=== PATIENT | female | born 1945 | race Caucasian/White ===

== ENCOUNTER → 2016-07-18 | Outpatient (CLI) | payer MEDICARE, OTHER ==
[~2016-07-18] MED LIST: DOXYCYCLINE HYCLATE 100 MG/10 ML VIAL As Ordered ONE; HYDR-3713 PO; ISOVUE-300 61% 50ML VIAL (Q9967) As Ordered ONE; LIDOCAINE 2% MDV 20 ML VIAL As Ordered ONE; LIDOCAINE W/EPINEPHRINE 1% 20ML VIAL As Ordered ONE; SODIUM BICARBONATE 8.4% INJ 50MEQ 50 ML VIAL As Ordered ONE
--- NOTE | 2016-07-18 18:10 | REPKIM ---
CLINICAL HISTORY: Patient with a history of polycystic changes to the liver presents with symptomatic painful right hepatic cyst(s). Patient presents for the hepatic cyst(s) diagnostic aspiration possible intervention. PROCEDURE PERFORMED: 1. Ultrasound of the liver 2. Large complex right hepatic cyst drainage catheter placement, sinogram and sclerotherapy INTERVENTIONALIST: Home Bond MD CONSENT: The risks, benefits and alternatives to the procedure were explained to the patient and informed written consent was obtained. MEDICATIONS: Local Lidocaine 2%, Doxycycline for sclerotherapy CONTRAST: 30 mL Isovue 300 EBL: 1 mL FLUORO TIME: 2.2 minutes DEVICE USED: 8.5F Resolve Catheter PROCEDURE: The patient was brought to the interventional radiology suite where a timeout procedure was performed. The patient was placed in the supine position. The abdomen was prepped and draped in a usual sterile fashion. Ultrasound showed multiple hepatic cysts. There is a large complex right hepatic cyst measuring approximately 11-12 cm corresponding to the patients abdominal pain/ discomfort. Using ultrasound guidance, an 18-gauge gauge singlewall needle was introduced into the targeted complex right hepatic cyst, after infiltration of the skin and deep tissues with local anesthetic. Initial aspirate revealed chocolate color fluid. A sample of the fluid was sent for laboratory analysis. Contrast was injected and DSA images were obtained. This showed the cyst cavity is loculated with no evidence of leak or communication with the adjacent structure. Using this access, an 8.5 Maori Resolve catheter was introduced. Its distal loop was formed in the cystic cavity. The catheter was secured using the Revolution device. A total of approximately 630 mL of fluid was removed. The drainage catheter was then irrigated with saline/local lidocaine and aspirated out. Doxycycline 200 mg mixed in 30 mL saline concentration was then instilled into the cavity for 15-20 minutes. It was then aspirated out. The drainage catheter was flushed and connected to a gravity drainage bag. The patient tolerated the procedure well with no immediate complications. This procedure was performed using ultrasound and fluoroscopy. Dr. Bond was present. IMPRESSION: Symptomatic large right hepatic complex cyst. Initial aspirate revealed chocolate color fluid suggestive of hemorrhagic cyst. Successful hepatic cyst drainage catheter placement, aspiration and sclerotherapy as discussed above. A sample of the fluid sent for c/s and cytology. PLAN: The plan is for the patient to return to IR in next week for a follow up sinogram, possible catheter removal or intervention. Patient was instructed to record daily drainage output. cc: MD PEE GardinerD
== END | disposition home or self-care (01) ==
LOC: M IRPRO 12:56
PROVIDERS: ATTEND Internal Medicine Nephrology
DX: K76.89 Other specified diseases of liver (principal)
CPT/HCPCS: 49405; 87070; 87075; 87205; 88108; 88313; C1729; C1769; Q9967

== ENCOUNTER → 2016-07-25 | Outpatient (CLI) | payer MEDICARE, OTHER ==
[~2016-07-25] MED LIST changes: -DOXYCYCLINE HYCLATE 100 MG/10 ML VIAL As Ordered ONE; +ETHANOL ALCOHOL 98% INJ 5ML (DEHYDRATED) As Ordered ONE; -LIDOCAINE W/EPINEPHRINE 1% 20ML VIAL As Ordered ONE
--- NOTE | 2016-07-25 17:34 | REPKIM ---
HISTORY: Large symptomatic hepatic cyst on the right. On last encounter an 8.5F drainage catheter placed into the right hepatic cyst and sclerotherapy using Doxycycline performed on 07/18/16. The fluid sample cytology and culture were negative. The patient presents for a follow up hepatic drainage catheter check possible 2nd session sclerotherapy/catheter removal. Patient reports decreased daily drainage outputs, approximately 10-30 mL/day. PROCEDURE: Hepatic Cyst Drainage Catheter Check and Catheter Removal INTERVENTIONALIST: Dr. Home Bond MEDICATIONS: Local lidocaine, Fentanyl 50 mcg IV CONTRAST: 22 mL Isovue 300 EBL: 1mL FLUORO TIME: 7.5 minutes PROCEDURE DETAILS: After appropriate consent was obtained and time out performed , the patient was placed in supine position on the angiographic table. The existing right hepatic cyst drainage catheter was prepped and draped in the usual sterile manner. Contrast was administered through the existing 8.3-Upper Sorbian drainage catheter and images were obtained. This showed the catheter is patent. This also showed a residual cavity of approximately 40 mL volume. The cavity was then irrigated with lidocainhe/saline and aspirated out. A small amount of Absolute alcohol 8 mL was then instilled for additional sclerotherapy, however patient did not tolerate due to pain and discomfort. Therefore the cavity content was aspirated out. After the cavity was irrigated with saline and aspirated out, the existing drainage catheter was then unlocked and removed in its entirety. A sterile dressing was applied. This procedure was performed using fluoroscopy. IMPRESSION: S/P large symptomatic right hepatic cyst drainage catheter check and catheter removal as discussed above. Dr. Bond was present for the entire procedure as documented in the progress notes. cc: MD DILCIA Gardiner
== END | disposition home or self-care (01) ==
LOC: M IRPRO 10:44
DX: K76.89 Other specified diseases of liver (principal)
CPT/HCPCS: 49185; C1769; C1887; Q9967

== ENCOUNTER → 2016-08-05 | Outpatient (CLI) | payer MEDICARE, OTHER ==
[~2016-08-05] MED LIST changes: -ETHANOL ALCOHOL 98% INJ 5ML (DEHYDRATED) As Ordered ONE; -ISOVUE-300 61% 50ML VIAL (Q9967) As Ordered ONE; -LIDOCAINE 2% MDV 20 ML VIAL As Ordered ONE; -SODIUM BICARBONATE 8.4% INJ 50MEQ 50 ML VIAL As Ordered ONE
--- NOTE | 2016-08-05 10:29 | REP ---
Linear densities are present in the left lower lobe consistent with scar. The right lung is clear. The heart is normal in size. The pulmonary vasculature is normal in appearance. The bony structure is intact. Impression left lower lobe scar. Signed by Song Iglesias MD 08/05/2016 10:21 A
== END ==
LOC: M ADAMS 09:05
PROVIDERS: ATTEND Family Medicine
DX: R05 Cough (principal); J98.4 Other disorders of lung; R60.9 Edema, unspecified; Z72.0 Tobacco use; Z23 Encounter for immunization; Z79.82 Long term (current) use of aspirin; Z79.899 Other long term (current) drug therapy

== ENCOUNTER → 2016-08-05 | Outpatient (REF) | payer MEDICARE, OTHER ==
[2016-08-05 12:40] LABS: ALBUMIN 3.3 GM/DL (3.2-5.2); ALBUMIN/GLOBULIN RATIO 1.1 (1.00-1.93); BILIRUBIN,TOTAL 0.5 MG/DL (0.2-1.0); CALCIUM LEVEL 9.3 MG/DL (8.8-10.2); CREATININE FOR GFR 1.59 MG/DL (0.55-1.02); TOTAL PROTEIN 6.3 GM/DL (6.4-8.2)
== END ==
LOC: M SFHCADAM 08:59
PROVIDERS: ATTEND Family Medicine
DX: R60.9 Edema, unspecified (principal)

== ENCOUNTER 2016-12-09 14:45 | Emergency (ER) | payer MEDICARE, OTHER ==
[~2016-12-09] VITALS: Ht 160 cm; Wt 72.6 kg
[2016-12-09] MEDS ORDERED: POTA10CA (15:17)
[2016-12-09] MEDS ORDERED: IRBE150T12 (15:17)
[2016-12-09] MEDS ORDERED: FURO40TA2 (15:17)
[2016-12-09] MEDS ORDERED: ASPI81CH32 PO (15:17)
[2016-12-09] MEDS ORDERED: CALC1CAP31 (15:17)
[2016-12-09] MEDS ORDERED: ATOR1TAB21 (15:17)
--- NOTE | 2016-12-09 19:30 | REPUSA ---
HISTORY: HEADACHE. TECHNIQUE: Axial CT of head without contrast. DLP= 835.1 mGy-cm. FINDINGS: Ventricles and sulci are of normal size for this age group. Tapia-white matter differentiati on is intact. There is no evidence of intracranial mass, mass effect, hemorrhage, or cystic lesion id entified. There is no detectable evidence of infarct. No bony lesions are seen in the calvarium or sk ull base. Paranasal sinuses and mastoid sinuses are clear. IMPRESSION: Negative noncontrast head CT examination.
[2016-12-09 19:43] VITALS: BP 138/77
== END 2016-12-09 19:46 | disposition home or self-care (01) ==
LOC: M ED 14:45
DX: R51 Headache (principal); Z72.0 Tobacco use

== ENCOUNTER → 2016-12-19 | Outpatient (CLI) | payer MEDICARE, OTHER ==
[~2016-12-19] MED LIST changes: +ASPI81CH32 PO; +ATOR1TAB21; +CALC1CAP31; +FURO40TA2; +IRBE150T12; +POTA10CA
--- NOTE | 2016-12-19 17:11 | REP ---
CT abdomen pelvis without IV or bowel contrast: Comparison is 09/01/2014. The visualized lung aggarwal are unremarkable. There are numerous hepatic cysts involving both right and left lobes similar to the prior study. The largest cyst is inferiorly in the right lobe today measuring 9.3 cm (previously 12.1 cm. Some of the cysts contain rim calcifications. This is unchanged. Because of the cysts in the liver appears enlarged. The gallbladder cannot be identified as a distinct structure. The left lobe of the liver is significantly enlarged. This is unchanged. The pancreas and spleen are normal size and unremarkable. The adrenals are unremarkable. There is bilateral renal cortical atrophy, worse on the left. The abdominal aorta is unremarkable. There is no retroperitoneal adenopathy. There is no ascites. There is no bowel distension. Pelvis: There is no ascites or adenopathy. There is sigmoid diverticulosis without diverticulitis. This is unchanged. Impression: Numerous hepatic cysts as described. There is hepatomegaly , particularly the hepatic left lobe. Renal cortical atrophy, worse on the left. No ascites or adenopathy. Diverticulosis without diverticulitis. Signed by Lorenzo Cox MD 12/19/2016 05:03 P
== END ==
LOC: M RAD 15:07
PROVIDERS: ATTEND Internal Medicine Nephrology
DX: Q44.6 Cystic disease of liver (principal); R16.0 Hepatomegaly, not elsewhere classified; K57.30 Diverticulosis of large intestine without perforation or abscess without bleeding

== ENCOUNTER → 2017-02-23 | Outpatient (REF) | payer MEDICARE, OTHER ==
[2017-02-23 12:13] LABS: CREATININE FOR GFR 1.97 MG/DL (0.55-1.02); GLOMERULAR FILTRATION RATE 26.5 (>39)
== END ==
LOC: M LABDRAW1 11:13
PROVIDERS: ATTEND Physical Medicine & Rehabilitation
DX: Z01.812 Encounter for preprocedural laboratory examination (principal); M48.062 Spinal stenosis, lumbar region with neurogenic claudication

== ENCOUNTER 2017-04-14 08:38 | Day surgery (SDC) | payer MEDICARE, OTHER ==
[~2017-04-14] VITALS: Ht 157.5 cm; Wt 72.0 kg
[~2017-04-14 08:38] MED LIST changes: -ATOR1TAB21; +ATOR1TAB21 PO; -CALC1CAP31; +CALC1CAP31 PO; -FURO40TA2; +FURO40TA2 PO; -IRBE150T12; +IRBE150T12 PO; -POTA10CA; +POTA10CA PO
[2017-04-14] MEDS ORDERED: LR 1,000 ML IV ONE (09:00)
[2017-04-14] MEDS ORDERED: LIDOCAINE 2% INJ 100 MG/5 ML SDV (FOR ANES.) As Ordered ONE (10:07)
[2017-04-14] MEDS ORDERED: ROCURONIUM BROMIDE 50 MG/5 ML VIAL As Ordered ONE (10:07)
[2017-04-14] MEDS ORDERED: fentaNYL 100 MCG/2 ML INJECTION (J3010) As Ordered ONE ×2 (10:07→11:23)
[2017-04-14] MEDS ORDERED: PROPOFOL 200 MG/20 ML VIAL As Ordered ONE (10:07)
[2017-04-14] MEDS ORDERED: MIDAZOLAM INJ 2 MG/2 ML VIAL (J2250) As Ordered ONE (10:08)
[2017-04-14] MEDS ORDERED: BUPIVACAINE/EPIN 0.5% 30 ML VIAL As Ordered ONE (10:19)
[2017-04-14] MEDS ORDERED: PHENYLephrine HCL 500 MCG/5 ML (100MCG/ML) SYRINGE (J2370) As Ordered ONE (11:15)
[2017-04-14] MEDS ORDERED: ePHEDrine SULFATE 25 MG/5 ML(5MG/ML) SYRINGE As Ordered ONE (11:18)
[2017-04-14] MEDS ORDERED: NEOSTIGMINE 10 MG/10 ML VIAL (J2710) As Ordered ONE (11:24)
[2017-04-14] MEDS ORDERED: GLYCOPYRROLATE INJ 0.2 MG/ML 2 ML VIAL As Ordered ONE (11:24)
[2017-04-14] MEDS ORDERED: ONDANSETRON 4MG/2ML VIAL (J2405) As Ordered ONE (11:24)
[2017-04-14] MEDS ORDERED: HYDROmorphone HCL 1 MG/ML SYRINGE (J1170) IV PRN (12:30)
[2017-04-14] MEDS ORDERED: LR 1,000 ML IV SCH (12:30)
[2017-04-14] MEDS ORDERED: fentaNYL 100 MCG/2 ML INJECTION (J3010) IV PRN (12:30)
[2017-04-14] MEDS ORDERED: ONDANSETRON 4MG/2ML VIAL (J2405) IV PRN (12:30)
[2017-04-14] MEDS ORDERED: PERCOCET 5MG/325MG TAB PO PRN (12:30)
[2017-04-14 13:05] VITALS: BP 134/63
--- NOTE | 2017-04-17 08:10 | RO ---
DATE OF PROCEDURE: 04/14/2017 PREOPERATIVE DIAGNOSIS: Polycystic liver disease. POSTOPERATIVE DIAGNOSIS: Polycystic liver disease. PROCEDURE: Laparoscopic liver biopsy with unroofing of three of the largest hepatic cysts. SURGEON: Dr. Siddiqui. ASSISTANTS: None. ANESTHESIA: General. ESTIMATED BLOOD LOSS: 5. COMPLICATIONS: None. INDICATION FOR PROCEDURE: The patient is a 71-year-old female who presents with a history of polycystic liver disease. She has had multiple drainages done of two large cysts every 6 months for the past 3 years. Every time the cyst refills with fluid, she develops excruciating pain. She was referred to me for unroofing of the cyst to see if we can prevent this from recurring. Recommendation was to proceed with laparoscopic unroofing of this large hepatic cyst. Risks and benefits of the procedure, not limited to but including bleeding, infection, hernia formation, damage to surrounding structures and possible need for further drainage were discussed in detail with the patient. Informed consent was obtained and the procedure was planned. DESCRIPTION OF PROCEDURE: The patient was brought back to operating room #3. After sufficient sedation, the abdomen was sterilely prepped and draped. Next, time out was done to confirm proper patient and proper procedure. Following that, a 5 mm incision was made in the left lower quadrant. Veress needle was inserted and the abdomen was insufflated to 50 mmHg. Next, Veress needle was removed. A 5 mm OptiView port was used to gain access to the abdomen. Once the abdomen was entered, two more 5 mm ports were placed, one supraumbilically in the midline and one in the right midabdomen. The entire liver was examined. CT scan was brought up on the screen and images were compared. Due to the extensive small cysts in the study along the entire surface of the liver, it was difficult to determine the exact location of the largest of the cysts. Using Enseal, I was able to take down adhesions from the hepatic flexure of the colon to the right lateral lobe of the liver. I was assuming that these adhesions were likely due to scarring from the previous biopsy location. Most of the adhesions were all taken down. The liver was poked in the in that same spot using a needle and fluid was obtained. Next, the Enseal was used to carefully unroof an area about 3 x 3 cm and all the fluid was removed. However, it did not seem that this was the large 10 cm cyst that was seen on the CT scan. Once this was completed, two other cysts were found anteriorly on the top of the liver, again both of them seemed much smaller than what were visualized on the CT scan. It was difficult to determine if these were the exact same location or not. With the fear of causing harm, we stopped at this point with just unroofing of those three locations. The patient tolerated the procedure well. Ports were removed. Abdomen was desufflated. Skin incision was closed #4-0 Vicryl subcuticular sutures, skin was cleaned and dried. Steri-Strips, 4x4 and tape were applied, thus ending procedure.
== END 2017-04-14 13:02 | disposition home or self-care (01) ==
LOC: M SDC 08:38
PROVIDERS: ATTEND Surgery
DX: Q44.6 Cystic disease of liver (principal); E78.00 Pure hypercholesterolemia, unspecified; R29.898 Other symptoms and signs involving the musculoskeletal system; M16.12 Unilateral primary osteoarthritis, left hip; M81.0 Age-related osteoporosis without current pathological fracture; N18.3 Chronic kidney disease, stage 3 (moderate); I12.9 Hypertensive chronic kidney disease with stage 1 through stage 4 chronic kidney disease, or unspecified chronic kidney disease; Z79.899 Other long term (current) drug therapy; Z79.82 Long term (current) use of aspirin; Z90.710 Acquired absence of both cervix and uterus; Z78.0 Asymptomatic menopausal state; Z72.0 Tobacco use; Z85.41 Personal history of malignant neoplasm of cervix uteri
CPT/HCPCS: 49322; 88108; 88305; 88313; J0690; J2250; J2370; J2405; J2710; J3010

== ENCOUNTER 2017-07-02 10:36 | Emergency (ER) | payer MEDICARE, OTHER ==
[2017-07-02] MEDS: ACETAMINOPHEN 325 MG TAB PO (11:28)
[2017-07-02] MEDS: DERMABOND TOPICAL SKIN ADHESIVE TOP (13:00)
== END 2017-07-02 14:08 | disposition home or self-care (01) ==
LOC: M ED 10:36
DX: S01.81XA Laceration without foreign body of other part of head, initial encounter (principal); W19.XXXA Unspecified fall, initial encounter; Y92.098 Other place in other non-institutional residence as the place of occurrence of the external cause; E78.5 Hyperlipidemia, unspecified; N18.3 Chronic kidney disease, stage 3 (moderate); I50.9 Heart failure, unspecified; Z85.41 Personal history of malignant neoplasm of cervix uteri; F17.210 Nicotine dependence, cigarettes, uncomplicated; Z79.899 Other long term (current) drug therapy; Z79.82 Long term (current) use of aspirin
CPT/HCPCS: 73030

== ENCOUNTER 2017-07-06 05:53 | Day surgery (SDC) | payer MEDICARE, OTHER ==
[2017-07-06] MEDS ORDERED: LIDOCAINE 1% MDV 20ML VIAL SQ (06:00)
[2017-07-06] MEDS: LIDOCAINE 2% MDV 20 ML VIAL As Ordered (06:31)
[2017-07-06] MEDS: PHENYLEPHRINE 2.5% OPHTH SOL 2ML OD (06:38)
[2017-07-06] MEDS: TROPICAMIDE 1% OPHTH SOLN 2ML OD (06:38)
[2017-07-06] MEDS: OFLOXACIN 0.3 % (OCUFLOX) OPTH SOL 5ML OD (06:38)
[2017-07-06] MEDS: PROPARACAINE 0.5% OPHTH SOL 15ML OD (06:38)
[2017-07-06] MEDS ORDERED: MIDAZOLAM INJ 2 MG/2 ML VIAL (J2250) As Ordered (07:02)
[2017-07-06] MEDS ORDERED: fentaNYL 100 MCG/2 ML INJECTION (J3010) As Ordered (07:02)
[2017-07-06] MEDS: BALANCED SALT IRRIGATION SOLUTION 500ML BAG (FOR OR EYE MACHINE) As Ordered (07:40)
[2017-07-06] MEDS: POVIDONE-IODINE 5% OPHTH PREP SOL 30ML As Ordered (07:40)
[2017-07-06] MEDS: LIDOCAINE 0.75%/EPINEPHRINE 0.025% IN BSS 1ML SYR INTRACAMERAL (OR ONLY) As Ordered (07:41)
[2017-07-06] MEDS: DUOVISC (0.50ML VISCOAT/0.55ML PROVISC) OPHTH KIT As Ordered (07:41)
[2017-07-06] MEDS: CEFUROXIME 1MG/0.1ML INTRACAMERAL INJ As Ordered (07:41)
== END 2017-07-06 08:13 | disposition home or self-care (01) ==
LOC: M SDC 05:53
DX: H25.11 Age-related nuclear cataract, right eye (principal); I10 Essential (primary) hypertension; E78.5 Hyperlipidemia, unspecified; F17.210 Nicotine dependence, cigarettes, uncomplicated; Z79.899 Other long term (current) drug therapy; N18.3 Chronic kidney disease, stage 3 (moderate)
CPT/HCPCS: 66984

== ENCOUNTER 2017-07-13 06:58 | Day surgery (SDC) | payer MEDICARE, OTHER ==
[2017-07-13] MEDS: PROPARACAINE 0.5% OPHTH SOL 15ML OS (07:49)
[2017-07-13] MEDS: TROPICAMIDE 1% OPHTH SOLN 2ML OS (07:49)
[2017-07-13] MEDS: PHENYLEPHRINE 2.5% OPHTH SOL 2ML OS (07:49)
[2017-07-13] MEDS: OFLOXACIN 0.3 % (OCUFLOX) OPTH SOL 5ML OS (07:49)
[2017-07-13] MEDS ORDERED: MIDAZOLAM INJ 2 MG/2 ML VIAL (J2250) As Ordered (08:19)
[2017-07-13] MEDS ORDERED: fentaNYL 100 MCG/2 ML INJECTION (J3010) As Ordered (08:19)
[2017-07-13] MEDS: ACETYLCHOLINE OPHTH SOLN 1% 2ML (MIOCHOL-E) As Ordered ×2 (08:55→09:19)
[2017-07-13] MEDS: BALANCED SALT IRRIGATION SOLUTION 500ML BAG (FOR OR EYE MACHINE) As Ordered (08:55)
[2017-07-13] MEDS: POVIDONE-IODINE 5% OPHTH PREP SOL 30ML As Ordered (08:55)
[2017-07-13] MEDS: LIDOCAINE 0.75%/EPINEPHRINE 0.025% IN BSS 1ML SYR INTRACAMERAL (OR ONLY) As Ordered (08:55)
[2017-07-13] MEDS: DUOVISC (0.50ML VISCOAT/0.55ML PROVISC) OPHTH KIT As Ordered (08:55)
[2017-07-13] MEDS: CEFUROXIME 1MG/0.1ML INTRACAMERAL INJ As Ordered (08:55)
== END 2017-07-13 09:53 | disposition home or self-care (01) ==
LOC: M SDC 06:58
DX: H25.12 Age-related nuclear cataract, left eye (principal); I10 Essential (primary) hypertension; I48.91 Unspecified atrial fibrillation; E78.5 Hyperlipidemia, unspecified; N18.3 Chronic kidney disease, stage 3 (moderate); F17.210 Nicotine dependence, cigarettes, uncomplicated; Z79.82 Long term (current) use of aspirin; Z79.899 Other long term (current) drug therapy
CPT/HCPCS: 66984

== ENCOUNTER 2018-02-28 20:46 | Emergency (ER) | payer MEDICARE, OTHER ==
[2018-02-28] MEDS: traMADol 50 MG TAB PO (23:00)
[2018-02-28] MEDS: NORCO 5/325MG TABLET (BULK FOR ED) PO (23:55)
== END 2018-03-01 00:02 | disposition home or self-care (01) ==
LOC: M ED 03-01 00:02
DX: S52.532A Colles' fracture of left radius, initial encounter for closed fracture (principal); X58.XXXA Exposure to other specified factors, initial encounter; Y92.099 Unspecified place in other non-institutional residence as the place of occurrence of the external cause; Y93.89 Activity, other specified; Y99.9 Unspecified external cause status; I10 Essential (primary) hypertension; E78.5 Hyperlipidemia, unspecified; Z79.82 Long term (current) use of aspirin; Z79.899 Other long term (current) drug therapy
CPT/HCPCS: 73110

== ENCOUNTER 2018-11-21 08:44 | Emergency (ER) | payer MEDICARE, OTHER ==
[~2018-11-21] VITALS: Ht 157.5 cm; Wt 70.5 kg
[~2018-11-21 08:44] MED LIST changes: -ASPI81CH32 PO; +ASPI81CH33 PO; +KLOR10TA76 PO; -POTA10CA PO
[2018-11-21] MEDS ORDERED: ACET-841 PO (08:51)
--- NOTE | 2018-11-21 09:38 | REP ---
Left hip two views: There is demineralization. There is no fracture or dislocation. There are no calcifications or foreign bodies except for calcified vascular atheroma. Impression: Demineralization. No fracture or dislocation. Electronically Signed by Lorenzo Cox MD 11/21/2018 09:29 A
--- NOTE | 2018-11-21 09:40 | REP ---
AP pelvis: There is demineralization. There is joint space narrowing of the right hip compatible with osteoarthritis. Left hip is unremarkable. Sacroiliac articulations are unremarkable. There is calcified vascular atheroma. There are calcifications inferiorly in the pelvis, likely phleboliths. Impression: No fracture. Demineralization. Right hip osteoarthritis. Pelvic calcifications, likely phleboliths. Electronically Signed by Lorenzo Cox MD 11/21/2018 09:31 A
--- NOTE | 2018-11-21 10:28 | REP ---
CT lumbar spine without contrast: History: Pain in the left buttock. Comparison is made with MRI images of the lumbar spine from February 27, 2017. Also available are images obtained as part of the CT study of the abdomen and pelvis from December 19, 2016. CT findings: Incidental note is made of numerous small and large cysts throughout the visualized portion of the liver. Several of these have calcified margins. Some of these calcifications are visible on the costume specialist image. These are unchanged from the comparison CT study December 19, 2016. Atrophic left kidney and to some degree right kidney are seen. No renal cysts. There is focal small distal abdominal aortic aneurysm 2.8 cm in greatest diameter. This appears to be unchanged. Lumbar vertebral body heights are preserved. Alignment is normal. No fracture or collapse is seen. There is a minimal dextroconvex curvature in the lumbar spine. No bony destructive lesion is seen. There is no evidence of spondylolysis or spondylolisthesis. At L5-S1, there is diffuse disc bulging and mild facet hypertrophy. Minimal neural foraminal narrowing again noted on the right. No left bony neural foraminal encroachment. At L4-5, there is mild degenerative disc narrowing and diffuse disc bulging. This effaces the ventral margin of the thecal sac. Canal size at L4-5 is borderline. There is mild facet and ligamentum flavum hypertrophy. At L3-4, there is no evidence of focal disc protrusion. There is mild diffuse disc bulging. Foraminal disc segment bulging is also seen although nerve roots appear to be surrounded circumferentially by epidural fat. At L2-L3, there is minimal diffuse disc bulging. No central canal stenosis or foraminal narrowing is seen. The L1-2 disc level is unremarkable. Impression: Findings appear to be unchanged from the February 27, 2017 prior MRI study. There are degenerative spondylosis changes at L2-3 through L5-S1. Borderline canal size is seen at L4-5. Minimal right-sided foraminal narrowing is seen at L5-S1. No new disc protrusion is evident. Numerous hepatic cysts some of which have calcified vazquez. Electronically Signed by Daljit Yung MD 11/21/2018 10:44 A
[2018-11-21] MEDS ORDERED: NORC1TAB7 PO (10:45)
[2018-11-21 10:56] VITALS: BP 135/86
== END 2018-11-21 10:57 | disposition home or self-care (01) ==
LOC: M ED 08:44
DX: M79.18 Myalgia, other site (principal); I10 Essential (primary) hypertension; M47.816 Spondylosis without myelopathy or radiculopathy, lumbar region; M47.817 Spondylosis without myelopathy or radiculopathy, lumbosacral region; M48.07 Spinal stenosis, lumbosacral region; K76.89 Other specified diseases of liver; M85.852 Other specified disorders of bone density and structure, left thigh; M16.11 Unilateral primary osteoarthritis, right hip; R93.5 Abnormal findings on diagnostic imaging of other abdominal regions, including retroperitoneum; E78.5 Hyperlipidemia, unspecified; N18.3 Chronic kidney disease, stage 3 (moderate); M81.0 Age-related osteoporosis without current pathological fracture; Z79.82 Long term (current) use of aspirin; Z79.899 Other long term (current) drug therapy

== ENCOUNTER 2018-12-15 08:33 | Emergency (ER) | payer MEDICARE, OTHER ==
[~2018-12-15] VITALS: Ht 160 cm; Wt 70.5 kg
[~2018-12-15 08:33] MED LIST changes: +ACET-841 PO; +NORC1TAB7 PO
[2018-12-15] MEDS ORDERED: diazePAM 5 MG TAB PO ONE (10:00)
[2018-12-15] MEDS ORDERED: predniSONE 20 MG TAB PO ONE (10:00)
[2018-12-15] MEDS ORDERED: NORCO, ANEXSIA 5/325MG TABLET (HYDROcodone/ACETAMINOPHEN) PO ONE (10:45)
[2018-12-15 10:49] VITALS: BP 136/76
[2018-12-15] MEDS ORDERED: NORC1TAB7 PO (11:06)
== END 2018-12-15 11:14 | disposition home or self-care (01) ==
LOC: EDBD 08:33 → M ED 08:33
DX: M54.5 Low back pain (principal); I12.9 Hypertensive chronic kidney disease with stage 1 through stage 4 chronic kidney disease, or unspecified chronic kidney disease; N18.9 Chronic kidney disease, unspecified; E78.5 Hyperlipidemia, unspecified; I71.4 Abdominal aortic aneurysm, without rupture; Z79.82 Long term (current) use of aspirin; F17.210 Nicotine dependence, cigarettes, uncomplicated

== ENCOUNTER → 2018-12-20 | Outpatient (REF) | payer MEDICARE, OTHER ==
[~2018-12-20] MED LIST changes: +ACET-897 PO; +AMLO10TA5 PO; +ASPI-161 PO; +ASPI81CH8 PO; +BIOTLIQ3 MT; +CALA180T PO; +CYMB1CAP5 PO; +D3 H2000 PO; +DOCU100C16 PO; +DOCU100C17 PO; +DULO30CA9 PO; +DULO60CA35 PO; +ECOT81TA5 PO; +FAMO20TA PO; +FLOM0.4C39 PO; +HYDR-3713; +HYDR10TAB PO; +LABE10TAB PO; +MECL-86 PO; +MIRA3350 PO; +MIRT1TAB16 PO; +MOM30SS2 PO; +PEG1POW PO; +PERC5TAB12 PO; +PERCOCET PO; +REME15TA2 PO; +SENN8.6T58 PO; +TIZA4TAB4 PO; +TRAM50TA2; +TRAM50TA2 PO; +VERA12TASA PO; +VERA180T3 PO
[2018-12-20 16:09] LABS: CREATININE FOR GFR 1.5 MG/DL (0.55-1.30)
== END ==
LOC: M LABDRAW1 14:21
PROVIDERS: ATTEND Physician Assistant
DX: S32.10XA Unspecified fracture of sacrum, initial encounter for closed fracture (principal); W18.30XA Fall on same level, unspecified, initial encounter; Y92.009 Unspecified place in unspecified non-institutional (private) residence as the place of occurrence of the external cause

== ENCOUNTER → 2018-12-25 | Outpatient (REF) | payer MEDICARE, OTHER ==
[~2018-12-25] MED LIST changes: -ACET-897 PO; -AMLO10TA5 PO; -ASPI-161 PO; -ASPI81CH8 PO; -BIOTLIQ3 MT; -CALA180T PO; -CYMB1CAP5 PO; -D3 H2000 PO; -DOCU100C16 PO; -DOCU100C17 PO; -DULO30CA9 PO; -DULO60CA35 PO; -ECOT81TA5 PO; -FAMO20TA PO; -FLOM0.4C39 PO; -HYDR-3713; -HYDR10TAB PO; -LABE10TAB PO; -MECL-86 PO; -MIRA3350 PO; -MIRT1TAB16 PO; -MOM30SS2 PO; -PEG1POW PO; -PERC5TAB12 PO; -PERCOCET PO; -REME15TA2 PO; -SENN8.6T58 PO; -TIZA4TAB4 PO; -TRAM50TA2; -TRAM50TA2 PO; -VERA12TASA PO; -VERA180T3 PO
[2018-12-25 16:11] LABS: BASO % 0.3 % (0.0-1.0); EOS # 0.1 10^3/uL (0.0-0.50); EOS % 1.6 % (0.0-3.0); HEMATOCRIT 33.8 % (36.0-47.0); HEMOGLOBIN 10.7 g/dl (12.0-15.5); LYMPH # 1.5 10^3/uL (1.5-4.5); MEAN CORPUSCULAR HGB CONC 31.7 g/dl (32.0-36.5); MEAN CORPUSCULAR VOLUME 104.3 fl (80.0-96.0); MONO # 0.6 10^3/uL (0.0-0.8); MONO % 8.3 % (0.0-5.0); NEUTROPHILS # 4.5 10^3/uL (1.8-7.7); NEUTROPHILS % 67.4 % (36.0-66.0); PLATELET COUNT, AUTOMATED 304 10^3/uL (150-450); RED BLOOD COUNT 3.24 10^6/uL (4.00-5.40); WHITE BLOOD COUNT 6.7 10^3/uL (4.0-10.0)
== END ==
LOC: M LABDRAW1 15:41
PROVIDERS: ATTEND Physician Assistant
DX: M16.12 Unilateral primary osteoarthritis, left hip (principal); S52.592D Other fractures of lower end of left radius, subsequent encounter for closed fracture with routine healing; S32.10XA Unspecified fracture of sacrum, initial encounter for closed fracture; Y92.9 Unspecified place or not applicable; Y93.9 Activity, unspecified

== ENCOUNTER 2019-01-05 14:31 | Emergency (ER) | payer MEDICARE, OTHER ==
[~2019-01-05] VITALS: Ht 160 cm; Wt 70.5 kg
[2019-01-05] MEDS ORDERED: TRAM50TA2 (14:54)
[2019-01-05] MEDS ORDERED: D3 H2000 PO (14:54)
[2019-01-05] MEDS ORDERED: CALC1CAP31 PO (14:54)
[2019-01-05] MEDS ORDERED: HYDR-3713 (14:54)
[2019-01-05] MEDS ORDERED: diazePAM 2 MG TAB PO ONE (16:45)
[2019-01-05] MEDS ORDERED: traMADol 50 MG TAB PO ONE (16:45)
[2019-01-05] MEDS ORDERED: TRAM50TA2 PO (16:47)
[2019-01-05 17:20] VITALS: BP 148/86
== END 2019-01-05 17:22 | disposition home or self-care (01) ==
LOC: M ED 14:31 → EDBD 14:31 → M ED 17:22
DX: G89.29 Other chronic pain (principal); M54.5 Low back pain; I25.10 Atherosclerotic heart disease of native coronary artery without angina pectoris; Z79.899 Other long term (current) drug therapy; Z79.82 Long term (current) use of aspirin; F17.210 Nicotine dependence, cigarettes, uncomplicated

== ENCOUNTER 2019-01-11 11:36 | Inpatient (IN) | payer MEDICARE, OTHER ==
[~2019-01-11] VITALS: Ht 160 cm; Wt 70.5 kg
[~2019-01-11 11:36] MED LIST changes: +D3 H2000 PO; +HYDR-3713; +TRAM50TA2; +TRAM50TA2 PO
[2019-01-11 14:54] VITALS: BP 180/82
--- NOTE | 2019-01-11 15:18 | HPEPDOC ---
Filler Wiper Note DATE OF ADMISSION: 01/11/19 SOURCE OF ADMISSION INFORMATION: [facility] records and patient CHIEF COMPLAINT: T12-L1 compression fractures HISTORY OF PRESENT ILLNESS: 73F pmh osteoporosis, OA, CKD4, benign PVCs, HLD, HTN presented to [facility] 01/07/19 with worsening back pain without radiation without incontinence or saddle region anesthesia. Lumbar spine showed MRI showed, Subacute fractures involving the T12 and L1 vertebral body. Mild 3 mm retropulsion of the L1 vertebral body into the spinal canal without evidence of spinal canal narrowingSacral insufficiency fractures. She was seen by orthopedics who recommended TSLO brace when out of bed and did not believe her fractures to be pathological. She had CANDICE on CKD for which her lasix and ARB was held. In addition she had urinary retention that improved. She was evaluated by therapy, found to have deficits in ADLs and mobility and deemed medically appropriate for discharge to ARU. On arrival patient reports severe pain in her back and poor appetite for 2 weeks. REVIEW OF SYSTEMS: The following is a completed review of systems and has been reviewed. Review of systems otherwise unremarkable. PAIN: Patient self reports back pain EYES: No recent vision changes EARS, NOSE, & THROAT: No throat pain, or dysphagia, or rhinorrhea CARDIOVASCULAR: Denies chest pain or palpitations PULMONARY: Denies shortness of breath, + productive cough GASTROINTESTINAL: Denies constipation/diarrhea GENITOURINARY: denies dysuria (recently resoled retention) MUSCULOSKELETAL: +compression fracture. NEUROLOGICAL:no focal weakness, tremor or seizure activity HEMATOLOGICAL: no anemia. SKIN: intact PSYCHIATRIC: Unremarkable All other review of systems found to be negative. PAST MEDICAL HISTORY: as per HPI PAST SURGICAL HISTORY: Bladder surgery, cervical cancer s/p hysterectomy, heart ablation, cardiac catheterization ALLERGIES: Please see below. MEDICATIONS: Please see below. SOCIAL HISTORY: 1 pack per day smoker up until her admission, denies ETOH, lives with DIET: low sodium PHYSICAL EXAMINATION: VITAL SIGNS: Please see below. GENERAL: Pleasant and cooperative. No acute distress. HEENT: PERRL. Extraocular movements intact. Clear conjunctiva CARDIOVASCULAR: Regular rate and rhythm. No murmurs, rubs, or gallops LUNGS: + scattered rhonchi ABDOMEN: Soft, nontender, nondistended. Positive bowel sounds. Normal active bowel sounds NEUROLOGICAL: Alert and oriented times three, however needed husbands help for recall of recent events. Cranial nerves II through XII grossly intact. Sensation grossly intact in all 4 extremities (-) babinksi bilat, 1+/4 patella reflexes bilat EXTREMITIES: 5\5 strength bilateral upper extremities. >4\5 strength right lower extremity. >4/5 strength in left lower extremity. TTP lumbar spine at T12-L1 SKIN: intact LABORATORY DATA: Please see below. IMAGING:Imaging documentation personally reviewed by record FUNCTIONAL STATUS: Premorbid: Mod-Independent with ambulation househod distances with hand-held assist from , requiring help with some ADLs On Admission: Unable to do [id number], Mod-Max assist for ambulation and lower body dressing, Mod-Max assist for toileting and bathing GOALS: Mod-I with RW household distances, supervision for community distances with a RW, SUpervision for dressing, bathing, Mod-I toileting ASSESSMENT:73-year-old F with past medical history of HTN, osteporosis, CKD who presents status post T12-L1 compresison fractures PLAN: 1.REhab: PT- improve gait endurance, fall recovery, dynamic balance, maintain ROM/stretch.strengthen bilat LE- OT- maintain ROM/stretch.strengthen bilat UE and work on ADL management 2. Neuro: try to avoid delirogenic meds, however will c/u pain medicaiton for now to optimize participation in therapy and attempt to wean -will consider JAVA ENGINEER cognitive evaluation, patient with notable memory impairments on exam and also consider cholinergics -checking thyroid and b12 levels as possible causes for suspected dementia 3. Ortho: osteoporosis with T12 and L1 compression fractures, TLSO brace when OOB, c/u calcitonin- f/u [facility] on discharge 4. CArdiac- HTN, lasix and ARB currently on hold due to CANDICE on CKD, will consult medicine to assist in management, c/u Verapamil 180qHS, optimize pain control for better BP management 5. Resp: current 1ppd smoker with self reported COPD, encourage incentive spirometry, DUonebs TID, monitor for infection, 02 prn goal 88-92% 6. GI ppx: protonix, optimize bowel meds 7. : recent retention, no dysuria now, monitor PVRs 8. Renal: CANDICE on CKD, on d/c from [facility] 1.2, c/u to monitor, will consider renal consult if does not improve with holding of lasix and ARB 8. DVT ppx: heparin and TEDs 9. Pain: standing tylenol, oxycodone 5 mg q4prn, will add Elavil 25 qHS for neuropathic pain, and tizanidine prn for muscle spasms -lidoderm pathc to back qHS 10. Dispo: TBD POST ADMISSION PHYSICIAN EVALUATION: Medical and functional status: Description of medical status, medical assessment: As above. Rehabilitation diagnosis and current and prior cold morbid medical conditions as above. Risk of complications and plans to mitigate them as above. Description of functional status current status is as above. Prior status as above. Status compared to preadmission: There are no clinically significant differences between the patient's current status and the information described on the preadmission screening document. Treatment plan anticipated: Treatment plan is as described above. Required disciplines including physical therapy, occupational therapy, others as noted above. Intensity of services: 3 hours a day, 6 days a week. Special considerations: There are no specific special or safety considerations that would likely preclude immediate implementation of an intensive rehabilitation program or subsequently influence the plan of care ATTESTATION: Considering all the information above, it is my best judgment that this patient requires intensive rehabilitation therapy as described above and an inpatient hospital environment due to the complexity of nursing, medical, and rehabilitation needs required by the patient. Furthermore, this patient can reasonably be expected to participate in an benefit from an inpatient rehabilitation stay with an interdisciplinary team approach to the delivery of rehabilitation care under the direction and supervision of rehabilitation physician PROGNOSIS: Excellent ESTIMATED LENGTH OF STAY:14-16 days. PROJECTED DISCHARGE DESTINATION: Home with family support and any durable medical equipment required to increase functional safety and mobility. TIME SPENT COUNSELING AND COORDINATING INITIAL CARE: Greater than 70 minutes. Vital Signs Vital Signs Date Time Temp Pulse Resp B/P (MAP) Pulse Ox O2 Delivery O2 Flow Rate FiO2 01/11/19 14:54 97.5 70 16 180/82 (114) 96 Home Medications Scheduled Aspirin (Ecotrin) 81 Mg Tablet.dr, 81 MG PO DAILY, (Reported) Atorvastatin Calcium (Atorvastatin Calcium) 20 Mg Tablet, 20 MG PO DAILY, (Reported) Calcitriol (Calcitriol) 0.25 Mcg Capsule, 0.5 MCG PO DAILY, (Reported) Sennosides (Senna) 8.6 Mg Tablet, 2 TAB PO QHS, (Reported) Verapamil HCl (Calan Sr) 180 Mg Tablet.er, 180 MG PO QHS, (Reported) Scheduled PRN Acetaminophen (Tylenol Extra Strength) 500 Mg Tablet, 1,000 MG PO Q6H PRN for PAIN, (Reported) Docusate Sodium (Docusate Sodium) 100 Mg Capsule, 100 MG PO BID PRN for CONSTIPATION, (Reported) Hydrocodone/Acetaminophen (Hydrocodone-Acetamin 5-325 mg) 1 Each Tablet, 1 TAB PO Q6H PRN for PAIN, (Reported) MDD 4 Polyethylene Glycol 3350 (Miralax) 119 Gm Powder, 17 GM PO DAILY PRN for CONSTIPATION, (Reported) Allergies Coded Allergies: No Known Allergies (Unverified , 01/05/19) A-FIB/CHADSVASC A-FIB History Current/History of A-Fib/PAF?: No SALVADOR DUNN MD Jan 11, 2019 15:18
[2019-01-11] MEDS ORDERED: oxyCODONE 5MG TAB PO PRN (15:30)
[2019-01-11] MEDS ORDERED: DOCU100C17 PO (16:39)
[2019-01-11] MEDS ORDERED: SENN8.6T58 PO (16:39)
[2019-01-11] MEDS ORDERED: MIRA3350 PO (16:39)
[2019-01-11] MEDS ORDERED: HYDR-3713 PO (16:39)
[2019-01-11] MEDS ORDERED: CALC1CAP31 PO (16:39)
[2019-01-11] MEDS ORDERED: ATOR1TAB21 PO (16:39)
[2019-01-11] MEDS ORDERED: CALA180T PO (16:39)
[2019-01-11] MEDS ORDERED: ECOT81TA5 PO (16:39)
[2019-01-11] MEDS ORDERED: ACET-897 PO (16:39)
[2019-01-11] MEDS: ACETAMINOPHEN 500 MG TAB PO SCH ×2 (18:04→22:18)
[2019-01-11] MEDS ORDERED: oxyCODONE 5MG TAB PO ONE (19:15)
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
[2019-01-11] MEDS: IPRATROPIUM 0.5MG/ALBUTEROL 2.5MG INH SOL UD 3ML (DUONEB)(J7620) NEB SCH (19:56)
[2019-01-11] MEDS: SENNA 8.6 MG TAB (SENOKOT) PO SCH (20:41)
[2019-01-11] MEDS: DOCUSATE SODIUM 100 MG CAP PO SCH (20:41)
[2019-01-11] MEDS: AMITRIPTYLINE 25 MG TAB PO SCH (20:42)
[2019-01-11] MEDS: IRBESARTAN 150 MG TAB PO SCH (20:42)
[2019-01-11] MEDS: guaiFENesin 200 MG TAB PO SCH (20:42)
[2019-01-11] MEDS: VERAPAMIL 120 MG SR TAB PO SCH (20:43)
[2019-01-11] MEDS: LIDOCAINE 5% (LIDODERM) PATCH TD SCH (20:43)
[2019-01-11 20:48] VITALS: BP 198/82
[2019-01-11 22:17] VITALS: BP 160/82
[2019-01-12] MEDS: oxyCODONE 5MG TAB PO PRN ×5 (01:08→20:09)
[2019-01-12 05:20] VITALS: BP 188/90
[2019-01-12] MEDS: BISACODYL 10 MG SUPP PR PRN (06:03)
[2019-01-12] MEDS: **hydrALAZINE** 10 MG TAB PO SCH ×3 (06:03→17:35)
[2019-01-12 07:30] VITALS: BP 162/82
[2019-01-12] MEDS: IPRATROPIUM 0.5MG/ALBUTEROL 2.5MG INH SOL UD 3ML (DUONEB)(J7620) NEB SCH ×3 (07:32→17:33)
[2019-01-12 07:52] LABS: BASO % 0.3 % (0.0-1.0); EOS # 0.2 10^3/uL (0.0-0.5); EOS % 1.8 % (0.0-3.0); HEMATOCRIT 41.4 % (36.0-47.0); HEMOGLOBIN 13.5 g/dl (12.0-15.5); LYMPH # 2.8 10^3/uL (1.5-5.0); LYMPH % 28.4 % (24.0-44.0); MEAN CORPUSCULAR HEMOGLOBIN 33.1 pg (27.0-33.0); MEAN CORPUSCULAR HGB CONC 32.6 g/dl (32.0-36.5); MEAN CORPUSCULAR VOLUME 101.5 fl (80.0-96.0); MONO # 0.7 10^3/uL (0.0-0.8); MONO % 7.5 % (0.0-5.0); NEUTROPHILS % 61.6 % (36.0-66.0); PLATELET COUNT, AUTOMATED 393 10^3/uL (150-450); RED BLOOD COUNT 4.08 10^6/uL (4.00-5.40); WHITE BLOOD COUNT 9.7 10^3/uL (4.0-10.0)
[2019-01-12] MEDS: DOCUSATE SODIUM 100 MG CAP PO SCH ×2 (07:53→20:10)
[2019-01-12] MEDS: tiZANidine 4 MG TAB PO PRN ×2 (07:53→21:28)
[2019-01-12] MEDS: guaiFENesin 200 MG TAB PO SCH ×3 (07:53→20:07)
[2019-01-12] MEDS: FUROSEMIDE 40 MG TAB PO SCH (07:53)
[2019-01-12] MEDS: CALCITRIOL 0.25 MCG CAP (S0169) PO SCH (07:54)
[2019-01-12] MEDS: ASPIRIN 81 MG CHEW TABLET PO SCH (07:54)
[2019-01-12] MEDS: ACETAMINOPHEN 500 MG TAB PO SCH ×4 (07:54→21:28)
[2019-01-12] MEDS: PANTOPRAZOLE 40MG TAB (PROTONIX) PO SCH (07:54)
[2019-01-12] MEDS: HEPARIN SOD (PORCINE) 5000 UNITS/ML VIAL SC SCH ×2 (07:57→20:10)
[2019-01-12 08:19] LABS: ALBUMIN 3.2 GM/DL (3.2-5.2); BILIRUBIN,TOTAL 0.6 MG/DL (0.2-1.0); CALCIUM LEVEL 10.3 MG/DL (8.8-10.2); CREATININE FOR GFR 1.51 MG/DL (0.55-1.30); GLOMERULAR FILTRATION RATE 35.8 (>39); TOTAL PROTEIN 7.4 GM/DL (6.4-8.2)
[2019-01-12] MEDS: **NOTE PATIENT COMMENT** MISC XX SCH (09:00)
[2019-01-12 12:54] VITALS: BP 142/82
[2019-01-12 13:16] LABS: FREE T4 2.01 NG/DL (0.76-1.46); THYROID STIMULATING HORMONE 1.63 uIU/ML (0.358-3.740)
[2019-01-12 14:00] VITALS: BP 129/59
[2019-01-12 19:43] VITALS: BP 148/63
[2019-01-12] MEDS: VERAPAMIL 120 MG SR TAB PO SCH (20:09)
[2019-01-12] MEDS: SENNA 8.6 MG TAB (SENOKOT) PO SCH (20:10)
[2019-01-12] MEDS: IRBESARTAN 150 MG TAB PO SCH (20:10)
[2019-01-12] MEDS: AMITRIPTYLINE 25 MG TAB PO SCH (20:10)
[2019-01-12] MEDS: LIDOCAINE 5% (LIDODERM) PATCH TD SCH (20:11)
[2019-01-13 00:10] VITALS: BP 96/50
[2019-01-13] MEDS: **hydrALAZINE** 10 MG TAB PO SCH ×4 (05:34→16:52)
[2019-01-13] MEDS: oxyCODONE 5MG TAB PO PRN (05:35)
[2019-01-13 06:00] VITALS: BP 112/57
[2019-01-13] MEDS: IPRATROPIUM 0.5MG/ALBUTEROL 2.5MG INH SOL UD 3ML (DUONEB)(J7620) NEB SCH ×3 (07:21→20:00)
[2019-01-13] MEDS: guaiFENesin 200 MG TAB PO SCH ×3 (08:06→20:25)
[2019-01-13] MEDS: ASPIRIN 81 MG CHEW TABLET PO SCH (08:06)
[2019-01-13] MEDS: PANTOPRAZOLE 40MG TAB (PROTONIX) PO SCH (08:06)
[2019-01-13] MEDS: CALCITRIOL 0.25 MCG CAP (S0169) PO SCH (08:07)
[2019-01-13] MEDS: ACETAMINOPHEN 500 MG TAB PO SCH ×4 (08:07→20:24)
[2019-01-13] MEDS: **NOTE PATIENT COMMENT** MISC XX SCH (08:11)
[2019-01-13] MEDS: HEPARIN SOD (PORCINE) 5000 UNITS/ML VIAL SC SCH ×2 (08:11→20:22)
[2019-01-13] MEDS: DOCUSATE SODIUM 100 MG CAP PO SCH ×2 (08:11→20:26)
[2019-01-13] MEDS ORDERED: oxyCODONE 5MG TAB PO PRN (10:30)
[2019-01-13 14:00] VITALS: BP 132/70
[2019-01-13 20:00] VITALS: BP 134/61
[2019-01-13] MEDS: LIDOCAINE 5% (LIDODERM) PATCH TD SCH (20:21)
[2019-01-13] MEDS: VERAPAMIL 120 MG SR TAB PO SCH (20:23)
[2019-01-13] MEDS: SENNA 8.6 MG TAB (SENOKOT) PO SCH (20:24)
[2019-01-13] MEDS: AMITRIPTYLINE 25 MG TAB PO SCH (20:26)
[2019-01-13] MEDS: IRBESARTAN 150 MG TAB PO SCH (21:45)
[2019-01-14] MEDS: **hydrALAZINE** 10 MG TAB PO SCH ×4 (00:14→18:00)
[2019-01-14 06:00] VITALS: BP 132/61
[2019-01-14] MEDS: IPRATROPIUM 0.5MG/ALBUTEROL 2.5MG INH SOL UD 3ML (DUONEB)(J7620) NEB SCH ×3 (07:40→20:00)
[2019-01-14] MEDS: ASPIRIN 81 MG CHEW TABLET PO SCH (09:45)
[2019-01-14] MEDS: HEPARIN SOD (PORCINE) 5000 UNITS/ML VIAL SC SCH ×2 (09:45→20:21)
[2019-01-14] MEDS: DOCUSATE SODIUM 100 MG CAP PO SCH ×2 (09:45→20:24)
[2019-01-14] MEDS: CALCITRIOL 0.25 MCG CAP (S0169) PO SCH (09:46)
[2019-01-14] MEDS: guaiFENesin 200 MG TAB PO SCH ×3 (09:46→20:23)
[2019-01-14] MEDS: FUROSEMIDE 40 MG TAB PO SCH (09:46)
[2019-01-14] MEDS: PANTOPRAZOLE 40MG TAB (PROTONIX) PO SCH (09:46)
[2019-01-14] MEDS: **NOTE PATIENT COMMENT** MISC XX SCH (09:47)
[2019-01-14] MEDS: ACETAMINOPHEN 500 MG TAB PO SCH ×2 (09:47→13:40)
[2019-01-14] MEDS: tiZANidine 4 MG TAB PO PRN (09:47)
[2019-01-14 11:35] LABS: CALCIUM LEVEL 9.5 MG/DL (8.8-10.2); CREATININE FOR GFR 2.19 MG/DL (0.55-1.30); GLOMERULAR FILTRATION RATE 23.3 (>39); POTASSIUM SERUM 3.7 MEQ/L (3.5-5.1)
--- NOTE | 2019-01-14 12:29 | IPNPDOC ---
PM&R Progress Note DATE OF SERVICE: Jan 14, 2019 Artificial Stone Applicator Progress Note Subjective: Patient reproting constant 10/10 pain not worse or better with movement or rest. She is not sleeping well. EVIEW OF SYSTEMS: The following is a completed review of systems and has been reviewed. Review of systems otherwise unremarkable. PAIN: Patient self reports back pain EYES: No recent vision changes EARS, NOSE, & THROAT: No throat pain, or dysphagia, or rhinorrhea CARDIOVASCULAR: Denies chest pain or palpitations PULMONARY: Denies shortness of breath, + productive cough GASTROINTESTINAL: Denies constipation/diarrhea GENITOURINARY: denies dysuria (recently resoled retention) MUSCULOSKELETAL: +compression fracture. NEUROLOGICAL:no focal weakness, tremor or seizure activity HEMATOLOGICAL: no anemia. SKIN: intact PSYCHIATRIC: Unremarkable All other review of systems found to be negative. PHYSICAL EXAMINATION: VITAL SIGNS: Please see below. GENERAL: Pleasant and cooperative. No acute distress. HEENT: PERRL. Extraocular movements intact. Clear conjunctiva CARDIOVASCULAR: Regular rate and rhythm. No murmurs, rubs, or gallops LUNGS: + scattered rhonchi ABDOMEN: Soft, nontender, nondistended. Positive bowel sounds. Normal active bowel sounds NEUROLOGICAL: Alert and oriented times three, however needed husbands help for recall of recent events. Cranial nerves II through XII grossly intact. Sensation grossly intact in all 4 extremities (-) babinksi bilat, 1+/4 patella reflexes bilat EXTREMITIES: 5\5 strength bilateral upper extremities. >4\5 strength right lower extremity. >4/5 strength in left lower extremity. TTP lumbar spine at T12-L1 SKIN: intact ASSESSMENT:73-year-old F with past medical history of HTN, osteporosis, CKD who presents status post T12-L1 compresison fractures PLAN: 1.REhab: PT- improve gait endurance, fall recovery, dynamic balance, maintain ROM/stretch.strengthen bilat LE- ambulating with RW OT- maintain ROM/stretch.strengthen bilat UE and work on ADL management 2. Neuro: try to avoid deliriogenic meds, however will c/u pain medication for now to optimize participation in therapy and attempt to wean -will consider CLERK TELEVISION PRODUCTION cognitive evaluation, patient with notable memory impairments on exam and also consider cholinergics -checking thyroid and b12 levels as possible causes for suspected dementia 3. Ortho: osteoporosis with T12 and L1 compression fractures, TLSO brace when OOB, c/u calcitonin- f/u [facility] ortho on discharge 4. CArdiac- HTN, lasix and ARB was on hold on d/c from [facility] for CANDICE on CK- lasix q2days started and Irbesaran over the weekend with elevation in Pelt Grader to 2.19 and BUN 50 today, will hold ARB- c/u with addition of hydralazine and c/u Verapamil 180qHS, optimize pain control for better BP management- medicine recs appreciated 5. Resp: current 1ppd smoker with self reported COPD, encourage incentive spirometry, DUonebs TID, monitor for infection, 02 prn goal 88-92% 6. GI ppx: protonix, optimize bowel meds 7. : recent retention, no dysuria now, monitor PVRs 8. Renal: CANDICE on CKD, on d/c from [facility] Pelt Grader 1.2, now up to 2.19 likely due to restarting ARB, will hold and give gentle IVF today, c/u to monitor, will consider renal consult if does not improve by tomorrow 8. DVT ppx: heparin and TEDs 9. Pain: standing tylenol, will change oxycodone 5 mg to TID standing with q8h prn, c/u Elavil 25 qHS for neuropathic pain tizanidine prn for muscle spasms -lidoderm pathc to back qHS -starting Cymabalta 30mg daily 10. Endo: noted to have elevated FT4 with nL TSH, given her hx of PVCs will refer to outpatient endocrinology upon discharge for hyperthyroidism 10. Dispo: TBD Allergies Coded Allergies: No Known Allergies (Unverified , 01/05/19) Vital Signs Vital Signs Date Time Temp Pulse Resp B/P (MAP) Pulse Ox O2 Delivery O2 Flow Rate FiO2 01/14/19 06:00 97.9 72 18 132/61 (84) 96 Laboratory Data CBC/BMP Laboratory Tests 01/14/19 10:51 Calcium Level 9.5 Labs 24H Laboratory Tests 2 01/14/19 10:51: Anion Gap 12, Glomerular Filtration Rate 23.3L, Blood Urea Nitrogen 50#H, Creatinine 2.19H, Sodium Level 141, Potassium Level 3.7, Chloride Level 106, Carbon Dioxide Level 23, Calcium Level 9.5 Current Medications Current Medications Current Medications Medications (Trade) Dose Ordered Sig/Renae Route PRN Reason Start Time Stop Time Status Last Admin Dose Admin Acetaminophen (Tylenol Tab) 1,000 mg QID PO 01/11/19 17:00 01/14/19 09:47 Albuterol/ Ipratropium (Duoneb (Ipr 0.5mg/Alb 2.5mg)) 3 ml RTID NEB 01/11/19 20:00 01/14/19 07:40 Amitriptyline HCl (Elavil) 25 mg QHS PO 01/11/19 21:00 01/13/19 20:26 Amlodipine Besylate (Norvasc) 2.5 mg DAILY PO 01/12/19 05:30 01/12/19 05:40 DC Aspirin (Aspirin Chewable) 81 mg DAILY PO 01/12/19 09:00 01/14/19 09:45 Bisacodyl (Dulcolax Suppository) 10 mg DAILYPRN PRN [place] CONSTIPATION 01/11/19 15:30 01/12/19 06:03 Calcitriol (Rocaltrol) 0.5 mcg DAILY PO 01/12/19 09:00 01/14/19 09:46 Docusate Sodium (Colace) 100 mg BID PO 01/11/19 21:00 01/14/19 09:45 Duloxetine HCl (Cymbalta) 30 mg DAILY PO 01/15/19 09:00 UNV Furosemide (Lasix) 40 mg Q2D PO 01/12/19 09:00 01/14/19 09:46 Guaifenesin (Robitussin Tab) 400 mg TID PO 01/11/19 21:00 01/14/19 09:46 Heparin Sodium (Porcine) (Heparin) 5,000 units Q12H SC 01/12/19 09:00 01/14/19 09:45 Home Med (Med Rec Complete!) ASDIRECTED XX 01/11/19 16:45 01/11/19 16:45 DC Hydralazine HCl (Apresoline) 10 mg Q6H PO 01/12/19 06:00 01/14/19 05:52 Irbesartan (Avapro) 150 mg QHS PO 01/11/19 21:00 01/13/19 21:45 Lidocaine (Lidoderm Patch) 1 patch QHS TD 01/11/19 21:00 01/13/19 20:21 Non-Formulary Medication ( See Comment Field Below ) REMOVE LIDODERM PATCH DAILY XX 01/12/19 09:00 01/14/19 09:47 Oxycodone HCl (Roxicodone, Oxyir) 5 mg Q4HP PRN PO PAIN 01/11/19 15:30 01/11/19 18:58 DC 01/11/19 16:17 Oxycodone HCl (Roxicodone, Oxyir) 5 mg Q4HP PRN PO PAIN 01/13/19 10:30 01/13/19 20:25 Oxycodone HCl (Roxicodone, Oxyir) 10 mg Q4HP PRN PO PAIN 01/11/19 19:00 01/13/19 10:21 DC 01/13/19 05:35 Pantoprazole Sodium (Protonix) 40 mg DAILY PO 01/12/19 09:00 01/14/19 09:46 Senna (Senokot) 2 tab QHS PO 01/11/19 21:00 01/13/19 20:24 Tizanidine HCl (Zanaflex) 2 mg Q6HP PRN PO SPASMS 01/11/19 15:30 01/14/19 09:47 Verapamil HCl (Isoptin-Sr, Calan Sr) 180 mg QHS PO 01/11/19 21:00 01/13/19 20:23 SALVADOR DUNN MD Jan 14, 2019 12:29
[2019-01-14] MEDS ORDERED: NS 1,000 ML IV ONE (13:00)
[2019-01-14] MEDS: DULoxetine 30 MG CAP (CYMBALTA) PO SCH (13:40)
[2019-01-14 14:00] VITALS: BP 98/54
[2019-01-14] MEDS: oxyCODONE 5MG TAB PO SCH ×2 (16:57→20:25)
[2019-01-14 18:15] VITALS: BP 112/58
--- NOTE | 2019-01-14 20:17 | REPVR ---
EXAM: US Duplex Bilateral Lower Extremity Veins EXAM DATE/TIME: 01/14/2019 7:41 PM CLINICAL HISTORY: 73 years old, female; Other: Immobility TECHNIQUE: Imaging protocol: Real-time duplex ultrasound of the Bilateral Lower Extremities with 2-D davison scale, color Doppler flow and spectral waveform analysis with image documentation. Complete exam focused on the bilateral lower extremity veins. COMPARISON: No relevant prior studies available. FINDINGS: Right deep veins: The common femoral, femoral, proximal profunda femoral and popliteal veins are patent without thrombus. Normal Doppler waveforms. Normal compressibility and/or augmentation response. Right superficial veins: Saphenofemoral junction is patent without thrombus. Left deep veins: The common femoral, femoral, proximal profunda femoral and popliteal veins are patent without thrombus. Normal Doppler waveforms. Normal compressibility and/or augmentation response. Left superficial veins: Saphenofemoral junction is patent without thrombus. Soft tissues: No popliteal cyst. IMPRESSION: No evidence of deep venous thrombosis in the common femoral to popliteal veins bilaterally. Electronically signed by: Casey Galvan On 01/14/2019 20:17:15 PM
[2019-01-14] MEDS: LIDOCAINE 5% (LIDODERM) PATCH TD SCH (20:22)
[2019-01-14] MEDS: AMITRIPTYLINE 25 MG TAB PO SCH (20:23)
[2019-01-14] MEDS: VERAPAMIL 120 MG SR TAB PO SCH (20:23)
[2019-01-14] MEDS: SENNA 8.6 MG TAB (SENOKOT) PO SCH (20:24)
[2019-01-14 20:30] VITALS: BP 120/56
[2019-01-15] MEDS: **hydrALAZINE** 10 MG TAB PO SCH ×4 (00:12→18:06)
[2019-01-15 06:00] VITALS: BP 141/63
[2019-01-15] MEDS: IPRATROPIUM 0.5MG/ALBUTEROL 2.5MG INH SOL UD 3ML (DUONEB)(J7620) NEB SCH ×3 (07:44→19:36)
[2019-01-15] MEDS: HEPARIN SOD (PORCINE) 5000 UNITS/ML VIAL SC SCH ×2 (09:43→20:37)
[2019-01-15] MEDS: **NOTE PATIENT COMMENT** MISC XX SCH (09:44)
[2019-01-15] MEDS: oxyCODONE 5MG TAB PO SCH ×3 (09:44→20:37)
[2019-01-15] MEDS: PANTOPRAZOLE 40MG TAB (PROTONIX) PO SCH (09:44)
[2019-01-15] MEDS: guaiFENesin 200 MG TAB PO SCH ×3 (09:44→20:37)
[2019-01-15] MEDS: ASPIRIN 81 MG CHEW TABLET PO SCH (09:44)
[2019-01-15] MEDS: CALCITRIOL 0.25 MCG CAP (S0169) PO SCH (09:44)
[2019-01-15] MEDS: DULoxetine 30 MG CAP (CYMBALTA) PO SCH (09:44)
[2019-01-15] MEDS: DOCUSATE SODIUM 100 MG CAP PO SCH ×2 (09:44→20:37)
[2019-01-15 11:19] LABS: FOLATE 7.3 NG/ML (>5.4)
[2019-01-15 12:48] LABS: CALCIUM LEVEL 9.9 MG/DL (8.8-10.2); CREATININE FOR GFR 1.85 MG/DL (0.55-1.30); GLOMERULAR FILTRATION RATE 28.3 (>39); POTASSIUM SERUM 3.6 MEQ/L (3.5-5.1)
[2019-01-15] MEDS: ONDANSETRON 4 MG ORAL DISINTEGRATING TAB (Q0162 PER 1MG) PO PRN (12:52)
[2019-01-15 14:00] VITALS: BP 134/68
--- NOTE | 2019-01-15 14:38 | IPNPDOC ---
PM&R Progress Note DATE OF SERVICE: Jan 15, 2019 Project Development Coordinator Progress Note Subjective: Patient seen sitting up in her recliner playing floor Lana with OT, laughing, smiling, stating she feels well. EVIEW OF SYSTEMS: The following is a completed review of systems and has been reviewed. Review of systems otherwise unremarkable. PAIN: Patient self reports back pain EYES: No recent vision changes EARS, NOSE, & THROAT: No throat pain, or dysphagia, or rhinorrhea CARDIOVASCULAR: Denies chest pain or palpitations PULMONARY: Denies shortness of breath, + productive cough GASTROINTESTINAL: Denies constipation/diarrhea GENITOURINARY: denies dysuria (recently resoled retention) MUSCULOSKELETAL: +compression fracture. NEUROLOGICAL:no focal weakness, tremor or seizure activity HEMATOLOGICAL: no anemia. SKIN: intact PSYCHIATRIC: Unremarkable All other review of systems found to be negative. PHYSICAL EXAMINATION: VITAL SIGNS: Please see below. GENERAL: Pleasant and cooperative. No acute distress. HEENT: PERRL. Extraocular movements intact. Clear conjunctiva CARDIOVASCULAR: Regular rate and rhythm. No murmurs, rubs, or gallops LUNGS: + scattered rhonchi ABDOMEN: Soft, nontender, nondistended. Positive bowel sounds. Normal active bowel sounds NEUROLOGICAL: Alert and oriented times three, episodes of delirium, Cranial nerves II through XII grossly intact. Sensation grossly intact in all 4 extremities (-) babinksi bilat, 1+/4 patella reflexes bilat EXTREMITIES: 5\5 strength bilateral upper extremities. >4\5 strength right lower extremity. >4/5 strength in left lower extremity. TTP lumbar spine at T12-L1 SKIN: intact ASSESSMENT:73-year-old F with past medical history of HTN, osteporosis, CKD who presents status post T12-L1 compresison fractures PLAN: 1.REhab: PT- improve gait endurance, fall recovery, dynamic balance, maintain ROM/stretch.strengthen bilat LE- ambulating with RW OT- maintain ROM/stretch.strengthen bilat UE and work on ADL management 2. Neuro: patient with intermittent delirium, will try to avoid deliriogenic meds, however will c/u pain medication for now to optimize participation in therapy and attempt to wean -Ammonia levels ordered as patient reporting she has liver cysts as etiology for confusion- WNL -UA also ordered- WNL - PROMOTIONAL MARKETING AGENT cognitive evaluation ordered, patient with notable memory impairments on initial exam will consider cholinergics 3. Ortho: osteoporosis with T12 and L1 compression fractures, TLSO brace when OOB, c/u calcitonin- f/u [facility] ortho on discharge 4. CArdiac- HTN, lasix and ARB was on hold on d/c from [facility] for CANDICE on CK- lasix q2days started and Irbesaran over the weekend with elevation in Wood Inspector to 2.19 and BUN 50 today, will hold ARB- c/u with addition of hydralazine and c/u Verapamil 180qHS, optimize pain control for better BP management- medicine recs appreciated 5. Resp: current 1ppd smoker with self reported COPD, encourage incentive spirometry, DUonebs TID, monitor for infection, 02 prn goal 88-92% 6. GI ppx: protonix, optimize bowel meds 7. : recent retention, no dysuria now, monitor PVRs 8. Renal: CANDICE on CKD, on d/c from [facility] Wood Inspector 1.2, was up to 2.19 on 01/14 likely due to restarting ARB, s/p gentle IVF and Wood Inspector down to 1.85 01/15 , will give one more liter NS and c/u to monitor, will consider renal consult if does not improve by tomorrow, however starting to resolve 8. DVT ppx: heparin and TEDs 9. Pain: d/c'd tylneol due to hx of liver cysts, d/c'd standing oxycodone for delirum, c/u q8h prn, c/u Elavil 25 qHS for neuropathic pain tizanidine prn for muscle spasms -lidoderm patch to back qHS -c/u Cymabalta 30mg daily 10. Endo: noted to have elevated FT4 with nL TSH, given her hx of PVCs will refer to outpatient endocrinology upon discharge for hyperthyroidism 10. Dispo: TBD Allergies Coded Allergies: No Known Allergies (Unverified , 01/05/19) Vital Signs Vital Signs Date Time Temp Pulse Resp B/P (MAP) Pulse Ox O2 Delivery O2 Flow Rate FiO2 01/15/19 12:34 176/74 01/15/19 10:20 18 01/15/19 06:00 97.5 71 92 Laboratory Data CBC/BMP Laboratory Tests 01/15/19 12:10 Calcium Level 9.9 Labs 24H Laboratory Tests 2 01/15/19 06:25: Vitamin B12 Level 277, Folate 7.3 01/15/19 12:10: Anion Gap 13, Glomerular Filtration Rate 28.3L, Blood Urea Nitrogen 43H, Creatinine 1.85H, Sodium Level 142, Potassium Level 3.6, Chloride Level 108H, Carbon Dioxide Level 21, Calcium Level 9.9 Current Medications Current Medications Current Medications Medications (Trade) Dose Ordered Sig/Renae Route PRN Reason Start Time Stop Time Status Last Admin Dose Admin Acetaminophen (Tylenol Tab) 1,000 mg QID PO 01/11/19 17:00 01/14/19 16:17 DC 01/14/19 13:40 Albuterol/ Ipratropium (Duoneb (Ipr 0.5mg/Alb 2.5mg)) 3 ml RTID NEB 01/11/19 20:00 01/15/19 13:43 Amitriptyline HCl (Elavil) 25 mg QHS PO 01/11/19 21:00 01/14/19 20:23 Amlodipine Besylate (Norvasc) 2.5 mg DAILY PO 01/12/19 05:30 01/12/19 05:40 DC Aspirin (Aspirin Chewable) 81 mg DAILY PO 01/12/19 09:00 01/15/19 09:44 Bisacodyl (Dulcolax Suppository) 10 mg DAILYPRN PRN [place] CONSTIPATION 01/11/19 15:30 01/12/19 06:03 Calcitriol (Rocaltrol) 0.5 mcg DAILY PO 01/12/19 09:00 01/15/19 09:44 Docusate Sodium (Colace) 100 mg BID PO 01/11/19 21:00 01/15/19 09:44 Duloxetine HCl (Cymbalta) 30 mg DAILY PO 01/14/19 09:00 01/15/19 09:44 Furosemide (Lasix) 40 mg Q2D PO 01/12/19 09:00 01/14/19 12:30 DC 01/14/19 09:46 Guaifenesin (Robitussin Tab) 400 mg TID PO 01/11/19 21:00 01/15/19 09:44 Heparin Sodium (Porcine) (Heparin) 5,000 units Q12H SC 01/12/19 09:00 01/15/19 09:43 Home Med (Med Rec Complete!) ASDIRECTED XX 01/11/19 16:45 01/11/19 16:45 DC Hydralazine HCl (Apresoline) 10 mg Q6H PO 01/12/19 06:00 01/15/19 12:34 Irbesartan (Avapro) 150 mg QHS PO 01/11/19 21:00 01/14/19 12:20 DC 01/13/19 21:45 Lidocaine (Lidoderm Patch) 1 patch QHS TD 01/11/19 21:00 01/14/19 20:22 Non-Formulary Medication ( See Comment Field Below ) REMOVE LIDODERM PATCH DAILY XX 01/12/19 09:00 01/15/19 09:44 Ondansetron HCl (Zofran Odt) 4 mg Q4HP PRN PO NAUSEA OR VOMITING 01/15/19 13:00 01/15/19 12:52 Oxycodone HCl (Roxicodone, Oxyir) 5 mg Q4HP PRN PO PAIN 01/11/19 15:30 01/11/19 18:58 DC 01/11/19 16:17 Oxycodone HCl (Roxicodone, Oxyir) 5 mg Q4HP PRN PO PAIN 01/13/19 10:30 01/14/19 12:18 DC 01/13/19 20:25 Oxycodone HCl (Roxicodone, Oxyir) 5 mg Q8H PRN PO PAIN 01/14/19 12:30 Oxycodone HCl (Roxicodone, Oxyir) 5 mg TID PO 01/14/19 16:00 01/15/19 09:44 Oxycodone HCl (Roxicodone, Oxyir) 10 mg Q4HP PRN PO PAIN 01/11/19 19:00 01/13/19 10:21 DC 01/13/19 05:35 Pantoprazole Sodium (Protonix) 40 mg DAILY PO 01/12/19 09:00 01/15/19 09:44 Senna (Senokot) 2 tab QHS PO 01/11/19 21:00 01/14/19 20:24 Tizanidine HCl (Zanaflex) 2 mg Q6HP PRN PO SPASMS 9/6/19 15:30 01/14/19 09:47 Verapamil HCl (Isoptin-Sr, Calan Sr) 180 mg QHS PO 01/11/19 21:00 01/14/19 20:23 SALVADOR DUNN MD Jan 15, 2019 14:38
[2019-01-15] MEDS ORDERED: NS 1,000 ML IV ONE (15:00)
[2019-01-15 20:21] VITALS: BP 150/67
[2019-01-15] MEDS: SENNA 8.6 MG TAB (SENOKOT) PO SCH (20:37)
[2019-01-15] MEDS: LIDOCAINE 5% (LIDODERM) PATCH TD SCH (20:37)
[2019-01-15] MEDS: AMITRIPTYLINE 25 MG TAB PO SCH (20:37)
[2019-01-15] MEDS: VERAPAMIL 120 MG SR TAB PO SCH (20:37)
[2019-01-16] MEDS: **hydrALAZINE** 10 MG TAB PO SCH ×5 (00:21→23:56)
[2019-01-16 06:00] VITALS: BP 170/76
[2019-01-16 07:27] LABS: CALCIUM LEVEL 9.8 MG/DL (8.8-10.2); CREATININE FOR GFR 1.57 MG/DL (0.55-1.30); GLOMERULAR FILTRATION RATE 34.2 (>39); POTASSIUM SERUM 3.5 MEQ/L (3.5-5.1)
[2019-01-16] MEDS: IPRATROPIUM 0.5MG/ALBUTEROL 2.5MG INH SOL UD 3ML (DUONEB)(J7620) NEB SCH ×3 (07:43→18:53)
[2019-01-16] MEDS: ASPIRIN 81 MG CHEW TABLET PO SCH (09:44)
[2019-01-16] MEDS: guaiFENesin 200 MG TAB PO SCH ×3 (09:44→20:49)
[2019-01-16] MEDS: DULoxetine 30 MG CAP (CYMBALTA) PO SCH (09:44)
[2019-01-16] MEDS: CALCITRIOL 0.25 MCG CAP (S0169) PO SCH (09:44)
[2019-01-16] MEDS: PANTOPRAZOLE 40MG TAB (PROTONIX) PO SCH (09:44)
[2019-01-16] MEDS: HEPARIN SOD (PORCINE) 5000 UNITS/ML VIAL SC SCH ×2 (09:45→20:58)
[2019-01-16] MEDS: DOCUSATE SODIUM 100 MG CAP PO SCH ×2 (09:45→20:49)
[2019-01-16] MEDS: oxyCODONE 5MG TAB PO SCH (09:45)
[2019-01-16] MEDS: **NOTE PATIENT COMMENT** MISC XX SCH (09:45)
[2019-01-16] MEDS: tiZANidine 4 MG TAB PO PRN (13:14)
[2019-01-16] MEDS: ACETAMINOPHEN TAB 650MG DOSE (2X325MG) PO PRN (13:14)
[2019-01-16 14:00] VITALS: BP 110/53
[2019-01-16 20:00] VITALS: BP 160/93
[2019-01-16] MEDS: SENNA 8.6 MG TAB (SENOKOT) PO SCH (20:50)
[2019-01-16] MEDS: LIDOCAINE 5% (LIDODERM) PATCH TD SCH (20:51)
[2019-01-16] MEDS: VERAPAMIL 120 MG SR TAB PO SCH (20:51)
[2019-01-17 05:00] VITALS: BP 150/79
[2019-01-17] MEDS: **hydrALAZINE** 10 MG TAB PO SCH ×3 (05:08→17:45)
[2019-01-17] MEDS: tiZANidine 4 MG TAB PO PRN (06:22)
[2019-01-17 06:29] LABS: BASO % 0.1 % (0.0-1.0); EOS % 0.6 % (0.0-3.0); HEMATOCRIT 32.3 % (36.0-47.0); HEMOGLOBIN 10.3 g/dl (12.0-15.5); LYMPH # 0.9 10^3/uL (1.5-5.0); LYMPH % 12.5 % (24.0-44.0); MEAN CORPUSCULAR HEMOGLOBIN 32.2 pg (27.0-33.0); MEAN CORPUSCULAR HGB CONC 31.9 g/dl (32.0-36.5); MEAN CORPUSCULAR VOLUME 100.9 fl (80.0-96.0); MONO # 0.5 10^3/uL (0.0-0.8); MONO % 7.8 % (0.0-5.0); NEUTROPHILS # 5.3 10^3/uL (1.5-8.5); NEUTROPHILS % 77.7 % (36.0-66.0); PLATELET COUNT, AUTOMATED 302 10^3/uL (150-450); WHITE BLOOD COUNT 6.9 10^3/uL (4.0-10.0)
[2019-01-17 06:49] LABS: CALCIUM LEVEL 9.8 MG/DL (8.8-10.2); CREATININE FOR GFR 1.46 MG/DL (0.55-1.30); GLOMERULAR FILTRATION RATE 37.2 (>39); POTASSIUM SERUM 3.4 MEQ/L (3.5-5.1)
[2019-01-17] MEDS: IPRATROPIUM 0.5MG/ALBUTEROL 2.5MG INH SOL UD 3ML (DUONEB)(J7620) NEB SCH ×3 (07:49→20:00)
[2019-01-17] MEDS: DULoxetine 30 MG CAP (CYMBALTA) PO SCH (08:06)
[2019-01-17] MEDS: PANTOPRAZOLE 40MG TAB (PROTONIX) PO SCH ×2 (08:06→20:38)
[2019-01-17] MEDS: guaiFENesin 200 MG TAB PO SCH ×3 (08:06→20:38)
[2019-01-17] MEDS: DOCUSATE SODIUM 100 MG CAP PO SCH ×3 (08:06→20:39)
[2019-01-17] MEDS: ASPIRIN 81 MG CHEW TABLET PO SCH (08:06)
[2019-01-17] MEDS: HEPARIN SOD (PORCINE) 5000 UNITS/ML VIAL SC SCH ×2 (08:06→20:37)
[2019-01-17] MEDS: CALCITRIOL 0.25 MCG CAP (S0169) PO SCH (08:06)
[2019-01-17] MEDS: **NOTE PATIENT COMMENT** MISC XX SCH (08:06)
[2019-01-17 14:00] VITALS: BP 143/71
--- NOTE | 2019-01-17 14:50 | IPNPDOC ---
PM&R Progress Note DATE OF SERVICE: Jan 16, 2019 [employer] Teacher Progress Note Subjective: Patient seen in her room stating she is feeling well enough and agreed to work on stairs as this would be one of the limiting factors for her to get home. EVIEW OF SYSTEMS: The following is a completed review of systems and has been reviewed. Review of systems otherwise unremarkable. PAIN: Patient self reports back pain EYES: No recent vision changes EARS, NOSE, & THROAT: No throat pain, or dysphagia, or rhinorrhea CARDIOVASCULAR: Denies chest pain or palpitations PULMONARY: Denies shortness of breath, + productive cough GASTROINTESTINAL: Denies constipation/diarrhea GENITOURINARY: denies dysuria (recently resoled retention) MUSCULOSKELETAL: +compression fracture. NEUROLOGICAL:no focal weakness, tremor or seizure activity HEMATOLOGICAL: no anemia. SKIN: intact PSYCHIATRIC: Unremarkable All other review of systems found to be negative. PHYSICAL EXAMINATION: VITAL SIGNS: Please see below. GENERAL: Pleasant and cooperative. No acute distress. HEENT: PERRL. Extraocular movements intact. Clear conjunctiva CARDIOVASCULAR: Regular rate and rhythm. No murmurs, rubs, or gallops LUNGS: + scattered rhonchi ABDOMEN: Soft, nontender, nondistended. Positive bowel sounds. Normal active bowel sounds NEUROLOGICAL: Alert and oriented times three, episodes of delirium, Cranial nerves II through XII grossly intact. Sensation grossly intact in all 4 extremities (-) babinksi bilat, 1+/4 patella reflexes bilat EXTREMITIES: 5\5 strength bilateral upper extremities. >4\5 strength right lower extremity. >4/5 strength in left lower extremity. TTP lumbar spine at T12-L1 SKIN: intact ASSESSMENT:73-year-old F with past medical history of HTN, osteporosis, CKD who presents status post T12-L1 compresison fractures PLAN: 1.REhab: PT- improve gait endurance, fall recovery, dynamic balance, maintain ROM/stretch.strengthen bilat LE- ambulating with RW OT- maintain ROM/stretch.strengthen bilat UE and work on ADL management 2. 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 Ortho: osteoporosis with T12 and L1 compression fractures, TLSO brace when OOB, c/u calcitonin- f/u [facility] ortho on discharge 4. CArdiac- HTN, lasix and ARB was on hold on d/c from [facility] for CANDICE on CK- lasix q2days started and Irbesaran over the weekend with elevation in Substance Abuse Specialist to 2.19 and BUN 50 today, will hold ARB- c/u with addition of hydralazine and c/u Verapamil 180qHS, optimize pain control for better BP management- medicine recs appreciated 5. Resp: current 1ppd smoker with self reported COPD, encourage incentive spirometry, DUonebs TID, monitor for infection, 02 prn goal 88-92% 6. GI ppx: protonix, optimize bowel meds 7. : recent retention, no dysuria now, monitor PVRs 8. Renal: CANDICE on CKD, on d/c from [facility] Substance Abuse Specialist 1.2, was up to 2.19 on 01/14 likely due to restarting ARB, s/p gentle IVF x 2 days, now down to 1.5, discussed case with Dr. Sinha who said to continue current management and will f/u outpatient 8. DVT ppx: heparin and TEDs 9. Pain: d/c'd tylneol due to hx of liver cysts, d/c'd standing oxycodone for delirum, c/u q8h prn (so far not taking), c/u Elavil 25 qHS for neuropathic pain tizanidine prn for muscle spasms -lidoderm patch to back qHS -c/u Cymbalta increased to 60mg daily 10. Endo: noted to have elevated FT4 with nL TSH, given her hx of PVCs will refer to outpatient endocrinology upon discharge for hyperthyroidism 10. Dispo: TBD Allergies Coded Allergies: No Known Allergies (Unverified , 01/05/19) Vital Signs Vital Signs Date Time Temp Pulse Resp B/P (MAP) Pulse Ox O2 Delivery O2 Flow Rate FiO2 01/17/19 12:03 124/70 01/17/19 05:00 97.9 97 18 95 Laboratory Data CBC/BMP Laboratory Tests 01/17/19 06:00 Red Blood Count 3.20 L, Mean Corpuscular Volume 100.9 H, Mean Corpuscular Hemoglobin 32.2, Mean Corpuscular Hemoglobin Concent 31.9 L, Red Cell Distribution Width 13.3, Neutrophils (%) (Auto) 77.7 H, Lymphocytes (%) (Auto) 12.5 L, Monocytes (%) (Auto) 7.8 H, Eosinophils (%) (Auto) 0.6, Basophils (%) (Auto) 0.1, Neutrophils # (Auto) 5.3, Lymphocytes # (Auto) 0.9 L, Monocytes # (Auto) 0.5, Eosinophils # (Auto) 0.0, Basophils # (Auto) 0.0, Calcium Level 9.8 Labs 24H Laboratory Tests 2 01/17/19 06:00: Immature Granulocyte % (Auto) 1.3, White Blood Count 6.9, Red Blood Count 3.20L, Hemoglobin 10.3L, Hematocrit 32.3L, Mean Corpuscular Volume 100.9H, Mean Corpuscular Hemoglobin 32.2, Mean Corpuscular Hemoglobin Concent 31.9L, Red Cell Distribution Width 13.3, Platelet Count 302, Neutrophils (%) (Auto) 77.7H, Lymphocytes (%) (Auto) 12.5L, Monocytes (%) (Auto) 7.8H, Eosinophils (%) (Auto) 0.6, Basophils (%) (Auto) 0.1, Neutrophils # (Auto) 5.3, Lymphocytes # (Auto) 0. 9L, Monocytes # (Auto) 0.5, Eosinophils # (Auto) 0.0, Basophils # (Auto) 0.0, Nucleated Red Blood Cells % (auto) 0.0, Anion Gap 10, Glomerular Filtration Rate 37.2L, Blood Urea Nitrogen 30H, Creatinine 1.46H, Sodium Level 144, Potassium Level 3.4L, Chloride Level 111H, Carbon Dioxide Level 23, Calcium Level 9.8 Current Medications Current Medications Current Medications Medications (Trade) Dose Ordered Sig/Renae Route PRN Reason Start Time Stop Time Status Last Admin Dose Admin Acetaminophen (Tylenol Tab) 650 mg Q6HP PRN PO PAIN / FEVER 01/16/19 12:00 01/16/19 13:14 Acetaminophen (Tylenol Tab) 1,000 mg QID PO 01/11/19 17:00 01/14/19 16:17 DC 01/14/19 13:40 Albuterol/ Ipratropium (Duoneb (Ipr 0.5mg/Alb 2.5mg)) 3 ml RTID NEB 01/11/19 20:00 01/17/19 13:21 Amitriptyline HCl (Elavil) 25 mg QHS PO 01/11/19 21:00 01/16/19 11:54 DC 01/15/19 20:37 Amlodipine Besylate (Norvasc) 2.5 mg DAILY PO 01/12/19 05:30 01/12/19 05:40 DC Aspirin (Aspirin Chewable) 81 mg DAILY PO 01/12/19 09:00 01/17/19 08:06 Bisacodyl (Dulcolax Suppository) 10 mg DAILYPRN PRN IN CONSTIPATION 01/11/19 15:30 01/12/19 06:03 Calcitriol (Rocaltrol) 0.5 mcg DAILY PO 01/12/19 09:00 01/17/19 08:06 Docusate Sodium (Colace) 100 mg BID PO 01/11/19 21:00 01/16/19 20:49 Duloxetine HCl (Cymbalta) 30 mg DAILY PO 01/14/19 09:00 01/16/19 11:55 DC 01/16/19 09:44 Duloxetine HCl (Cymbalta) 60 mg DAILY PO 01/17/19 09:00 01/17/19 08:06 Furosemide (Lasix) 40 mg Q2D PO 01/12/19 09:00 01/14/19 12:30 DC 01/14/19 09:46 Guaifenesin (Robitussin Tab) 400 mg TID PO 01/11/19 21:00 01/17/19 08:06 Heparin Sodium (Porcine) (Heparin) 5,000 units Q12H SC 01/12/19 09:00 01/17/19 08:06 Home Med (Med Rec Complete!) ASDIRECTED XX 01/11/19 16:45 01/11/19 16:45 DC Hydralazine HCl (Apresoline) 10 mg Q6H PO 01/12/19 06:00 01/17/19 12:03 Irbesartan (Avapro) 150 mg QHS PO 01/11/19 21:00 01/14/19 12:20 DC 01/13/19 21:45 Lidocaine (Lidoderm Patch) 1 patch QHS TD 01/11/19 21:00 01/16/19 20:51 Non-Formulary Medication ( See Comment Field Below ) REMOVE LIDODERM PATCH DAILY XX 01/12/19 09:00 01/17/19 08:06 Ondansetron HCl (Zofran Odt) 4 mg Q4HP PRN PO NAUSEA OR VOMITING 01/15/19 13:00 01/15/19 12:52 Oxycodone HCl (Roxicodone, Oxyir) 5 mg Q4HP PRN PO PAIN 01/11/19 15:30 01/11/19 18:58 DC 01/11/19 16:17 Oxycodone HCl (Roxicodone, Oxyir) 5 mg Q4HP PRN PO PAIN 01/13/19 10:30 01/14/19 12:18 DC 01/13/19 20:25 Oxycodone HCl (Roxicodone, Oxyir) 5 mg Q8H PRN PO PAIN 01/14/19 12:30 Oxycodone HCl (Roxicodone, Oxyir) 5 mg TID PO 01/14/19 16:00 01/16/19 11:54 DC 01/16/19 09:45 Oxycodone HCl (Roxicodone, Oxyir) 10 mg Q4HP PRN PO PAIN 01/11/19 19:00 01/13/19 10:21 DC 01/13/19 05:35 Pantoprazole Sodium (Protonix) 40 mg BID PO 01/17/19 21:00 Pantoprazole Sodium (Protonix) 40 mg DAILY PO 01/12/19 09:00 01/17/19 09:42 DC 01/17/19 08:06 Senna (Senokot) 2 tab QHS PO 01/11/19 21:00 01/16/19 20:50 Tizanidine HCl (Zanaflex) 2 mg Q6HP PRN PO SPASMS 01/11/19 15:30 01/17/19 06:22 Verapamil HCl (Isoptin-Sr, Calan Sr) 180 mg QHS PO 01/11/19 21:00 01/16/19 20:51 SALVADOR DUNN MD Jan 17, 2019 14:50
--- NOTE | 2019-01-17 14:52 | IPNPDOC ---
PM&R Progress Note DATE OF SERVICE: Jan 17, 2019 Gear Setter Progress Note Subjective: Patient reporting she did the stairs today and was seen dancing in bed in her room. EVIEW OF SYSTEMS: The following is a completed review of systems and has been reviewed. Review of systems otherwise unremarkable. PAIN: Patient self reports back pain EYES: No recent vision changes EARS, NOSE, & THROAT: No throat pain, or dysphagia, or rhinorrhea CARDIOVASCULAR: Denies chest pain or palpitations PULMONARY: Denies shortness of breath, + productive cough GASTROINTESTINAL: Denies constipation/diarrhea GENITOURINARY: denies dysuria (recently resoled retention) MUSCULOSKELETAL: +compression fracture. NEUROLOGICAL:no focal weakness, tremor or seizure activity HEMATOLOGICAL: no anemia. SKIN: intact PSYCHIATRIC: Unremarkable All other review of systems found to be negative. PHYSICAL EXAMINATION: VITAL SIGNS: Please see below. GENERAL: Pleasant and cooperative. No acute distress. HEENT: PERRL. Extraocular movements intact. Clear conjunctiva CARDIOVASCULAR: Regular rate and rhythm. No murmurs, rubs, or gallops LUNGS: + scattered rhonchi ABDOMEN: Soft, nontender, nondistended. Positive bowel sounds. Normal active bowel sounds NEUROLOGICAL: Alert and oriented times three, episodes of delirium, Cranial nerves II through XII grossly intact. Sensation grossly intact in all 4 extremities (-) babinksi bilat, 1+/4 patella reflexes bilat EXTREMITIES: 5\5 strength bilateral upper extremities. >4\5 strength right lower extremity. >4/5 strength in left lower extremity. TTP lumbar spine at T12-L1 SKIN: intact ASSESSMENT:73-year-old F with past medical history of HTN, osteporosis, CKD who presents status post T12-L1 compresison fractures PLAN: 1.REhab: PT- improve gait endurance, fall recovery, dynamic balance, maintain ROM/stretch.strengthen bilat LE- ambulating with RW OT- maintain ROM/stretch.strengthen bilat UE and work on ADL management 2. Neuro: patient with intermittent delirium, will try to avoid deliriogenic meds, however will c/u pain medication for now to optimize participation in therapy and attempt to wean -Ammonia levels ordered as patient reporting she has liver cysts as etiology for confusion- WNL -UA also ordered- WNL - FUEL CELL ENGINEER cognitive evaluation ordered, patient with notable memory impairments on initial exam will consider cholinergics 3. Ortho: osteoporosis with T12 and L1 compression fractures, TLSO brace when OOB, c/u calcitonin- f/u [facility] ortho on discharge 4. CArdiac- HTN, lasix and ARB was on hold on d/c from [facility] for CANDICE on CKD - c/u with addition of hydralazine and c/u Verapamil 180qHS, optimize pain control for better BP management- medicine recs appreciated -Hold ARB and lasix 5. Resp: current 1ppd smoker with self reported COPD, encourage incentive spirometry, DUonebs TID, monitor for infection, 02 prn goal 88-92% 6. GI ppx: protonix, optimize bowel meds 7. : recent retention, no dysuria now, monitor PVRs 8. Renal: CANDICE on CKD, on d/c from [facility] Xm1 Tank Driver 1.2, was up to 2.19 on 01/14 likely due to restarting ARB, s/p gentle IVF x 2 days-back to baseline, discussed case with Dr. Sinha who said to continue current management and will f/u outpatient 8. DVT ppx: heparin and TEDs 9. Pain: d/c'd tylneol due to hx of liver cysts, d/c'd standing oxycodone for delirum, c/u q8h prn (so far not taking), c/u Elavil 25 qHS for neuropathic pain tizanidine prn for muscle spasms -lidoderm patch to back qHS -c/u Cymbalta increased to 60mg daily 10. Endo: noted to have elevated FT4 with nL TSH, given her hx of PVCs will refer to outpatient endocrinology upon discharge for hyperthyroidism 10. Dispo: TBD Allergies Coded Allergies: No Known Allergies (Unverified , 01/05/19) Vital Signs Vital Signs Date Time Temp Pulse Resp B/P (MAP) Pulse Ox O2 Delivery O2 Flow Rate FiO2 01/17/19 12:03 124/70 01/17/19 05:00 97.9 97 18 95 Laboratory Data CBC/BMP Laboratory Tests 01/17/19 06:00 Red Blood Count 3.20 L, Mean Corpuscular Volume 100.9 H, Mean Corpuscular Hemog lobin 32.2, Mean Corpuscular Hemoglobin Concent 31.9 L, Red Cell Distribution Width 13.3, Neutrophils (%) (Auto) 77.7 H, Lymphocytes (%) (Auto) 12.5 L, Monocytes (%) (Auto) 7.8 H, Eosinophils (%) (Auto) 0.6, Basophils (%) (Auto) 0.1, Neutrophils # (Auto) 5.3, Lymphocytes # (Auto) 0.9 L, Monocytes # (Auto) 0.5, Eosinophils # (Auto) 0.0, Basophils # (Auto) 0.0, Calcium Level 9.8 Labs 24H Laboratory Tests 2 01/17/19 06:00: Immature Granulocyte % (Auto) 1.3, White Blood Count 6.9, Red Blood Count 3.20L, Hemoglobin 10.3L, Hematocrit 32.3L, Mean Corpuscular Volume 100.9H, Mean Corpuscular Hemoglobin 32.2, Mean Corpuscular Hemoglobin Concent 31.9L, Red Cell Distribution Width 13.3, Platelet Count 302, Neutrophils (%) (Auto) 77.7H, Lymphocytes (%) (Auto) 12.5L, Monocytes (%) (Auto) 7.8H, Eosinophils (%) (Auto) 0.6, Basophils (%) (Auto) 0.1, Neutrophils # (Auto) 5.3, Lymphocytes # (Auto) 0.9L, Monocytes # (Auto) 0.5, Eosinophils # (Auto) 0.0, Basophils # (Auto) 0.0, Nucleated Red Blood Cells % (auto) 0.0, Anion Gap 10, Glomerular Filtration Rate 37.2L, Blood Urea Nitrogen 30H, Creatinine 1.46H, Sodium Level 144, Potassium Level 3.4L, Chloride Level 111H, Carbon Dioxide Level 23, Calcium Level 9.8 Current Medications Current Medications Current Medications Medications (Trade) Dose Ordered Sig/Renae Route PRN Reason Start Time Stop Time Status Last Admin Dose Admin Acetaminophen (Tylenol Tab) 650 mg Q6HP PRN PO PAIN / FEVER 01/16/19 12:00 01/16/19 13:14 Acetaminophen (Tylenol Tab) 1,000 mg QID PO 01/11/19 17:00 01/14/19 16:17 DC 01/14/19 13:40 Albuterol/ Ipratropium (Duoneb (Ipr 0.5mg/Alb 2.5mg)) 3 ml RTID NEB 01/11/19 20:00 01/17/19 13:21 Amitriptyline HCl (Elavil) 25 mg QHS PO 01/11/19 21:00 01/16/19 11:54 DC 01/15/19 20:37 Amlodipine Besylate (Norvasc) 2.5 mg DAILY PO 01/12/19 05:30 01/12/19 05:40 DC Aspirin (Aspirin Chewable) 81 mg DAILY PO 01/12/19 09:00 01/17/19 08:06 Bisacodyl (Dulcolax Suppository) 10 mg DAILYPRN PRN ND CONSTIPATION 01/11/19 15:30 01/12/19 06:03 Calcitriol (Rocaltrol) 0.5 mcg DAILY PO 01/12/19 09:00 01/17/19 08:06 Docusate Sodium (Colace) 100 mg BID PO 01/11/19 21:00 01/16/19 20:49 Duloxetine HCl (Cymbalta) 30 mg DAILY PO 01/14/19 09:00 01/16/19 11:55 DC 01/16/19 09:44 Duloxetine HCl (Cymbalta) 60 mg DAILY PO 01/17/19 09:00 01/17/19 08:06 Furosemide (Lasix) 40 mg Q2D PO 01/12/19 09:00 01/14/19 12:30 DC 01/14/19 09:46 Guaifenesin (Robitussin Tab) 400 mg TID PO 01/11/19 21:00 01/17/19 08:06 Heparin Sodium (Porcine) (Heparin) 5,000 units Q12H SC 01/12/19 09:00 01/17/19 08:06 Home Med (Med Rec Complete!) ASDIRECTED XX 01/11/19 16:45 01/11/19 16:45 DC Hydralazine HCl (Apresoline) 10 mg Q6H PO 01/12/19 06:00 01/17/19 12:03 Irbesartan (Avapro) 150 mg QHS PO 01/11/19 21:00 01/14/19 12:20 DC 01/13/19 21:45 Lidocaine (Lidoderm Patch) 1 patch QHS TD 01/11/19 21:00 01/16/19 20:51 Non-Formulary Medication ( See Comment Field Below ) REMOVE LIDODERM PATCH DAILY XX 01/12/19 09:00 01/17/19 08:06 Ondansetron HCl (Zofran Odt) 4 mg Q4HP PRN PO NAUSEA OR VOMITING 01/15/19 13:00 01/15/19 12:52 Oxycodone HCl (Roxicodone, Oxyir) 5 mg Q4HP PRN PO PAIN 01/11/19 15:30 01/11/19 18:58 DC 01/11/19 16:17 Oxycodone HCl (Roxicodone, Oxyir) 5 mg Q4HP PRN PO PAIN 01/13/19 10:30 01/14/19 12:18 DC 01/13/19 20:25 Oxycodone HCl (Roxicodone, Oxyir) 5 mg Q8H PRN PO PAIN 01/14/19 12:30 Oxycodone HCl (Roxicodone, Oxyir) 5 mg TID PO 01/14/19 16:00 01/16/19 11:54 DC 01/16/19 09:45 Oxycodone HCl (Roxicodone, Oxyir) 10 mg Q4HP PRN PO PAIN 01/11/19 19:00 01/13/19 10:21 DC 01/13/19 05:35 Pantoprazole Sodium (Protonix) 40 mg BID PO 01/17/19 21:00 Pantoprazole Sodium (Protonix) 40 mg DAILY PO 01/12/19 09:00 01/17/19 09:42 DC 01/17/19 08:06 Senna (Senokot) 2 tab QHS PO 01/11/19 21:00 01/16/19 20:50 Tizanidine HCl (Zanaflex) 2 mg Q6HP PRN PO SPASMS 01/11/19 15:30 01/17/19 06:22 Verapamil HCl (Isoptin-Sr, Calan Sr) 180 mg QHS PO 01/11/19 21:00 01/16/19 20:51 SALVADOR DUNN MD Jan 17, 2019 14:52
[2019-01-17] MEDS: ONDANSETRON 4 MG ORAL DISINTEGRATING TAB (Q0162 PER 1MG) PO PRN (16:37)
[2019-01-17] MEDS: LIDOCAINE 5% (LIDODERM) PATCH TD SCH (20:37)
[2019-01-17] MEDS: SENNA 8.6 MG TAB (SENOKOT) PO SCH (20:37)
[2019-01-17] MEDS: VERAPAMIL 120 MG SR TAB PO SCH (20:38)
[2019-01-17] MEDS: oxyCODONE 5MG TAB PO PRN (20:39)
[2019-01-17] MEDS: TAMSULOSIN 0.4 MG CAP PO SCH (20:39)
[2019-01-18] MEDS: **hydrALAZINE** 10 MG TAB PO SCH ×4 (00:30→17:47)
[2019-01-18] MEDS: oxyCODONE 5MG TAB PO PRN (05:30)
[2019-01-18 05:51] VITALS: BP 162/72
[2019-01-18] MEDS: BISACODYL 10 MG SUPP PR PRN (06:17)
[2019-01-18 07:11] LABS: BASO % 0.3 % (0.0-1.0); EOS % 0.3 % (0.0-3.0); HEMATOCRIT 32.8 % (36.0-47.0); HEMOGLOBIN 10.6 g/dl (12.0-15.5); LYMPH # 0.7 10^3/uL (1.5-5.0); MEAN CORPUSCULAR HGB CONC 32.3 g/dl (32.0-36.5); MEAN CORPUSCULAR VOLUME 102.2 fl (80.0-96.0); MONO # 0.7 10^3/uL (0.0-0.8); MONO % 9.6 % (0.0-5.0); NEUTROPHILS # 5.7 10^3/uL (1.5-8.5); NEUTROPHILS % 78.7 % (36.0-66.0); PLATELET COUNT, AUTOMATED 280 10^3/uL (150-450); RED BLOOD COUNT 3.21 10^6/uL (4.00-5.40); WHITE BLOOD COUNT 7.2 10^3/uL (4.0-10.0)
[2019-01-18] MEDS: IPRATROPIUM 0.5MG/ALBUTEROL 2.5MG INH SOL UD 3ML (DUONEB)(J7620) NEB SCH ×3 (07:11→19:49)
[2019-01-18 08:39] LABS: CALCIUM LEVEL 10.2 MG/DL (8.8-10.2); CREATININE FOR GFR 1.39 MG/DL (0.55-1.30); GLOMERULAR FILTRATION RATE 39.3 (>39); POTASSIUM SERUM 3.5 MEQ/L (3.5-5.1)
[2019-01-18] MEDS: DULoxetine 30 MG CAP (CYMBALTA) PO SCH (09:29)
[2019-01-18] MEDS: HEPARIN SOD (PORCINE) 5000 UNITS/ML VIAL SC SCH ×2 (09:29→22:06)
[2019-01-18] MEDS: DOCUSATE SODIUM 100 MG CAP PO SCH ×2 (09:29→22:07)
[2019-01-18] MEDS: guaiFENesin 200 MG TAB PO SCH ×3 (09:29→22:07)
[2019-01-18] MEDS: CALCITRIOL 0.25 MCG CAP (S0169) PO SCH (09:29)
[2019-01-18] MEDS: **NOTE PATIENT COMMENT** MISC XX SCH (09:30)
[2019-01-18] MEDS: ASPIRIN 81 MG CHEW TABLET PO SCH (09:30)
[2019-01-18] MEDS: PANTOPRAZOLE 40MG TAB (PROTONIX) PO SCH ×2 (09:30→22:07)
[2019-01-18 14:00] VITALS: BP 142/62
[2019-01-18 22:00] VITALS: BP 142/70
[2019-01-18] MEDS: VERAPAMIL 120 MG SR TAB PO SCH (22:06)
[2019-01-18] MEDS: SENNA 8.6 MG TAB (SENOKOT) PO SCH (22:06)
[2019-01-18] MEDS: TAMSULOSIN 0.4 MG CAP PO SCH (22:07)
[2019-01-18] MEDS: LIDOCAINE 5% (LIDODERM) PATCH TD SCH (22:08)
[2019-01-19] MEDS: **hydrALAZINE** 10 MG TAB PO SCH ×5 (00:56→23:42)
[2019-01-19 06:00] VITALS: BP 131/58
[2019-01-19] MEDS: IPRATROPIUM 0.5MG/ALBUTEROL 2.5MG INH SOL UD 3ML (DUONEB)(J7620) NEB SCH ×3 (07:37→20:20)
[2019-01-19] MEDS: PANTOPRAZOLE 40MG TAB (PROTONIX) PO SCH ×2 (09:10→21:16)
[2019-01-19] MEDS: DULoxetine 30 MG CAP (CYMBALTA) PO SCH (09:11)
[2019-01-19] MEDS: CALCITRIOL 0.25 MCG CAP (S0169) PO SCH (09:11)
[2019-01-19] MEDS: guaiFENesin 200 MG TAB PO SCH ×3 (09:11→21:16)
[2019-01-19] MEDS: HEPARIN SOD (PORCINE) 5000 UNITS/ML VIAL SC SCH ×2 (09:12→21:16)
[2019-01-19] MEDS: **NOTE PATIENT COMMENT** MISC XX SCH (09:16)
[2019-01-19] MEDS: ASPIRIN 81 MG CHEW TABLET PO SCH (09:20)
[2019-01-19] MEDS: DOCUSATE SODIUM 100 MG CAP PO SCH ×2 (09:20→21:15)
[2019-01-19 14:00] VITALS: BP 122/70
[2019-01-19 20:00] VITALS: BP 143/64
[2019-01-19] MEDS: SENNA 8.6 MG TAB (SENOKOT) PO SCH (21:14)
[2019-01-19] MEDS: VERAPAMIL 120 MG SR TAB PO SCH (21:15)
[2019-01-19] MEDS: LIDOCAINE 5% (LIDODERM) PATCH TD SCH (21:15)
[2019-01-19] MEDS: ACETAMINOPHEN TAB 650MG DOSE (2X325MG) PO PRN (21:15)
[2019-01-19] MEDS: TAMSULOSIN 0.4 MG CAP PO SCH (21:16)
[2019-01-20 04:00] VITALS: BP 136/37
[2019-01-20] MEDS: **hydrALAZINE** 10 MG TAB PO SCH ×4 (06:16→23:54)
[2019-01-20] MEDS: IPRATROPIUM 0.5MG/ALBUTEROL 2.5MG INH SOL UD 3ML (DUONEB)(J7620) NEB SCH ×3 (07:20→20:00)
[2019-01-20] MEDS: HEPARIN SOD (PORCINE) 5000 UNITS/ML VIAL SC SCH ×2 (08:30→20:56)
[2019-01-20] MEDS: DOCUSATE SODIUM 100 MG CAP PO SCH ×2 (08:31→20:55)
[2019-01-20] MEDS: CALCITRIOL 0.25 MCG CAP (S0169) PO SCH (08:31)
[2019-01-20] MEDS: guaiFENesin 200 MG TAB PO SCH ×3 (08:31→20:55)
[2019-01-20] MEDS: PANTOPRAZOLE 40MG TAB (PROTONIX) PO SCH ×2 (08:31→20:55)
[2019-01-20] MEDS: DULoxetine 30 MG CAP (CYMBALTA) PO SCH (08:31)
[2019-01-20] MEDS: tiZANidine 4 MG TAB PO PRN ×2 (08:32→21:30)
[2019-01-20] MEDS: **NOTE PATIENT COMMENT** MISC XX SCH (08:33)
[2019-01-20] MEDS: ASPIRIN 81 MG CHEW TABLET PO SCH (08:33)
[2019-01-20 12:00] VITALS: BP 118/55
[2019-01-20 12:08] VITALS: BP 128/58
[2019-01-20 14:00] VITALS: BP 123/58
[2019-01-20 20:00] VITALS: BP 176/74
[2019-01-20] MEDS: TAMSULOSIN 0.4 MG CAP PO SCH (20:55)
[2019-01-20] MEDS: SENNA 8.6 MG TAB (SENOKOT) PO SCH (20:55)
[2019-01-20] MEDS: LIDOCAINE 5% (LIDODERM) PATCH TD SCH (20:56)
[2019-01-20] MEDS: VERAPAMIL 120 MG SR TAB PO SCH (21:30)
[2019-01-21] MEDS: **hydrALAZINE** 10 MG TAB PO SCH ×3 (05:40→17:20)
[2019-01-21 05:59] VITALS: BP 139/63
[2019-01-21] MEDS: IPRATROPIUM 0.5MG/ALBUTEROL 2.5MG INH SOL UD 3ML (DUONEB)(J7620) NEB SCH ×3 (07:22→20:00)
[2019-01-21] MEDS: guaiFENesin 200 MG TAB PO SCH ×3 (07:58→20:54)
[2019-01-21] MEDS: DOCUSATE SODIUM 100 MG CAP PO SCH ×2 (07:58→20:53)
[2019-01-21] MEDS: HEPARIN SOD (PORCINE) 5000 UNITS/ML VIAL SC SCH ×2 (07:58→20:54)
[2019-01-21] MEDS: PANTOPRAZOLE 40MG TAB (PROTONIX) PO SCH ×2 (07:58→20:54)
[2019-01-21] MEDS: ASPIRIN 81 MG CHEW TABLET PO SCH (07:58)
[2019-01-21] MEDS: CALCITRIOL 0.25 MCG CAP (S0169) PO SCH (07:58)
[2019-01-21] MEDS: DULoxetine 30 MG CAP (CYMBALTA) PO SCH (07:59)
[2019-01-21] MEDS: **NOTE PATIENT COMMENT** MISC XX SCH (08:18)
[2019-01-21 14:00] VITALS: BP 134/64
--- NOTE | 2019-01-21 15:39 | IPNPDOC ---
PM&R Progress Note DATE OF SERVICE: Jan 21, 2019 Boiler Operator Progress Note Subjective: Patient reporting she feel well, has some right sided abdominal tenderness which she reports is chronic. EVIEW OF SYSTEMS: The following is a completed review of systems and has been reviewed. Review of systems otherwise unremarkable. PAIN: Patient self reports back pain EYES: No recent vision changes EARS, NOSE, & THROAT: No throat pain, or dysphagia, or rhinorrhea CARDIOVASCULAR: Denies chest pain or palpitations PULMONARY: Denies shortness of breath, + productive cough (improving) GASTROINTESTINAL: Denies constipation/diarrhea GENITOURINARY: denies dysuria (recently resoled retention) MUSCULOSKELETAL: +compression fracture. NEUROLOGICAL:no focal weakness, tremor or seizure activity HEMATOLOGICAL: no anemia. SKIN: intact PSYCHIATRIC: Unremarkable All other review of systems found to be negative. PHYSICAL EXAMINATION: VITAL SIGNS: Please see below. GENERAL: Pleasant and cooperative. No acute distress. HEENT: PERRL. Extraocular movements intact. Clear conjunctiva, +white coating on posterior tongue CARDIOVASCULAR: Regular rate and rhythm. No murmurs, rubs, or gallops LUNGS: + scattered rhonchi ABDOMEN: Soft, +RUQ tenderess, without rebound or guarding, nondistended. Positive bowel sounds. Normal active bowel sounds NEUROLOGICAL: Alert and oriented times three, episodes of delirium, Cranial nerves II through XII grossly intact. Sensation grossly intact in all 4 ex tremities (-) babinksi bilat, 1+/4 patella reflexes bilat EXTREMITIES: 5\5 strength bilateral upper extremities. >4\5 strength right lower extremity. >4/5 strength in left lower extremity. 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 Neuro: patient with intermittent delirium, will try to avoid deliriogenic meds, however will c/u pain medication for now to optimize participation in therapy and attempt to wean -Ammonia levels ordered as patient reporting she has liver cysts as etiology for confusion- WNL -UA also ordered- WNL - MOVIE STAR cognitive evaluation ordered, patient with notable memory impairments on initial exam will consider cholinergics 3. Ortho: osteoporosis with T12 and L1 compression fractures, TLSO brace when OOB, c/u calcitonin- f/u [facility] ortho on discharge 4. CArdiac- HTN, lasix and ARB was on hold on d/c from [facility] for CANDICE on CKD - c/u with addition of hydralazine and c/u Verapamil 180qHS, optimize pain control for better BP management- medicine recs appreciated -Hold ARB and lasix 5. Resp: current 1ppd smoker with self reported COPD, encourage incentive spirometry, DUonebs TID, monitor for infection, 02 prn goal 88-92% 6. GI ppx: protonix, optimize bowel meds -will order liver US for tomorrow given patient reported hx of liver cysts 7. : recent retention, no dysuria now, monitor PVRs 8. Renal: CANDICE on CKD, on d/c from [facility] Tuber Machine Cutter 1.2, was up to 2.19 on 01/14 likely due to restarting ARB, s/p gentle IVF x 2 days-back to baseline, discussed case with Dr. Sinha who said to continue current management and will f/u outpatient 8. DVT ppx: heparin and TEDs 9. Pain: d/c'd tylneol due to hx of liver cysts, d/c'd standing oxycodone for delirum, c/u q8h prn (so far not taking), c/u Elavil 25 qHS for neuropathic pain tizanidine prn for muscle spasms -lidoderm patch to back qHS -c/u Cymbalta increased to 60mg daily 10. Endo: noted to have elevated FT4 with nL TSH, given her hx of PVCs will refer to outpatient endocrinology upon discharge for hyperthyroidism 11. Heme: drop in Hgb from 13-->10, stagle now, FOBT negative, likely dilutional given recent IVF 10. Dispo: 01/25/19 to home with , progressing towards goals Allergies Coded Allergies: No Known Allergies (Unverified , 01/05/19) Vital Signs Vital Signs Date Time Temp Pulse Resp B/P (MAP) Pulse Ox O2 Delivery O2 Flow Rate FiO2 01/21/19 14:00 97.6 97 18 134/64 (87) 96 Microbiology Microbiology 01/18/19 Stool Occult Blood (ELZA) - Final, Complete Current Medications Current Medications Current Medications Medications (Trade) Dose Ordered Sig/Renae Route PRN Reason Start Time Stop Time Status Last Admin Dose Admin Acetaminophen (Tylenol Tab) 650 mg Q6HP PRN PO PAIN / FEVER 01/16/19 12:00 01/19/19 21:15 Acetaminophen (Tylenol Tab) 1,000 mg QID PO 01/11/19 17:00 01/14/19 16:17 DC 01/14/19 13:40 Albuterol/ Ipratropium (Duoneb (Ipr 0.5mg/Alb 2.5mg)) 3 ml RTID NEB 01/11/19 20:00 01/21/19 13:15 Amitriptyline HCl (Elavil) 25 mg QHS PO 01/11/19 21:00 01/16/19 11:54 DC 01/15/19 20:37 Amlodipine Besylate (Norvasc) 2.5 mg DAILY PO 01/12/19 05:30 01/12/19 05:40 DC Aspirin (Aspirin Chewable) 81 mg DAILY PO 01/12/19 09:00 01/21/19 07:58 Bisacodyl (Dulcolax Suppository) 10 mg DAILYPRN PRN DE CONSTIPATION 01/11/19 15:30 01/18/19 06:17 Calcitriol (Rocaltrol) 0.5 mcg DAILY PO 01/12/19 09:00 01/21/19 07:58 Docusate Sodium (Colace) 100 mg BID PO 01/11/19 21:00 01/21/19 07:58 Duloxetine HCl (Cymbalta) 30 mg DAILY PO 01/14/19 09:00 01/16/19 11:55 DC 01/16/19 09:44 Duloxetine HCl (Cymbalta) 60 mg DAILY PO 01/17/19 09:00 01/21/19 07:59 Furosemide (Lasix) 40 mg Q2D PO 01/12/19 09:00 01/14/19 12:30 DC 01/14/19 09:46 Guaifenesin (Robitussin Tab) 400 mg TID PO 01/11/19 21:00 01/21/19 07:58 Heparin Sodium (Porcine) (Heparin) 5,000 units Q12H SC 01/12/19 09:00 01/21/19 07:58 Home Med (Med Rec Complete!) ASDIRECTED XX 01/11/19 16:45 01/11/19 16:45 DC Hydralazine HCl (Apresoline) 10 mg Q6H PO 01/12/19 06:00 01/21/19 05:40 Irbesartan (Avapro) 150 mg QHS PO 01/11/19 21:00 01/14/19 12:20 DC 01/13/19 21:45 Lidocaine (Lidoderm Patch) 1 patch QHS TD 01/11/19 21:00 01/20/19 20:56 Miscellaneous (Unresolved Clarification Entry) SEE LABEL COMMENTS DAILY XX 01/20/19 09:00 01/21/19 10:00 DC Miscellaneous (Unresolved Clarification Entry) SEE LABEL COMMENTS DAILY XX 01/22/19 09:00 01/22/19 09:00 DC Non-Formulary Medication ( See Comment Field Below ) REMOVE LIDODERM PATCH DAILY XX 01/12/19 09:00 01/21/19 08:18 Ondansetron HCl (Zofran Odt) 4 mg Q4HP PRN PO NAUSEA OR VOMITING 01/15/19 13:00 01/17/19 16:37 Oxycodone HCl (Roxicodone, Oxyir) 5 mg Q4HP PRN PO PAIN 01/11/19 15:30 01/11/19 18:58 DC 01/11/19 16:17 Oxycodone HCl (Roxicodone, Oxyir) 5 mg Q4HP PRN PO PAIN 01/13/19 10:30 01/14/19 12:18 DC 01/13/19 20:25 Oxycodone HCl (Roxicodone, Oxyir) 5 mg Q8H PRN PO PAIN 01/14/19 12:30 01/21/19 10:10 DC 01/18/19 05:30 Oxycodone HCl (Roxicodone, Oxyir) 5 mg TID PO 01/14/19 16:00 01/16/19 11:54 DC 01/16/19 09:45 Oxycodone HCl (Roxicodone, Oxyir) 10 mg Q4HP PRN PO PAIN 01/11/19 19:00 01/13/19 10:21 DC 01/13/19 05:35 Pantoprazole Sodium (Protonix) 40 mg BID PO 01/17/19 21:00 01/21/19 07:58 Pantoprazole Sodium (Protonix) 40 mg DAILY PO 01/12/19 09:00 01/17/19 09:42 DC 01/17/19 08:06 Senna (Senokot) 2 tab QHS PO 01/11/19 21:00 01/20/19 20:55 Tamsulosin HCl (Flomax) 0.4 mg QHS PO 01/17/19 21:00 01/20/19 20:55 Tizanidine HCl (Zanaflex) 2 mg Q6HP PRN PO SPASMS 01/11/19 15:30 01/20/19 21:30 Verapamil HCl (Isoptin-Sr, Calan Sr) 180 mg QHS PO 01/11/19 21:00 01/20/19 21:30 SALVADOR DUNN MD Jan 21, 2019 15:39
[2019-01-21] MEDS: MAGIC MOUTHWASH SUSPENSION BTL SSP SCH (17:30)
[2019-01-21 19:54] VITALS: BP 142/68
[2019-01-21] MEDS: SENNA 8.6 MG TAB (SENOKOT) PO SCH (20:53)
[2019-01-21] MEDS: VERAPAMIL 120 MG SR TAB PO SCH (20:53)
[2019-01-21] MEDS: LIDOCAINE 5% (LIDODERM) PATCH TD SCH (20:54)
[2019-01-21] MEDS: TAMSULOSIN 0.4 MG CAP PO SCH (20:54)
[2019-01-22 00:10] VITALS: BP 142/64
[2019-01-22] MEDS: **hydrALAZINE** 10 MG TAB PO SCH ×4 (00:17→17:10)
[2019-01-22 05:32] VITALS: BP 150/71
[2019-01-22 06:44] LABS: EOS # 0.1 10^3/uL (0.0-0.5); EOS % 1.5 % (0.0-3.0); HEMATOCRIT 32.1 % (36.0-47.0); HEMOGLOBIN 10.4 g/dl (12.0-15.5); LYMPH # 0.9 10^3/uL (1.5-5.0); LYMPH % 16.2 % (24.0-44.0); MEAN CORPUSCULAR HGB CONC 32.4 g/dl (32.0-36.5); MEAN CORPUSCULAR VOLUME 101.9 fl (80.0-96.0); MONO # 0.5 10^3/uL (0.0-0.8); MONO % 8.4 % (0.0-5.0); NEUTROPHILS # 3.9 10^3/uL (1.5-8.5); PLATELET COUNT, AUTOMATED 249 10^3/uL (150-450); RED BLOOD COUNT 3.15 10^6/uL (4.00-5.40); WHITE BLOOD COUNT 5.4 10^3/uL (4.0-10.0)
[2019-01-22 07:06] LABS: CALCIUM LEVEL 9.5 MG/DL (8.8-10.2); CREATININE FOR GFR 1.59 MG/DL (0.55-1.30); GLOMERULAR FILTRATION RATE 33.7 (>39); POTASSIUM SERUM 3.5 MEQ/L (3.5-5.1)
[2019-01-22] MEDS: IPRATROPIUM 0.5MG/ALBUTEROL 2.5MG INH SOL UD 3ML (DUONEB)(J7620) NEB SCH ×3 (07:22→20:00)
[2019-01-22] MEDS: guaiFENesin 200 MG TAB PO SCH ×3 (08:51→20:15)
[2019-01-22] MEDS: ASPIRIN 81 MG CHEW TABLET PO SCH (08:51)
[2019-01-22] MEDS: DULoxetine 30 MG CAP (CYMBALTA) PO SCH (08:51)
[2019-01-22] MEDS: HEPARIN SOD (PORCINE) 5000 UNITS/ML VIAL SC SCH ×2 (08:51→20:16)
[2019-01-22] MEDS: DOCUSATE SODIUM 100 MG CAP PO SCH ×2 (08:51→20:15)
[2019-01-22] MEDS: PANTOPRAZOLE 40MG TAB (PROTONIX) PO SCH ×2 (08:51→20:15)
[2019-01-22] MEDS: CALCITRIOL 0.25 MCG CAP (S0169) PO SCH (08:51)
[2019-01-22] MEDS: MAGIC MOUTHWASH SUSPENSION BTL SSP SCH ×3 (08:52→17:10)
[2019-01-22] MEDS: **NOTE PATIENT COMMENT** MISC XX SCH (08:56)
--- NOTE | 2019-01-22 09:45 | REP ---
Abdominal right upper quadrant ultrasound for follow-up of hepatic cysts: Comparison is 07/29/2014. There are numerous hepatic cysts as previously. On the study today the two largest cysts are in the right lobe, one measuring 4.1 x 5.2 x 4.8 cm and the other measuring 5.3 x 4.6 x 4.0 cm. There is no cholelithiasis, gallbladder wall thickening or pericholecystic fluid. There is no intrahepatic or extrahepatic biliary duct dilatation, the common duct measures 1.5 ml in diameter. The visualized areas of the pancreatic head and body are unremarkable. The right kidney measures 9.3 x 5.3 x 3.6 cm and is in the low normal size range. There is a 1 cm renal cortical cyst. Impression: Numerous hepatic cysts as previously. The largest cysts to enter the right lobe as discussed above. 1 cm right renal cyst. Electronically Signed by Lorenzo Cox MD 01/22/2019 09:36 A
[2019-01-22] MEDS ORDERED: VARIBAR PUDDING 40% w/v 230ML TUBE As Ordered ONE (11:39)
[2019-01-22] MEDS ORDERED: BARIUM SULFATE 700 MG TABLET (E-Z-DISK) As Ordered ONE (11:39)
[2019-01-22] MEDS ORDERED: VARIBAR NECTAR 40% w/v 240ML SUSP BTL As Ordered ONE (11:39)
[2019-01-22] MEDS ORDERED: E-Z-PAQUE 96% w/w SUSP 176GM BTL As Ordered ONE (11:39)
--- NOTE | 2019-01-22 13:21 | REP ---
Examination Requested: Cookie Swallow Reason For Exam: Dysphasia The procedure was performed by HALLIE Chacon, under the direct supervision of Dr. Cox. The procedure was performed with Merlyn Navarro from speech pathology present. 5 ml aliquots of thin, pudding, mixed fruit, soft food, and pill consistency barium was administered. No penetration or aspiration was visualized throughout the course of the exam. The detailed report of this examination will be provided by speech pathology. 1.5 minutes of fluoroscopy time was utilized for this procedure. Reviewed by HALLIE Lockwood 01/22/2019 12:39 P Electronically Signed by Lorenzo Cox MD 01/22/2019 01:12 P
[2019-01-22 14:00] VITALS: BP 133/60
[2019-01-22 20:00] VITALS: BP 180/81
[2019-01-22] MEDS: SENNA 8.6 MG TAB (SENOKOT) PO SCH (20:15)
[2019-01-22] MEDS: TAMSULOSIN 0.4 MG CAP PO SCH (20:15)
[2019-01-22] MEDS: VERAPAMIL 120 MG SR TAB PO SCH (20:16)
[2019-01-22] MEDS: LIDOCAINE 5% (LIDODERM) PATCH TD SCH (20:16)
[2019-01-23] MEDS: **hydrALAZINE** 10 MG TAB PO SCH ×3 (00:27→12:04)
[2019-01-23 05:21] VITALS: BP 126/67
[2019-01-23] MEDS: IPRATROPIUM 0.5MG/ALBUTEROL 2.5MG INH SOL UD 3ML (DUONEB)(J7620) NEB SCH (07:42)
[2019-01-23] MEDS ORDERED: CYMB1CAP5 PO (07:50)
[2019-01-23] MEDS ORDERED: ASPI81CH8 PO (07:50)
[2019-01-23] MEDS ORDERED: CALC1CAP31 PO (07:50)
[2019-01-23] MEDS ORDERED: HYDR10TAB PO ×2 (07:50→22:43)
[2019-01-23] MEDS ORDERED: VERA12TASA PO (07:50)
[2019-01-23] MEDS ORDERED: FLOM0.4C39 PO ×2 (07:50→22:47)
[2019-01-23] MEDS: DULoxetine 30 MG CAP (CYMBALTA) PO SCH (08:40)
[2019-01-23] MEDS: **NOTE PATIENT COMMENT** MISC XX SCH (08:40)
[2019-01-23] MEDS: PANTOPRAZOLE 40MG TAB (PROTONIX) PO SCH (08:40)
[2019-01-23] MEDS: guaiFENesin 200 MG TAB PO SCH (08:40)
[2019-01-23] MEDS: ASPIRIN 81 MG CHEW TABLET PO SCH (08:40)
[2019-01-23] MEDS: HEPARIN SOD (PORCINE) 5000 UNITS/ML VIAL SC SCH (08:40)
[2019-01-23] MEDS: CALCITRIOL 0.25 MCG CAP (S0169) PO SCH (08:40)
[2019-01-23] MEDS: DOCUSATE SODIUM 100 MG CAP PO SCH (08:41)
[2019-01-23] MEDS: MAGIC MOUTHWASH SUSPENSION BTL SSP SCH ×2 (08:42→12:00)
[2019-01-23 12:04] VITALS: BP 138/70
[2019-01-23] MEDS ORDERED: VERA180T3 PO (22:40)
[2019-01-23] MEDS ORDERED: DULO60CA35 PO (22:40)
[2019-01-23] MEDS ORDERED: TIZA4TAB4 PO (22:45)
[2019-01-23] MEDS ORDERED: FURO40TA2 PO (22:46)
== END 2019-01-23 13:10 | disposition home health service (06) | DRG 561 ==
LOC: M PM&R 14:26
PROVIDERS: ADMIT Physical Medicine & Rehabilitation; ATTEND Physical Medicine & Rehabilitation
DX: M80.08XD Age-related osteoporosis with current pathological fracture, vertebra(e), subsequent encounter for fracture with routine healing (principal); F17.210 Nicotine dependence, cigarettes, uncomplicated; M19.90 Unspecified osteoarthritis, unspecified site; E78.5 Hyperlipidemia, unspecified; I12.9 Hypertensive chronic kidney disease with stage 1 through stage 4 chronic kidney disease, or unspecified chronic kidney disease; N18.9 Chronic kidney disease, unspecified; Z79.82 Long term (current) use of aspirin; Z79.899 Other long term (current) drug therapy; Z85.41 Personal history of malignant neoplasm of cervix uteri; M81.0 Age-related osteoporosis without current pathological fracture

== ENCOUNTER 2019-01-23 16:25 | Inpatient (IN) | payer MEDICARE, OTHER ==
[~2019-01-23] VITALS: Ht 160 cm; Wt 71.5 kg
[~2019-01-23 16:25] MED LIST changes: +ACET-897 PO; +ASPI81CH8 PO; +CALA180T PO; +CYMB1CAP5 PO; +DOCU100C17 PO; +ECOT81TA5 PO; +FLOM0.4C39 PO; +HYDR10TAB PO; +MIRA3350 PO; +SENN8.6T58 PO; +VERA12TASA PO
[2019-01-23] MEDS ORDERED: MORPHINE 2 MG/ML 1ML SYRINGE (J2270) IV PRN (17:30)
--- NOTE | 2019-01-23 18:29 | REP ---
REASON: Pain. The technique utilized in obtaining the radiograph has magnified the cardiac silhouette and accentuated the interstitial markings. COMPARISON: 01/27/2014 There is a left basilar opacity with left CP angle blunting essentially unchanged from the prior exam with the technical differences between the examinations are taken in to consideration. No definite new opacities have developed. The heart is not enlarged. The osseous structures are within normal limits and unchanged from the prior exam. Electronically Signed by Isaias Salvador DO 01/23/2019 07:15 P
[2019-01-23 19:33] LABS: BASO % 0.2 % (0.0-1.0); EOS % 0.3 % (0.0-3.0); HEMOGLOBIN 11.6 g/dl (12.0-15.5); LYMPH # 0.8 10^3/uL (1.5-5.0); LYMPH % 8.7 % (24.0-44.0); MEAN CORPUSCULAR HEMOGLOBIN 32.7 pg (27.0-33.0); MEAN CORPUSCULAR HGB CONC 31.4 g/dl (32.0-36.5); MEAN CORPUSCULAR VOLUME 104.2 fl (80.0-96.0); MONO # 0.5 10^3/uL (0.0-0.8); MONO % 5.8 % (0.0-5.0); NEUTROPHILS # 7.8 10^3/uL (1.5-8.5); NEUTROPHILS % 84.4 % (36.0-66.0); PLATELET COUNT, AUTOMATED 251 10^3/uL (150-450); RED BLOOD COUNT 3.55 10^6/uL (4.00-5.40); WHITE BLOOD COUNT 9.2 10^3/uL (4.0-10.0)
[2019-01-23 19:44] LABS: PARTIAL THROMBOPLASTIN TIME 26.5 SECONDS (25.0-38.4); PROTHROMBIN TIME 12.9 SECONDS (11.8-14.0)
[2019-01-23 20:02] LABS: ALT/SGPT 13 U/L (12-78); AMYLASE 77 U/L (25-115); BILIRUBIN,DIRECT 0.3 MG/DL (0.0-0.2); BILIRUBIN,TOTAL 0.7 MG/DL (0.2-1.0); BLOOD UREA NITROGEN 23 MG/DL (7-18); CALCIUM LEVEL 9.9 MG/DL (8.8-10.2); CARBON DIOXIDE LEVEL 19 MEQ/L (21-32); CHLORIDE LEVEL 109 MEQ/L (98-107); CK-MB VALUE MASS 3.6 NG/ML (<3.6); CPK CREATINE PHOSPHOKINASE 40 U/L (26-192); CREATININE FOR GFR 1.52 MG/DL (0.55-1.30); GLOMERULAR FILTRATION RATE 35.5 (>39); GLUCOSE, FASTING 64 MG/DL (70-100); LIPASE 495 U/L (73-393); POTASSIUM SERUM 3.5 MEQ/L (3.5-5.1); SODIUM LEVEL 143 MEQ/L (136-145); TOTAL PROTEIN 5.9 GM/DL (6.4-8.2); TROPONIN I < 0.02 NG/ML (< 0.10)
[2019-01-23] MEDS ORDERED: NS 500 ML IV ONE (20:15)
[2019-01-23] MEDS ORDERED: ISOVUE-370 76% 100ML VIAL (Q9967) As Ordered ONE (20:17)
--- NOTE | 2019-01-23 21:05 | REPVR ---
PROCEDURE INFORMATION: Exam: CT Abdomen and Pelvis Without Contrast Exam date and time: 01/23/2019 8:32 PM Clinical history: 73 years old, female; Abdominal pain; Localized; Right upper quadrant (ruq); Patient HX: Done w. O contrast. Creat 1.52, cookie swallow yesterday, barium through out abdomen; Additional info: Ruq pain, pancreatitis, ckd TECHNIQUE: Imaging protocol: Computed tomography of the abdomen and pelvis without contrast. Radiation optimization: All CT scans at this facility use at least one of these dose optimization techniques: automated exposure control; mA and/or kV adjustment per patient size (includes targeted exams where dose is matched to clinical indication); or iterative reconstruction. COMPARISON: CT ABD PELVIS W/O CONTRAST 12/19/2016 3:21 PM FINDINGS: Lungs: Slight bibasilar interstitial prominence. Mediastinum: Minimal hiatal hernia. Liver: The liver demonstrates multiple cysts and coarse calcifications consistent with polycystic liver which is similar to the prior study. Mild hepatomegaly. Gallbladder and bile ducts: Normal. No calcified stones. No ductal dilation. Pancreas: Normal. No ductal dilation. Spleen: Normal. No splenomegaly. Adrenals: Probable 10 mm left adrenal nodule. Kidneys and ureters: Bilateral renal atrophy. There is a left renal cyst measuring up to 18 mm. Stomach and bowel: There is colonic diverticulosis without evidence of diverticulitis. Dense contrast in portions of the colon with beam hardening artifact which limits evaluation of the immediate area. Appendix: The appendix is not seen. Intraperitoneal space: Unremarkable. No free air. No significant fluid collection. Vasculature: There is moderate atherosclerotic calcification of the abdominal aorta with extension into the iliac arteries. There is mild ectasia of the infrarenal abdominal aorta measuring up to 2.9 cm. Lymph nodes: Unremarkable. No enlarged lymph nodes. Bladder: Unremarkable as visualized. Reproductive: Status post hysterectomy. Bones/joints: Prominent compression of L1 which is sclerotic and appear to be chronic. There is also mild superior endplate depression of T11 and T12 which also appeared chronic. Soft tissues: Unremarkable. IMPRESSION: 1. Polycystic liver which is similar to 12/19/2016. There is mild hepatomegaly. 2. Prominent compression of L1 which is sclerotic and mild superior endplate depression of T11 and T12 which are all new since 12/19/2016 but appear to be chronic. 3. Colonic diverticulosis without diverticulitis. 4. Bilateral renal atrophy which is similar. 5. Status post hysterectomy. 6. Minimal hiatal hernia. 7. Probable 10 mm left adrenal nodule. COMMENT: Consistent with the [employer]'s Incidental Findings Committee Report (J [employer] Norma Radiol 2010): Unless the patient's specific circumstances suggest otherwise, any liver lesion 0.5 cm or less, any cystic kidney lesion less than 1.0 cm, and/or any adrenal lesion 1.0 cm or less not otherwise characterized in this report as possessing suspicious or indeterminate imaging features is/are highly likely to be benign and do not require follow-up imaging or biopsy. Electronically signed by: Jorge Moore On 01/23/2019 21:05:16 PM
[2019-01-23] MEDS ORDERED: DULO60CA35 PO (22:40)
[2019-01-23] MEDS ORDERED: VERA180T3 PO (22:40)
[2019-01-23] MEDS ORDERED: HYDR10TAB PO (22:43)
[2019-01-23] MEDS ORDERED: TIZA4TAB4 PO (22:45)
[2019-01-23] MEDS ORDERED: FURO40TA2 PO (22:46)
[2019-01-23] MEDS ORDERED: FLOM0.4C39 PO (22:47)
--- NOTE | 2019-01-24 01:43 | HPEPDOC ---
[facility] Medical History & Physical Date of Admission Jan 24, 2019 Date of Service: Jan 24, 2019 History and Physical CHIEF COMPLAINT: [fall ] HISTORY OF PRESENT ILLNESS: 73f with hx of cervical cancer, ckd, liver cysts, osteoporosis, htn, recently was discharged and came back today after she fell and had a difficult time getting up and had left knee pain. She said she tripped and fell. She denied fever, palpitation, dizziness, chest pain or sob Allergies Coded Allergies: No Known Allergies (Unverified , 01/05/19) Family History Significant Family History: COPD Social History * Smoker: current smoker Alcohol: Denies Drugs: denies medications - see below ROS All 10 points ROS are negative except for what stated in HPI PHYSICAL EXAMINATION: GENERAL: Well-appearing, alert and oriented, in no acute distress. HEENT normocephalic , atraumatic, PERRLA, EOMI, neck supple, no enlarged thyroid, no tenderness , no lymphadenopathy VITAL SIGNS: Afebrile, vital signs stable. CARDIOVASCULAR: Regular rate and rhythm, no murmurs , rubs or gallops , no chest wall tenderness RESP LCTAB , no wheezes, crackles or rhonchi , no fremitus ABDOMEN: + bowel sounds, Soft, nontender, no distended , no organomegaly EXTREMITIES: moves extremities voluntarily, no tenderness, or swelling, normal strength NEURO cn 2-12 intact, no foal deficit, AOAx3 Psych- normal mood and affect , good judgement and insight Assessment and plan fall prn pain meds PT eval fall precautions resume home meds dvt ppx full code, from home Vital Signs Vital Signs Date Time Temp Pulse Resp B/P (MAP) Pulse Ox O2 Delivery O2 Flow Rate FiO2 01/24/19 01:00 91 18 96 Room Air 01/24/19 00:57 171/72 (105) 01/23/19 16:37 97.5 Laboratory Data Labs 24H Laboratory Tests 2 01/23/19 19:22: Immature Granulocyte % (Auto) 0.6, White Blood Count 9.2, Red Blood Count 3.55L, Hemoglobin 11.6L, Hematocrit 37.0, Mean Corpuscular Volume 104.2H, Mean C orpuscular Hemoglobin 32.7, Mean Corpuscular Hemoglobin Concent 31.4L, Red Cell Distribution Width 13.7, Platelet Count 251, Neutrophils (%) (Auto) 84.4H, Lymphocytes (%) (Auto) 8.7L, Monocytes (%) (Auto) 5.8H, Eosinophils (%) (Auto) 0.3, Basophils (%) (Auto) 0.2, Neutrophils # (Auto) 7.8, Lymphocytes # (Auto) 0.8L, Monocytes # (Auto) 0.5, Eosinophils # (Auto) 0.0, Basophils # (Auto) 0.0, Nucleated Red Blood Cells % (auto) 0.0, Prothrombin Time 12.9, Prothromb Time International Ratio 1.00, Activated Partial Thromboplast Time 26.5, Anion Gap 15, Glomerular Filtration Rate 35.5L, Lactic Acid Level 1.3, Calcium Level 9.9, Aspartate Amino Transf (AST/SGOT) 13, Alanine Aminotransferase (ALT/SGPT) 13, Alkaline Phosphatase 109, Total Bilirubin 0.7, Direct Bilirubin 0.3H, Total Creatine Kinase 40, Creatine Kinase MB 3.6, Creatine Kinase MB Relative Index 9.00H, Troponin I < 0.02, Total Protein 5.9L, Albumin 3.0L, Albumin/Globulin Ratio 1.03, Amylase Level 77, Lipase 495H CBC/BMP Laboratory Tests 01/23/19 19:22 Red Blood Count 3.55 L, Mean Corpuscular Volume 104.2 H, Mean Corpuscular Hemoglobin 32.7, Mean Corpuscular Hemoglobin Concent 31.4 L, Red Cell Distribution Width 13.7, Neutrophils (%) (Auto) 84.4 H, Lymphocytes (%) (Auto) 8.7 L, Monocytes (%) (Auto) 5.8 H, Eosinophils (%) (Auto) 0.3, Basophils (%) (Auto) 0.2, Neutrophils # (Auto) 7.8, Lymphocytes # (Auto) 0.8 L, Monocytes # (Auto) 0.5, Eosinophils # (Auto) 0.0, Basophils # (Auto) 0.0 Home Medications Scheduled Aspirin (Ecotrin) 81 Mg Tablet.dr, 81 MG PO DAILY Atorvastatin Calcium (Atorvastatin Calcium) 20 Mg Tablet, 20 MG PO DAILY Calcitriol (Calcitriol) 0.25 Mcg Capsule, 0.5 MCG PO DAILY Duloxetine HCl (Duloxetine HCl) 60 Mg Capsule.dr, 60 MG PO DAILY Furosemide (Furosemide) 40 Mg Tablet, 40 MG PO DAILY Hydralazine HCl (Hydralazine HCl) 10 Mg Tablet, 10 MG PO Q6H Tamsulosin HCl (Flomax) 0.4 Mg Capsule, 0.4 MG PO QHS Tizanidine HCl (Tizanidine HCl) 4 Mg Tablet, 4 MG PO TID Verapamil HCl (Verapamil ER) 180 Mg Tablet.er, 180 MG PO DAILY Allergies Coded Allergies: No Known Allergies (Unverified , 01/05/19) A-FIB/CHADSVASC A-FIB History Current/History of A-Fib/PAF?: No Current PO Anticoag Therapy: No Age/Risk Factor Scoring CHADSVASC: CHADSVASC Response (Comments) Value Age Risk Factor Age >/= 75 years old 2 Gender Risk Factor Female 1 Hx of CHF No 0 Hx of HTN No 0 Hx of Stroke/TIA/or VTE No 0 Hx of Diabetes No 0 Hx of Vascular Disease No 0 Total 3 Treatment Treatment ordered: NONE Reason Anticoagulant not given: Not indicated/[id number] LOUIS SPENCE MD Jan 24, 2019 01:28
[2019-01-24 02:10] VITALS: BP 177/88
[2019-01-24] MEDS ORDERED: PILL CUTTER 1 EACH XX PRN (02:15)
[2019-01-24 06:00] VITALS: BP 151/80
[2019-01-24] MEDS: PERCOCET 5MG/325MG TAB PO PRN ×3 (06:17→20:14)
[2019-01-24] MEDS: **hydrALAZINE** 10 MG TAB PO SCH ×3 (06:20→18:32)
[2019-01-24 07:16] LABS: HEMATOCRIT 33.2 % (36.0-47.0); HEMOGLOBIN 10.7 g/dl (12.0-15.5); MEAN CORPUSCULAR HEMOGLOBIN 32.3 pg (27.0-33.0); MEAN CORPUSCULAR HGB CONC 32.2 g/dl (32.0-36.5); MEAN CORPUSCULAR VOLUME 100.3 fl (80.0-96.0); PLATELET COUNT, AUTOMATED 241 10^3/uL (150-450); RED BLOOD COUNT 3.31 10^6/uL (4.00-5.40); WHITE BLOOD COUNT 6.5 10^3/uL (4.0-10.0)
[2019-01-24 07:43] LABS: CALCIUM LEVEL 9.3 MG/DL (8.8-10.2); CREATININE FOR GFR 1.43 MG/DL (0.55-1.30); GLOMERULAR FILTRATION RATE 38.1 (>39); POTASSIUM SERUM 3.4 MEQ/L (3.5-5.1)
[2019-01-24] MEDS: VERAPAMIL 120 MG SR TAB PO SCH (09:50)
[2019-01-24] MEDS: ATORVASTATIN 20 MG TAB PO SCH (09:51)
[2019-01-24] MEDS: HEPARIN SOD (PORCINE) 5000 UNITS/ML VIAL SC SCH ×2 (09:51→20:13)
[2019-01-24] MEDS: FUROSEMIDE 40 MG TAB PO SCH (09:51)
[2019-01-24] MEDS: ASPIRIN 81 MG ENTERIC TAB PO SCH (09:51)
--- NOTE | 2019-01-24 09:59 | IPNPDOC ---
Subjective Date Seen The patient was seen on 01/24/19. Subjective Chief Complaint/HPI Daughter at bedside. c/o of right flank pain Objective Physical Examination General Exam: Positive: Alert, Cooperative, Mild Distress Eye Exam: Positive: PERRLA, Conjunctiva & lids normal, EOMI ENT Exam: Positive: Atraumatic, Mucous membr. moist/pink Neck Exam: Positive: Supple; Negative: JVD, thyromegaly Chest Exam: Positive: Clear to auscultation, Normal air movement; Negative: Rales, Rhonchi, Wheezing Abdomen Exam: Positive: Normal bowel sounds, Soft, Tenderness, Other (palpable tenderness along the right lateral rib cage); Negative: Mass Extremity Exam: Negative: Clubbing, Cyanosis, Edema Neuro Exam: Positive: Strength at 5/5 X4 ext, Normal Tone, Sensation Intact Psych Exam: Positive: Mental status NL, Mood NL Assessment /Plan Assessment # RUQ flank pain - likely musculoskeletal vs. hemorrhage into liver cyst - CT abd/pelvis reviewed by me - CXR reviewed by me - home when pain controlled, continue percocet # CKD stage 4 - baseline creat 1.47-1.59 mg/dl - stable at this time - avoid nephrotoxins - continue lasix # Asymptomatic Hypoglycemia - not on insulin # Hypokalemia - Kdur 20 mEQ x 1 now # HTN - continue verapamil + hydralazine # T12-L1 non-pathologic fx -TLSO brace - f/u with ortho as outpatient # Urinary retention - continue flomax DVT prophylaxis - continue heparin sq VS, I&O, 24H, Fishbone Vital Signs/I&O Vital Signs Date Time Temp Pulse Resp B/P (MAP) Pulse Ox O2 Delivery O2 Flow Rate FiO2 01/24/19 06:20 153/78 01/24/19 06:17 14 01/24/19 06:00 98.0 84 96 01/24/19 01:00 Room Air I&O- Last 24 Hours up to 6 AM 01/24/19 05:59 Intake Total 500 ml Output Total 200 ml Balance 300 ml Laboratory Data 24H LABS Laboratory Tests 2 01/23/19 19:22: Immature Granulocyte % (Auto) 0.6, White Blood Count 9.2, Red Blood Count 3.55L, Hemoglobin 11.6L, Hematocrit 37.0, Mean Corpuscular Volume 104.2H, Mean Corpuscular Hemoglobin 32.7, Mean Corpuscular Hemoglobin Concent 31.4L, Red Cell Distribution Width 13.7, Platelet Count 251, Neutrophils (%) (Auto) 84.4H, Ly mphocytes (%) (Auto) 8.7L, Monocytes (%) (Auto) 5.8H, Eosinophils (%) (Auto) 0.3, Basophils (%) (Auto) 0.2, Neutrophils # (Auto) 7.8, Lymphocytes # (Auto) 0.8L, Monocytes # (Auto) 0.5, Eosinophils # (Auto) 0.0, Basophils # (Auto) 0.0, Nucleated Red Blood Cells % (auto) 0.0, Prothrombin Time 12.9, Prothromb Time International Ratio 1.00, Activated Partial Thromboplast Time 26.5, Anion Gap 15, Glomerular Filtration Rate 35.5L, Lactic Acid Level 1.3, Calcium Level 9.9, Aspartate Amino Transf (AST/SGOT) 13, Alanine Aminotransferase (ALT/SGPT) 13, Alkaline Phosphatase 109, Total Bilirubin 0.7, Direct Bilirubin 0.3H, Total Creatine Kinase 40, Creatine Kinase MB 3.6, Creatine Kinase MB Relative Index 9.00H, Troponin I < 0.02, Total Protein 5.9L, Albumin 3.0L, Albumin/Globulin Ratio 1.03, Amylase Level 77, Lipase 495H 01/24/19 06:51: Nucleated Red Blood Cells % (auto) 0.0, Anion Gap 13, Glomerular Filtration Rate 38.1L, Calcium Level 9.3, Blood Urea Nitrogen 18, Creatinine 1.43H, Sodium Level 143, Potassium Level 3.4L, Chloride Level 109H, Carbon Dioxide Level 21 CBC/BMP Laboratory Tests 01/23/19 19:22 Red Blood Count 3.55 L, Mean Corpuscular Volume 104.2 H, Mean Corpuscular Hemoglobin 32.7, Mean Corpuscular Hemoglobin Concent 31.4 L, Red Cell D istribution Width 13.7, Neutrophils (%) (Auto) 84.4 H, Lymphocytes (%) (Auto) 8.7 L, Monocytes (%) (Auto) 5.8 H, Eosinophils (%) (Auto) 0.3, Basophils (%) (Auto) 0.2, Neutrophils # (Auto) 7.8, Lymphocytes # (Auto) 0.8 L, Monocytes # (Auto) 0.5, Eosinophils # (Auto) 0.0, Basophils # (Auto) 0.0 01/24/19 06:51 Red Blood Count 3.31 L, Mean Corpuscular Volume 100.3 H, Mean Corpuscular Hemoglobin 32.3, Mean Corpuscular Hemoglobin Concent 32.2, Red Cell Distribution Width 13.7, Calcium Level 9.3 GEORGE RIVAS MD Jan 24, 2019 09:59
[2019-01-24] MEDS ORDERED: POTASSIUM CHLORIDE 10 MEQ SR TABLET PO ONE (10:00)
[2019-01-24 14:00] VITALS: BP 115/51
[2019-01-24] MEDS: TAMSULOSIN 0.4 MG CAP PO SCH (20:13)
[2019-01-24 21:07] VITALS: BP 142/65
--- NOTE | 2019-01-24 21:32 | ECGEPIP ---
[facility] - ED Test Date: 2019-01-23 Pat Name: LUIS ENRIQUE TRAMMELL Department: Room: [place] [address] Gender: Female [place] Tier: ALEX : 1945 Requested By: SLIME Michel Order Number: [id number] Reading MD: Cathi Connolly Measurements Intervals [place] Rate: 96 P: 66 OR: 149 QRS: 20 QRSD: 93 T: 31 QT: 343 QTc: 434 Interpretive Statements SINUS RHYTHM WITH FREQUENT VENTRICULAR PREMATURE COMPLEXES ABNORMAL RHYTHM ECG LOW VOLTAGE LIMB INCREASED RATE 12/29/14 Electronically Signed on 01-24-2019 21:31:48 EDT by Cathi Connolly
[2019-01-25] VITALS: BP 136/65
[2019-01-25 00:30] VITALS: BP 139/65
[2019-01-25] MEDS: **hydrALAZINE** 10 MG TAB PO SCH ×4 (00:40→17:02)
[2019-01-25 06:16] VITALS: BP 139/66
[2019-01-25 08:41] LABS: CALCIUM LEVEL 9.8 MG/DL (8.8-10.2); CREATININE FOR GFR 1.84 MG/DL (0.55-1.30); GLOMERULAR FILTRATION RATE 28.5 (>39); POTASSIUM SERUM 3.9 MEQ/L (3.5-5.1)
[2019-01-25] MEDS: FUROSEMIDE 40 MG TAB PO SCH (08:51)
[2019-01-25] MEDS: ASPIRIN 81 MG ENTERIC TAB PO SCH (08:51)
[2019-01-25] MEDS: HEPARIN SOD (PORCINE) 5000 UNITS/ML VIAL SC SCH ×2 (08:51→20:08)
[2019-01-25] MEDS: VERAPAMIL 120 MG SR TAB PO SCH (08:51)
[2019-01-25] MEDS: ATORVASTATIN 20 MG TAB PO SCH (08:51)
--- NOTE | 2019-01-25 09:56 | REPVR ---
PROCEDURE INFORMATION: Exam: CT Neck Without Contrast Exam date and time: 01/25/2019 9:47 AM Clinical history: 73 years old, female; Dysphagia / difficulty swallowing; Additional info: Gagging on food, eval for pharyngeal mass TECHNIQUE: Imaging protocol: Computed tomography images of the neck without contrast. Radiation optimization: All CT scans at this facility use at least one of these dose optimization techniques: automated exposure control; mA and/or kV adjustment per patient size (includes targeted exams where dose is matched to clinical indication); or iterative reconstruction. COMPARISON: Thyroid, ST head+neck US 07/29/2014 9:28 AM FINDINGS: Nasopharynx: Unremarkable. Oropharynx: Unremarkable. No significant tonsillar enlargement. Hypopharynx: Unremarkable Larynx: Unremarkable. Normal epiglottis. Retropharyngeal space: Unremarkable. Submandibular/Parotid glands: Normal. Glands are normal in size. Thyroid: There is multinodular thyroid with the largest hypodense lesion on the left measuring about 6 mm. No followup is indicated. Lymph nodes: Unremarkable. No lymphadenopathy. Trachea: Visualized trachea is unremarkable. Lungs: Severe centrilobular emphysematous changes are present in the lungs. Vasculature: The vasculature demonstrates diffuse moderate atherosclerotic calcification. 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 The spine demonstrates mild degenerative changes at multiple levels. Soft tissues: See Thyroid Finding. IMPRESSION: 1. 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 2. There is multinodular thyroid with the largest hypodense lesion on the left measuring about 6 mm. No followup is indicated. 3. There is no evidence of soft tissue mass or anatomic compromise of the pharyngeal and proximal esophageal structures. COMMENT: In patients aged 35 years and older with an incidental thyroid nodule equal to or greater than 1.[address], MRI or extrathyroidal US, further evaluation with dedicated thyroid US is recommended for patients with normal life expectancy and without comorbidities. For smaller nodules without suspicious features, no further evaluation or follow up is recommended. Electronically signed by: Mario Mcege On 01/25/2019 09:56:32 AM
--- NOTE | 2019-01-25 12:02 | IPNPDOC ---
Subjective Date Seen The patient was seen on 01/25/19. Subjective Chief Complaint/HPI Pain better controlled this morning, was able to get up and walk to bathroom without excruciating pain. conitnues to have gagging MBBS done during ARU stay was normal. Objective Physical Examination General Exam: Positive: Alert, Cooperative, Mild Distress Eye Exam: Positive: PERRLA, Conjunctiva & lids normal, EOMI ENT Exam: Positive: Atraumatic, Mucous membr. moist/pink, Pharynx Normal Neck Exam: Positive: Supple, Other (no palpable masses); Negative: JVD, thyromegaly, Lymphadenopathy Chest Exam: Positive: Clear to auscultation, Normal air movement; Negative: Rales, Rhonchi, Wheezing Abdomen Exam: Positive: Normal bowel sounds, Soft, Tenderness, Other (palpable tenderness along the right lateral rib cage); Negative: Mass Extremity Exam: Negative: Clubbing, Cyanosis, Edema Neuro Exam: Positive: Strength at 5/5 X4 ext, Normal Tone, Sensation Intact Psych Exam: Positive: Mental status NL, Mood NL Assessment /Plan Assessment # RUQ flank pain - likely musculoskeletal vs. hemorrhage into liver cyst - CT abd/pelvis reviewed by me - CXR reviewed by me - home when pain controlled, continue percocet # Gagging - normal MBBS, recently - check CT neck w/o contrast to r/o mass or structural obstruction # CKD stage 4 - baseline creat 1.47-1.59 mg/dl - creat 1.84 this am, repeat BMP in am - avoid nephrotoxins - continue lasix # Asymptomatic Hypoglycemia - not on insulin # Hypokalemia - Kdur 20 mEQ x 1 now # HTN - continue verapamil + hydralazine # T12-L1 non-pathologic fx -TLSO brace - f/u with ortho as outpatient # Urinary retention - continue flomax DVT prophylaxis - continue heparin sq Dispo: Home later today or tomorrow based on results of CT neck Plan/VTE VTE Prophylaxis Ordered?: Yes VTE Exclusion Mechanical Proph: N/A:VTE Prophy Ordered VTE Exclusion Pharmacological: N/A:VTE Prophy Ordered VS, I&O, 24H, Fishbone Vital Signs/I&O Vital Signs Date Time Temp Pulse Resp B/P (MAP) Pulse Ox O2 Delivery O2 Flow Rate FiO2 01/25/19 08:51 82 139/66 01/25/19 00:30 97.8 18 96 01/24/19 01:00 Room Air I&O- Last 24 Hours up to 6 AM 01/25/19 06:00 Intake Total 660 ml Output Total 1200 ml Balance -540 ml Laboratory Data 24H LABS Laboratory Tests 2 01/25/19 08:11: Anion Gap 11, Glomerular Filtration Rate 28.5L, Blood Urea Nitrogen 21H, Creatinine 1.84H, Sodium Level 143, Potassium Level 3.9, Chloride Level 106, Carbon Dioxide Level 26, Calcium Level 9.8 CBC/BMP Laboratory Tests 01/25/19 08:11 Calcium Level 9.8 GEORGE RIVAS MD Jan 25, 2019 12:02
[2019-01-25] MEDS: PERCOCET 5MG/325MG TAB PO PRN ×2 (14:10→20:08)
[2019-01-25 14:18] VITALS: BP 123/63
[2019-01-25] MEDS ORDERED: ONDANSETRON 4 MG ORAL DISINTEGRATING TAB (Q0162 PER 1MG) PO PRN (14:45)
[2019-01-25] MEDS: TAMSULOSIN 0.4 MG CAP PO SCH (20:08)
[2019-01-25 22:00] VITALS: BP 118/64
[2019-01-26] MEDS: **hydrALAZINE** 10 MG TAB PO SCH ×2 (00:09→06:20)
[2019-01-26 06:00] VITALS: BP 134/67
[2019-01-26 07:20] LABS: CALCIUM LEVEL 9.4 MG/DL (8.8-10.2); CREATININE FOR GFR 1.83 MG/DL (0.55-1.30); GLOMERULAR FILTRATION RATE 28.6 (>39); POTASSIUM SERUM 3.2 MEQ/L (3.5-5.1)
[2019-01-26] MEDS ORDERED: PERCOCET PO (08:23)
--- NOTE | 2019-01-26 08:35 | IPNPDOC ---
Subjective Date Seen The patient was seen on 01/26/19. Subjective Chief Complaint/HPI She continues to have RUQ abd pain but it's controlled with pain medications. No issues overnight. Objective Physical Examination General Exam: Positive: Alert, Cooperative, No Acute Distress Eye Exam: Positive: PERRLA, EOMI ENT Exam: Positive: Atraumatic, Mucous membr. moist/pink, Pharynx Normal Neck Exam: Positive: Supple, Other (no palpable masses); Negative: JVD, thyromegaly, Lymphadenopathy Chest Exam: Positive: Clear to auscultation, Normal air movement; Negative: Rales, Rhonchi, Wheezing Abdomen Exam: Positive: Normal bowel sounds, Soft, Tenderness, Other (palpable tenderness along the right lateral rib cage); Negative: Mass Extremity Exam: Negative: Clubbing, Cyanosis, Edema Neuro Exam: Positive: Strength at 5/5 X4 ext, Normal Tone, Sensation Intact Psych Exam: Positive: Mental status NL, Mood NL Assessment /Plan Assessment # RUQ flank pain - likely musculoskeletal vs. hemorrhage into liver cyst. Her pain is not indicative of acute pancreatitis - CT abd/pelvis reviewed by me, and shows no acute changes - CXR reviewed by me - home today - percocet prn pain # Gagging - normal MBBS, recently - CT neck w/o contrast shows no pharyngeal mass # Multinodular thyroid (largest measuring 6 mm) - no followup needed based on radiology recommendations # CKD stage 4 - baseline creat 1.47-1.59 mg/dl - creat stable this am - avoid nephrotoxins - continue lasix # Asymptomatic Hypoglycemia - not on insulin # Hypokalemia - resolved # HTN - continue verapamil + hydralazine # T12-L1 non-pathologic fx -TLSO brace - f/u with ortho as outpatient # Urinary retention - continue flomax DVT prophylaxis - continue heparin sq Dispo: Home today f/u with PCP Plan/VTE VTE Prophylaxis Ordered?: Yes VTE Exclusion Mechanical Proph: N/A:VTE Prophy Ordered VTE Exclusion Pharmacological: N/A:VTE Prophy Ordered VS, I&O, 24H, Fishbone Vital Signs/I&O Vital Signs Date Time Temp Pulse Resp B/P (MAP) Pulse Ox O2 Delivery O2 Flow Rate FiO2 01/26/19 06:20 134/67 01/26/19 06:00 97.7 98 20 92 01/24/19 01:00 Room Air I&O- Last 24 Hours up to 6 AM 01/26/19 05:59 Intake Total 540 ml Output Total 500 ml Balance 40 ml Laboratory Data 24H LABS Laboratory Tests 2 01/26/19 06:30: Anion Gap 12, Glomerular Filtration Rate 28.6L, Blood Urea Nitrogen 23H, Creatinine 1.83H, Sodium Level 143, Potassium Level 3.2L, Chloride Level 105, Carbon Dioxide Level 26, Calcium Level 9.4 CBC/BMP Laboratory Tests 01/26/19 06:30 Calcium Level 9.4 GEORGE RIVAS MD Jan 26, 2019 08:35
[2019-01-26] MEDS: ASPIRIN 81 MG ENTERIC TAB PO SCH (09:04)
[2019-01-26] MEDS: ATORVASTATIN 20 MG TAB PO SCH (09:04)
[2019-01-26] MEDS: HEPARIN SOD (PORCINE) 5000 UNITS/ML VIAL SC SCH (09:04)
[2019-01-26] MEDS: FUROSEMIDE 40 MG TAB PO SCH (09:04)
[2019-01-26 09:05] VITALS: BP 134/67
[2019-01-26] MEDS: VERAPAMIL 120 MG SR TAB PO SCH (09:05)
[2019-01-26] MEDS ORDERED: FLUBLOK(EGG FREE)(QUAD)INFLUENZA VACC 0.5ML SYRINGE (90682)18YRS&OLDER IM ONE (11:00)
--- NOTE | 2019-01-28 16:32 | DSES ---
DATE OF ADMISSION: 01/23/2019 DATE OF DISCHARGE: 01/26/2019 DISCHARGE DIAGNOSES: 1. Right upper quadrant flank pain, likely secondary to musculoskeletal versus hemorrhage into liver cyst. 2. Multinodular thyroid with largest nodule measuring 6 mm. 3. Chronic kidney disease stage IV. 4. Asymptomatic hypoglycemia. 5. Hypokalemia. 6. Hypertension. 7. Recent T12-L1 nonpathologic fracture. 8. Urinary retention. PROCEDURE PERFORMED DURING THIS HOSPITALIZATION: None. CONSULTANTS ON THE CASE: None. DISPOSITION: The patient was discharged home in stable condition. DISCHARGE INSTRUCTIONS: The patient was instructed to take Percocet 5/325 one to two tablets every 6 hours as needed for the next several days to control her right flank pain. The patient was instructed to followup with her primary care provider within the next 1-2 weeks. CONDITION ON DISCHARGE: Stable. RELEVANT IMAGING STUDIES ARE THE FOLLOWIN. Chest x-ray, one view, showed left basilar opacity with left CP angle blunting, essentially unchanged from prior exam with technical difference between the examinations taken into consideration. No definitive new opacities have developed. The heart is not enlarged. The osseous structures are within normal limits and unchanged from a prior exam. 2. CT abdomen and pelvis. Please reference full report for details but the impression indicated the patient has polycystic liver which is similar to what was seen on 12/19/2016. There is mild hepatomegaly. Prominent compression of L1, which is sclerotic and mild superior endplate depression of T11 and T12, which are all new since 12/19/2016 but appear to be chronic. Chronic diverticulosis without diverticulitis. Bilateral renal atrophy, which is similar. Status post hysterectomy. Minimal hiatal hernia. Probable 10 mm left adrenal nodule. 3. CT of the neck and soft tissues. This showed moderate degenerative disease of the left TM joint. There is multinodular thyroid with largest hypodense lesion on the left measuring about 6 mm. No followup is indicated from a radiologic standpoint based on the size of the nodule. There is no evidence of soft tissue mass or anatomic compromise of pharyngeal and proximal esophageal structures. RELEVANT LABS ARE THE FOLLOWING: Patient's white blood cell count is 9.2, hemoglobin is 10.7, hematocrit is 33, platelet count 241,000. PT was 12.9, INR was 1, PTT was 26.5. Sodium is 143, potassium is 3.5, chloride 109, bicarbonate is 19, BUN is 15, creatinine is 1.52, glucose is 64, CPK was 40, troponin was less than 0.02, albumin was 3, lipase was 495, amylase was 77. DISCHARGE MEDICATIONS ARE THE FOLLOWING: - oxycodone/acetaminophen 5/325 one tablet every 4 hours as needed for pain, dispense 24 tablets - aspirin 81 mg daily - atorvastatin 20 mg daily - calcitriol 0.25 mg daily - duloxetine 60 mg daily - furosemide 40 mg daily - hydralazine 10 mg every 6 hours - Flomax 0.4 mg at bedtime - tizanidine 4 mg three times a day - verapamil 180 mg by mouth daily HOSPITAL COURSE: Mrs. Mack is a very pleasant 73-year-old woman who had presented to the hospital on the same day that she was discharged from inpatient rehabilitation for treatment of vertebral compression fractures. The patient had gone home, had fallen, developed pain in her knee, as well as in her left flank and had returned to the hospital. She was hospitalized. When they checked labs in the emergency room, she was found to have an elevated lipase. However, her physical exam did not correspond to an acute pancreatitis. CT of the abdomen and pelvis failed to show any evidence of pancreatic inflammation. She was admitted to the hospitalist service by Dr. Mohr. I assumed care from her. Reviewing the patient's admission history and physical and preliminary diagnostic workup, I surmised that likely the patient's left flank pain (flank) was possibly secondary to a sprained muscle as she states she had developed this two days prior to being discharged from inpatient rehab or she does have a considerable amount of liver cysts and she could actually have hemorrhaged into one of them when she fell and that is what may have worsened her left flank pain. The patient was treated symptomatically with oral Percocet, which helped control her pain. She was complaining of gagging. I did a CT of her neck and soft tissues to rule out any oropharyngeal masses; none were noted. Patient was subsequently discharged home in stable condition with instructions to followup with her primary care provider (PCP).
== END 2019-01-26 11:50 | disposition home or self-care (01) | DRG 392 ==
LOC: EDBD 16:25 → M ED 16:25 → M ED INP 23:43 → M MS5PR 01-24 02:10
PROVIDERS: ADMIT Internal Medicine; ATTEND Internal Medicine
DX: R10.11 Right upper quadrant pain (principal); N18.4 Chronic kidney disease, stage 4 (severe); F17.200 Nicotine dependence, unspecified, uncomplicated; M25.562 Pain in left knee; E87.6 Hypokalemia; K76.89 Other specified diseases of liver; E04.2 Nontoxic multinodular goiter; E16.2 Hypoglycemia, unspecified; I12.9 Hypertensive chronic kidney disease with stage 1 through stage 4 chronic kidney disease, or unspecified chronic kidney disease; R33.9 Retention of urine, unspecified; Z79.82 Long term (current) use of aspirin; Z79.899 Other long term (current) drug therapy

== ENCOUNTER 2019-01-28 23:37 | Inpatient (IN) | payer MEDICARE, OTHER ==
[~2019-01-28] VITALS: Ht 160 cm; Wt 67.6 kg
[~2019-01-28 23:37] MED LIST changes: +DULO60CA35 PO; +PERCOCET PO; +TIZA4TAB4 PO; +VERA180T3 PO
--- NOTE | 2019-01-29 02:10 | REPVR ---
PROCEDURE INFORMATION: Exam: CT Head Without Contrast Exam date and time: 01/29/2019 12:29 AM Clinical history: 73 years old, female; Injury or trauma; Fall; Initial encounter; Concussion / head injury TECHNIQUE: Imaging protocol: Computed tomography of the head without contrast. Radiation optimization: All CT scans at this facility use at least one of these dose optimization techniques: automated exposure control; mA and/or kV adjustment per patient size (includes targeted exams where dose is matched to clinical indication); or iterative reconstruction. COMPARISON: CT Head without contrast 07/02/2017 11:58 AM FINDINGS: Brain: There is no acute intracranial abnormality. Moderate prominence of ventricles and sulci representing volume loss. Moderate small vessel ischemic changes are seen. There is no mass, midline shift, or mass effect. Tapia-white matter differentiation is preserved. There is no evidence of hemorrhage. There is no extra-axial fluid collection. Basal cisterns are patent. Ventricles: See Brain Finding. Bones/joints: Unremarkable. No acute fracture. Sinuses: Visualized sinuses are unremarkable. No fluid levels. Mastoid air cells: Visualized mastoid air cells are well aerated. Soft tissues: Mild right parieto-occipital soft tissue swelling. IMPRESSION: 1. Moderate volume loss and small vessel ischemic changes. 2. No acute intracranial abnormality. Electronically signed by: Josie Hale On 01/29/2019 02:09:52 AM
--- NOTE | 2019-01-29 02:14 | REPVR ---
PROCEDURE INFORMATION: Exam: CT Cervical Spine Without Contrast Exam date and time: 01/29/2019 12:29 AM Clinical history: 73 years old, female; Injury or trauma; Fall; Initial encounter; Concussion /head injury TECHNIQUE: Imaging protocol: Computed tomography images of the cervical spine without contrast. Radiation optimization: All CT scans at this facility use at least one of these dose optimization techniques: automated exposure control; mA and/or kV adjustment per patient size (includes targeted exams where dose is matched to clinical indication); or iterative reconstruction. COMPARISON: CT Neck without contrast 01/25/2019 9:46 AM FINDINGS: Vertebrae: No acute fracture. Normal alignment. Diffuse demineralization of the bones. Straightening of normal cervical lordosis likely secondary to muscular spasm or positioning. Multilevel degenerative changes with anterior osteophyte formation and facet joint arthropathy. Discs/Spinal canal/Neural foramina: No spinal stenosis. No neural foraminal narrowing. Soft tissues: Unremarkable. Lungs: Lung apices are normal. IMPRESSION: No acute findings. Electronically signed by: Josie Hale On 01/29/2019 02:14:16 AM
[2019-01-29] MEDS ORDERED: NS 1,000 ML IV ONE (02:15)
[2019-01-29 02:41] LABS: BASO % 0.3 % (0.0-1.0); EOS % 0.6 % (0.0-3.0); HEMOGLOBIN 12.5 g/dl (12.0-15.5); LYMPH # 0.8 10^3/uL (1.5-5.0); LYMPH % 10.9 % (24.0-44.0); MEAN CORPUSCULAR HEMOGLOBIN 32.9 pg (27.0-33.0); MEAN CORPUSCULAR HGB CONC 32.9 g/dl (32.0-36.5); MONO # 0.8 10^3/uL (0.0-0.8); MONO % 10.5 % (0.0-5.0); NEUTROPHILS # 5.5 10^3/uL (1.5-8.5); NEUTROPHILS % 77.1 % (36.0-66.0); PLATELET COUNT, AUTOMATED 198 10^3/uL (150-450); WHITE BLOOD COUNT 7.1 10^3/uL (4.0-10.0)
[2019-01-29 03:14] LABS: ALBUMIN 2.9 GM/DL (3.2-5.2); ALT/SGPT 15 U/L (12-78); BILIRUBIN,DIRECT 0.4 MG/DL (0.0-0.2); BLOOD UREA NITROGEN 24 MG/DL (7-18); CALCIUM LEVEL 9.5 MG/DL (8.8-10.2); CARBON DIOXIDE LEVEL 26 MEQ/L (21-32); CHLORIDE LEVEL 101 MEQ/L (98-107); CK-MB VALUE MASS 1.3 NG/ML (<3.6); CPK CREATINE PHOSPHOKINASE 39 U/L (26-192); CREATININE FOR GFR 1.78 MG/DL (0.55-1.30); GLOMERULAR FILTRATION RATE 29.6 (>39); GLUCOSE, FASTING 92 MG/DL (70-100); MB/CK RELATIVE INDEX 3.33 (< OR =4); POTASSIUM SERUM 2.8 MEQ/L (3.5-5.1); SODIUM LEVEL 141 MEQ/L (136-145); THYROID STIMULATING HORMONE 0.281 uIU/ML (0.358-3.740); TOTAL PROTEIN 6.3 GM/DL (6.4-8.2); TROPONIN I < 0.02 NG/ML (< 0.10)
--- NOTE | 2019-01-29 03:36 | REPVR ---
PROCEDURE INFORMATION: Exam: CT Lumbar Spine Without Contrast Exam date and time: 01/29/2019 3:09 AM Clinical history: 73 years old, female; Pain; Additional info: Fall, pain in back TECHNIQUE: Imaging protocol: Computed tomography images of the lumbar spine without contrast. Radiation optimization: All CT scans at this facility use at least one of these dose optimization techniques: automated exposure control; mA and/or kV adjustment per patient size (includes targeted exams where dose is matched to clinical indication); or iterative reconstruction. COMPARISON: CT Spine, lumbar w/o contrast 11/21/2018 9:44 AM FINDINGS: Vertebrae: 50% loss of height of superior endplate of T11 in 25% loss of height of T12 with endplate sclerosis without any significant retropulsion or prevertebral soft tissue swelling. Findings appears to be new from 11/21/18 exam may represent late subacute to chronic fractures. Compression fracture with loss of 75% off L1 vertebral body height/vertebra plana and retropulsion of about 3 mm causing mild indentation on thecal sac. Findings appears to be chronic. Mild loss of height of the inferior endplate L3, new from prior study, it is dominant, no retropulsion. Large lucencies in the bilateral sacrum likely degenerative and demineralization. Stress fracture cannot be completely excluded. Discs/Spinal canal/Neural foramina: No spinal stenosis. No neural foraminal narrowing. Soft tissues: Unremarkable. IMPRESSION: Fracture of T11, T12, L1, and inferior endplate of L3 appears to be chronic, however, further evaluation with MR is recommended. Electronically signed by: Josie Hale On 01/29/2019 03:36:18 AM
[2019-01-29 03:45] LABS: MAGNESIUM LEVEL 1.8 MG/DL (1.8-2.4)
[2019-01-29] MEDS ORDERED: POTASSIUM CHLORIDE 10 MEQ SR TABLET PO ONE (03:45)
[2019-01-29] MEDS ORDERED: ONDANSETRON 4MG/2ML VIAL (J2405) IV ONE (04:30)
[2019-01-29] MEDS: MORPHINE 4 MG/ML 1ML VIAL/SYRINGE (J2270) IV PRN (04:43)
[2019-01-29] MEDS ORDERED: FURO40TA2 PO (05:09)
[2019-01-29] MEDS ORDERED: ASPI-161 PO (05:09)
[2019-01-29] MEDS ORDERED: ATOR1TAB21 PO (05:09)
[2019-01-29] MEDS ORDERED: TIZA4TAB4 PO (05:09)
[2019-01-29] MEDS ORDERED: DULO30CA9 PO (05:09)
[2019-01-29] MEDS ORDERED: FLOM0.4C39 PO (05:09)
[2019-01-29] MEDS ORDERED: VERA180T3 PO (05:09)
[2019-01-29] MEDS ORDERED: PERC5TAB12 PO (05:09)
[2019-01-29] MEDS ORDERED: CALC1CAP31 PO (05:09)
[2019-01-29] MEDS ORDERED: HYDR10TAB PO (05:09)
--- NOTE | 2019-01-29 05:51 | HPEPDOC ---
[facility] Medical History & Physical Date of Admission Jan 29, 2019 Date of Service: Jan 29, 2019 Primary Care Physician: Mingo Vargas MD Attending Physician: AGUILA DOYLE MD History and Physical CHIEF COMPLAINT: Dizziness, head injury HISTORY OF PRESENT ILLNESS: Patient is a 73-year-old female with a past medical history significant for rec ent compression fractures, hyperlipidemia, GERD who presents to the emergency department 3 days since being discharged complaining of dizziness and a resulting fall with head injury. Patient states that she awoke in the middle the night and ambulated using her walker to the commode. While attempting to sit on the commode, patient states that she felt dizzy and lightheaded and fell from a standing height, hitting the back of her head. While in the emergency department a CBC was performed and did not indicate any acute abnormalities. A CMP was ordered which demonstrated a potassium of 2.8. Potassium was repleted in the emergency department with 40 mEq orally. BUN/CR of 24/1.78. Cardiac markers were negative. CT imaging of the patient's head, C-spine, lumbar spine were performed. Head and C-spine imaging were negative. Lumbar imaging did demonstrate compression fracture of T11, T12 and L1 with a chronic fracture of the inferior endplate of L3. An EKG was performed and reviewed demonstrating sinus rhythm with PVCs. Patient continues to report pain in her thoracic and lumbar spine. She describes the pain as sharp, shooting, stabbing. The pain is worse with movement, rated 8 out of 10. Patient was unable to stand for orthostatic vital signs due to increasing pain in her back. Patient was requiring 2 nurse assist. Patient's daughter was present and states that the patient is unable to return home in this condition as she would not be able to care for her [id number]. Patient's pain was treated with IV morphine 4 mg, with good relief. Hospitalist team was consulted for admission and further social management. Of historical note, patient was discharged from the patient to rehabilitation for treatment of her vertebral compression fractures. Patient had previously gone home and follow him and developed pain in her knee as well as her left flank and return to the hospital. ED evaluation at that time did demonstrate some elevated lipase without radiographic or physical exam findings consistent with pancreatitis. Patient's flank pain was ultimately determined to be related to a muscle sprain secondary to her rehabilitation. Other suspected causes could be related to patient's numerous liver cysts and potential rupture. Patient was treated with oral Percocet for pain control and discharged home in stable conditions with instructions to follow-up with primary care provider. PAST MEDICAL HISTORY: Osteoporosis Chronic kidney disease stage IV Osteoarthritis Benign PVCs, follows with Dr. 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 Tobacco use: He shouldn't is a former smoker. Patient reports quitting smoking in 1999. At that time, she reported accruing an 18 year pack history. ETOH: Patient reports occasional alcohol use, 2 or 4 times per month Illicit drug use: Patient denies illicit and IV drug use Other relevant social factors: Patient wears corrective lenses and dentures. FAMILY HISTORY: Father: , [place], tightness heart disease Mother: , emphysema, diagnosed hypertension Siblings: Sisters 2, , emphysema Children: Daughter 1, liver cysts No known family history of urologic or colonic related diseases/cancers ALLERGIES: No known allergies REVIEW OF SYSTEMS: CONSTITUTIONAL: Patient denies any recent fevers chills, night sweats, trouble sleeping, changes in weight, increased fatigue HEENT: Patient denies any pain at that location which she said she injured her head. She denies headache. She denies any blurry or double vision. No changes in hearing. No difficulty swallowing. CARDIOVASCULAR: Patient denies any chest pain, palpitations, episodes of inap propriately fast heart rate. RESPIRATORY: Patient reports chronic shortness of breath and cough. Denies sputum production, wheezing GASTROINTESTINAL: Patient denies any nausea, vomiting, reflux, abdominal pain. Patient does report some long-standing history of constipation. GENITOURINARY: Patient denies any difficulty urinating, no dysuria, increased urinary frequency, urgency, hesitancy. She denies oliguria SKIN: Patient denies any new skin lesions or rashes. MUSCULOSKELETAL: Patient continues to reports pain in her back, made worse with ambulation. NEUROLOGICAL: Patient denies any numbness, tingling, weakness, focal neurologic deficits, change in mentation, aphasia HEMATOLOGIC/LYMPHATIC: Patient denies easy bruising or bleeding HOME MEDICATIONS: Please see below. PHYSICAL EXAMINATION: VITAL SIGNS: Temperature 98.1, pulse 91, respiratory rate 20, blood pressure 143/69 (93), pulse oximetry 94 % on room air. GENERAL APPEARANCE: Patient is interviewed and examined in the emergency department. Patient was found obese lying supine in her hospital bed, appearing comfortable, no acute distress, alert and oriented 3, able to answer questions regarding her medical history and able to actively participate in her care. HEENT: Normocephalic, atraumatic, no areas of swelling or fluctuance. No obvious bruising. No calvarium tenderness. EOMI, PERRLA. Oral mucosa is pink and moist. Upper gums are edentulous. No cervical tenderness. No cervical lymphadenopathy. CARDIOVASCULAR: Regular rate and rhythm, no murmurs auscultated. Normal S1 and S2 LUNGS: Scant scattered rhonchi bilaterally ABDOMEN: Soft, nontender, nondistended, no organomegaly, bowel sounds present all 4 quadrants MUSCULOSKELETAL: No bony tenderness in the clavicles or scapula. Patient does report pain with palpation of her thoracic and lumbar spine. EXTREMITIES: No evidence of clubbing, no calf pain or tenderness bilaterally. No peripheral edema noted. NEUROLOGICAL: Patient is alert and oriented 3. Sensation is grossly intact. Strength grossly intact in both upper and lower extremities bilaterally. PSYCHIATRIC: Mood and affect are appropriate given patient's current medical condition. LABORATORY DATA: See below. IMAGING: Head CT (01/29/19): Moderate volume loss and small vessel ischemic changes. No acute intracranial abnormality Cervical spine CT (01/29/19): No acute findings Lumbar spine CT (01/29/19): Compression fracture of T11, T12, L1 inferior endplate of L3 appears to be chronic or further evaluation with MR is recommended. ASSESSMENT: Patient is a 73-year-old female past medical history significant for recent hospitalization and rehabilitation secondary to numerous compression fractures, hyperlipidemia, GERD, who presented to the emergency department after sustaining a accidental fall from standing height was trying to maneuver onto her commode. Patient states that she felt dizzy and hit her posterior occipital region on the floor. Physical and radiographic findings were negative for any acute pathology. Repeat imaging the patient's lumbar spine continues to demonstrate compression fractures of T11, T12, L1 and chronically, L3. Patient currently unable to stand or ambulate secondary to her back pain. Patient's daughter states the patient is unable to return home as she is unable to care for her [id number] and patient is, at this time, unable to perform ADLs. PLAN: Thoracic and lumbar compression fractures -Continue to treat patient's pain with oral pain medication. Patient will also have tizanidine on a when necessary basis. -Patient needs to be reevaluated by PT and OT for further management and treatment options. -Social consult also placed as temporary placement in outpatient rehabilitation may be necessary given that this is the patient's third admission in less than a month. Chronic kidney disease -Patient's BUN/creatinine appear to be at baseline. Patient did receive IV fluid hydration while in the emergency department. -Continue to monitor with daily BMPs Hyperlipidemia -Continue home medications Hypertension -Continue home medications DVT prophylaxis: TEDs and sequentials Vital Signs Vital Signs Date Time Temp Pulse Resp B/P (MAP) Pulse Ox O2 Delivery O2 Flow Rate FiO2 01/29/19 04:52 83 89 01/29/19 04:43 19 01/29/19 03:10 126/66 (86) 124/66 (85) 01/28/19 23:55 98.1 Room Air Laboratory Data Labs 24H Laboratory Tests 2 01/29/19 01:35: Bedside Glucose (Misc Panel) 90 01/29/19 02:00: Anion Gap 14, Glomerular Filtration Rate 29.6L, Calcium Level 9.5, Magnesium Level 1.8, Aspartate Amino Transf (AST/SGOT) 16, Alanine Aminotransferase (ALT/SGPT) 15, Alkaline Phosphatase 114, Total Bilirubin 1.0, Direct Bilirubin 0.4H, Total Creatine Kinase 39, Creatine Kinase MB 1.3, Creatine Kinase MB Re lative Index 3.33, Troponin I < 0.02, Total Protein 6.3L, Albumin 2.9L, Albumin/Globulin Ratio 0.85L, Thyroid Stimulating Hormone (TSH) 0.281L 01/29/19 02:01: Immature Granulocyte % (Auto) 0.6, White Blood Count 7.1, Red Blood Count 3.80L, Hemoglobin 12.5, Hematocrit 38.0, Mean Corpuscular Volume 100.0H, Mean Corpuscular Hemoglobin 32.9, Mean Corpuscular Hemoglobin Concent 32.9, Red Cell Distribution Width 13.5, Platelet Count 198, Neutrophils (%) (Auto) 77.1H, Lymphocytes (%) (Auto) 10.9L, Monocytes (%) (Auto) 10.5H, Eosinophils (%) (Auto) 0.6, Basophils (%) (Auto) 0.3, Neutrophils # (Auto) 5.5, Lymphocytes # (Auto) 0.8L, Monocytes # (Auto) 0.8, Eosinophils # (Auto) 0.0, Basophils # (Auto) 0.0, Nucleated Red Blood Cells % (auto) 0.0 CBC/BMP Laboratory Tests 01/29/19 02:00 01/29/19 02:01 Red Blood Count 3.80 L, Mean Corpuscular Volume 100.0 H, Mean Corpuscular Hemoglobin 32.9, Mean Corpuscular Hemoglobin Concent 32.9, Red Cell Distribution Width 13.5, Neutrophils (%) (Auto) 77.1 H, Lymphocytes (%) (Auto) 10.9 L, Monocytes (%) (Auto) 10.5 H, Eosinophils (%) (Auto) 0.6, Basophils (%) (Auto) 0.3, Neutrophils # (Auto) 5.5, Lymphocytes # (Auto) 0.8 L, Monocytes # (Auto) 0.8, Eosinophils # (Auto) 0.0, Basophils # (Auto) 0.0 Home Medications Scheduled Aspirin (Aspirin EC) 81 Mg Tablet.dr, 81 MG PO DAILY Atorvastatin Calcium (Atorvastatin Calcium) 20 Mg Tablet, 20 MG PO DAILY Calcitriol (Calcitriol) 0.25 Mcg Capsule, 0.5 MCG PO DAILY Duloxetine Hcl (Duloxetine HCl) 30 Mg Capsule.dr, 60 MG PO DAILY Furosemide (Furosemide) 40 Mg Tablet, 40 MG PO DAILY Hydralazine HCl (Hydralazine HCl) 10 Mg Tablet, 10 MG PO Q6H Tamsulosin HCl (Flomax) 0.4 Mg Capsule, 0.4 MG PO QHS Tizanidine HCl (Tizanidine HCl) 4 Mg Tablet, 4 MG PO TID Verapamil HCl (Verapamil ER) 180 Mg Tablet.er, 180 MG PO DAILY Scheduled PRN Oxycodone HCl/Acetaminophen (Percocet 5-325 mg Tablet) 1 Each Tablet, 1 TAB PO Q4H PRN for PAIN Allergies Coded Allergies: No Known Allergies (Unverified , 01/05/19) A-FIB/CHADSVASC A-FIB History Current/History of A-Fib/PAF?: No GME ATTESTATION GME ATTESTATION My faculty preceptor for this patient encounter was physically present during the encounter and was fully available. All aspects of the patient interview, examination, medical decision making process, and medical care plan development were reviewed and approved by the faculty preceptor. The faculty preceptor is aware and concurs with the plan as stated in the body of this note and will attest to such by his/her cosignature. BARON PALOMARES DO Jan 29, 2019 05:51
[2019-01-29] MEDS: **hydrALAZINE** 10 MG TAB PO SCH ×4 (06:58→23:21)
[2019-01-29] MEDS: CALCITRIOL 0.25 MCG CAP (S0169) PO SCH (08:10)
[2019-01-29] MEDS: ASPIRIN 81 MG CHEW TABLET PO SCH (08:10)
[2019-01-29] MEDS: ATORVASTATIN 20 MG TAB PO SCH (08:10)
[2019-01-29] MEDS: DULoxetine 30 MG CAP (CYMBALTA) PO SCH (08:11)
[2019-01-29] MEDS: PERCOCET 5MG/325MG TAB PO PRN ×2 (08:12→18:39)
[2019-01-29] MEDS: FUROSEMIDE 40 MG TAB PO SCH (08:12)
[2019-01-29] MEDS: VERAPAMIL 120 MG SR TAB PO SCH (08:13)
[2019-01-29 13:00] VITALS: BP 127/55
--- NOTE | 2019-01-29 17:41 | ECGEPIP ---
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
[2019-01-29] MEDS: tiZANidine 4 MG TAB PO PRN (20:54)
[2019-01-29] MEDS: TAMSULOSIN 0.4 MG CAP PO SCH (20:54)
[2019-01-29 22:00] VITALS: BP 125/42
[2019-01-29 23:15] VITALS: BP 107/54
[2019-01-30] VITALS (8 sets, daily range): BP systolic 64–112; BP diastolic 32–65
[2019-01-30] MEDS: tiZANidine 4 MG TAB PO PRN (05:36)
[2019-01-30] MEDS: **hydrALAZINE** 10 MG TAB PO SCH (05:37)
--- NOTE | 2019-01-30 06:03 | ECGEPIP ---
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
[2019-01-30 06:58] LABS: BASO % 0.4 % (0.0-1.0); EOS # 0.3 10^3/uL (0.0-0.5); EOS % 4.9 % (0.0-3.0); HEMATOCRIT 34.5 % (36.0-47.0); HEMOGLOBIN 11.2 g/dl (12.0-15.5); LYMPH # 0.8 10^3/uL (1.5-5.0); LYMPH % 13.7 % (24.0-44.0); MEAN CORPUSCULAR HEMOGLOBIN 33.4 pg (27.0-33.0); MEAN CORPUSCULAR HGB CONC 32.5 g/dl (32.0-36.5); MONO # 0.6 10^3/uL (0.0-0.8); MONO % 10.6 % (0.0-5.0); NEUTROPHILS # 3.8 10^3/uL (1.5-8.5); NEUTROPHILS % 69.9 % (36.0-66.0); PLATELET COUNT, AUTOMATED 202 10^3/uL (150-450); RED BLOOD COUNT 3.35 10^6/uL (4.00-5.40); WHITE BLOOD COUNT 5.5 10^3/uL (4.0-10.0)
[2019-01-30 07:20] LABS: ALBUMIN 2.6 GM/DL (3.2-5.2); BILIRUBIN,TOTAL 0.7 MG/DL (0.2-1.0); CALCIUM LEVEL 9.7 MG/DL (8.8-10.2); CREATININE FOR GFR 2.58 MG/DL (0.55-1.30); GLOMERULAR FILTRATION RATE 19.3 (>39); POTASSIUM SERUM 3.1 MEQ/L (3.5-5.1)
[2019-01-30] MEDS: ASPIRIN 81 MG CHEW TABLET PO SCH (08:43)
[2019-01-30] MEDS: DULoxetine 30 MG CAP (CYMBALTA) PO SCH (08:46)
[2019-01-30] MEDS: CALCITRIOL 0.25 MCG CAP (S0169) PO SCH (08:46)
[2019-01-30] MEDS: ATORVASTATIN 20 MG TAB PO SCH (08:46)
[2019-01-30] MEDS: FUROSEMIDE 40 MG TAB PO SCH (08:47)
[2019-01-30] MEDS: VERAPAMIL 120 MG SR TAB PO SCH (08:52)
[2019-01-30] MEDS ORDERED: NS 500 ML IV ONE (09:45)
--- NOTE | 2019-01-30 11:26 | IPNPDOC ---
Text Note Date of Service The patient was seen on 01/30/19. NOTE Patient was seen and examined this morning. The patient had an hypotensive ep isode, but she was completely asymptomatic, lying on the bed. PHYSICAL EXAMINATION: GENERAL APPEARANCE: appearing comfortable, no acute distress, alert and oriented 3. HEENT: Normocephalic, atraumatic CARDIOVASCULAR: Regular rate and rhythm, no murmurs auscultated. Normal S1 and S2 LUNGS: Scant scattered rhonchi bilaterally ABDOMEN: Soft, nontender, nondistended, no organomegaly, bowel sounds present all 4 quadrants MUSCULOSKELETAL: No bony tenderness in the clavicles or scapula. Patient does report pain with palpation of her thoracic and lumbar spine. EXTREMITIES: No evidence of clubbing, no calf pain or tenderness bilaterally. No peripheral edema noted. NEUROLOGICAL: Patient is alert and oriented 3. Sensation is grossly intact. Strength grossly intact in both upper and lower extremities bilaterally. PSYCHIATRIC: Mood and affect are appropriate given patient's current medical condition. LABORATORY DATA: See below. IMAGING: Head CT (01/29/19): Moderate volume loss and small vessel ischemic changes. No acute intracranial abnormality Cervical spine CT (01/29/19): No acute findings Lumbar spine CT (01/29/19): Compression fracture of T11, T12, L1 inferior endplate of L3 appears to be chronic or further evaluation with MR is recommended. ASSESSMENT: Patient is a 73-year-old female past medical history significant for recent hospitalization and rehabilitation secondary to numerous compression fractures, hyperlipidemia, GERD, who presented to the emergency department after sustaining a accidental fall from standing height was trying to maneuver onto her commode. Imaging the patient's lumbar spine continues to demonstrate compression fractures of T11, T12, L1 and chronically, L3. Patient currently unable to stand or ambulate secondary to her back pain. Patient's daughter states the patient is unable to return home as she is unable to care for her [id number] and p atient is, at this time, unable to perform ADLs. Currently the patient is being evaluated by PT, OT and is possibly requiring the TSLO brace. Possibly the patient might also require rehabilitation. PLAN: 1. Thoracic and lumbar compression fractures: Continue to treat patient's pain with oral pain medication. Awaiting reevaluated by PT and OT for further management and treatment options. Social consult also placed as temporary placement in outpatient rehabilitation may be necessary given that this is the patient's third admission in less than a month. 2. Hypotension. Patient got morphine and Percocet along with diet, was on Cardizem 120 and hydralazine 10 3 times a day. Possibly it is iatrogenic medication induced and the patient will be getting 500 mL of bolus and after that 75 mL for a total of 1 L. The patient has improved to 90/60. 3. Chronic kidney disease: Patient's BUN/creatinine appear to be at baseline. 4. Hyperlipidemia: Continue home medications Disposition likely subacute rehabilitation after PT evaluation Aspiration, fall precautions DVT and GI prophylaxis VS,Fishbone, I+O VS, Fishbone, I+O Laboratory Tests 01/30/19 06:15 Red Blood Count 3.35 L, Mean Corpuscular Volume 103.0 H, Mean Corpuscular Hemoglobin 33.4 H, Mean Corpuscular Hemoglobin Concent 32.5, Red Cell Distribution Width 13.4, Neutrophils (%) (Auto) 69.9 H, Lymphocytes (%) (Auto) 13.7 L, Monocytes (%) (Auto) 10.6 H, Eosinophils (%) (Auto) 4.9 H, Basophils (%) (Auto) 0.4, Neutrophils # (Auto) 3.8, Lymphocytes # (Auto) 0.8 L, Monocytes # (Auto) 0.6, Eosinophils # (Auto) 0.3, Basophils # (Auto) 0.0, Calcium Level 9.7, Aspartate Amino Transf (AST/SGOT) 23, Alanine Aminotransferase (ALT/SGPT) 20, Alkaline Phosphatase 101, Total Bilirubin 0.7, Total Protein 6.0 L, Albumin 2.6 L Vital Signs Date Time Temp Pulse Resp B/P (MAP) Pulse Ox O2 Delivery O2 Flow Rate FiO2 01/30/19 09:12 62 64/32 (43) 01/30/19 06:14 97.9 18 97 01/29/19 22:00 2.0 01/29/19 05:07 Nasal Cannula I&O- Last 24 Hours up to 6 AM 01/30/19 06:00 Intake Total 950 ml Output Total 500 ml Balance 450 ml JARRELL ORTIZ MD Jan 30, 2019 11:26
[2019-01-30] MEDS: NS 1,000 ML IV SCH (11:37)
[2019-01-30] MEDS ORDERED: POTASSIUM CHLORIDE 10 MEQ SR TABLET PO ONE (13:00)
[2019-01-30] MEDS: PERCOCET 5MG/325MG TAB PO PRN ×2 (14:50→21:06)
[2019-01-30] MEDS: TAMSULOSIN 0.4 MG CAP PO SCH (21:04)
[2019-01-31] MEDS: NS 1,000 ML IV SCH ×2 (00:40→14:39)
[2019-01-31 05:30] VITALS: BP 135/57
[2019-01-31] MEDS: PERCOCET 5MG/325MG TAB PO PRN ×2 (06:08→20:05)
[2019-01-31 08:00] LABS: ALBUMIN 2.4 GM/DL (3.2-5.2); BILIRUBIN,TOTAL 0.8 MG/DL (0.2-1.0); CALCIUM LEVEL 8.9 MG/DL (8.8-10.2); CREATININE FOR GFR 2.02 MG/DL (0.55-1.30); GLOMERULAR FILTRATION RATE 25.6 (>39); TOTAL PROTEIN 5.8 GM/DL (6.4-8.2)
[2019-01-31 08:38] LABS: BASO % 0.2 % (0.0-1.0); EOS # 0.2 10^3/uL (0.0-0.5); EOS % 4.4 % (0.0-3.0); HEMATOCRIT 32.1 % (36.0-47.0); HEMOGLOBIN 10.2 g/dl (12.0-15.5); LYMPH # 0.8 10^3/uL (1.5-5.0); LYMPH % 14.4 % (24.0-44.0); MEAN CORPUSCULAR HGB CONC 31.8 g/dl (32.0-36.5); MEAN CORPUSCULAR VOLUME 100.6 fl (80.0-96.0); MONO # 0.4 10^3/uL (0.0-0.8); MONO % 7.9 % (0.0-5.0); NEUTROPHILS # 3.8 10^3/uL (1.5-8.5); NEUTROPHILS % 72.7 % (36.0-66.0); PLATELET COUNT, AUTOMATED 178 10^3/uL (150-450); RED BLOOD COUNT 3.19 10^6/uL (4.00-5.40); WHITE BLOOD COUNT 5.2 10^3/uL (4.0-10.0)
[2019-01-31] MEDS ORDERED: VERAPAMIL 120 MG SR TAB PO SCH (09:00)
[2019-01-31] MEDS: ASPIRIN 81 MG CHEW TABLET PO SCH (09:15)
[2019-01-31] MEDS: DULoxetine 30 MG CAP (CYMBALTA) PO SCH (09:15)
[2019-01-31] MEDS: CALCITRIOL 0.25 MCG CAP (S0169) PO SCH (09:15)
[2019-01-31] MEDS: ATORVASTATIN 20 MG TAB PO SCH (09:15)
[2019-01-31] MEDS: FUROSEMIDE 40 MG TAB PO SCH (09:16)
[2019-01-31] MEDS: MORPHINE 4 MG/ML 1ML VIAL/SYRINGE (J2270) IV PRN (09:16)
--- NOTE | 2019-01-31 13:24 | IPNPDOC ---
Text Note Date of Service The patient was seen on 01/31/19. NOTE Patient was seen and examined this morning. The patient is not hypotensive an ymore, participated in therapy this morning PHYSICAL EXAMINATION: GENERAL APPEARANCE: appearing comfortable, no acute distress, alert and oriented 3. HEENT: Normocephalic, atraumatic CARDIOVASCULAR: Regular rate and rhythm, no murmurs auscultated. Normal S1 and S2 LUNGS: Scant scattered rhonchi bilaterally ABDOMEN: Soft, nontender, nondistended, no organomegaly, bowel sounds present all 4 quadrants MUSCULOSKELETAL: No bony tenderness in the clavicles or scapula. Patient does report pain with palpation of her thoracic and lumbar spine. EXTREMITIES: No evidence of clubbing, no calf pain or tenderness bilaterally. No peripheral edema noted. NEUROLOGICAL: Patient is alert and oriented 3. Sensation is grossly intact. Strength grossly intact in both upper and lower extremities bilaterally. PSYCHIATRIC: Mood and affect are appropriate given patient's current medical condition. LABORATORY DATA: See below. IMAGING: Head CT (01/29/19): Moderate volume loss and small vessel ischemic changes. No acute intracranial abnormality Cervical spine CT (01/29/19): No acute findings Lumbar spine CT (01/29/19): Compression fracture of T11, T12, L1 inferior endplate of L3 appears to be chronic or further evaluation with MR is recommended. ASSESSMENT: Patient is a 73-year-old female past medical history significant for recent hospitalization and rehabilitation secondary to numerous compression fractures, hyperlipidemia, GERD, who presented to the emergency department after sustaining a accidental fall from standing height was trying to maneuver onto her commode. Imaging the patient's lumbar spine continues to demonstrate compression fractures of T11, T12, L1 and chronically, L3. Patient currently unable to stand or ambulate secondary to her back pain. Patient's daughter states the patient is unable to return home as she is unable to care for her [id number] and patient is, at this time, unable to perform ADLs. Currently the patient is being evaluated by PT, OT and is possibly requiring the TSLO brace. Possibly the patient might also require rehabilitation. PLAN: 1. Thoracic and lumbar compression fractures: Continue to treat patient's pain with oral pain medication. Awaiting reevaluated by PT and OT for further management and treatment options. Social consult also placed as temporary placement in outpatient rehabilitation may be necessary given that this is the patient's third admission in [facility] than a month. 2. Hypotension. Improved Patient got morphine and Percocet along with diet, was on verapamil 120 and hydralazine 10 3 times a day. Hydralazine, verapamil on ho ld. 3. Chronic kidney disease: Patient's BUN/creatinine appear to be at baseline. She fluctuates between 1.5-2 4. Hyperlipidemia: Continue home medications Disposition likely subacute rehabilitation after PT evaluation Aspiration, fall precautions DVT and GI prophylaxis VS,Fishbone, I+O VS, Fishbone, I+O Laboratory Tests 01/31/19 06:30 Calcium Level 8.9, Aspartate Amino Transf (AST/SGOT) 35, Alanine Aminotransferase (ALT/SGPT) 26, Alkaline Phosphatase 106, Total Bilirubin 0.8, Total Protein 5.8 L, Albumin 2.4 L 01/31/19 08:00 Red Blood Count 3.19 L, Mean Corpuscular Volume 100.6 H, Mean Corpuscular Hemoglobin 32.0, Mean Corpuscular Hemoglobin Concent 31.8 L, Red Cell Distribution Width 13.3, Neutrophils (%) (Auto) 72.7 H, Lymphocytes (%) (Auto) 14.4 L, Monocytes (%) (Auto) 7.9 H, Eosinophils (%) (Auto) 4.4 H, Basophils (%) (Auto) 0.2, Neutrophils # (Auto) 3.8, Lymphocytes # (Auto) 0.8 L, Monocytes # (Auto) 0.4, Eosinophils # (Auto) 0.2, Basophils # (Auto) 0.0 Vital Signs Date Time Temp Pulse Resp B/P (MAP) Pulse Ox O2 Delivery O2 Flow Rate FiO2 01/31/19 09:16 18 01/31/19 05:30 97.9 87 135/57 (83) 86 01/29/19 22:00 2.0 01/29/19 05:07 Nasal Cannula I&O- Last 24 Hours up to 6 AM 01/31/19 06:00 Intake Total 1493 ml Output Total 1050 ml Balance 443 ml JARRELL ORTIZ MD Jan 31, 2019 13:24
[2019-01-31 14:43] VITALS: BP 115/57
[2019-01-31] MEDS: TAMSULOSIN 0.4 MG CAP PO SCH (20:04)
[2019-01-31 21:18] VITALS: BP 130/68
[2019-02-01] MEDS: NS 1,000 ML IV SCH (02:35)
[2019-02-01] MEDS: PERCOCET 5MG/325MG TAB PO PRN ×2 (04:47→09:02)
[2019-02-01 06:53] LABS: BASO % 0.2 % (0.0-1.0); EOS # 0.2 10^3/uL (0.0-0.5); EOS % 4.7 % (0.0-3.0); HEMATOCRIT 31.5 % (36.0-47.0); LYMPH # 0.8 10^3/uL (1.5-5.0); LYMPH % 14.9 % (24.0-44.0); MEAN CORPUSCULAR HEMOGLOBIN 31.9 pg (27.0-33.0); MEAN CORPUSCULAR HGB CONC 31.7 g/dl (32.0-36.5); MEAN CORPUSCULAR VOLUME 100.6 fl (80.0-96.0); MONO # 0.4 10^3/uL (0.0-0.8); MONO % 8.1 % (0.0-5.0); NEUTROPHILS # 3.7 10^3/uL (1.5-8.5); NEUTROPHILS % 71.7 % (36.0-66.0); PLATELET COUNT, AUTOMATED 176 10^3/uL (150-450); RED BLOOD COUNT 3.13 10^6/uL (4.00-5.40); WHITE BLOOD COUNT 5.1 10^3/uL (4.0-10.0)
[2019-02-01 06:55] VITALS: BP 136/67
[2019-02-01 07:20] LABS: ALBUMIN 2.2 GM/DL (3.2-5.2); BILIRUBIN,TOTAL 0.7 MG/DL (0.2-1.0); CALCIUM LEVEL 8.6 MG/DL (8.8-10.2); CREATININE FOR GFR 1.43 MG/DL (0.55-1.30); GLOMERULAR FILTRATION RATE 38.1 (>39); POTASSIUM SERUM 3.3 MEQ/L (3.5-5.1); TOTAL PROTEIN 5.4 GM/DL (6.4-8.2)
[2019-02-01] MEDS ORDERED: DOCUSATE SODIUM 100 MG CAP PO SCH (09:00)
[2019-02-01] MEDS ORDERED: MOM 30ML SUSPENSION UDC PO SCH (09:00)
[2019-02-01] MEDS: CALCITRIOL 0.25 MCG CAP (S0169) PO SCH (09:01)
[2019-02-01] MEDS: DULoxetine 30 MG CAP (CYMBALTA) PO SCH (09:01)
[2019-02-01] MEDS: ASPIRIN 81 MG CHEW TABLET PO SCH (09:01)
[2019-02-01] MEDS: FUROSEMIDE 40 MG TAB PO SCH (09:01)
[2019-02-01] MEDS: ATORVASTATIN 20 MG TAB PO SCH (09:02)
[2019-02-01] MEDS ORDERED: FLEET ENEMA PR PRN (11:45)
[2019-02-01] MEDS ORDERED: PERC5TAB12 PO (11:55)
--- NOTE | 2019-02-01 12:01 | DS.PDOC ---
Discharge Summary General Date of Admission Feb 01, 2019 at 08:36 Date of Discharge 02/01/19 Discharge Summary Chief complaints Mechanical fall Final diagnosis Thoracic and lumbar compression fractures Hypotension. Chronic kidney disease History of present illness and Hospital course Patient is a 73-year-old female past medical history significant for recent hospitalization and rehabilitation secondary to numerous compression fractures, hyperlipidemia, GERD, who presented to the emergency department after sustaining a accidental fall from standing height was trying to maneuver onto her commode. Imaging the patient's lumbar spine continues to demonstrate compression fractures of T11, T12, L1 and chronically, L3. Patient currently unable to stand or ambulate secondary to her back pain. Patient's daughter states the patient is unable to return home as she is unable to care for her [id number] and patient is, at this time, unable to perform ADLs. the patient is being evaluated by PT, OT and is possibly requiring the TSLO brace. Going to inpatient rehabilitation. Also, the patient was hypotensive through out initially for the first 2 days. The patient was on hydralazine 10 mg 3 times a day and verapamil 180 mg daily. The patient's blood pressure were as low as 60s of systolic. For that reason, her antihypertensive medications have been kept on hold. The other reason for her dizziness and mechanical fall could have been. This hypotension. The patient has been advised to follow for PCP in case any other medication needs to be admitted for her in case she gets hypertensive. He is stable to go to a rehabilitation DVT and GI prophylaxis PHYSICAL EXAMINATION: GENERAL APPEARANCE: appearing comfortable, no acute distress, alert and oriented 3. HEENT: Normocephalic, atraumatic CARDIOVASCULAR: Regular rate and rhythm, no murmurs auscultated. Normal S1 and S2 LUNGS: Scant scattered rhonchi bilaterally ABDOMEN: Soft, nontender, nondistended, no organomegaly, bowel sounds present all 4 quadrants MUSCULOSKELETAL: No bony tenderness in the clavicles or scapula. Patient does report pain with palpation of her thoracic and lumbar spine. EXTREMITIES: No evidence of clubbing, no calf pain or tenderness bilaterally. No peripheral edema noted. NEUROLOGICAL: Patient is alert and oriented 3. Sensation is grossly intact. Strength grossly intact in both upper and lower extremities bilaterally. PSYCHIATRIC: Mood and affect are appropriate given patient's current medical condition. LABORATORY DATA: See below. IMAGING: Head CT (01/29/19): Moderate volume loss and small vessel ischemic changes. No acute intracranial abnormality Cervical spine CT (01/29/19): No acute findings Lumbar spine CT (01/29/19): Compression fracture of T11, T12, L1 inferior endplate of L3 appears to be chronic or further evaluation with MR is recommended. Medications. As per discharge reconciliation medication list Activity as tolerated Diet. 2 g sodium diet Follow-up appointments. PCP in 1 week Condition on discharge. Patient is medically optimized for discharge Discharge disposition: Rehabilitation Total time spent on this discharge including coordination of care, review of chart documentation and extubation contact is around 35 minutes Vital Signs/I&Os Vital Signs Date Time Temp Pulse Resp B/P (MAP) Pulse Ox O2 Delivery O2 Flow Rate FiO2 02/01/19 09:32 16 02/01/19 06:55 97.6 70 136/67 (90) 89 01/31/19 21:18 3.0 01/29/19 05:07 Nasal Cannula I&O- Last 24 Hours up to 6 AM 02/01/19 06:00 Intake Total 1680 ml Output Total 1800 ml Balance -120 ml Laboratory Data Labs 24H Laboratory Tests 2 02/01/19 05:41: Immature Granulocyte % (Auto) 0.4, White Blood Count 5.1, Red Blood Count 3.13L, Hemoglobin 10.0L, Hematocrit 31.5L, Mean Corpuscular Volume 100.6H, Mean Corpuscular Hemoglobin 31.9, Mean Corpuscular Hemoglobin Concent 31.7L, Red Cell Distribution Width 13.3, Platelet Count 176, Neutrophils (%) (Auto) 71.7H, Lymphocytes (%) (Auto) 14.9L, Monocytes (%) (Auto) 8.1H, Eosinophils (%) (Auto) 4.7H, Basophils (%) (Auto) 0.2, Neutrophils # (Auto) 3.7, Lymphocytes # (Auto) 0.8L, Monocytes # (Auto) 0.4, Eosinophils # (Auto) 0.2, Basophils # (Auto) 0.0, Nucleated Red Blood Cells % (auto) 0.0, Anion Gap 6L, Glomerular Filtration Rate 38.1L, Blood Urea Nitrogen 19H, Creatinine 1.43H, Sodium Level 142, Potassium Level 3.3L, Chloride Level 108H, Carbon Dioxide Level 28, Calcium Level 8.6L, Aspartate Amino Transf (AST/SGOT) 31, Alanine Aminotransferase (ALT/SGPT) 32, Alkaline Phosphatase 105, Total Bilirubin 0.7, Total Protein 5.4L, Albumin 2.2L, Albumin/Globulin Ratio 0.69L CBC/BMP Laboratory Tests 02/01/19 05:41 Red Blood Count 3.13 L, Mean Corpuscular Volume 100.6 H, Mean Corpuscular Hemoglobin 31.9, Mean Corpuscular Hemoglobin Concent 31.7 L, Red Cell Distribution Width 13.3, Neutrophils (%) (Auto) 71.7 H, Lymphocytes (%) (Auto) 14.9 L, Monocytes (%) (Auto) 8.1 H, Eosinophils (%) (Auto) 4.7 H, Basophils (%) (Auto) 0.2, Neutrophils # (Auto) 3.7, Lymphocytes # (Auto) 0.8 L, Monocytes # (Auto) 0.4, Eosinophils # (Auto) 0.2, Basophils # (Auto) 0.0, Calcium Level 8.6 L, Aspartate Amino Transf (AST/SGOT) 31, Alanine Aminotransferase (ALT/SGPT) 32, Alkaline Phosphatase 105, Total Bilirubin 0.7, Total Protein 5.4 L, Albumin 2.2 L Discharge Medications Scheduled Aspirin (Aspirin EC) 81 Mg Tablet.dr, 81 MG PO DAILY, (Reported) Atorvastatin Calcium (Atorvastatin Calcium) 20 Mg Tablet, 20 MG PO DAILY, (Reported) Calcitriol (Calcitriol) 0.25 Mcg Capsule, 0.5 MCG PO DAILY, (Reported) Duloxetine Hcl (Duloxetine HCl) 30 Mg Capsule.dr, 60 MG PO DAILY, (Reported) Furosemide (Furosemide) 40 Mg Tablet, 40 MG PO DAILY, (Reported) Tamsulosin HCl (Flomax) 0.4 Mg Capsule, 0.4 MG PO QHS, (Reported) Tizanidine HCl (Tizanidine HCl) 4 Mg Tablet, 4 MG PO TID, (Reported) Verapamil HCl (Verapamil ER) 180 Mg Tablet.er, 180 MG PO DAILY, (Reported) Scheduled PRN Oxycodone HCl/Acetaminophen (Percocet 5-325 mg Tablet) 1 Each Tablet, 1 TAB PO Q4H PRN for PAIN, (Reported) Oxycodone HCl/Acetaminophen (Percocet 5-325 mg Tablet) 1 Each Tablet, 1 TAB PO BIDP PRN for PAIN SCALE 6-10 Allergies Coded Allergies: No Known Allergies (Unverified , 01/05/19) JARRELL ORTIZ MD Feb 01, 2019 12:01
== END 2019-02-01 12:45 | DRG 552 ==
LOC: M ED 23:37 → M ED INP 23:38 → M MS5PR 01-29 06:10 → OBSVTOIN 02-01 08:36
PROVIDERS: ADMIT Internal Medicine; ATTEND Internal Medicine
DX: S22.080A Wedge compression fracture of T11-T12 vertebra, initial encounter for closed fracture (principal); N18.4 Chronic kidney disease, stage 4 (severe); S32.010A Wedge compression fracture of first lumbar vertebra, initial encounter for closed fracture; E78.5 Hyperlipidemia, unspecified; M81.0 Age-related osteoporosis without current pathological fracture; I95.9 Hypotension, unspecified; K21.9 Gastro-esophageal reflux disease without esophagitis; M19.90 Unspecified osteoarthritis, unspecified site; I12.9 Hypertensive chronic kidney disease with stage 1 through stage 4 chronic kidney disease, or unspecified chronic kidney disease; Z85.41 Personal history of malignant neoplasm of cervix uteri; Z90.710 Acquired absence of both cervix and uterus; Z87.891 Personal history of nicotine dependence; W19.XXXA Unspecified fall, initial encounter; Y92.9 Unspecified place or not applicable

== ENCOUNTER → 2019-02-06 | Outpatient (REF) ==
[~2019-02-06] MED LIST changes: +ASPI-161 PO; +DULO30CA9 PO; +PERC5TAB12 PO
== END ==
LOC: SKLAB3 14:15
PROVIDERS: ATTEND Family Medicine
DX: R06.2 Wheezing (principal)

== ENCOUNTER → 2019-02-26 | Outpatient (REF) ==
[2019-02-26 14:42] LABS: BASO % 0.3 % (0.0-1.0); EOS # 0.3 10^3/uL (0.0-0.5); EOS % 3.8 % (0.0-3.0); HEMOGLOBIN 11.2 g/dl (12.0-15.5); LYMPH # 1.8 10^3/uL (1.5-5.0); LYMPH % 26.8 % (24.0-44.0); MEAN CORPUSCULAR HGB CONC 31.1 g/dl (32.0-36.5); MEAN CORPUSCULAR VOLUME 102.9 fl (80.0-96.0); MONO # 0.6 10^3/uL (0.0-0.8); MONO % 8.2 % (0.0-5.0); NEUTROPHILS # 4.1 10^3/uL (1.5-8.5); NEUTROPHILS % 60.5 % (36.0-66.0); PLATELET COUNT, AUTOMATED 368 10^3/uL (150-450); WHITE BLOOD COUNT 6.8 10^3/uL (4.0-10.0)
[2019-02-26 15:00] LABS: ALBUMIN 2.4 GM/DL (3.2-5.2); BILIRUBIN,TOTAL 0.7 MG/DL (0.2-1.0); CALCIUM LEVEL 9.3 MG/DL (8.8-10.2); CREATININE FOR GFR 2.27 MG/DL (0.55-1.30); GLOMERULAR FILTRATION RATE 22.3 (>39); POTASSIUM SERUM 3.9 MEQ/L (3.5-5.1); TOTAL PROTEIN 6.5 GM/DL (6.4-8.2)
[2019-02-26 15:13] LABS: ERYTHROCYTE SEDIMENTATION RATE 68 mm/hr (0-30)
== END ==
LOC: SKLAB3 12:58
PROVIDERS: ATTEND Family Medicine
DX: M19.90 Unspecified osteoarthritis, unspecified site (principal); I10 Essential (primary) hypertension

== ENCOUNTER → 2019-03-21 | Outpatient (CLI) | payer MEDICARE, OTHER ==
--- NOTE | 2019-03-21 10:25 | REP ---
Bilateral rib series: Nine views including PA chest. History: Rib pain. Comparison chest x-rays from January 23, 2019. There is a comparison right rib series from March 24, 2010. Findings: PA chest radiograph demonstrates clear somewhat hyperinflated lungs with emphysematous changes in the upper lobes unchanged. Pleural angles are sharp. There is no evidence of pneumothorax or hydrothorax. The thoracic aorta is calcific and slightly tortuous. Heart size is normal. Multiple views of the rib cage demonstrate a large curvilinear calcification in the right upper quadrant. This is unchanged from radiographs dating back to 2009. 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 In any event it is unchanged. There is diffuse osteopenia. Right rib views show fractures and two levels in the right lateral and anterior rib and of rib number nine. The more anterior fracture is a change from the 2009 prior study. The lateral rib fracture in the ninth rib is healed. There are old wedge compression deformities at T11 and L1. No other rib fracture or deformity is seen. Vascular calcification is noted. Impression: Diffuse osteoporosis. There appears to be an acute fracture of the anterior end of the right ninth rib and an old fracture of the posterolateral right 9th rib. There are a cyst wall calcifications again noted in the liver. There is an old compression deformity at T11 and another at L1. Electronically Signed by Daljit Yung MD 03/21/2019 10:55 A
--- NOTE | 2019-03-21 10:44 | REP ---
Lumbar spine series: Five views. History: Pain. Findings: There is a large peripherally calcified the area in the right upper quadrant consistent with previously identified hepatic cyst wall calcifications. Vascular calcification is noted in the normal caliber aorta. There is old wedge compression fracture deformity at the L1, T12, and T11. There is also some loss of vertebral body height along the inferior endplate of the L3 vertebral body. There are is degenerative disc narrowing and spur formation at the L3-4, L4-5, and L5 S1. Vacuum phenomenon is seen and L5-S1. These changes are stable when compared with the January 29, 2019 CT study. There is some healing sclerosis along the inferior endplate of L3 which is a little better establish than it was at the time of the most recent CT of January 29, 2019. All of these compressions are new when compared to the prior CT study from November 21, 2018. There is a little more height loss at the T11 vertebral body than was present on January 29, 2019. Impression: Multiple wedge compression deformities, T11, T12, L1, and L3. Healing sclerosis changes. Slightly more loss of anterior vertebral body height at T11. Otherwise unchanged from January 29, 2019. Electronically Signed by Daljit Yung MD 03/21/2019 10:55 A
== END ==
LOC: M ADAMS 08:13
PROVIDERS: ATTEND Physician Assistant Medical
DX: S22.080A Wedge compression fracture of T11-T12 vertebra, initial encounter for closed fracture (principal); S32.010A Wedge compression fracture of first lumbar vertebra, initial encounter for closed fracture; S32.030A Wedge compression fracture of third lumbar vertebra, initial encounter for closed fracture; R07.81 Pleurodynia; M54.5 Low back pain

== ENCOUNTER 2019-03-28 08:30 | Inpatient (IN) | payer MEDICARE, OTHER ==
[~2019-03-28] VITALS: Ht 165.1 cm; Wt 63.8 kg
[2019-03-28] MEDS ORDERED: MECL-86 PO (08:40)
[2019-03-28] MEDS ORDERED: FAMO20TA PO (08:40)
[2019-03-28] MEDS ORDERED: MIRT1TAB16 PO (08:40)
[2019-03-28] MEDS ORDERED: NS 500 ML IV ONE (08:45)
[2019-03-28] MEDS: DOCUSATE SODIUM 100 MG CAP PO SCH ×2 (09:00→22:06)
[2019-03-28 09:14] LABS: BASO % 0.4 % (0.0-1.0); EOS % 0.4 % (0.0-3.0); HEMATOCRIT 43.2 % (36.0-47.0); HEMOGLOBIN 13.2 g/dl (12.0-15.5); LYMPH # 1.6 10^3/uL (1.5-5.0); LYMPH % 22.4 % (24.0-44.0); MEAN CORPUSCULAR HEMOGLOBIN 31.8 pg (27.0-33.0); MEAN CORPUSCULAR HGB CONC 30.6 g/dl (32.0-36.5); MEAN CORPUSCULAR VOLUME 104.1 fl (80.0-96.0); MONO # 0.7 10^3/uL (0.0-0.8); MONO % 9.9 % (0.0-5.0); NEUTROPHILS # 4.7 10^3/uL (1.5-8.5); NEUTROPHILS % 66.6 % (36.0-66.0); PLATELET COUNT, AUTOMATED 365 10^3/uL (150-450); RED BLOOD COUNT 4.15 10^6/uL (4.00-5.40)
--- NOTE | 2019-03-28 09:38 | REP ---
CHEST, SINGLE VIEW: There is no evidence of acute infiltrate. No pleural effusion is seen. The heart is normal in size. The mediastinal silhouette is unremarkable. The visualized osseous structures are intact. There is calcification and tortuosity of the thoracic aorta. IMPRESSION: No acute pulmonary disease. Electronically Signed by Lorenzo Tapia MD 03/28/2019 11:45 A
[2019-03-28 09:45] LABS: ALT/SGPT 12 U/L (12-78); BILIRUBIN,DIRECT 0.1 MG/DL (0.0-0.2); BILIRUBIN,TOTAL 0.8 MG/DL (0.2-1.0); BLOOD UREA NITROGEN 21 MG/DL (7-18); CALCIUM LEVEL 11.3 MG/DL (8.8-10.2); CARBON DIOXIDE LEVEL 28 MEQ/L (21-32); CHLORIDE LEVEL 108 MEQ/L (98-107); CK-MB VALUE MASS < 1.0 NG/ML (<3.6); CPK CREATINE PHOSPHOKINASE 43 U/L (26-192); CREATININE FOR GFR 2.08 MG/DL (0.55-1.30); GLOMERULAR FILTRATION RATE 24.7 (>39); GLUCOSE, FASTING 89 MG/DL (70-100); MB/CK RELATIVE INDEX 2.33 (< OR =4); POTASSIUM SERUM 4.4 MEQ/L (3.5-5.1); SODIUM LEVEL 142 MEQ/L (136-145); THYROID STIMULATING HORMONE 0.654 uIU/ML (0.358-3.740); TOTAL PROTEIN 7.3 GM/DL (6.4-8.2); TROPONIN I < 0.02 NG/ML (< 0.10)
--- NOTE | 2019-03-28 09:47 | REP ---
CT brain: 03/28/2019. Indication: Head trauma. Comparison: 01/29/2019. Technique: Unenhanced axial CT images of the brain were obtained from skull base to vertex. Findings: There is no acute intracranial hemorrhage, acute cortical infarction, mass effect, hydrocephalus or acute calvarial fracture. Volume loss and sequelae of chronic small vessel disease are redemonstrated. Impression: No acute intracranial process. Volume loss and sequelae of chronic small vessel disease. Electronically Signed by Duc Ravi DO 03/28/2019 09:38 A
--- NOTE | 2019-03-28 09:53 | REP ---
CT cervical spine: 03/28/2019. Indication: Cervical spine trauma. Comparison: 01/29/2019. Technique: Axial images of the cervical spine were obtained without IV Gadolinium. Coronal and sagittal reconstructions were provided. Findings: There is straightening of the cervical lordosis. Minimal anterolisthesis of C5 on C6. There is no acute fracture, subluxation or dislocation. No hemorrhage or additional acute post traumatic abnormalities of the spinal canal are present. The prevertebral and additional visualized soft tissues are unremarkable save for bilateral carotid atherosclerotic disease. Impression: No acute osseous injuries of the cervical spine. Electronically Signed by Duc Ravi DO 03/28/2019 09:44 A
[2019-03-28] MEDS ORDERED: hydrALAZINE INJ 20 MG/ML VIAL IV STA (12:21)
[2019-03-28] MEDS ORDERED: ACETAMINOPHEN TAB 650MG DOSE (2X325MG) PO ONE (12:30)
[2019-03-28] MEDS ORDERED: ASPI81CH33 PO (12:40)
[2019-03-28] MEDS ORDERED: DULO60CA35 PO (12:40)
[2019-03-28] MEDS ORDERED: BIOTLIQ3 MT (12:40)
[2019-03-28] MEDS ORDERED: ACET-897 PO (12:40)
[2019-03-28] MEDS ORDERED: REME15TA2 PO (12:40)
--- NOTE | 2019-03-28 13:19 | HPEPDOC ---
[facility] Medical History & Physical Date of Admission Mar 28, 2019 Date of Service: Mar 28, 2019 History and Physical CHIEF COMPLAINT: Generalized weakness HISTORY OF PRESENT ILLNESS: Patient is a 73-yoF with PMH chronic back pain, history of frequent falls, rib fractures, compression fractures, CKD III/IV, goiter, liver cysts, osteoporosis, HTN, HLD, and with generalized weakness. Is noted that she has decrease oral intake and has been hallucinating for 2 days. Her hallucination includes seeing ants walk around, reports does not see this. Patient is a poor historian, but does report cough and right costal pain distributed to her history of falls. has also been coughing prior to her presentation. She also reports intermittent shortness of breath and left-sided headache without any vision changes. She denies any other chest pain or abdominal pain, fevers, chills, dysuria, diarrhea. ED workup reveals UTI and hypercalcemia. In the ED, Cr 2.08, GFR 24.7 (baseline stage 3-4 CKD), macrocytosis with MCV greater than 100, Ca2+ 11.3, TSH 0.654, troponin 1 less than 0.02, urinalysis with 1+ protein, trace ketones, negative nitrites, 3+ leukocyte esterase, 50 WBC, [address] head without contrast reveals no acute processes, CT cervical spine reveals no fractures, CXR reveals no acute processes. Patient was found to be afebrile, slight tachycardic at 100, blood pressure elevated at 221/88, was given hydralazine 5 mg 1, 1 L of normal saline bolus. She was recently rehabilitated at [facility] that is post fall after PM&R hospitalization in [place] 2 months ago (12/2018). ROS: 10 point review of systems are negative except per above. PMH: See above. PSH: appendectomy, cararacts Family history: 2 sisters who from complications of COPD Social history: Sides at home in [place] with . Sees Dr. Sadler, automotive lube technician and Dr. Sinha, remote broadcast engineer. Former smoker, quit prior to recent hospitalizations. Allergies: NKDA HOME MEDICATIONS: Please see below. PHYSICAL EXAMINATION: VITAL SIGNS: see below GENERAL APPEARANCE: Pleasant female in no acute distress. HEENT:. Normocephalic, atraumatic, dry mucous membranes. CARDIOVASCULAR:, S1, S2. LUNGS: Clear to auscultation bilaterally. ABDOMEN:. Slight tenderness in the subcostal region/musculoskeletal region. 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 EXTREMITIES: Trace edema. NEUROLOGICAL:. Alert and oriented 2, not oriented to time. PSYCHIATRIC:, Appropriate affect, has capacity. LABORATORY DATA: See below. IMAGING:. See above MICROBIOLOGY: Please see below. ASSESSMENT: #Generalized weakness/dehydration, possibly secondary to UTI, follow-up with cultures including flu screen, blood cx , follow-up on urine culture. PT eval. #HTN urgency: Continue home meds, place, hydralazine 10 mg every 6 hours when necessary with parameters #CANDICE on CKD: Likely secondary to dehydration, continue IV fluids, unclear if patient truly has UTI, and urine culture, if positive will treat, patient denies any dysuria or urgency #Hypercalcemia, reviewed EKG, continue IV fluids, PTH 61.4. #goiter: TSH within normal limits, not dependent on medications, continue to monitor #GERD: Meds #Mood disorders: hold home meds due to altered mental status, we will reassess and consider resuming tomorrow 03/29 #DVT ppx: heparin #full code Vital Signs Vital Signs Date Time Temp Pulse Resp B/P (MAP) Pulse Ox O2 Delivery O2 Flow Rate FiO2 03/28/19 13:00 103 98 03/28/19 12:58 174/79 (110) 03/28/19 08:49 97.4 18 Room Air Laboratory Data Labs 24H Laboratory Tests 2 03/28/19 09:01: Immature Granulocyte % (Auto) 0.3, Neutrophils (%) (Auto) 66.6H, Lymphocytes (%) (Auto) 22.4L, Monocytes (%) (Auto) 9.9H, Eosinophils (%) (Auto) 0.4, Basophils (%) (Auto) 0.4, Neutrophils # (Auto) 4.7, Lymphocytes # (Auto) 1.6, Monocytes # (Auto) 0.7, Eosinophils # (Auto) 0.0, Basophils # (Auto) 0.0, Nucleated Red Blood Cells % (auto) 0.0, Anion Gap 6L, Glomerular Filtration Rate 24.7L, Calcium Level 11.3H, Total Bilirubin 0.8, Direct Bilirubin 0.1, Aspartate Amino Transf (AST/SGOT) 25, Alanine Aminotransferase (ALT/SGPT) 12, Alkaline Phosphatase 110, Total Creatine Kinase 43, Creatine Kinase MB < 1.0, Creatine Kinase MB Relative Index 2.33, Troponin I < 0.02, Total Protein 7.3, Albumin 3.0L, Albumin/Globulin Ratio 0.70L, Thyroid Stimulating Hormone (TSH) 0.654 03/28/19 09:02: Urine Color ADRIAN, Urine Appearance HAZY, Urine pH 5.0, Urine Specific [place] 1.018, Urine Protein 1+H, Urine Glucose (UA) NEGATIVE, Urine Ketones TRACEH, Urine Blood NEGATIVE, Urine Nitrite NEGATIVE, Urine Bilirubin NEGATIVE, Urine Urobilinogen 0.2, Urine Leukocyte Esterase 3+H, Urine WBC (Auto) 50H, Urine RBC (Auto) 10H, Urine Hyaline Casts (Auto) 16, Urine Bacteria (Auto) NEGATIVE, Urine Squamous Epithelial Cells 1, Urine Calcium Oxalate Cryst (Auto) SMALL, Urine Amorphous Sediment SMALLH, Urine Mucus (Auto) SMALL, Urine Sperm (Auto) 03/28/19 09:58: Bedside Glucose (Misc Panel) 88 CBC/BMP Laboratory Tests 03/28/19 09:01 Microbiology Microbiology 03/28/19 Blood Culture, Received Pending 03/28/19 Urine Culture, Received Pending 03/28/19 Blood Culture, Received Pending Home Medications Scheduled Aspirin (Aspirin) 81 Mg Tab.chew, 81 MG PO DAILY Calcitriol (Calcitriol) 0.25 Mcg Capsule, 0.5 MCG PO DAILY Duloxetine HCl (Duloxetine HCl) 60 Mg Capsule.dr, 60 MG PO DAILY Famotidine (Famotidine) 20 Mg Tablet, 20 MG PO DAILY Mirtazapine (Remeron) 15 Mg Tab.rapdis, 15 MG PO QHS Scheduled PRN Acetaminophen (Tylenol Extra Strength) 500 Mg Tablet, 1,000 MG PO TID PRN for PAIN Meclizine HCl (Meclizine HCl) 25 Mg Tablet, 25 MG PO DAILY PRN for DIZZINESS Saliva Substitute Combo No.9 (Biotene) 473 Ml Mouthwash, 1 LIQ MT PRN PRN for DRY MOUTH Allergies Coded Allergies: No Known Allergies (Unverified , 01/05/19) A-FIB/CHADSVASC A-FIB History Current/History of A-Fib/PAF?: No NAE GUO MD Mar 28, 2019 13:19
[2019-03-28 13:20] LABS: PTH INTACT 61.4 PG/ML (18.5-88.0)
[2019-03-28] MEDS ORDERED: MAALOX 30 ML SUSP *UDC PO PRN (13:30)
[2019-03-28] MEDS ORDERED: ACETAMINOPHEN TAB 650MG DOSE (2X325MG) PO PRN (13:30)
[2019-03-28] MEDS ORDERED: MOM 30ML SUSPENSION UDC PO PRN (13:30)
[2019-03-28] MEDS ORDERED: hydrALAZINE INJ 20 MG/ML VIAL IV PRN (14:15)
[2019-03-28] MEDS: NS 1,000 ML IV SCH (14:15)
[2019-03-28 16:33] VITALS: BP 184/118
[2019-03-28] MEDS ORDERED: **hydrALAZINE** 10 MG TAB PO PRN (17:00)
[2019-03-28 22:00] VITALS: BP 168/87
[2019-03-28] MEDS ORDERED: **hydrALAZINE** 10 MG TAB PO SCH (22:00)
[2019-03-28] MEDS: HEPARIN SOD (PORCINE) 5000 UNITS/ML VIAL SQ SCH (22:08)
[2019-03-28] MEDS: LABETALOL 100 MG TAB PO SCH (22:08)
[2019-03-28 23:32] LABS: CALCIUM LEVEL 10.2 MG/DL (8.8-10.2); CREATININE FOR GFR 1.5 MG/DL (0.55-1.30); MAGNESIUM LEVEL 1.8 MG/DL (1.8-2.4); POTASSIUM SERUM 3.5 MEQ/L (3.5-5.1)
[2019-03-29] MEDS: NS 1,000 ML IV SCH (00:12)
[2019-03-29] MEDS ORDERED: POTASSIUM CHLORIDE 10 MEQ SR TABLET PO ONE (00:30)
--- NOTE | 2019-03-29 01:18 | ECGEPIP ---
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
[2019-03-29 06:00] VITALS: BP 155/67
[2019-03-29 06:49] LABS: ALBUMIN 2.3 GM/DL (3.2-5.2); BILIRUBIN,TOTAL 0.8 MG/DL (0.2-1.0); CALCIUM LEVEL 9.8 MG/DL (8.8-10.2); CREATININE FOR GFR 1.57 MG/DL (0.55-1.30); GLOMERULAR FILTRATION RATE 34.2 (>39); POTASSIUM SERUM 4.1 MEQ/L (3.5-5.1); TOTAL PROTEIN 5.7 GM/DL (6.4-8.2)
[2019-03-29] MEDS ORDERED: CALCITRIOL 0.25 MCG CAP (S0169) PO SCH (09:00)
[2019-03-29] MEDS: ASPIRIN 81 MG CHEW TABLET PO SCH (09:11)
[2019-03-29] MEDS: amLODIPine 10 MG TAB PO SCH (09:11)
[2019-03-29] MEDS: FAMOTIDINE 20 MG TAB PO SCH (09:11)
[2019-03-29] MEDS: DOCUSATE SODIUM 100 MG CAP PO SCH ×2 (09:12→22:50)
[2019-03-29] MEDS: HEPARIN SOD (PORCINE) 5000 UNITS/ML VIAL SQ SCH ×2 (09:12→22:51)
[2019-03-29] MEDS: LABETALOL 100 MG TAB PO SCH ×2 (09:13→22:51)
--- NOTE | 2019-03-29 10:30 | IPN ---
DATE: 03/29/2019 Nita is admitted with hypertensive emergency with hypertensive encephalopathy. She is still hallucinating, still seeing things in the room like dogs and things such as that. Her blood pressure is down to baseline. Renal functions are improved to baseline. PHYSICAL EXAMINATION: 140/87. Pulse 94. Respiratory rate 18. Afebrile. General Appearance: Alert, conversant, in no distress. Neck supple. Pupils equal round and react to light. Lungs clear. Heart regular without murmur. Abdomen soft, nontender, no masses. No peripheral edema. She is alert and conversant, answers questions appropriately, but vaguely. There is no clonus. Reflexes are normal. Neurologic exam is nonfocal. LABS: Sodium 143, potassium 4.1, BUN 19, creatinine 1.57 (baseline creatinine), glucose 88. IMPRESSION: 1. Hypertensive emergency. The patient says that she has been compliant with her medicines and that she has been having labile blood pressures, both hypo and hypertensive. I am going to do a workup for pheochromocytoma as well as get a Doppler ultrasound of her renal arteries. 2. Chronic kidney disease, stage III, with acute kidney injury. Renal function is back to baseline with control of blood pressure. 3. Hypercalcemia, resolved with hydration. 4. Altered mental status. Suspect hypertensive encephalopathy. CT of the head on admission was unremarkable. Her neurologic exam today is nonfocal. Will see whether her mental status clears over the next 24 hours now that her blood pressure is better controlled.
--- NOTE | 2019-03-29 13:00 | ECGEPIP ---
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
[2019-03-29 14:00] VITALS: BP 131/67
[2019-03-29 22:00] VITALS: BP 131/70
[2019-03-30 06:00] VITALS: BP 160/76
[2019-03-30 06:27] LABS: HEMATOCRIT 33.3 % (36.0-47.0); MEAN CORPUSCULAR HGB CONC 30.9 g/dl (32.0-36.5); MEAN CORPUSCULAR VOLUME 103.4 fl (80.0-96.0); PLATELET COUNT, AUTOMATED 265 10^3/uL (150-450); RED BLOOD COUNT 3.22 10^6/uL (4.00-5.40)
[2019-03-30 06:32] LABS: HEMOGLOBIN 10.3 g/dl (12.0-15.5)
[2019-03-30 06:49] LABS: ALBUMIN 2.4 GM/DL (3.2-5.2); CALCIUM LEVEL 10.5 MG/DL (8.8-10.2); CREATININE FOR GFR 1.49 MG/DL (0.55-1.30); GLOMERULAR FILTRATION RATE 36.3 (>39); PHOSPHORUS LEVEL 2.9 MG/DL (2.5-4.9); POTASSIUM SERUM 4.2 MEQ/L (3.5-5.1)
[2019-03-30] MEDS: FAMOTIDINE 20 MG TAB PO SCH (09:46)
[2019-03-30] MEDS: ASPIRIN 81 MG CHEW TABLET PO SCH (09:46)
[2019-03-30] MEDS: LABETALOL 100 MG TAB PO SCH ×2 (09:47→21:00)
[2019-03-30] MEDS: DOCUSATE SODIUM 100 MG CAP PO SCH ×2 (09:47→21:00)
[2019-03-30] MEDS: HEPARIN SOD (PORCINE) 5000 UNITS/ML VIAL SQ SCH ×2 (09:47→21:00)
[2019-03-30] MEDS: amLODIPine 10 MG TAB PO SCH (09:47)
[2019-03-30 14:00] VITALS: BP 135/66
--- NOTE | 2019-03-30 15:37 | IPNPDOC ---
Subjective Date Seen The patient was seen on 03/30/19. VS, I&O, 24H, Fishbone Vital Signs/I&O Vital Signs Date Time Temp Pulse Resp B/P (MAP) Pulse Ox O2 Delivery O2 Flow Rate FiO2 03/30/19 14:00 97.0 76 18 135/66 (89) 97 Room Air I&O- Last 24 Hours up to 6 AM 03/30/19 06:00 Intake Total 0 ml Output Total 0 ml Balance 0 ml Laboratory Data 24H LABS Laboratory Tests 2 03/30/19 06:09: Nucleated Red Blood Cells % (auto) 0.0, Anion Gap 6L, Glomerular Filtration Rate 36.3L, Calcium Level 10.5H, Phosphorus Level 2.9, Albumin 2.4L CBC/BMP Laboratory Tests 03/30/19 06:09 Microbiology Microbiology 03/28/19 Blood Culture - Preliminary, Resulted No Growth after 48 hours. All Specime... 03/28/19 Urine Culture - Final, Complete 03/28/19 Blood Culture - Preliminary, Resulted No Growth after 48 hours. All Specime... Mingo Vargas MD Mar 30, 2019 15:37
[2019-03-30 22:00] VITALS: BP 122/66
[2019-03-31 06:00] VITALS: BP 138/72
[2019-03-31 06:44] LABS: HEMATOCRIT 35.6 % (36.0-47.0); HEMOGLOBIN 10.8 g/dl (12.0-15.5); MEAN CORPUSCULAR HGB CONC 30.3 g/dl (32.0-36.5); MEAN CORPUSCULAR VOLUME 105.6 fl (80.0-96.0); PLATELET COUNT, AUTOMATED 262 10^3/uL (150-450); RED BLOOD COUNT 3.37 10^6/uL (4.00-5.40); WHITE BLOOD COUNT 4.5 10^3/uL (4.0-10.0)
[2019-03-31 07:00] LABS: ALBUMIN 2.4 GM/DL (3.2-5.2); CALCIUM LEVEL 10.4 MG/DL (8.8-10.2); CREATININE FOR GFR 1.46 MG/DL (0.55-1.30); GLOMERULAR FILTRATION RATE 37.2 (>39); POTASSIUM SERUM 4.2 MEQ/L (3.5-5.1)
--- NOTE | 2019-03-31 08:06 | REPVR ---
PROCEDURE INFORMATION: Exam: US Duplex Artery or Vein of the Abdominal and/or Reproductive Organs, Limited Kidneys Exam date and time: 03/30/2019 12:00 PM Age: 73 years old Clinical history: Abnormal findings; Abnormal lab test; Other: HTN; Additional info: HTN emerg TECHNIQUE: Imaging protocol: Real-time duplex ultrasound scan of the arterial or venous flow with color Doppler flow and spectral waveform analysis with image documentation. Images were reviewed and archived. Limited Duplex exam focused on the kidneys. Duplex images were received to evaluate vascular conditions. COMPARISON: LIVER US 01/22/2019 8:20 AM FINDINGS: Right kidney: Parvus tardus waveform seen in the right kidney with delayed acceleration time of 0.056, 0.036 and 0.048 in the upper, mid and lower renal poles respectively. Right renal artery: The origin of the right renal artery is not visualized and obscured by bowel gas. The mid right renal artery is not visualized. The peak systolic velocity of the renal artery in the right renal joshua measures approximately 47.8 cm/s. Right interlobar/arcuate arteries: The resistive indices measure 0.65, 0.64 and 0.68 in the upper, mid and lower renal poles respectively. Right renal vein: Not imaged Left kidney: There is parvus tardus waveforms in the left kidney with delayed acceleration time of 0.048, 0.032 and 0.048 in the upper, mid and lower renal poles respectively. Left renal artery: There is apparent narrowing at the origin of the left main renal artery with peak systolic velocity of 135 cm/s. The left mid renal artery is not visualized. The left renal artery in the hilar region demonstrates demonstrates some parvus tardus waveform with peak systolic velocity of 30.8 cm/s. Left interlobar/arcuate arteries: Resistive indices measure 0.68, 0.72 and 0.78 in the left upper, mid and lower renal poles respectively. Left renal vein: Not imaged Aorta: There is significant aortic mural calcifications and atherosclerotic disease with peak systolic velocity of 89.5 cm/s mid abdominal aorta at the level of the renal arteries. IMPRESSION: 1. Limited exam with nonvisualization of the proximal and mid right as well as the left mid renal arteries. 2. Bilateral intrarenal parvus tardus waveforms with delayed acceleration time indirectly suggesting hemodynamically significant stenoses in the renal arteries. 3. Bilateral renal increased resistive indices suggestive of chronic medical renal disease. PROCEDURE INFORMATION: Exam: US Retroperitoneal Limited, Kidneys Exam date and time: 03/30/2019 12:00 PM Age: 73 years old Clinical history: Abnormal findings; Abnormal lab test; Other: HTN; Additional info: HTN emerg TECHNIQUE: Imaging protocol: Real-time ultrasound of the retroperitoneum with image documentation. Examination was focused on the kidneys. COMPARISON: LIVER US 01/22/2019 8:20 AM FINDINGS: Liver: The liver bladder is under distended with a total volume of 20 cc. No gross intra-bladder mass seen. Right kidney: The right kidney measures 9.1 x 4.2 x 3.6 cm. there is right renal cortical thinning with increased right renal cortical echogenicity. There is no right-sided hydronephrosis. There is no solid right renal mass. Left kidney: The left kidney measures 7.8 x 4.3 x 3.6 cm. There is left renal cortical thinning with increased renal cortical echogenicity. There is no left-sided hydronephrosis. There is a 1.5 x 1.4 x 1.6 cm simple appearing left upper renal pole cyst. Another cyst is seen measuring 1.0 x 0.7 x 0.8 cm. IMPRESSION: 1. Atrophic kidneys with cortical thinning and increased cortical echogenicity suggestive of chronic medical renal disease. 2. Simple appearing left renal cysts. COMMENT: Consistent with the [employer]'s Incidental Findings Committee Report (J Am Norma Radiol 2010): Unless the patient's specific circumstances suggest otherwise, any liver lesion 0.5 cm or less, any cystic kidney lesion less than 1.0 cm, and/or any adrenal lesion 1.0 cm or less not otherwise characterized in this report as possessing suspicious or indeterminate imaging features is/are highly likely to be benign and do not require follow-up imaging or biopsy. Electronically signed by: Walter Ayoub On 03/31/2019 08:06:26 AM
[2019-03-31] MEDS: HEPARIN SOD (PORCINE) 5000 UNITS/ML VIAL SQ SCH ×2 (08:57→21:47)
[2019-03-31] MEDS: DOCUSATE SODIUM 100 MG CAP PO SCH ×2 (08:57→21:47)
[2019-03-31] MEDS: ASPIRIN 81 MG CHEW TABLET PO SCH (08:57)
[2019-03-31] MEDS: FAMOTIDINE 20 MG TAB PO SCH (09:00)
[2019-03-31] MEDS: amLODIPine 10 MG TAB PO SCH (09:50)
[2019-03-31] MEDS: LABETALOL 100 MG TAB PO SCH ×2 (09:50→21:48)
[2019-03-31 14:00] VITALS: BP 140/60
--- NOTE | 2019-03-31 14:54 | IPN ---
DATE: 03/31/2019 Nita is seen on 4-pavillion. Blood pressure has come under better control. Her renal ultrasound Doppler study suggested significant stenoses in the renal arteries bilaterally. Her blood pressure has come under good control. Nursing staff note that she is still having some hallucinations, seeing her in the room when he was not present, but she reorients quickly. PHYSICAL EXAMINATION: 114/76, pulse 80. She is alert and conversant. No distress. She recognizes me from rounding on her a few days ago. LUNGS: Clear. HEART: Regular rhythm. ABDOMEN: Soft, nontender. EXTREMITIES: No peripheral edema. Normal strength in the arms and legs. LABORATORIES: CBC unremarkable. Electrolytes unremarkable. Renal function is stable. Creatinine 1.4. Calcium is minimally elevated at 10.4. IMPRESSION: 1. Hypertensive emergency with encephalopathy. Her blood pressure is under good control on her current regimen. 2. Bilateral renal artery stenoses suggested. Her blood pressure has come under good control and addressing the renal stenoses would require exposure to IV dye, which could lead to deterioration of her stage III chronic kidney disease. We are not going to address this during this current hospitalization. Should blood pressure continue to be problematic as an outpatient, then consideration could be given to referral to vascular surgery. 3. Encephalopathy, persisting hallucinations but decreasing and she reorients quickly. She should be stable for discharge tomorrow.
[2019-03-31 22:00] VITALS: BP 141/80
[2019-04-01 06:00] VITALS: BP 142/77
[2019-04-01 08:01] LABS: ALBUMIN 2.6 GM/DL (3.2-5.2); CALCIUM LEVEL 10.7 MG/DL (8.8-10.2); CREATININE FOR GFR 1.46 MG/DL (0.55-1.30); GLOMERULAR FILTRATION RATE 37.2 (>39); POTASSIUM SERUM 3.7 MEQ/L (3.5-5.1)
[2019-04-01 08:09] LABS: HEMATOCRIT 36.7 % (36.0-47.0); HEMOGLOBIN 11.2 g/dl (12.0-15.5); MEAN CORPUSCULAR HEMOGLOBIN 31.8 pg (27.0-33.0); MEAN CORPUSCULAR HGB CONC 30.5 g/dl (32.0-36.5); MEAN CORPUSCULAR VOLUME 104.3 fl (80.0-96.0); PLATELET COUNT, AUTOMATED 276 10^3/uL (150-450); RED BLOOD COUNT 3.52 10^6/uL (4.00-5.40); WHITE BLOOD COUNT 5.1 10^3/uL (4.0-10.0)
[2019-04-01] MEDS: ASPIRIN 81 MG CHEW TABLET PO SCH (09:08)
[2019-04-01] MEDS: DOCUSATE SODIUM 100 MG CAP PO SCH ×2 (09:08→20:11)
[2019-04-01] MEDS: HEPARIN SOD (PORCINE) 5000 UNITS/ML VIAL SQ SCH ×2 (09:08→20:13)
[2019-04-01] MEDS: amLODIPine 10 MG TAB PO SCH (09:08)
[2019-04-01] MEDS: FAMOTIDINE 20 MG TAB PO SCH (09:08)
[2019-04-01] MEDS: LABETALOL 100 MG TAB PO SCH ×2 (09:09→20:12)
--- NOTE | 2019-04-01 10:56 | IPNPDOC ---
Subjective Date Seen The patient was seen on 04/01/19. Subjective Chief Complaint/HPI hypercalcemia Events since last encounter Renal doppler completed yesterday and there are concerns for EDE. BP has been stable on current medication. Patient admits to poor po intake and constipation. last BM was 3-5 days ago. Denies flatus. + gas obstructing view documented on renal US. Constitutional: Denies: Chills, Fever, Night Sweats Eyes: Denies: Pain, Vision change Pulmonary: Denies: Dyspnea, Cough Cardiovascular: Denies: Chest Pain, Palpitations, Orthopnea, Paroxysmal Noc. Dyspnea, Lt Headedness Gastrointestinal: Reports: Nausea, Abdominal Pain, Constipation; Denies: Vomiting Objective Physical Examination General Exam: Positive: Alert, No Acute Distress Chest Exam: Positive: Clear to auscultation, Normal air movement Heart Exam: Positive: Rate Normal, Regular Rhythm, Normal S1, Normal S2; Negative: Murmurs, Rubs Telemetry: Positive: No significant arrhythmia Abdomen Exam: Positive: Normal bowel sounds, Soft, Tenderness; Negative: Hepatospenomegaly Extremity Exam: Positive: Normal pulses; Negative: Clubbing, Cyanosis, Edema Psych Exam: Positive: Mental status NL, Mood NL, Oriented x 3 Assessment /Plan Problems (1) Hypercalcemia Status: Acute Problem Text: favor 2 1 HPT-chronic hyperCa (02/2014 9.7) 03/28/19 inappropriate PTH 61 c Ca 11.3 c low normal Ph 2.9 favor causing 2 abdominal pain, constipation (03/29/19 renal US s obvious stones and no DEXA in [place]; therefore, check sestamibi scan (would meet criteria for PTectomy) check 24H urine Ca/cr/prot when off IVF Contingency: cinacalcet ro MEN 1 and 2A if + sestamibi (2) CKD (chronic kidney disease), stage IV Problem Text: Cr is improving to 1.4 from 2.0[address] Sinha as an outpatient. ? EDE. MRA renal arteries order. Renin and Cortisol levels ordered. Spoke with Dr. Banks and she is agreeable to outpatient intervention pending MRA results. (3) HTN (hypertension) Status: Chronic Response to Treatment: Stable, Improving Problem Text: Improved on current medications Plan/VTE VTE Prophylaxis Ordered?: Yes VS, I&O, 24H, Fishbone Vital Signs/I&O Vital Signs Date Time Temp Pulse Resp B/P (MAP) Pulse Ox O2 Delivery O2 Flow Rate FiO2 04/01/19 09:08 80 153/78 04/01/19 06:00 97.9 17 95 Room Air I&O- Last 24 Hours up to 6 AM 04/01/19 06:00 Intake Total 750 ml Output Total 200 ml Balance 550 ml Laboratory Data 24H LABS Laboratory Tests 2 03/31/19 23:29: Magnesium Level 1.9 04/01/19 05:31: Nucleated Red Blood Cells % (auto) 0.0, Anion Gap 7L, Glomerular Filtration Rate 37.2L, Calcium Level 10.7H, Phosphorus Level 3.0, Albumin 2.6L CBC/BMP Laboratory Tests 04/01/19 05:31 Microbiology Microbiology 03/28/19 Blood Culture - Preliminary, Resulted No Growth after 72 hours. All specime... 03/28/19 Urine Culture - Final, Complete 03/28/19 Blood Culture - Preliminary, Resulted No Growth after 72 hours. All specime... Mary Benoit Apr 01, 2019 10:56 Grzegorz Li M.D. Apr 01, 2019 16:47
--- NOTE | 2019-04-01 11:55 | REP ---
Clinical: Constipation. Technique: Upright view of the chest with supine and upright views of the abdomen and pelvis. Findings: Frontal view of the chest demonstrates no obvious acute cardiopulmonary process. No free air below diaphragm to suspect pneumoperitoneum. Supine and upright views of the abdomen and pelvis demonstrate nonspecific bowel gas pattern. Amorphous calcifications in the right upper quadrant are consistent with hepatic calcifications and chronic dense concretions within the colon as identified on prior CT dated 01/23/2019. Skeletal structures demonstrate chronic degenerative changes along with osteopenia and suspected compression deformities at T11 and L1. Impression: 1. Nonspecific bowel gas pattern. 2. Chronic changes as noted above. Electronically Signed by Casey De Guzman MD 04/01/2019 11:46 A
[2019-04-01 14:00] VITALS: BP 113/62
[2019-04-01] MEDS: MIRALAX *UNIT DOSE* 17GM PACKET PO SCH (14:35)
--- NOTE | 2019-04-01 14:53 | REP ---
MRA RENAL ARTERIES: MRA renal arteries is attempted without the use of intravenous contrast. Multiple sequences are obtained in the axial and coronal planes with MIP reconstruction images. Study is significantly limited due to patient motion. Abdominal aorta is normal in caliber with no aneurysm. Renal arteries cannot be identified or evaluated. No IV contrast was administered due to low GFR. The visualized liver demonstrates multiple, innumerable cysts diffusely, the largest is in the posterior segment of the right lobe measuring approximately 9.3 cm in maximum transverse dimension. Visualized spleen, adrenals, and pancreas appear unremarkable. There is no pancreatic duct or common bile duct dilatation. There are a few tiny cysts in the right kidney. There are a few tiny cysts also seen in the left kidney with a dominant exophytic cyst of the lower pole of the left kidney measuring approximately 1.7 cm in maximum diameter. IMPRESSION: Extremely limited exam due to the lack of IV contrast and excessive patient motion. Renal arteries cannot be evaluated for stenosis. Multiple innumerable liver cysts. Electronically Signed by Lorenzo Tapia MD 04/01/2019 03:22 P
[2019-04-01] MEDS: NS 0.45% 1,000 ML IV SCH ×2 (15:39→21:19)
[2019-04-01 22:00] VITALS: BP 145/73
[2019-04-02 06:00] VITALS: BP 150/63
[2019-04-02] MEDS: NS 0.45% 1,000 ML IV SCH (06:31)
[2019-04-02 07:35] LABS: HEMATOCRIT 37.3 % (36.0-47.0); HEMOGLOBIN 11.3 g/dl (12.0-15.5); MEAN CORPUSCULAR HEMOGLOBIN 31.7 pg (27.0-33.0); MEAN CORPUSCULAR HGB CONC 30.3 g/dl (32.0-36.5); MEAN CORPUSCULAR VOLUME 104.5 fl (80.0-96.0); PLATELET COUNT, AUTOMATED 226 10^3/uL (150-450); RED BLOOD COUNT 3.57 10^6/uL (4.00-5.40)
[2019-04-02 08:01] LABS: ALBUMIN 2.4 GM/DL (3.2-5.2); BASO % 0.6 % (0.0-1.0); BILIRUBIN,TOTAL 0.8 MG/DL (0.2-1.0); CALCIUM LEVEL 9.5 MG/DL (8.8-10.2); CREATININE FOR GFR 1.33 MG/DL (0.55-1.30); EOS # 0.2 10^3/uL (0.0-0.5); EOS % 3.7 % (0.0-3.0); GLOMERULAR FILTRATION RATE 41.4 (>39); LYMPH # 1.2 10^3/uL (1.5-5.0); LYMPH % 22.4 % (24.0-44.0); MONO # 0.4 10^3/uL (0.0-0.8); MONO % 8.2 % (0.0-5.0); NEUTROPHILS # 3.3 10^3/uL (1.5-8.5); NEUTROPHILS % 64.7 % (36.0-66.0); PHOSPHORUS LEVEL 2.7 MG/DL (2.5-4.9); POTASSIUM SERUM 3.7 MEQ/L (3.5-5.1); TOTAL PROTEIN 5.7 GM/DL (6.4-8.2)
[2019-04-02 08:06] LABS: PLATELET ESTIMATE NORMAL (NORMAL)
[2019-04-02] MEDS: HEPARIN SOD (PORCINE) 5000 UNITS/ML VIAL SQ SCH ×2 (08:19→20:42)
[2019-04-02] MEDS: MIRALAX *UNIT DOSE* 17GM PACKET PO SCH (09:00)
[2019-04-02] MEDS: DOCUSATE SODIUM 100 MG CAP PO SCH ×2 (09:00→20:31)
[2019-04-02 09:30] VITALS: BP_SYST 144; BP_SYST 146; BP_DIAS 62; BP_DIAS 73
[2019-04-02 10:34] LABS: TOTAL 25(OH) VITAMIN D 46.1 NG/ML (30.0-100.0)
[2019-04-02 10:35] LABS: CORTISOL AM 26.6 UG/DL (4.3-22.4); PTH INTACT 34.5 PG/ML (18.5-88.0)
[2019-04-02] MEDS: FAMOTIDINE 20 MG TAB PO SCH (13:46)
[2019-04-02] MEDS: ASPIRIN 81 MG CHEW TABLET PO SCH (13:46)
[2019-04-02] MEDS: amLODIPine 10 MG TAB PO SCH (13:46)
[2019-04-02] MEDS: LABETALOL 100 MG TAB PO SCH ×2 (13:47→20:42)
[2019-04-02 14:00] VITALS: BP 149/83
--- NOTE | 2019-04-02 14:32 | REP ---
NUCLEAR PARATHYROID SESTAMIBI SCAN WITH SPECT IMAGING: Following the intravenous administration of 25.4 millicuries technetium 99m sestamibi, images of the neck are performed in the anterior and both anterior oblique projections, 15 minutes and 3 hours post injection. SPECT images are performed in the axial, coronal and sagittal planes. Initial images shows symmetrical activity in the salivary glands and thyroid bed. The more delayed images show washout of this activity. There is no persistent focus of increased uptake in the thyroid bed with no compelling scintigraphic evidence of parathyroid adenoma. IMPRESSION: No compelling scintigraphic evidence of parathyroid adenoma. Electronically Signed by Lorenzo Tapia MD 04/02/2019 02:34 P
[2019-04-02 22:00] VITALS: BP 22/57
[2019-04-03 06:00] VITALS: BP 143/76
[2019-04-03 06:39] LABS: BASO % 0.4 % (0.0-1.0); EOS # 0.2 10^3/uL (0.0-0.5); EOS % 4.8 % (0.0-3.0); HEMATOCRIT 33.9 % (36.0-47.0); HEMOGLOBIN 10.6 g/dl (12.0-15.5); LYMPH # 1.3 10^3/uL (1.5-5.0); LYMPH % 29.1 % (24.0-44.0); MEAN CORPUSCULAR HEMOGLOBIN 32.3 pg (27.0-33.0); MEAN CORPUSCULAR HGB CONC 31.3 g/dl (32.0-36.5); MEAN CORPUSCULAR VOLUME 103.4 fl (80.0-96.0); MONO # 0.5 10^3/uL (0.0-0.8); MONO % 11.1 % (0.0-5.0); NEUTROPHILS # 2.5 10^3/uL (1.5-8.5); NEUTROPHILS % 54.4 % (36.0-66.0); PLATELET COUNT, AUTOMATED 244 10^3/uL (150-450); RED BLOOD COUNT 3.28 10^6/uL (4.00-5.40); WHITE BLOOD COUNT 4.6 10^3/uL (4.0-10.0)
[2019-04-03 07:04] LABS: ALBUMIN 2.4 GM/DL (3.2-5.2); BILIRUBIN,TOTAL 0.7 MG/DL (0.2-1.0); CALCIUM LEVEL 9.9 MG/DL (8.8-10.2); CREATININE FOR GFR 1.41 MG/DL (0.55-1.30); GLOMERULAR FILTRATION RATE 38.7 (>39); PHOSPHORUS LEVEL 2.5 MG/DL (2.5-4.9); TOTAL PROTEIN 5.7 GM/DL (6.4-8.2)
[2019-04-03] MEDS: LABETALOL 100 MG TAB PO SCH ×2 (09:00→20:08)
[2019-04-03] MEDS: HEPARIN SOD (PORCINE) 5000 UNITS/ML VIAL SQ SCH ×2 (09:25→20:09)
[2019-04-03] MEDS: ASPIRIN 81 MG CHEW TABLET PO SCH (09:25)
[2019-04-03] MEDS: MIRALAX *UNIT DOSE* 17GM PACKET PO SCH (09:25)
[2019-04-03] MEDS: DOCUSATE SODIUM 100 MG CAP PO SCH ×2 (09:25→20:02)
[2019-04-03] MEDS: FAMOTIDINE 20 MG TAB PO SCH (09:25)
[2019-04-03 09:45] VITALS: BP_SYST 106; BP_SYST 110; BP_SYST 144; BP_DIAS 65; BP_DIAS 73
[2019-04-03] MEDS: amLODIPine 10 MG TAB PO SCH (09:55)
--- NOTE | 2019-04-03 14:43 | DSES ---
DATE OF ADMISSION: 03/28/2019 DATE OF DISCHARGE: Date of transition to care home facility (SNF) status is 04/02/2019. ATTENDING PHYSICIAN: Dr. César Jeronimo PRIMARY CARE PROVIDER: JOSEFINA Guerrero in the [facility] HISTORY OF PRESENT ILLNESS: A 73-year-old female who presented to [facility] for decreased oral intake. Workup in the emergency department (ED) proved positive for hypercalcemia and the patient was subsequently admitted for medical management. HOSPITAL COURSE: The patient was given IV fluids and her hypertension was treated as she presented with a significantly elevated blood pressure of 200/100. Blood pressures came down nicely with medications. She does have a history of both hypo- and hypertensive episodes with hypertensive lability prior to presentation. The patient's renal function improved within [address] of the head was unremarkable and her neurologic examination remained stable. The patient's calcium continued to decline. However, when the patient took less oral intake, she had elevation of her calcium. The patient received IV fluids with correction of her hypercalcemia within the last 24 hours. The patient has a history of recent multiple hospitalization and a rehabilitation stay at [facility]. She was sent home with recommendations for 24-hour care and her family states that they can not provide care in her current physical condition. The patient needs significant reorientation. She has occasional visual hallucinations. Physical therapy has deemed her inappropriate to return home unless she has 24-hour care which the family is unable to provide. The patient is status post renal artery duplex which showed questionable stenosis. Attempted MRA of the kidneys was completed. However, the patient was unable to remain still for the testing. Abdominal film was obtained secondary to significant constipation. This did resolve with the use of stool softeners and the abdominal imaging was negative for a bowel obstruction. IMAGING: Includes: Head CT, chest x-ray, cervical spine CT, renal ultrasound, MRA of the renal arteries without contrast, and abdominal films. CONSULTATIONS: None. DISCHARGE DIAGNOSES: 1. Bilateral renal artery stenosis. The patient will need MRA with contrast and potential for sedation secondary to the patient's difficulty remaining still as an outpatient. She can then followup in the interventional radiology suite for potential stenting. 2. Hypercalcemia. This has been corrected. We will continue to monitor the patient's levels and encourage hydration. 3. Hypertension. We will continue the patient's current medications and monitor. 4. Hyperlipidemia. 5. Generalized weakness. The patient would benefit from rehabilitation versus long-term care placement and we will work patient and family services to further assist with her discharge disposition. Discharge medications, diet, and instructions will be given at time of discharge.
[2019-04-04 06:00] VITALS: BP 136/61
[2019-04-04 06:21] LABS: HEMATOCRIT 34.1 % (36.0-47.0); HEMOGLOBIN 10.4 g/dl (12.0-15.5); MEAN CORPUSCULAR HEMOGLOBIN 31.1 pg (27.0-33.0); MEAN CORPUSCULAR HGB CONC 30.5 g/dl (32.0-36.5); MEAN CORPUSCULAR VOLUME 102.1 fl (80.0-96.0); PLATELET COUNT, AUTOMATED 237 10^3/uL (150-450); RED BLOOD COUNT 3.34 10^6/uL (4.00-5.40); WHITE BLOOD COUNT 4.4 10^3/uL (4.0-10.0)
[2019-04-04 06:44] LABS: ALBUMIN 2.2 GM/DL (3.2-5.2); CALCIUM LEVEL 9.8 MG/DL (8.8-10.2); CREATININE FOR GFR 1.28 MG/DL (0.55-1.30); GLOMERULAR FILTRATION RATE 43.3 (>39); PHOSPHORUS LEVEL 2.8 MG/DL (2.5-4.9); POTASSIUM SERUM 3.6 MEQ/L (3.5-5.1)
[2019-04-04] MEDS: ACETAMINOPHEN 500 MG TAB PO PRN (06:49)
[2019-04-04] MEDS: amLODIPine 10 MG TAB PO SCH (08:35)
[2019-04-04] MEDS: ASPIRIN 81 MG CHEW TABLET PO SCH (08:35)
[2019-04-04] MEDS: LABETALOL 100 MG TAB PO SCH ×2 (08:35→20:59)
[2019-04-04] MEDS: HEPARIN SOD (PORCINE) 5000 UNITS/ML VIAL SQ SCH ×2 (08:36→20:58)
[2019-04-04] MEDS: FAMOTIDINE 20 MG TAB PO SCH (08:36)
[2019-04-04] MEDS: DOCUSATE SODIUM 100 MG CAP PO SCH ×2 (08:36→20:58)
[2019-04-04] MEDS: MIRALAX *UNIT DOSE* 17GM PACKET PO SCH (08:36)
[2019-04-05 06:00] VITALS: BP 118/65
[2019-04-05 06:31] LABS: HEMOGLOBIN 10.7 g/dl (12.0-15.5); MEAN CORPUSCULAR HEMOGLOBIN 31.7 pg (27.0-33.0); MEAN CORPUSCULAR HGB CONC 30.6 g/dl (32.0-36.5); MEAN CORPUSCULAR VOLUME 103.6 fl (80.0-96.0); PLATELET COUNT, AUTOMATED 248 10^3/uL (150-450); RED BLOOD COUNT 3.38 10^6/uL (4.00-5.40); WHITE BLOOD COUNT 5.2 10^3/uL (4.0-10.0)
[2019-04-05 06:36] LABS: ALBUMIN 2.4 GM/DL (3.2-5.2); CALCIUM LEVEL 9.8 MG/DL (8.8-10.2); CREATININE FOR GFR 1.34 MG/DL (0.55-1.30)
[2019-04-05] MEDS: DOCUSATE SODIUM 100 MG CAP PO SCH ×2 (09:30→20:45)
[2019-04-05] MEDS: FAMOTIDINE 20 MG TAB PO SCH (09:30)
[2019-04-05] MEDS: ASPIRIN 81 MG CHEW TABLET PO SCH (09:30)
[2019-04-05] MEDS: HEPARIN SOD (PORCINE) 5000 UNITS/ML VIAL SQ SCH ×2 (09:31→20:44)
[2019-04-05] MEDS: MIRALAX *UNIT DOSE* 17GM PACKET PO SCH (09:31)
[2019-04-05] MEDS: amLODIPine 10 MG TAB PO SCH (09:33)
[2019-04-05] MEDS: LABETALOL 100 MG TAB PO SCH ×2 (09:33→20:46)
[2019-04-06 06:00] VITALS: BP 135/66
[2019-04-06] MEDS: MIRALAX *UNIT DOSE* 17GM PACKET PO SCH (09:00)
[2019-04-06] MEDS: amLODIPine 10 MG TAB PO SCH (09:33)
[2019-04-06] MEDS: DOCUSATE SODIUM 100 MG CAP PO SCH ×2 (09:33→20:48)
[2019-04-06] MEDS: HEPARIN SOD (PORCINE) 5000 UNITS/ML VIAL SQ SCH ×2 (09:34→20:49)
[2019-04-06] MEDS: LABETALOL 100 MG TAB PO SCH ×2 (09:34→20:49)
[2019-04-06] MEDS: ASPIRIN 81 MG CHEW TABLET PO SCH (09:34)
[2019-04-06] MEDS: FAMOTIDINE 20 MG TAB PO SCH (09:34)
[2019-04-07 06:00] VITALS: BP 129/61
[2019-04-07] MEDS: MIRALAX *UNIT DOSE* 17GM PACKET PO SCH (09:24)
[2019-04-07] MEDS: HEPARIN SOD (PORCINE) 5000 UNITS/ML VIAL SQ SCH ×2 (09:24→20:22)
[2019-04-07] MEDS: ASPIRIN 81 MG CHEW TABLET PO SCH (09:24)
[2019-04-07] MEDS: DOCUSATE SODIUM 100 MG CAP PO SCH ×2 (09:24→20:21)
[2019-04-07] MEDS: LABETALOL 100 MG TAB PO SCH ×2 (09:24→20:22)
[2019-04-07] MEDS: FAMOTIDINE 20 MG TAB PO SCH (09:24)
[2019-04-07] MEDS: amLODIPine 10 MG TAB PO SCH (09:25)
[2019-04-08 06:00] VITALS: BP 129/65
[2019-04-08] MEDS: MIRALAX *UNIT DOSE* 17GM PACKET PO SCH (09:30)
[2019-04-08] MEDS: ASPIRIN 81 MG CHEW TABLET PO SCH (09:31)
[2019-04-08 09:32] VITALS: BP 138/65
[2019-04-08] MEDS: amLODIPine 10 MG TAB PO SCH (09:32)
[2019-04-08] MEDS: FAMOTIDINE 20 MG TAB PO SCH (09:33)
[2019-04-08] MEDS: DOCUSATE SODIUM 100 MG CAP PO SCH (09:34)
[2019-04-08] MEDS: LABETALOL 100 MG TAB PO SCH (09:34)
[2019-04-08] MEDS: ACETAMINOPHEN 500 MG TAB PO PRN (09:36)
[2019-04-08] MEDS: HEPARIN SOD (PORCINE) 5000 UNITS/ML VIAL SQ SCH (09:37)
[2019-04-08] MEDS ORDERED: PEG1POW PO (11:52)
[2019-04-08] MEDS ORDERED: AMLO10TA5 PO (11:52)
[2019-04-08] MEDS ORDERED: DOCU100C16 PO (11:52)
[2019-04-08] MEDS ORDERED: LABE10TAB PO (11:52)
[2019-04-08] MEDS ORDERED: MOM30SS2 PO (11:52)
--- NOTE | 2019-04-08 12:40 | DSES ---
DATE OF ADMISSION: 03/28/2019 DATE OF DISCHARGE: 04/08/2019 Addendum for a previously dictated discharge summary: DISCHARGE DIAGNOSES: Remain the same. DISCHARGE MEDICATIONS: - amlodipine 10 mg daily - Docusate sodium 100 mg by mouth twice a day - labetalol 100 mg by mouth twice a day - milk of magnesia 30 mL by mouth daily as needed for constipation - MiraLAX one packet or 17 grams daily for constipation - acetaminophen 1000 mg three times a day as needed for pain - aspirin 81 mg daily - famotidine 20 mg daily - Biotin one liquid as needed for dry mouth DISCHARGE PLAN: Followup with JOSEFINA Guerrero in 1 week. Activities should be as tolerated. Diet is no added salt. edited: 04/09/2019 0721 tkf MTDD
[2019-04-10 11:05] LABS: CREATININE RANDOM URINE 76.3 mg/dL (Not Estab.); VANILLYLMANDELIC ACID,URINE 5.7 mg/L (Undefined); VMA CREAT RATIO RANDOM UR 7.5 mg/g Creat (0.0-6.0)
== END 2019-04-08 12:27 | disposition home or self-care (01) | DRG 699 ==
LOC: M ED 08:30 → EDBD 08:30 → M ED INP 13:31 → M MSPAV 16:33
PROVIDERS: ADMIT Family Medicine; ATTEND Family Medicine
DX: I70.1 Atherosclerosis of renal artery (principal); N18.4 Chronic kidney disease, stage 4 (severe); N17.9 Acute kidney failure, unspecified; I67.4 Hypertensive encephalopathy; M81.0 Age-related osteoporosis without current pathological fracture; K76.89 Other specified diseases of liver; I12.9 Hypertensive chronic kidney disease with stage 1 through stage 4 chronic kidney disease, or unspecified chronic kidney disease; E78.5 Hyperlipidemia, unspecified; R53.1 Weakness; K59.00 Constipation, unspecified; I16.0 Hypertensive urgency; K21.9 Gastro-esophageal reflux disease without esophagitis; F39 Unspecified mood [affective] disorder; E86.0 Dehydration; E83.52 Hypercalcemia; E04.9 Nontoxic goiter, unspecified; Z79.82 Long term (current) use of aspirin; Z87.891 Personal history of nicotine dependence; Z79.899 Other long term (current) drug therapy

== ENCOUNTER 2019-04-22 15:52 | Emergency (ER) | payer MEDICARE, OTHER ==
[~2019-04-22] VITALS: Ht 160 cm; Wt 59.1 kg
[~2019-04-22 15:52] MED LIST changes: +AMLO10TA5 PO; +BIOTLIQ3 MT; +DOCU100C16 PO; +FAMO20TA PO; +LABE10TAB PO; +MECL-86 PO; +MIRT1TAB16 PO; +MOM30SS2 PO; +PEG1POW PO; +REME15TA2 PO
[2019-04-22] MEDS ORDERED: NS 1,000 ML IV ONE (17:45)
--- NOTE | 2019-04-22 18:48 | REP ---
REASON: Near syncopal episode. COMPARISON: Frontal view obtained as part of an abdominal series on 04/01/2019. AP and lateral views were obtained. The technique utilized in obtaining the radiograph has magnified the cardiac silhouette and accentuated the interstitial markings. FINDINGS: The superior mediastinal structures are midline. The cardiac silhouette is unremarkable in size, shape, and position. The diaphragmatic surfaces of the lungs are regular, and the costophrenic angles are clear. The pulmonary aggarwal are clear. The imaged osseous structures are intact. IMPRESSION: There is no acute cardiopulmonary disease. No significant change compared to the prior exam other then technique. Electronically Signed by Isaias Salvador DO 04/22/2019 07:52 P
[2019-04-22 19:12] LABS: BASO % 0.3 % (0.0-1.0); EOS # 0.1 10^3/uL (0.0-0.5); EOS % 0.9 % (0.0-3.0); HEMOGLOBIN 11.9 g/dl (12.0-15.5); LYMPH # 1.6 10^3/uL (1.5-5.0); LYMPH % 23.9 % (24.0-44.0); MEAN CORPUSCULAR HEMOGLOBIN 32.2 pg (27.0-33.0); MEAN CORPUSCULAR HGB CONC 31.3 g/dl (32.0-36.5); MEAN CORPUSCULAR VOLUME 102.7 fl (80.0-96.0); MONO # 0.5 10^3/uL (0.0-0.8); NEUTROPHILS # 4.4 10^3/uL (1.5-8.5); NEUTROPHILS % 66.6 % (36.0-66.0); PLATELET COUNT, AUTOMATED 278 10^3/uL (150-450); WHITE BLOOD COUNT 6.5 10^3/uL (4.0-10.0)
[2019-04-22 19:22] LABS: INR 1.11
[2019-04-22 19:23] LABS: PARTIAL THROMBOPLASTIN TIME 28.2 SECONDS (25.0-38.4)
[2019-04-22 19:41] LABS: ALBUMIN 2.4 GM/DL (3.2-5.2); ALT/SGPT < 6 U/L (12-78); BILIRUBIN,DIRECT 0.3 MG/DL (0.0-0.2); BILIRUBIN,TOTAL 0.6 MG/DL (0.2-1.0); BLOOD UREA NITROGEN 12 MG/DL (7-18); CALCIUM LEVEL 8.5 MG/DL (8.8-10.2); CARBON DIOXIDE LEVEL 21 MEQ/L (21-32); CHLORIDE LEVEL 115 MEQ/L (98-107); CK-MB VALUE MASS < 1.0 NG/ML (<3.6); CPK CREATINE PHOSPHOKINASE 21 U/L (26-192); CREATININE FOR GFR 1.63 MG/DL (0.55-1.30); FREE T4 1.35 NG/DL (0.76-1.46); GLOMERULAR FILTRATION RATE 32.7 (>39); GLUCOSE, FASTING 83 MG/DL (70-100); MB/CK RELATIVE INDEX 4.76 (< OR =4); POTASSIUM SERUM 3.7 MEQ/L (3.5-5.1); SODIUM LEVEL 144 MEQ/L (136-145); THYROID STIMULATING HORMONE 0.567 uIU/ML (0.358-3.740); TOTAL PROTEIN 5.4 GM/DL (6.4-8.2); TROPONIN I < 0.02 NG/ML (< 0.10)
[2019-04-22 21:44] VITALS: BP 127/75
--- NOTE | 2019-04-23 22:03 | ECGEPIP ---
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
== END 2019-04-22 21:49 | disposition home or self-care (01) ==
LOC: M ED 15:52
DX: E44.0 Moderate protein-calorie malnutrition (principal); N18.3 Chronic kidney disease, stage 3 (moderate); M81.8 Other osteoporosis without current pathological fracture; G89.29 Other chronic pain; M54.9 Dorsalgia, unspecified; R94.31 Abnormal electrocardiogram [ECG] [EKG]; Z79.82 Long term (current) use of aspirin; Z79.899 Other long term (current) drug therapy
CPT/HCPCS: 36415; 71046; 80048; 80076; 82550; 82553; 84439; 84443; 84484; 85025; 85610; 85730; 93005; 93041; 94760; 99285; 99495; G0463

== ENCOUNTER 2019-06-06 11:17 | Inpatient (IN) | payer MEDICARE, OTHER ==
[~2019-06-06] VITALS: Ht 160 cm; Wt 57.2 kg
[~2019-06-06 11:17] MED LIST changes: -IRBE150T12 PO; +IRBE150T7 PO
[2019-06-06] MEDS: NS 1,000 ML IV SCH (11:34)
[2019-06-06] MEDS ORDERED: NS 1,000 ML IV ONE (13:30)
[2019-06-06 14:27] LABS: BASO % 0.3 % (0.0-1.0); EOS % 0.2 % (0.0-3.0); HEMATOCRIT 39.5 % (36.0-47.0); HEMOGLOBIN 12.4 g/dl (12.0-15.5); LYMPH # 1.2 10^3/uL (1.5-5.0); LYMPH % 18.9 % (24.0-44.0); MEAN CORPUSCULAR HEMOGLOBIN 32.7 pg (27.0-33.0); MEAN CORPUSCULAR HGB CONC 31.4 g/dl (32.0-36.5); MEAN CORPUSCULAR VOLUME 104.2 fl (80.0-96.0); MONO # 0.4 10^3/uL (0.0-0.8); MONO % 6.2 % (0.0-5.0); NEUTROPHILS # 4.6 10^3/uL (1.5-8.5); NEUTROPHILS % 73.9 % (36.0-66.0); PLATELET COUNT, AUTOMATED 287 10^3/uL (150-450); RED BLOOD COUNT 3.79 10^6/uL (4.00-5.40); WHITE BLOOD COUNT 6.2 10^3/uL (4.0-10.0)
[2019-06-06 14:30] LABS: ALBUMIN 2.5 GM/DL (3.2-5.2); BILIRUBIN,DIRECT 0.3 MG/DL (0.0-0.2); BILIRUBIN,TOTAL 0.7 MG/DL (0.2-1.0); CALCIUM LEVEL 8.1 MG/DL (8.8-10.2); CK-MB VALUE MASS 1.2 NG/ML (<3.6); CREATININE FOR GFR 1.51 MG/DL (0.55-1.30); GLOMERULAR FILTRATION RATE 35.8 (>39); MAGNESIUM LEVEL 1.9 MG/DL (1.8-2.4); MB/CK RELATIVE INDEX 4.29 (< OR =4); POTASSIUM SERUM 3.2 MEQ/L (3.5-5.1); TOTAL PROTEIN 5.1 GM/DL (6.4-8.2); TROPONIN I 0.03 NG/ML (< 0.10)
[2019-06-06 14:35] LABS: INR 1.09; PROTHROMBIN TIME 13.9 SECONDS (11.8-14.0)
--- NOTE | 2019-06-06 15:20 | REP ---
CT of the abdomen and pelvis without IV or bowel contrast for abdominal pain: Comparison is 01/23/2019. The visualized lung aggarwal are unremarkable. There are numerous hepatic cysts as previously. There is rim calcification in some of the cyst. This is unchanged. This may represent polycystic liver disease. The gallbladder is obscured by the multiple cysts. No calculi are identified. The pancreas and spleen are unremarkable. There is no CT evidence of pancreatitis. The adrenals are unremarkable. There is a left renal cortical atrophy and there is a Bosniak type 1 cyst at the upper pole of the left kidney. These findings are unchanged. The right kidney is unremarkable. The abdominal aorta is unremarkable except for tortuosity and calcified atheroma. There is no periaortic adenopathy or mass. There is no bowel distension or obstruction. Mesentery is unremarkable. There is sigmoid colon diverticulosis without diverticulitis. This is unchanged. Pelvis: There is no is ascites or adenopathy. The bladder is unremarkable. There is a hysterectomy. Vaginal cuff and adnexa are unremarkable. There is sigmoid diverticulosis without diverticulitis. 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 Atrophic left kidney. A single left renal upper pole Bosniak type 1 cyst. No other renal cysts. No ascites, adenopathy or mass. Sigmoid diverticulosis without diverticulitis. Hysterectomy. Electronically Signed by Lorenzo Cox MD 06/06/2019 03:11 P
--- NOTE | 2019-06-06 16:16 | HPEPDOC ---
[facility] Medical History & Physical Date of Admission Jun 06, 2019 Date of Service: Jun 06, 2019 Attending Physician: CHAD MONACO MD History and Physical CHIEF COMPLAINT: Weakness HISTORY OF PRESENT ILLNESS: 73-year-old female with past medical history of chronic back pain, recurrent falls, rib fracture, compression fractures, chronic kidney disease, hypertension and hyperlipidemia presents from home with severe weakness. Patient was discharge one month after a prolonged hospitalization, reportedly was doing well after discharge. Over the past few weeks she's been having persistent diarrhea, worsening fatigue and dehydration. Patient is unable to tolerate any solids, starts gagging and choking on food. She reports poor water intake, mostly just drinks Pepsi. She had another episode of diarrhea today, felt so weak that she could not stand up from the toilet, call her within brought her here. is not at bedside, patient is not able to provide complete information as she is forgetful. In the ED, she is found to be orthostatic positive and currently receiving IV fluids. She denies any shortness of breath, chest pain, nausea, vomiting or abdominal pain. 10 point review of system is negative except for above PAST MEDICAL HISTORY: 1. Hypertension. 2. Chronic back pain. 3., Recurrent falls. 4. Compression fractures. 5. Chronic kidney disease. 6. Hyperlipidemia 7. Atrial fibrillation PAST SURGICAL HISTORY: 1. Cardiac ablation 2. 2., Hysterectomy. SOCIAL HISTORY: Heavy smoker in the past, 1 pack per day for over 30 years. Denies alcohol use. Denies drug use FAMILY HISTORY: Mother had emphysema ALLERGIES: Please see below. HOME MEDICATIONS: Please see below. PHYSICAL EXAMINATION: VITAL SIGNS: Please see below. GENERAL: Frail HEENT: Normocephalic, atraumatic, dry mucous membranes NECK: Supple CARDIOVASCULAR EXAMINATION: S1, S2, no murmurs RESPIRATORY EXAMINATION: Scattered rhonchi, no wheezing ABDOMINAL EXAMINATION: Soft, nontender, nondistended, positive bowel sounds EXTREMITIES: Range of motion intact SKIN: No rash NEUROLOGICAL EXAMINATION: Alert and oriented 3, no focal deficits PSYCHIATRIC EXAMINATION: Calm and cooperative LABORATORY DATA: See below. IMAGING: CT abdomen and pelvis showing hepatic cysts and atrophic left kidney, no acute abnormalities noted MICROBIOLOGY: Please see below. ASSESSMENT: 73-year-old female with multiple medical comorbidities, presents with diarrhea. His fatigue and being admitted for orthostatic hypotension. PLAN: 1. Orthostatic hypotension. Having diarrhea for the past 2-3 weeks, decreased oral intake, unable tolerate any solids, received 1 L normal saline bolus in the ED, continue maintenance fluids, speech and swallow evaluation ordered. 2. Chronic kidney disease. CT abdomen and pelvis showing left atrophic kidney, creatinine close to baseline, will monitor with IV hydration. 3. Atrial fibrillation. Status post cardiac ablation 2, not on antiplatelet medication at this time, rate currently well controlled. 4. Hypertension. Hold Norvasc and labetalol for now, will restart when blood pressure has improved. DVT prophylaxis: Heparin subcutaneous GI prophylaxis : Not needed Vital Signs Vital Signs Date Time Temp Pulse Resp B/P (MAP) Pulse Ox O2 Delivery O2 Flow Rate FiO2 06/06/19 13:16 89 151/73 (99) 97 159/72 (101) 120 67/34 (45) 06/06/19 11:42 99.1 18 99 Room Air Laboratory Data Labs 24H Laboratory Tests 2 06/06/19 13:50: Immature Granulocyte % (Auto) 0.5, Neutrophils (%) (Auto) 73.9H, Lymphocytes (%) (Auto) 18.9L, Monocytes (%) (Auto) 6.2H, Eosinophils (%) (Auto) 0.2, Basophils (%) (Auto) 0.3, Neutrophils # (Auto) 4.6, Lymphocytes # (Auto) 1.2L, Monocytes # (Auto) 0.4, Eosinophils # (Auto) 0.0, Basophils # (Auto) 0.0, Nucleated Red Blood Cells % (auto) 0.0, Prothrombin Time 13.9, Prothromb Time International Ratio 1.09, Anion Gap 9, Glomerular Filtration Rate 35.8L, Lactic Acid Level 2.6*H, Calcium Level 8.1L, Magnesium Level 1.9, Total Bilirubin 0.7, Direct Bilirubin 0.3H, Aspartate Amino Transf (AST/SGOT) 15, Alanine Aminotransferase (ALT/SGPT) 11L, Alkaline Phosphatase 114, Total Creatine Kinase 28, Creatine Kinase MB 1.2, Creatine Kinase MB Relative Index 4.29H, Troponin I 0.03, Total Protein 5.1L, Albumin 2.5L, Albumin/Globulin Ratio 0.96L, Lipase 146 CBC/BMP Laboratory Tests 06/06/19 13:50 Home Medications Scheduled Amlodipine Besylate (Amlodipine Besylate) 10 Mg Tablet, 10 MG PO DAILY Aspirin (Aspirin) 81 Mg Tab.chew, 81 MG PO DAILY Famotidine (Famotidine) 20 Mg Tablet, 20 MG PO DAILY Labetalol HCl (Labetalol HCl) 100 Mg Tablet, 100 MG PO BID Scheduled PRN Acetaminophen (Tylenol Extra Strength) 500 Mg Tablet, 1,000 MG PO TID PRN for PAIN Saliva Substitute Combo No.9 (Biotene) 473 Ml Mouthwash, 1 LIQ MT PRN PRN for DRY MOUTH Allergies Coded Allergies: No Known Allergies (Unverified , 01/05/19) A-FIB/CHADSVASC A-FIB History Current/History of A-Fib/PAF?: No CHAD MONACO MD Jun 06, 2019 16:16
[2019-06-06] MEDS ORDERED: amLODIPine 10 MG TAB PO ONE (17:15)
[2019-06-06] MEDS: POTASSIUM CHLORIDE 10 MEQ SR TABLET PO SCH (17:31)
[2019-06-06] MEDS: HEPARIN SOD (PORCINE) 5000 UNITS/ML VIAL (J1644 PER 1000UNITS) SC SCH (17:31)
[2019-06-06 17:50] VITALS: BP 185/89
[2019-06-06] MEDS ORDERED: ONDANSETRON 4MG/2ML VIAL (J2405) IV PRN (18:15)
[2019-06-06 21:00] VITALS: BP_SYST 130; BP_SYST 152; BP_SYST 163; BP_DIAS 77; BP_DIAS 81; BP_DIAS 85
[2019-06-06 22:00] VITALS: BP 160/86
[2019-06-06] MEDS ORDERED: ACETAMINOPHEN TAB 650MG DOSE (2X325MG) PO ONE (22:15)
[2019-06-07] MEDS: NS 1,000 ML IV SCH ×2 (00:02→09:39)
[2019-06-07] MEDS: POTASSIUM CHLORIDE 10 MEQ SR TABLET PO SCH (00:02)
[2019-06-07] MEDS: HEPARIN SOD (PORCINE) 5000 UNITS/ML VIAL (J1644 PER 1000UNITS) SC SCH ×2 (03:34→16:37)
[2019-06-07 05:59] LABS: HEMATOCRIT 37.1 % (36.0-47.0); HEMOGLOBIN 11.5 g/dl (12.0-15.5); MEAN CORPUSCULAR HEMOGLOBIN 32.6 pg (27.0-33.0); MEAN CORPUSCULAR VOLUME 105.1 fl (80.0-96.0); PLATELET COUNT, AUTOMATED 239 10^3/uL (150-450); RED BLOOD COUNT 3.53 10^6/uL (4.00-5.40); WHITE BLOOD COUNT 5.7 10^3/uL (4.0-10.0)
[2019-06-07 06:00] VITALS: BP 141/79
[2019-06-07 06:18] LABS: ALBUMIN 2.1 GM/DL (3.2-5.2); BILIRUBIN,TOTAL 0.6 MG/DL (0.2-1.0); CALCIUM LEVEL 7.4 MG/DL (8.8-10.2); CREATININE FOR GFR 1.07 MG/DL (0.55-1.30); GLOMERULAR FILTRATION RATE 53.2 (>39); MAGNESIUM LEVEL 1.8 MG/DL (1.8-2.4); POTASSIUM SERUM 3.7 MEQ/L (3.5-5.1); TOTAL PROTEIN 4.9 GM/DL (6.4-8.2)
--- NOTE | 2019-06-07 11:25 | IPNPDOC ---
Subjective Date Seen The patient was seen on 06/07/19. Subjective Chief Complaint/HPI Pt this morning states that she is doing alright. She is weak, has had increasing falls at home. Her , Dejah, states that she spends 19-20 hours a day in bed. She eats almost nothing. He is buying and making whatever she asks for and she takes a couple bites, often spits some out. She has told her DIL that she just wants to . General: Denies: Fatigue Constitutional: Denies: Chills, Fever Pulmonary: Denies: Dyspnea, Cough Cardiovascular: Denies: Chest Pain, Palpitations Gastrointestinal: Denies: Nausea, Vomiting, Diarrhea Neurological: Reports: Weakness Psych: Reports: Mood Normal Objective Physical Examination General Exam: Positive: Alert, No Acute Distress ENT Exam: Positive: Mucous membr. moist/pink Neck Exam: Positive: Supple Chest Exam: Positive: Clear to auscultation, Normal air movement Heart Exam: Positive: Rate Normal; Negative: Normal S1, Normal S2 Abdomen Exam: Positive: Normal bowel sounds, Soft; Negative: Tenderness Extremity Exam: Negative: Edema Neuro Exam: Positive: Normal Speech Psych Exam: Positive: Mental status NL, Mood NL Assessment /Plan Problems (1) Dehydration Status: Resolved Response to Treatment: Stable Problem Specific Plan: Monitor Clinically Problem Text: Will DC IVF enc PO intake, she has had a Swallow eval which was normal Rec soft foods as she is not able to tolerate her upper dentures. (2) Impaired gait and mobility Status: Chronic Response to Treatment: Worse Problem Text: Pt will need at least STR if not placement her family is no longer able to care for her at home. (3) CKD (chronic kidney disease), stage IV Status: Chronic Problem Specific Plan: Monitor Clinically Problem Text: baseline cr 1.5, GFR 35 (4) HTN (hypertension) Status: Chronic Response to Treatment: Stable Problem Specific Plan: Monitor Clinically Problem Text: Stable on HD labet 100 BID (5) Vitamin B12 deficiency Status: Chronic Problem Text: 01/2019 B12 277 Plan/VTE VTE Prophylaxis Ordered?: Yes VS, I&O, 24H, Fishbone Vital Signs/I&O Vital Signs Date Time Temp Pulse Resp B/P (MAP) Pulse Ox O2 Delivery O2 Flow Rate FiO2 06/07/19 06:00 98.4 96 18 141/79 (99) 97 06/06/19 17:50 Room Air I&O- Last 24 Hours up to 6 AM 06/07/19 06:00 Intake Total 2050 ml Output Total 300 ml Balance 1750 ml Laboratory Data 24H LABS Laboratory Tests 2 06/06/19 13:50: Immature Granulocyte % (Auto) 0.5, Neutrophils (%) (Auto) 73.9H, Lymphocytes (%) (Auto) 18.9L, Monocytes (%) (Auto) 6.2H, Eosinophils (%) (Auto) 0.2, Basophils (%) (Auto) 0.3, Neutrophils # (Auto) 4.6, Lymphocytes # (Auto) 1.2L, Monocytes # (Auto) 0.4, Eosinophils # (Auto) 0.0, Basophils # (Auto) 0.0, Nucleated Red Blood Cells % (auto) 0.0, Prothrombin Time 13.9, Prothromb Time International Ratio 1.09, Anion Gap 9, Glomerular Filtration Rate 35.8L, Lactic Acid Level 2.6*H, Calcium Level 8.1L, Magnesium Level 1.9, Total Bilirubin 0.7, Direct Bilirubin 0.3H, Aspartate Amino Transf (AST/SGOT) 15, Alanine Aminotransferase (ALT/SGPT) 11L, Alkaline Phosphatase 114, Total Creatine Kinase 28, Creatine Kinase MB 1.2, Creatine Kinase MB Relative Index 4.29H, Troponin I 0.03, Total Protein 5.1L, Albumin 2.5L, Albumin/Globulin Ratio 0.96L, Lipase 146 06/06/19 18:46: Lactic Acid Followup at 4 Hours 1.4 06/07/19 05:42: Nucleated Red Blood Cells % (auto) 0.0, Anion Gap 5L, Glomerular Filtration Rate 53.2, Calcium Level 7.4L, Magnesium Level 1.8, Total Bilirubin 0.6, Aspartate Amino Transf (AST/SGOT) 18, Alanine Aminotransferase (ALT/SGPT) 10L, Alkaline Phosphatase 100, Total Protein 4.9L, Albumin 2.1L, Albumin/Globulin Ratio 0.75L CBC/BMP Laboratory Tests 06/06/19 13:50 06/07/19 05:42 CHAI KIRKLAND PA-C Jun 07, 2019 11:25 Grzegorz Li M.D. Jun 07, 2019 19:00
[2019-06-07] MEDS: CALCIUM CARBONATE 500 MG CHEW U/D PO SCH ×3 (12:22→17:05)
[2019-06-07] MEDS: LABETALOL 100 MG TAB PO SCH ×2 (12:23→21:05)
--- NOTE | 2019-06-07 13:18 | ECGEPIP ---
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
[2019-06-07 14:00] VITALS: BP 141/77
[2019-06-07] MEDS: ACETAMINOPHEN TAB 650MG DOSE (2X325MG) PO PRN (21:04)
[2019-06-07 22:00] VITALS: BP 128/61
[2019-06-08] MEDS: HEPARIN SOD (PORCINE) 5000 UNITS/ML VIAL (J1644 PER 1000UNITS) SC SCH (04:39)
[2019-06-08 06:00] VITALS: BP 123/59
[2019-06-08 06:37] LABS: BASO % 0.2 % (0.0-1.0); EOS # 0.1 10^3/uL (0.0-0.5); EOS % 2.3 % (0.0-3.0); HEMATOCRIT 34.9 % (36.0-47.0); LYMPH # 1.6 10^3/uL (1.5-5.0); LYMPH % 32.6 % (24.0-44.0); MEAN CORPUSCULAR HEMOGLOBIN 32.4 pg (27.0-33.0); MEAN CORPUSCULAR HGB CONC 31.5 g/dl (32.0-36.5); MEAN CORPUSCULAR VOLUME 102.6 fl (80.0-96.0); MONO # 0.4 10^3/uL (0.0-0.8); MONO % 8.2 % (0.0-5.0); NEUTROPHILS # 2.8 10^3/uL (1.5-8.5); NEUTROPHILS % 56.3 % (36.0-66.0); PLATELET COUNT, AUTOMATED 205 10^3/uL (150-450); WHITE BLOOD COUNT 4.9 10^3/uL (4.0-10.0)
[2019-06-08 07:00] LABS: BILIRUBIN,TOTAL 0.4 MG/DL (0.2-1.0); CALCIUM LEVEL 7.7 MG/DL (8.8-10.2); CREATININE FOR GFR 1.13 MG/DL (0.55-1.30); POTASSIUM SERUM 3.7 MEQ/L (3.5-5.1); TOTAL PROTEIN 4.6 GM/DL (6.4-8.2)
[2019-06-08] MEDS: CALCIUM CARBONATE 500 MG CHEW U/D PO SCH (08:33)
[2019-06-08] MEDS: LABETALOL 100 MG TAB PO SCH ×2 (08:33→20:26)
[2019-06-08 14:00] VITALS: BP 127/71
--- NOTE | 2019-06-08 14:01 | IPNPDOC ---
Subjective Date Seen The patient was seen on 06/08/19. Subjective Chief Complaint/HPI at baseline MS Constitutional: Denies: Chills Eyes: Denies: Pain Skin: Denies: Rash, Lesions Pulmonary: Denies: Dyspnea Cardiovascular: Denies: Chest Pain, Palpitations Gastrointestinal: Denies: Nausea, Vomiting Genitourinary: Denies: Dysuria Objective Physical Examination General Exam: Positive: Alert, No Acute Distress ENT Exam: Positive: Mucous membr. moist/pink Neck Exam: Positive: Supple Chest Exam: Positive: Clear to auscultation, Normal air movement Heart Exam: Positive: Rate Normal; Negative: Normal S1, Normal S2 Abdomen Exam: Positive: Normal bowel sounds, Soft; Negative: Tenderness Extremity Exam: Negative: Edema Neuro Exam: Positive: Normal Speech Psych Exam: Positive: Mental status NL, Mood NL Assessment /Plan Problems (1) Comfort measures only status Problem Text: 06/08/19 requested by full capacity patient-MOLST completed/signed by patient-she favors dc to home c hospice (states she was told she has too much money for hospice?) vs palliative care-PFS and hospice consults placed (2) Orthostatic hypotension Status: Acute Problem Text: 2 dehydration resolved c hydration 06/08 BNP 2382, SLIV, patient taking adequate po (3) Dehydration Status: Resolved Response to Treatment: Stable Problem Specific Plan: Monitor Clinically Problem Text: Will DC IVF enc PO intake, she has had a Swallow eval which was normal Rec soft foods as she is not able to tolerate her upper dentures. (4) CKD (chronic kidney disease), stage IV Status: Chronic Problem Specific Plan: Monitor Clinically Problem Text: baseline cr 1.5, GFR 35 (5) HTN (hypertension) Status: Chronic Response to Treatment: Stable Problem Specific Plan: Monitor Clinically Problem Text: Stable on HD labet 100 BID (6) Vitamin B12 deficiency Status: Chronic Problem Text: 01/2019 B12 277 (7) Severe protein-calorie malnutrition (8) Lumbar spondylosis Status: Chronic Response to Treatment: Stable Problem Text: adequate pain control c MSO4 elixir prn Plan/VTE VTE Prophylaxis Ordered?: Yes VS, I&O, 24H, Fishbone Vital Signs/I&O Vital Signs Date Time Temp Pulse Resp B/P (MAP) Pulse Ox O2 Delivery O2 Flow Rate FiO2 06/08/19 08:33 125/75 06/08/19 06:00 97.4 74 17 97 Room Air I&O- Last 24 Hours up to 6 AM 06/08/19 06:00 Intake Total 1140 ml Output Total 140 ml Balance 1000 ml Laboratory Data 24H LABS Laboratory Tests 2 06/08/19 06:23: Immature Granulocyte % (Auto) 0.4, Neutrophils (%) (Auto) 56.3, Lymphocytes (%) (Auto) 32.6, Monocytes (%) (Auto) 8.2H, Eosinophils (%) (Auto) 2.3, Basophils (%) (Auto) 0.2, Neutrophils # (Auto) 2.8, Lymphocytes # (Auto) 1.6, Monocytes # (Auto) 0.4, Eosinophils # (Auto) 0.1, Basophils # (Auto) 0.0, Nucleated Red Blood Cells % (auto) 0.0, Anion Gap 7L, Glomerular Filtration Rate 50.0, Calcium Level 7.7L, Total Bilirubin 0.4, Aspartate Amino Transf (AST/SGOT) 19, Alanine Aminotransferase (ALT/SGPT) 11L, Alkaline Phosphatase 100, EX-Vcm-D-Type Natriuretic Peptide 2382H, Total Protein 4.6L, Albumin 2.0L, Albumin/Globulin Ratio 0.77L CBC/BMP Laboratory Tests 06/08/19 06:23 Microbiology Microbiology 06/08/19 Gastrointestinal Tract Panel (PCR) - Final, Complete Grzegorz Li M.D. Jun 08, 2019 14:01
[2019-06-08] MEDS ORDERED: MORPHINE 10MG/0.5ML ORAL CONCENTRATE SOLUTION U/D SL PRN (14:15)
[2019-06-08] MEDS: ACETAMINOPHEN TAB 650MG DOSE (2X325MG) PO PRN (18:25)
[2019-06-09] MEDS: LABETALOL 100 MG TAB PO SCH ×2 (09:37→20:06)
--- NOTE | 2019-06-09 11:07 | IPNPDOC ---
Subjective Date Seen The patient was seen on 06/09/19. Subjective Chief Complaint/HPI improved appetite Constitutional: Denies: Chills Eyes: Denies: Pain ENT: Denies: Head Aches Skin: Denies: Rash, Lesions Cardiovascular: Denies: Chest Pain, Palpitations Gastrointestinal: Denies: Nausea, Vomiting, Abdominal Pain Objective Physical Examination General Exam: Positive: Alert, No Acute Distress ENT Exam: Positive: Mucous membr. moist/pink Neck Exam: Positive: Supple Chest Exam: Positive: Clear to auscultation, Normal air movement Heart Exam: Positive: Rate Normal; Negative: Normal S1, Normal S2 Abdomen Exam: Positive: Normal bowel sounds, Soft; Negative: Tenderness Extremity Exam: Negative: Edema Neuro Exam: Positive: Normal Speech Psych Exam: Positive: Mental status NL, Mood NL Assessment /Plan Problems (1) Comfort measures only status Problem Text: 06/08/19 requested by full capacity patient-MOLST completed/signed by patient-she favors dc to home c hospice (states she was told she has too much money for hospice?) vs [facility]-PFS and hospice consults placed (2) Orthostatic hypotension Status: Resolved Problem Text: 2 dehydration resolved c hydration 06/08 BNP 2382, SLIV, patient taking adequate po (3) Dehydration Status: Resolved Response to Treatment: Stable Problem Specific Plan: Monitor Clinically Problem Text: Will DC IVF enc PO intake, she has had a Swallow eval which was normal Rec soft foods as she is not able to tolerate her upper dentures. (4) CKD (chronic kidney disease), stage IV Status: Chronic Problem Specific Plan: Monitor Clinically Problem Text: baseline cr 1.5, GFR 35 06/08 02/05.1-favor 2 overhydration (5) HTN (hypertension) Status: Chronic Response to Treatment: Stable Problem Specific Plan: Monitor Clinically Problem Text: Stable on HD labet 100 BID (6) Vitamin B12 deficiency Status: Chronic Problem Text: 01/2019 B12 277-therefore, + 1000 (7) Severe protein-calorie malnutrition (8) Lumbar spondylosis Status: Chronic Response to Treatment: Stable Problem Text: adequate pain control c MSO4 elixir prn (9) Diarrhea Status: Acute Response to Treatment: Improving Problem Text: favor viral enteritis improving 06/08 - GI PCR (10) Physical deconditioning Status: Chronic Problem Text: 06/07 PT not safe dc home-recommended rehab at dc Plan/VTE VTE Prophylaxis Ordered?: Yes VS, I&O, 24H, Fishbone Vital Signs/I&O Vital Signs Date Time Temp Pulse Resp B/P (MAP) Pulse Ox O2 Delivery O2 Flow Rate FiO2 06/09/19 09:37 75 126/69 06/08/19 14:00 97.6 18 98 Room Air I&O- Last 24 Hours up to 6 AM 06/09/19 06:00 Intake Total 320 ml Output Total 0 ml Balance 320 ml Laboratory Data Microbiology Microbiology 06/08/19 Gastrointestinal Tract Panel (PCR) - Final, Complete Grzegorz Li M.D. Jun 09, 2019 11:07
[2019-06-09] MEDS: CYANOCOBALAMIN 500 MCG TAB PO SCH (13:51)
[2019-06-09] MEDS: ACETAMINOPHEN TAB 650MG DOSE (2X325MG) PO PRN (20:07)
[2019-06-10] MEDS: CYANOCOBALAMIN 500 MCG TAB PO SCH (08:19)
[2019-06-10] MEDS: LABETALOL 100 MG TAB PO SCH ×2 (08:20→20:01)
--- NOTE | 2019-06-10 10:58 | IPNPDOC ---
Subjective Date Seen The patient was seen on 06/10/19. Subjective Chief Complaint/HPI CKD, compression fx, failure to thrive. Events since last encounter Nita's is at her bedside. 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 Nita declines hospice and states she wants to go to [facility] with potential for rehab. She has participated poorly in PT/OT sessions. PFS involved and assisting with disposition Constitutional: Reports: Weakness, Lethargy; Denies: Chills, Fever, Night Sweats ENT: Denies: Head Aches, Ear Pain, Dysphagia Skin: Denies: Rash, Lesions, Breakdown Pulmonary: Denies: Dyspnea, Cough Cardiovascular: Denies: Chest Pain, Palpitations, Orthopnea, Paroxysmal Noc. Dyspnea, Lt Headedness Gastrointestinal: Denies: Nausea, Vomiting, Abdominal Pain, Diarrhea, C onstipation Genitourinary: Denies: Dysuria, Frequency, Incontinence, Retention Neurological: Reports: Weakness Objective Physical Examination General Exam: Positive: Alert, No Acute Distress ENT Exam: Positive: Mucous membr. moist/pink Neck Exam: Positive: Supple Chest Exam: Positive: Clear to auscultation, Normal air movement Heart Exam: Positive: Rate Normal; Negative: Normal S1, Normal S2 Abdomen Exam: Positive: Normal bowel sounds, Soft; Negative: Tenderness Extremity Exam: Negative: Edema Neuro Exam: Positive: Normal Speech Psych Exam: Positive: Mental status NL, Mood NL Assessment /Plan Assessment Discussed patient's plans on discharge. She discussed concerns about going to [facility], as it is a senior care, and I told her that [facility] is a senior care as well. 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 -- CDT Problems (1) Comfort measures only status Problem Text: 06/10/2019: patient declines hospice and is unable to care for her at home. PFS involved and working on disposition with potential for LTC/rehab. 06/08/19 requested by full capacity patient-MOLST completed/signed by patient-she favors dc to home c hospice (states she was told she has too much money for hospice?) vs [facility]-PFS and hospice consults placed (2) CKD (chronic kidney disease), stage IV Status: Chronic Problem Specific Plan: Monitor Clinically Problem Text: baseline cr 1.5, GFR 35 06/08 02/05.1-favor 2 overhydration (3) HTN (hypertension) Status: Chronic Response to Treatment: Stable Problem Specific Plan: Monitor Clinically Problem Text: Stable on HD labet 100 BID (4) Vitamin B12 deficiency Status: Chronic Problem Text: 01/2019 B12 277-therefore, + 1000 (5) Severe protein-calorie malnutrition (6) Lumbar spondylosis Status: Chronic Response to Treatment: Stable Problem Text: adequate pain control c MSO4 elixir prn (7) Diarrhea Status: Acute Response to Treatment: Improving Problem Text: favor viral enteritis improving 06/08 - GI PCR (8) Physical deconditioning Status: Chronic Problem Text: 06/07 PT not safe dc home-recommended rehab at mo (9) Orthostatic hypotension Status: Resolved Problem Text: 2 dehydration resolved c hydration 06/08 BNP 2382, SLIV, patient taking adequate po (10) Dehydration Status: Resolved Response to Treatment: Stable Problem Specific Plan: Monitor Clinically Problem Text: Will DC IVF enc PO intake, she has had a Swallow eval which was normal Rec soft foods as she is not able to tolerate her upper dentures. Plan/VTE VTE Prophylaxis Ordered?: Yes VS, I&O, 24H, Fishbone Vital Signs/I&O Vital Signs Date Time Temp Pulse Resp B/P (MAP) Pulse Ox O2 Delivery O2 Flow Rate FiO2 06/10/19 08:20 117/64 06/09/19 20:06 76 06/08/19 14:00 97.6 18 98 Room Air I&O- Last 24 Hours up to 6 AM 06/10/19 06:00 Intake Total 220 ml Output Total 150 ml Balance 70 ml Laboratory Data Microbiology Microbiology 06/08/19 Gastrointestinal Tract Panel (PCR) - Final, Complete Mary Benoit STATION BAGGAGE AGENT Jun 10, 2019 10:58 BARBARA MILLS DO Jun 12, 2019 01:21
[2019-06-10] MEDS: ACETAMINOPHEN TAB 650MG DOSE (2X325MG) PO PRN (18:14)
[2019-06-11] MEDS: CYANOCOBALAMIN 500 MCG TAB PO SCH (09:11)
[2019-06-11] MEDS: LABETALOL 100 MG TAB PO SCH ×2 (09:11→20:30)
[2019-06-11] MEDS: ACETAMINOPHEN TAB 650MG DOSE (2X325MG) PO PRN ×2 (09:15→18:27)
--- NOTE | 2019-06-11 10:31 | DSES ---
DATE OF ADMISSION: 06/06/2019 DATE OF DISCHARGE: PRIMARY CARE PROVIDER: [facility] network at the [facility] HISTORY OF PRESENT ILLNESS: A 73-year-old female with a past medical history of chronic back pain, recurrent falls, rib fracture, compression fractures to the spine, chronic kidney disease, hypertension, hyperlipidemia, who presented to [facility] Emergency Department (ED) with complaints of severe weakness. The patient was also noted to have persistent diarrhea, worsening fatigue, and dehydration. Had inability to tolerate any solids, gagging and choking on food at home. Workup in the ED positive for orthostatic hypotension. The patient was subsequently admitted to family medicine service. HOSPITAL COURSE: The patient is status post speech therapy evaluation; level 2 mechanically-altered diet recommended with thin liquids. Physical therapy notes the patient has poor tolerance in any physical activity and declines physical activity. admits the patient spends 19-20 hours a day in bed. Declines to eat and has verbalized repeatedly that she wants to . Medical Orders for Life-Sustaining Treatment (MOLST) form is filled out. 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 However, she does not want to go to hospice, and the patient does not appear to be imminently dying. Patient and family services is involved with obtaining the patient's appropriate discharge disposition. states he is unable to care for her at home, as she requires an extensive amount of care. The patient was noted to have an acute kidney injury on admission with a creatinine of 1.51. This was corrected with intravenous (IV) hydration. The patient has opted out of any further medical treatment or medications. She has opted out of any further monitoring. We will continue Tylenol and morphine as needed pain, vitamin B12 by mouth daily, labetalol for her blood pressures, and Zofran as needed for her nausea. DISCHARGE DISPOSITION: Including medications and diet will be dictated at time of discharge.
[2019-06-12] MEDS: CYANOCOBALAMIN 500 MCG TAB PO SCH (10:18)
[2019-06-12] MEDS: LABETALOL 100 MG TAB PO SCH ×2 (10:19→22:49)
[2019-06-12 10:30] VITALS: BP 133/109
[2019-06-12] MEDS: ACETAMINOPHEN TAB 650MG DOSE (2X325MG) PO PRN (18:31)
[2019-06-13] MEDS: CYANOCOBALAMIN 500 MCG TAB PO SCH (08:01)
[2019-06-13] MEDS: LABETALOL 100 MG TAB PO SCH ×2 (08:02→21:03)
[2019-06-13] MEDS: ACETAMINOPHEN TAB 650MG DOSE (2X325MG) PO PRN (18:44)
[2019-06-13 21:03] VITALS: BP 112/67
[2019-06-14] MEDS: LABETALOL 100 MG TAB PO SCH (07:28)
[2019-06-14] MEDS: CYANOCOBALAMIN 500 MCG TAB PO SCH (07:28)
[2019-06-14] MEDS ORDERED: LABE10TAB PO (10:40)
[2019-06-14] MEDS ORDERED: Morphine Sulfate Oral Conc. SL (10:40)
[2019-06-14] MEDS ORDERED: VITA500T40 PO (10:40)
--- NOTE | 2019-06-14 10:58 | DSES ---
DATE OF ADMISSION: 06/06/2019 DATE OF DISCHARGE: She has had no change in her medical status since the previous dictation was made. She will be discharged on 06/14/2019. DISCHARGE MEDICATIONS: - B12 1000 mcg daily - labetalol 100 mg twice a day - morphine sulfate - Roxanol 10 mg per 0.5 mL, 2.5 mg sublingually every 30 minutes as needed for pain - acetaminophen 1000 mg by mouth three times a day as needed for pain DISCHARGE PLAN: Followup with the attending physician at [facility]. Her diet is mechanical soft. Her activity is as tolerated.
== END 2019-06-14 12:05 | DRG 640 ==
LOC: M ED 11:17 → EDBD 11:17 → M ED INP 15:58 → ENRESERVTM 16:25 → ENRESERVDT 16:25 → M MSPAV 17:12
PROVIDERS: ADMIT Internal Medicine; ATTEND Family Medicine
DX: E86.0 Dehydration (principal); E43 Unspecified severe protein-calorie malnutrition; N18.4 Chronic kidney disease, stage 4 (severe); I95.1 Orthostatic hypotension; I48.91 Unspecified atrial fibrillation; I12.9 Hypertensive chronic kidney disease with stage 1 through stage 4 chronic kidney disease, or unspecified chronic kidney disease; G89.29 Other chronic pain; M54.9 Dorsalgia, unspecified; R29.6 Repeated falls; Z87.81 Personal history of (healed) traumatic fracture; R19.7 Diarrhea, unspecified; E78.5 Hyperlipidemia, unspecified; Z90.79 Acquired absence of other genital organ(s); Z87.891 Personal history of nicotine dependence; Z79.82 Long term (current) use of aspirin; Z79.899 Other long term (current) drug therapy; E53.8 Deficiency of other specified B group vitamins; Z51.5 Encounter for palliative care; Z66 Do not resuscitate; M47.896 Other spondylosis, lumbar region; Z72.3 Lack of physical exercise

== ENCOUNTER → 2019-06-17 | Outpatient (REF) ==
[~2019-06-17] MED LIST changes: +Morphine Sulfate Oral Conc. SL; +VITA500T40 PO
[2019-06-17 08:18] LABS: CALCIUM LEVEL 8.6 MG/DL (8.8-10.2); CREATININE FOR GFR 1.12 MG/DL (0.55-1.30); GLOMERULAR FILTRATION RATE 50.5 (>39); POTASSIUM SERUM 3.8 MEQ/L (3.5-5.1)
== END ==
LOC: SKLAB2 07:00
PROVIDERS: ATTEND Family Medicine
DX: F33.9 Major depressive disorder, recurrent, unspecified (principal); R63.0 Anorexia

== ENCOUNTER 2020-06-22 12:25 | Emergency (ER) | payer MEDICARE, OTHER ==
[~2020-06-22] VITALS: Ht 160 cm; Wt 53.6 kg
[~2020-06-22 12:25] MED LIST changes: -AMLO10TA5 PO; +AMLO1TAB25 PO; +LABE100T4 PO; -LABE10TAB PO
[2020-06-22 12:27] VITALS: BP 166/73
--- OUTSIDE RECORDS SUMMARY | 2020-06-22 12:35 | CCD ---
Author Author [facility] Organization [facility] Address Unknown Phone Unavailable Care Team Providers Care Telecom Assistant Name Role Phone DRAZEK, I HALLE PA Unavailable Unavailable DRAZEK, I HALLE PA Unavailable Unavailable DRAZEK, I HALLE PA Unavailable Unavailable DRAZEK, I HALLE PA Unavailable Unavailable DRAZEK, I HALLE PA Unavailable Unavailable DRAZEK, I HALLE PA Unavailable Unavailable DRAZEK, I HALLE PA Unavailable Unavailable DRAZEK, I HALLE PA Unavailable Unavailable DRAZEK, I HALLE PA Unavailable Unavailable DRAZEK, I HALLE PA Unavailable Unavailable DRAZEK, I HALLE PA Unavailable Unavailable DRAZEK, I HALLE PA Unavailable Unavailable DRAZEK, I HALLE PA Unavailable Unavailable DRAZEK, I HALLE PA Unavailable Unavailable DRAZEK, I HALLE PA Unavailable Unavailable DRAZEK, I HALLE PA Unavailable Unavailable DRAZEK, I HALLE PA Unavailable Unavailable DRAZEK, I HALLE PA Unavailable Unavailable DRAZEK, I HLALE PA Unavailable Unavailable DRAZEK, I HALLE PA Unavailable Unavailable DRAZEK, I HALLE PA Unavailable Unavailable DRAZEK, I HALLE PA Unavailable Unavailable DRAZEK, I HALLE PA Unavailable Unavailable DRAZEK, I HALLE PA Unavailable Unavailable DRAZEK, I HALLE PA Unavailable Unavailable DRAZEK, I HALLE PA Unavailable Unavailable DRAZEK, I HALLE PA Unavailable Unavailable DRAZEK, I HALLE PA Unavailable Unavailable DRAZEK, I HALLE PA Unavailable Unavailable DRAZEK, I HALLE PA Unavailable Unavailable DELANO, ROQUE MD Unavailable Unavailable DELANO, ROQUE MD Unavailable Unavailable DELANO, ROQUE MD Unavailable Unavailable DELANO, ROQUE MD Unavailable Unavailable DELANO, ROQUE MD Unavailable Unavailable DELANO, ROQUE MD Unavailable Unavailable DELANO, ROQUE MD Unavailable Unavailable DELANO, ROQUE MD Unavailable Unavailable DELANO, ROQUE MD Unavailable Unavailable DELANO, ROQUE MD Unavailable Unavailable DELANO, ROQUE MD Unavailable Unavailable DELANO, ROQUE MD Unavailable Unavailable DELANO, ROQUE MD Unavailable Unavailable DELANO, ROQUE MD Unavailable Unavailable DELANO, ROQUE MD Unavailable Unavailable DELANO, ROQUE MD Unavailable Unavailable DELANO, ROQUE MD Unavailable Unavailable DELANO, ROQUE MD Unavailable Unavailable DELANO, ROQUE MD Unavailable Unavailable DELANO, ROQUE MD Unavailable Unavailable DELANO, ROQUE MD Unavailable Unavailable DELANO, ROQUE MD Unavailable Unavailable DELANO, ROQUE MD Unavailable Unavailable DELANO, ROQUE MD Unavailable Unavailable DELANO, ROQUE MD Unavailable Unavailable DELANO, ROQUE MD Unavailable Unavailable DELANO, ROQUE MD Unavailable Unavailable DELANO, ROQUE MD Unavailable Unavailable DELANO, ROQUE MD Unavailable Unavailable DELANO, ROQUE MD Unavailable Unavailable DELANO, ROQUE MD Unavailable Unavailable DELANO, ROQUE MD Unavailable Unavailable DELANO, ROQUE MD Unavailable Unavailable DELANO, ROQUE MD Unavailable Unavailable DELANO, ROQUE MD Unavailable Unavailable DELANO, ROQUE MD Unavailable Unavailable DELANO, ROQUE MD Unavailable Unavailable DELANO, ROQUE MD Unavailable Unavailable DELANO, ROQUE MD Unavailable Unavailable DELANO, ROQUE MD Unavailable Unavailable DELANO, ROQUE MD Unavailable Unavailable DELANO, ROQUE MD Unavailable Unavailable DELANO, ROQUE MD Unavailable Unavailable DELANO, ROQUE MD Unavailable Unavailable DELANO, ROQUE MD Unavailable Unavailable DELANO, ROQUE MD Unavailable Unavailable DELANO, ROQUE MD Unavailable Unavailable DELANO, ROQUE MD Unavailable Unavailable DELANO, ROQUE MD Unavailable Unavailable DELANO, ROQUE MD Unavailable Unavailable DELANO, ROQUE MD Unavailable Unavailable DELANO, ROQUE MD Unavailable Unavailable DELANO, ROQUE MD Unavailable Unavailable DELANO, ROQUE MD Unavailable Unavailable Re-disclosure Warning The records that you are about to access may contain information from federally-assisted alcohol or drug abuse programs. If such information is present, then the following federally mandated warning applies: This information has been disclosed to you from records protected by federal confidentiality rules (42 CFR part 2). The federal rules prohibit you from making any further disclosure of this information unless further disclosure is expressly permitted by the written consent of the person to whom it pertains or as otherwise permitted by 42 CFR part 2. A general authorization for the release of medical or other information is NOT sufficient for this purpose. The Federal rules restrict any use of the information to criminally investigate or prosecute any alcohol or drug abuse patient.The records that you are about to access may contain highly sensitive health information, the redisclosure of which is protected by Article 27-F of the [facility] Public Health law. If you continue you may have access to information: Regarding HIV / AIDS; Provided by facilities licensed or operated by the [facility] Office of Mental Health; or Provided by the [facility] Office for People With Developmental Disabilities. If such information is present, then the following [facility] mandated warning applies: This information has been disclosed to you from confidential records which are protected by state law. State law prohibits you from making any further disclosure of this information without the specific written consent of the person to whom it pertains, or as otherwise permitted by law. Any unauthorized further disclosure in violation of state law may result in a fine or long-term sentence or both. A general authorization for the release of medical or other information is NOT sufficient authorization for further disc losure. Family History Family Member Name Family Member Gender Family Member Status Date o f Status Description Data Source(s) Unknown Unknown Problem MEDENT ([facility]) father Unknown Unknown Problem MEDENT ([facility]) Unknown Male Problem MEDENT ([facility]) () Unknown Female Problem MEDENT ([facility]) Encounters Encounter Providers Location Date Indications Data Source(s ) Outpatient Attender: MYA WICK MD [email or web address] 12:00:00 AM EST - 05/14/2020 08:37:04 AM EST [facility] [place] [address] [facility] [place] [address] 12/31/2019 12:00:00 AM EDT eCW1 ([facility]) Unknown [address] [facility] [place] [address] 11/19/2019 12:00:00 AM EDT eCW1 ([facility]) [facility] Garcia [address] [facility] [place] [address] 10/04/2019 12:00:00 AM EDT eCW1 ([facility]) [facility] Jose [address] [facility] [place] [address] 09/12/2019 12:00:00 AM EDT eCW1 ([facility]) [facility] Jose [address] [place] [address], [place] [address] 09/05/2019 12:00:00 AM EDT eCW1 ([facility]) Outpatient Referrer: HALLE ROCHA 08/08/2019 02:14:00 PM EDT [facility] Outpatient Referrer: HALLE ROCHA 08/06/2019 03:34:00 PM EDT [facility] [address] [place] [address], [place] [address] 07/23/2019 12:00:00 AM EDT eCW1 ([facility]) Outpatient Referrer: HALLE ROCHA 06/17/2019 04:24:00 PM EST [facility] Jose [address] [place] [address], [place] [address] 06/12/2019 12:00:00 AM EST eCW1 ([facility]) [facility] Jose [address] [place] [address], [place] [address] 06/06/2019 12:00:00 AM EST eCW1 ([facility]) [facility] Jose [address] [place] [address], [place] [address] 05/13/2019 12:00:00 AM EST eCW1 ([facility]) [facility] Jose [address] [place] [address], [place] [address] 04/26/2019 12:00:00 AM EST eCW1 ([facility]) Medications Medication Brand Name Start Date Product Form Dose Route Admi nistrative Instructions Pharmacy Instructions Status Indications Reaction Description Data Source(s) 100 mg 03/24/2020 12:00:00 AM EST capsule 30 TAKE ONE CAPSULE BY MOUTH AT BEDTIME TAKE ONE CAPSULE BY MOUTH AT BEDTIME SOLD: 03/24/2020 [facility] NITROFURANTOIN, MACROCRYSTALS 25 MG / Ni trofurantoin, Monohydrate 75 MG Oral Capsule nitrofurantoin, macrocrystal-monohydrate, (MACROBID) 100 MG capsule nitrofurantoin, macrocrystal-monohydrate, (MACROBID) 100 MG capsule 03/24/2020 12:00:00 AM EST 100 mg Oral aborted Take 10 0 mg by mouth [facility] Omeprazole 40 MG Delayed Release Oral Ca psule omeprazole (PRILOSEC) 40 MG capsule omeprazole (PRILOSEC) 40 MG capsule 03/24/2020 12:00:00 AM EST 40 mg Oral aborted Take 40 mg by mouth daily [facility] 40 mg 03/24/2020 12:00:00 AM EST capsule,delayed release (DR/EC) 30 TAKE ONE CAPSULE BY MOUTH EVERY DAY TAKE ONE CAPSULE BY MOUTH EVERY DAY SOLD: 03/24/2020 [facility] Morphine Sulfate 20 MG/ML Oral Solution Morphine Sulfa te (Concentrate) 20 MG/ML Morphine Sulfate (Concentrate) 20 MG/ML 11/19/2019 12:00:00 AM EDT 0.25 {ml} active Morphine Sulfate (Co ncentrate) 20 MG/ML eCW1 ([facility]) 15 mg 11/19/2019 12:00:00 AM EDT tablet 30 TAKE ONE TABLET BY MOUTH AT BEDTIME TAKE ONE TABLET BY MOUTH AT BEDTIME SOLD: 11/19/2019 [facility] Acetaminophen 325 MG Oral Tablet [Tylenol] Tylenol 325 MG Ty lenol 325 MG 11/19/2019 12:00:00 AM EDT 2.0 {tablet_as_needed} active Tylenol 325 MG eCW1 ([facility]) 100 mg/5 mL (20 mg/mL) 11/19/2019 12:00:00 AM EDT solution 30 TAKE 0.25 ML BY MOUTH OR PLACE UNDER THE TONGUE EVERY 4 HOURS NEEDED FOR PAIN OR DYSPNEA MAXIMUM DAILY DOSE = 3 ML TAKE 0.25 ML BY MOUTH OR PLACE UNDER THE TONGUE EVERY 4 HOURS NEEDED FOR PAIN OR DYSPNEA MAXIMUM DAILY DOSE = 3 ML SOLD: 11/19/2019 [facility] 100 mg 11/19/2019 12:00:00 AM EDT tablet 60 TAKE ONE TABLET BY MOUTH TWICE A DAY TAKE ONE TABLET BY MOUTH TWICE A DAY SOLD: 11/19/2019 [facility] 4 mg 11/19/2019 12:00:00 AM EDT tablet 30 TAKE 1 TABLET BY MOUTH EVERY 6 HOURS NEEDED NAUSEA TAKE 1 TABLET BY MOUTH EVERY 6 HOURS NEEDED NAUSEA SOLD: 11/19/2019 [facility] 15 mg 10/05/2019 12:00:00 AM EDT tablet 30 TAKE ONE TABLET BY MOUTH AT BEDTIME TAKE ONE TABLET BY MOUTH AT BEDTIME SOLD: 10/05/2019 [facility] 100 mg 09/05/2019 12:00:00 AM EDT tablet 60 TAKE ONE TABLET BY MOUTH TWICE A DAY TAKE ONE TABLET BY MOUTH TWICE A DAY SOLD: 09/05/2019 [facility] Mirtazapine 15 MG Oral Tablet Mirtazapine 15 MG 09/05/2019 12:00:00 A M EDT active 1 tablet at bedtime eCW1 ([facility]) Vitamin B12 1000 MCG Vitamin B12 1000 MCG 09/05/2019 12:00:00 AM EDT active 1 tablet eCW1 ([facility]) Vitamin B12 1000 MCG Vitamin B12 1000 MCG 09/05/2019 12:00:00 AM EDT active 1 tablet eCW1 ([facility]) 100 mg/5 mL (20 mg/mL) 09/05/2019 12:00:00 AM EDT solution 30 TAKE 0.25 ML BY MOUTH OR PLACE UNDER THE TONGUE EVERY 4 HOURS NEEDED FOR PAIN OR DYSPNEA MAXIMUM DAILY DOSE = 3 ML TAKE 0.25 ML BY MOUTH OR PLACE UNDER THE TONGUE EVERY 4 HOURS NEEDED FOR PAIN OR DYSPNEA MAXIMUM DAILY DOSE = 3 ML SOLD: 09/05/2019 [facility] Morphine Sulfate 20 MG/ML Oral Solution Morphine Sulfa te (Concentrate) 20 MG/ML Morphine Sulfate (Concentrate) 20 MG/ML 09/05/2019 12:00:00 AM EDT active 0.25 ml eCW1 ([facility]) Vitamin B12 1000 MCG Vitamin B12 1000 MCG 09/05/2019 12:00:00 AM ED T 1.0 {tablet} active Vitamin B12 1000 MCG eC W1 ([facility]) 4 mg 09/05/2019 12:00:00 AM EDT tablet 30 TAKE ONE TABLET BY MOUTH EVERY 6 HOURS NEEDED FOR NAUSEA TAKE ONE TABLET BY MOUTH EVERY 6 HOURS A S NEEDED FOR NAUSEA SOLD: 09/05/2019 [facility] Ondansetron 4 MG Oral Tablet [Zofran] Zofran 4 MG Zofran 4 M G 09/05/2019 12:00:00 AM EDT active 1 tablet eCW1 ([facility]) 15 mg 09/05/2019 12:00:00 AM EDT tablet 30 TAKE ONE TABLET BY MOUTH AT BEDTIME TAKE ONE TABLET BY MOUTH AT BEDTIME SOLD: 09/05/2019 [facility] Mirtazapine 15 MG Oral Tablet Mirtazapine 15 MG 09/05/2019 12:00:00 A M EDT active 1 tablet at bedtime eCW1 ([facility]) Mirtazapine 15 MG Oral Tablet Mirtazapine 15 MG 09/05/2019 12:00:00 AM EDT 1.0 {tablet_at_bedtime} active Mirtazapine 15 MG eCW1 ([facility]) Ondansetron 4 MG Oral Tablet [Zofran] Zofran 4 MG Zofran 4 M G 09/05/2019 12:00:00 AM EDT 1.0 {tablet} active Zo ethel 4 MG eCW1 ([facility]) Vitamin B12 1000 MCG Vitamin B12 1000 MCG 09/05/2019 12:00:00 AM EDT active 1 tablet eCW1 ([facility]) Ondansetron 4 MG Oral Tablet [Zofran] Zofran 4 MG Zofran 4 M G 09/05/2019 12:00:00 AM EDT active 1 tablet eCW1 ([facility]) 1,000 mcg 09/05/2019 12:00:00 AM EDT tablet 30 TAKE ONE TABLET BY MOUTH EVERY DAY TAKE ONE TABLET BY MOUTH EVERY DAY SOLD: 09/05/2019 [facility] Morphine Sulfate 20 MG/ML Oral Solution Morphine Sulfa te (Concentrate) 20 MG/ML Morphine Sulfate (Concentrate) 20 MG/ML 09/05/2019 12:00:00 AM EDT active 0.25 ml eCW1 ([facility]) Mirtazapine 15 MG Oral Tablet Mirtazapine 15 MG 09/05/2019 12:00:00 A M EDT active 1 tablet at bedtime eCW1 ([facility]) Morphine Sulfate 20 MG/ML Oral Solution Morphine Sulfa te (Concentrate) 20 MG/ML Morphine Sulfate (Concentrate) 20 MG/ML 07/23/2019 12:00:00 AM EDT active 0.25 ml eCW1 ([facility]) Meclizine Hydrochloride 25 MG Oral Tablet meclizine (A NTIVERT) 25 MG tablet meclizine (ANTIVERT) 25 MG tablet 03/12/2019 12:00:00 AM EST 25 mg Oral aborted Take 25 mg by mouth [facility] duloxetine 60 MG Delayed Release Oral Ca psule DULoxetine (CYMBALTA) 60 MG capsule DULoxetine (CYMBALTA) 60 MG capsule 02/27/2019 12:00:00 AM EDT 60 mg Oral aborted Take 60 mg by mouth daily [facility] Famotidine 20 MG Oral Tablet famotidine (PEPCID) 20 MG tablet famotidine (PEPCID) 20 MG tablet 02/27/2019 12:00:00 AM EDT 20 mg Oral aborted Take 20 mg by mouth [facility] Calcitriol 0.0005 MG Oral Capsule calcitriol (ROCALTRO L) 0.5 MCG capsule calcitriol (ROCALTROL) 0.5 MCG capsule 02/27/2019 12:00:00 AM EDT 1 u g Oral aborted Take 1 mcg by mouth daily [facility] Mirtazapine 15 MG Oral Tablet mirtazapine (REMERON) 15 MG tablet mirtazapine (REMERON) 15 MG tablet 02/27/2019 12:00:00 AM EDT 15 mg Oral aborted Take 15 mg by mouth [facility] tizanidine 2 MG Oral Tablet tiZANidine (ZANAFLEX) 2 MG tablet tiZANidine (ZANAFLEX) 2 MG tablet 02/27/2019 12:00:00 AM EDT aborted TAKE ONE TABLET BY MOUTH THREE TIMES A DAY NEEDED [facility] Verapamil hydrochloride 120 MG Extended Release Oral Tablet verapamil (CALAN-SR) 120 MG CR tablet verapamil (CALAN-SR) 120 MG CR tablet 02/27/2019 12:00 :00 AM EDT 120 mg Oral aborted Take 120 mg by m outh daily [facility] Acetaminophen 325 MG / Oxycodone Hydroch loride 5 MG Oral Tablet oxyCODONE- acetaminophen (PERCOCET) 5-325 MG per tablet oxyCODONE-acetaminophen (PERCOCET) 5-325 MG per tablet 01/26/2019 12:00:00 AM EDT aborted TAKE ONE TABLET BY MOUTH EVERY 4 HOURS NEEDED FOR MILD TO MODERATE PAIN MAXIMUM DAILY DOSE 6 TABLETS [facility] duloxetine 30 MG Delayed Release Oral Ca psule DULoxetine (CYMBALTA) 30 MG capsule DULoxetine (CYMBALTA) 30 MG capsule 01/23/2019 12:00:00 AM EDT 60 mg Oral aborted Take 60 mg by mouth daily [facility] Hydralazine Hydrochloride 10 MG Oral Tab let hydrALAZINE (APRESOLINE) 10 MG tablet hydrALAZINE (APRESOLINE) 10 MG tablet 01/23/2019 12:00:00 AM EDT 10 mg Oral aborted Take 10 mg by mouth [facility] Tamsulosin hydrochloride 0.4 MG Oral Capsule tamsulosi n (FLOMAX) 0.4 MG CAPS tamsulosin (FLOMAX) 0.4 MG CAPS 01/23/2019 12:00:00 AM EDT 0.4 mg O ral aborted Take 0.[address] [facility] tramadol hydrochloride 50 MG Oral Tablet traMADol (ULT LIYA) 50 MG tablet traMADol (ULTRAM) 50 MG tablet 01/05/2019 12:00:00 AM EDT aborted TAKE ONE TABLET BY MOUTH THREE TIMES A DAY NEEDED FOR PAIN MAXIMUM DAILY DOSE 3 [facility] Acetaminophen 325 MG / Hydrocodone Jt trate 5 MG Oral Tablet HYDROcodone- acetaminophen (NORCO) 5-325 MG per tablet HYDROcodone-acetaminophen (NORCO) 5- 325 MG per tablet 12/15/2018 12:00:00 AM EDT aborted TAKE ONE TABLET BY MOUTH THREE TIMES A DAY NEEDED FOR PAIN MAXIMUM DAILY DOSE 3 TABLETS [facility] Losartan Potassium 25 MG Oral Tablet losartan (COZAAR) 25 MG tablet losartan (COZAAR) 25 MG tablet 03/28/2018 12:00:00 AM EST aborted LOSARTAN POTASSIUM 25 MG TABS [facility] Furosemide 40 MG Oral Tablet furosemide (LASIX) 40 MG tablet furosemide (LASIX) 40 MG tablet 40 mg Oral aborted Win e 40 mg by mouth 2 (two) times a day [facility] atorvastatin 20 MG Oral Tablet atorvastatin (LIPITOR) 20 MG tablet atorvastatin (LIPITOR) 20 MG tablet 20 mg Oral aborted T joselito 20 mg by mouth daily [facility] irbesartan 150 MG Oral Tablet irbesartan (AVAPRO) 150 MG tablet irbesartan (AVAPRO) 150 MG tablet 150 mg Oral aborted Take 150 mg by mouth daily [facility] Cholecalciferol 2000 UNT Oral Capsule Ch olecalciferol (VITAMIN D3) 2000 units capsule Cholecalciferol (VITAMIN D3) 2000 units capsule aborted VITAMIN D3 2000 UNIT CAPS [facility] 60 ACTUAT Fluticasone propionate 0.25 MG /ACTUAT / salmeterol 0.05 MG/ACTUAT Dry Powder Inhaler fluticasone-salmeterol (ADVAIR) 250-50 MCG/DOSE DISKUS fluticasone-salmeterol (ADVAIR) 250-50 MCG/DOSE DISKUS 1 {puff} Inhalation aborted Inhale [address] [facility] Calcium Carbonate 1500 MG Oral Tablet calcium carbonat e (OS-ARLYN) 600 MG tablet calcium carbonate (OS-ARLYN) 600 MG tablet 600 mg Oral aborted Take 600 mg by mouth [facility] Calcitriol 0.43767 MG Oral Capsule calcitriol (ROCALTR OL) 0.25 MCG capsule calcitriol (ROCALTROL) 0.25 MCG capsule 0.5 ug Oral aborted Take 0.5 mcg by mouth daily [facility] potassium chloride SA (K-DUR,KLOR-CON) 10 MEQ tablet 36385-188-67 10 meq Oral aborted Take 10 mEq by mouth daily [facility] meloxicam 7.5 MG Oral Tablet meloxicam (MOBIC) 7.5 MG tablet meloxicam (MOBIC) 7.5 MG tablet 15 mg Oral aborted Take 15 mg by mouth [facility] Insurance Providers Payer name Policy type / Coverage type Policy ID Covered republican ID Covered republican's relationship to machado Policy [place] Plan Information [facility] [id number] SP [id number] MEDICARE [id number] SP [id number] MEDICARE [id number] Ann [id number] MEDICARE [id number] MEDICARE [id number] SP [id number] UMR [facility] CARE [id number] SP [id number] NGS [place] O [id number] S [id number] UMR O [id number] S [id number] MEDICARE C [id number] S [id number] UMR [facility] CARE [id number] SP [id number] UMR U [id number] Self [id number] MEDICARE A [id number] Self [id number] MEDICARE A [id number] Self [id number] UMR -O/P [id number] 18 [id number] MEDICARE PART A-O/P [id number] 18 [id number] MEDICARE [id number] SP [id number] A Umr (pr) Medigap Part B [id number] Self [id number] Medicare Dme Supplies Medigap Part B [id number] Self [id number] [place] [id number] Self [id number] Umr (pr) Medigap Part B [id number] Self [id number] Medicare Dme Supplies Medigap Part B [id number] Self [id number] [place] Primary [id number] Self [id number] Umr/[facility] Medigap Part B [id number] Self [id number] Medicare Natl Gov't Servi Medicare Primary [id number] Self [id number] Umr (pr) Medigap Part B [id number] Self [id number] Medicare Dme Supplies Medigap Part B [id number] Self [id number] [place] [id number] Self [id number] Umr (pr) Medigap Part B [id number] Self [id number] Medicare Dme Supplies Medigap Part B [id number] Self [id number] [place] Primary [id number] Self [id number] Umr (pr) Medigap Part B [id number] Self [id number] Medicare Dme Supplies Medigap Part B [id number] Self [id number] [place] Primary [id number] Self [id number] Umr (pr) Medigap Part B [id number] Self [id number] [place] Primary [id number] Self [id number] Umr (pr) Medigap Part B [id number] Self [id number] [place] Primary [id number] Self [id number] Umr (pr) Medigap Part B [id number] Self [id number] [place] Primary [id number] Self [id number] Umr (pr) Medigap Part B [id number] Self [id number] [place] Primary [id number] Self [id number] [employer] [id number] SP [id number] UMR O UNAVAILABLE S UNAVAILA BLE MEDICARE C [id number] S [id number] A [employer] PPO O [id number] S [id number] Umr Commercial [id number] Self [id number] [employer] Medigap Part B [id number] Self [id number] [place] Primary [id number] Self [id number] [employer] [id number] SP [id number] [employer] (pr) Medigap Part B [id number] Self [id number] [place] Primary [id number] Self [id number] [employer] [id number] SP [id number] MEDICARE [id number] SP [id number] A [employer] Medigap Part B [id number] Self [id number] [place]/NGS Medicare Primary [id number] Self [id number] [employer] (pr) Medigap Part B [id number] Self [id number] Medicare [place] Medicare Primary [id number] Self [id number] [employer] (pr) Medigap Part B [id number] Self [id number] [place] Medicare Primary [id number] Self [id number] [employer] U [id number] Self [id number] [employer] [id number] SP [id number] [employer] (pr) Medigap Part B [id number] Self [id number] [place] Primary [id number] Self [id number] [employer] (pr) Medigap Part B [id number] Self [id number] [place] Medicare Primary [id number] Self [id number] [facility] [id number] SP [id number] [facility] [id number] SP [id number] [employer] Medigap Part B [id number] Self [id number] Medicare Natl Gov't Servi Medicare Primary [id number] Self [id number] [employer] [id number] SP [id number] [facility] [id number] Ann [id number] MEDICARE [id number] Ann [id number] A [employer] Medigap Part B Self Medicare Natl Gov't Servi Medicare Primary Self [employer] (pr) Medigap Part B Self [place] Primary Self [employer] PPO O [id number] S [id number] Medicare Part B [facility] [id number] [place] [id number] 0 [id number] [employer] PPO 2 [id number] 1 [id number] SELF PAY 2 UNAVAILABLE 1 UNAVAILA BLE POM[facility]-CLINIC [id number] 18 [id number] MEDICARE PART A-CLINIC [id number] 18 [id number] [employer]-O/P [id number] 01 [id number] MEDICARE PART A-O/P [id number] 18 [id number] Problems, Conditions, and Diagnoses Code Display Name Description Problem Type Effective Dates Data Source(s) M19.90 Arthritis Arthritis [id number] 05/13/2020 12:00:00 AM [facility] Z72.0 Tobacco user Tobacco user [id number] 05/13/2020 12:00:00 A M [facility] M19.90 Osteoarthritis Osteoarthritis [id number] 05/13/2020 12:00: 00 AM [facility] E78.5 Hyperlipidemia Hyperlipidemia [id number] 05/13/2020 12:00: 00 AM [facility] R60.9 Edema Edema [id number] 05/13/2020 12:00:00 AM ES T [facility] J44.9 Chronic obstructive pulmonary disease Ch ronic obstructive pulmonary disease [id number] 05/13/2020 12:00:00 AM [facility] I10 Benign essential hypertension Benign essential hyperte nsion [id number] 05/13/2020 12:00:00 AM [facility] F32.9 [id number] Depression, unspecified depression type P roblem 09/05/2019 12:00:00 AM EDT eCW1 ([facility]) G89.29 [id number] Other chronic pain Problem 09/05/2019 12:00: 00 AM EDT eCW1 ([facility]) I10 [id number] Essential hypertension Problem 09/05/2019 12 :00:00 AM EDT eCW1 ([facility]) F32.9 [id number] Depression, unspecified depression type P roblem 09/05/2019 12:00:00 AM EDT eCW1 ([facility]) G89.29 [id number] Other chronic pain Problem 09/05/2019 12:00: 00 AM EDT eCW1 ([facility]) I10 [id number] Essential hypertension Problem 09/05/2019 12 :00:00 AM EDT eCW1 ([facility]) R62.7 [id number] Failure to thrive in adult Problem 0 12:00:00 AM EDT eCW1 ([facility]) R62.7 [id number] Failure to thrive in adult Problem 0 12:00:00 AM EDT eCW1 ([facility]) M19.90 Unspecified osteoarthritis, unspecified site Unspecified osteoarthritis, unspecified Diagnosis 05/13/2020 02:18:28 PM [facility] E87.5 Hyperkalemia Hyperkalemia Diagnosis 05/13/2020 02:18:28 P M [facility] K76.89 Other specified diseases of liver Other specifie d diseases of liver Diagnosis 05/13/2020 02:18:28 PM [facility] Z91.81 History of falling History of falling Diagnosis 10/2020 02:18:28 PM EST [facility] J44.9 Chronic obstructive pulmonary disease, u nspecified Chronic obstructive pulmonary disease, u Diagnosis 05/13/2020 02:18:28 PM EST [facility] N18.9 Chronic kidney disease, unspecified Chronic kidn ey disease, unspecified Diagnosis 05/13/2020 02:18:28 PM EST [facility] I10 Essential (primary) hypertension Essential (primary) h ypertension Diagnosis 05/13/2020 02:18:28 PM EST [facility] E78.5 Hyperlipidemia, unspecified Hyperlipidemia, unspecifie d Diagnosis 05/13/2020 02:18:28 PM EST [facility] I49.3 Ventricular premature depolarization Ventricular premature depolarization Diagnosis 05/13/2020 02:18:28 PM EST [facility] Surgeries/Procedures Procedure Description Date Indications Data Source(s) Annual wellness visit, includes a person alized prevention plan of service (pps), subsequent visit 09/12/2019 12:00:00 AM EDT eCW 1 ([facility]) Office Visit, Est Pt., Level 2 FC 09/12/2019 12:00:00 AM EDT eCW1 ([facility]) Social History Code Duration Value Status Description Data Source(s ) Alcohol intake 05/13/2020 12:00:00 AM EST No completed [facility] Cigarettes smoked current (pack per day) - Reported 05/13/19 12:00:00 AM EST UNK completed [facility] Smoking 05/13/2020 12:00:00 AM EST Current every day smoker co mpleted Current every day smoker [facility] Smoking 09/12/2019 12:00:00 AM EDT Current Smoker completed Curre nt Smoker eCW1 ([facility]) Vital Signs ID Date Data Source UNK Name Value Range Interpretation Code Description Data Source(s) Body mass index (BMI) [Ratio] 19.66 kg/m2 19.66 kg/m2 [facility] Body weight 50.349 kg 50.349 kg [facility] Body height 160 cm 160 cm [facility] Heart rate 92 /min 92 /min [facility] Diastolic blood pressure 71 mm[Hg] 71 mm[Hg] [facility] Systolic blood pressure 116 mm[Hg] 116 mm[Hg] [facility] Diastolic blood pressure 72 mm[Hg] 72 mm[Hg] eCW1 ([facility]) Systolic blood pressure 120 mm[Hg] 120 mm[Hg] e CW1 ([facility]) Body temperature 97.6 [degF] 97.6 [degF] eCW1 ( [facility]) Respiratory rate 18 /min 18 /min eCW1 ([facility]) Heart rate 85 /min 85 /min eCW1 ([facility]) Body mass index (BMI) [Ratio] 20.60 kg/m2 20.60 kg/m2 eCW1 ([facility]) Body height [in_us] eCW1 ([facility]) Body weight Measured 120.0 [lb_av] 120.0 [lb_av ] eCW1 ([facility]) Patient Treatment Plan of Care Planned Activity Planned Date Details Description Data Source (s) Omeprazole 40 MG Delayed Release Oral Capsule 03/24/2020 12:00:00 A M [facility] NITROFURANTOIN, MACROCRYSTALS 25 MG / Ni trofurantoin, Monohydrate 75 MG Oral Capsule 03/24/2020 12:00:00 AM [facility] Morphine Sulfate 20 MG/ML Oral Solution 11/19/2019 12:00:00 AM EDT eCW1 ([facility]) Acetaminophen 325 MG Oral Tablet [Tylenol] 11/19/2019 12:00:00 AM E DT eCW1 ([facility]) Vitamin B12 1000 MCG 09/05/2019 12:00:00 AM EDT eCW1 ([facility]) Ondansetron 4 MG Oral Tablet [Zofran] 09/05/2019 12:00:00 AM EDT eCW1 ([facility]) Morphine Sulfate 20 MG/ML Oral Solution 09/05/2019 12:00:00 AM EDT eCW1 ([facility]) Mirtazapine 15 MG Oral Tablet 09/05/2019 12:00:00 AM EDT eCW1 ([facility]) Ondansetron 4 MG Oral Tablet [Zofran] 09/05/2019 12:00:00 AM EDT eCW1 ([facility]) Vitamin B12 1000 MCG 09/05/2019 12:00:00 AM EDT eCW1 ([facility]) Mirtazapine 15 MG Oral Tablet 09/05/2019 12:00:00 AM EDT eCW1 ([facility]) Mirtazapine 15 MG Oral Tablet 09/05/2019 12:00:00 AM EDT eCW1 ([facility]) Vitamin B12 1000 MCG 09/05/2019 12:00:00 AM EDT eCW1 ([facility]) Morphine Sulfate 20 MG/ML Oral Solution 07/23/2019 12:00:00 AM EDT eCW1 ([facility]) Meclizine Hydrochloride 25 MG Oral Tablet 03/12/2019 12:00:00 AM ES T [facility] Verapamil hydrochloride 120 MG Extended Release Oral T ablet 02/27/2019 12:00:00 AM EDT [facility] tizanidine 2 MG Oral Tablet 02/27/2019 12:00:00 AM EDT [facility] Mirtazapine 15 MG Oral Tablet 02/27/2019 12:00:00 AM EDT [facility] Famotidine 20 MG Oral Tablet 02/27/2019 12:00:00 AM EDT [facility] duloxetine 60 MG Delayed Release Oral Capsule 02/27/2019 12:00:00 A M EDT [facility] Calcitriol 0.0005 MG Oral Capsule 02/27/2019 12:00:00 AM EDT [facility] Acetaminophen 325 MG / Oxycodone Hydrochloride 5 MG Or al Tablet 01/26/2019 12:00:00 AM EDT [facility] Tamsulosin hydrochloride 0.4 MG Oral Capsule 01/23/2019 12:00:00 AM EDT [facility] Hydralazine Hydrochloride 10 MG Oral Tablet 01/23/2019 12:00:00 AM EDT [facility] duloxetine 30 MG Delayed Release Oral Capsule 01/23/2019 12:00:00 A M EDT [facility] tramadol hydrochloride 50 MG Oral Tablet 01/05/2019 12:00:00 AM EDT [facility] Acetaminophen 325 MG / Hydrocodone Bitartrate 5 MG Ora l Tablet 12/15/2018 12:00:00 AM EDT [facility] Losartan Potassium 25 MG Oral Tablet 03/28/2018 12:00:00 AM EST [facility] meloxicam 7.5 MG Oral Tablet [facility] 60 ACTUAT Fluticasone propionate 0.25 MG /ACTUAT / salmeterol 0.05 MG/ACTUAT Dry Powder Inhaler [facility] Cholecalciferol 2000 UNT Oral Capsule [facility] Calcium Carbonate 1500 MG Oral Tablet [facility] Calcitriol 0.75431 MG Oral Capsule [facility] potassium chloride SA (K-DUR,KLOR-CON) 10 MEQ tablet [facility] irbesartan 150 MG Oral Tablet [facility] atorvastatin 20 MG Oral Tablet [facility] Furosemide 40 MG Oral Tablet [facility]
[2020-06-22] MEDS ORDERED: NITR-67 PO (12:47)
--- OUTSIDE RECORDS SUMMARY | 2020-06-22 13:02 | CCD ---
Author Author [facility] Organization [facility] Address Unknown Phone Unavailable Care Team Providers Care Vine Pruner Name Role Phone DRAZEK, I HALLE PA [...] is protected by Article 27-F of the [facility] Public [facility] law. If you continue you may have access to information: Regarding HIV / AIDS; Provided by facilities licensed or operated by the [facility] Office of Mental Health; or Provided by the [facility] Office for People With Developmental Disabilities. If such information is present, then the following [facility] mandated warning applies: This information has been [...] law may result in a fine or chcf sentence or both. A general authorization for the release of medical or other information is NOT sufficient authorization for further disc losure. Family History Family Member Name Family Member Gender Family Member Status Date o f Status Description Data Source(s) Unknown Unknown Problem MEDENT ([facility]) father Unknown Unknown Problem MEDENT ([employer] [facility] [employer]) Unknown Male Problem MEDENT ([facility]) () Unknown Female Problem MEDENT ([facility]) Encounters Encounter Providers Location Date Indications Data Source(s ) Outpatient Attender: MYA WICK MD [email or web address] 12:00:00 AM EST - 05/14/2020 08:37:04 AM EST [facility] [place] [address] [place] [address] 12/31/2019 12:00:00 AM EDT eCW1 ([facility]) Unknown [address] [place] [address] 11/19/2019 12:00:00 AM EDT eCW1 ([facility]) [facility] [place] [address] [place] [address] 10/04/2019 12:00:00 AM EDT eCW1 ([facility]) [facility] Jose [address] [facility] [place] [address] 09/12/2019 12:00:00 AM EDT eCW1 ([facility]) [facility] Jose [address] [place] [address], [place] [address] 09/05/2019 12:00:00 AM EDT eCW1 ([facility]) Outpatient Referrer: HALLE ROCHA 08/08/2019 02:14:00 PM EDT [facility] Outpatient Referrer: HALLE ROCHA 08/06/2019 03:34:00 PM EDT [facility] [address] [place] [address], [place] [address] 07/23/2019 12:00:00 AM EDT eCW1 ([facility]) Outpatient Referrer: HALLE ROCHA 06/17/2019 04:24:00 PM EST [facility] Jose [address] [place] [address], [place] [address] 06/12/2019 12:00:00 AM EST eCW1 ([facility]) [facility] Jose [address] [place] [address], [place] [address] 06/06/2019 12:00:00 AM EST eCW1 ([facility]) [facility] Jose [address] [place] [address], [place] [address] 05/13/2019 12:00:00 AM EST eCW1 ([facility]) [facility] Jose [address] [place] [address], [place] [address] 04/26/2019 12:00:00 AM EST eCW1 ([facility]) Medications Medication Brand Name Start Date Product [...] aborted Take 10 0 mg by mouth [facility] Omeprazole 40 MG Delayed Release Oral Ca psule omeprazole (PRILOSEC) 40 MG capsule omeprazole (PRILOSEC) 40 MG capsule 03/24/2020 12:00:00 AM EST 40 mg Oral aborted Take 40 mg by mouth daily [facility] 40 mg 03/24/2020 12:00:00 AM EST capsule,delayed release (DR/EC) 30 TAKE ONE CAPSULE BY MOUTH EVERY DAY TAKE ONE CAPSULE BY MOUTH EVERY DAY SOLD: 03/24/2020 [facility] Morphine Sulfate 20 MG/ML Oral Solution Morphine Sulfa te (Concentrate) 20 MG/ML Morphine Sulfate (Concentrate) 20 MG/ML 11/19/2019 12:00:00 AM EDT 0.25 {ml} active Morphine Sulfate (Co ncentrate) 20 MG/ML eCW1 ([facility]) 15 mg 11/19/2019 12:00:00 AM EDT tablet 30 TAKE ONE TABLET BY MOUTH AT BEDTIME TAKE ONE TABLET BY MOUTH AT BEDTIME SOLD: 11/19/2019 [facility] Acetaminophen 325 MG Oral Tablet [Tylenol] Tylenol 325 MG Ty lenol 325 MG 11/19/2019 12:00:00 AM EDT 2.0 {tablet_as_needed} active Tylenol 325 MG eCW1 ([facility]) 100 mg/5 mL (20 mg/mL) 11/19/2019 [...] EDT active 1 tablet at bedtime eCW1 ([facility]) Vitamin B12 1000 MCG Vitamin B12 1000 MCG 09/05/2019 12:00:00 AM EDT active 1 tablet eCW1 ([facility]) Vitamin B12 1000 MCG Vitamin B12 1000 MCG 09/05/2019 12:00:00 AM EDT active 1 tablet eCW1 ([facility]) 100 mg/5 mL (20 mg/mL) 09/05/2019 [...] 12:00:00 AM EDT active 0.25 ml eCW1 ([facility]) Vitamin B12 1000 MCG Vitamin B12 1000 MCG 09/05/2019 12:00:00 AM ED T 1.0 {tablet} active Vitamin B12 1000 MCG eC W1 ([facility]) 4 mg 09/05/2019 12:00:00 AM EDT tablet 30 TAKE ONE TABLET BY MOUTH EVERY 6 HOURS NEEDED FOR NAUSEA TAKE ONE TABLET BY MOUTH EVERY 6 HOURS A S NEEDED FOR NAUSEA SOLD: 09/05/2019 [facility] Ondansetron 4 MG Oral Tablet [Zofran] Zofran 4 MG Zofran 4 M G 09/05/2019 12:00:00 AM EDT active 1 tablet eCW1 ([facility]) 15 mg 09/05/2019 12:00:00 AM EDT tablet 30 TAKE ONE TABLET BY MOUTH AT BEDTIME TAKE ONE TABLET BY MOUTH AT BEDTIME SOLD: 09/05/2019 [facility] Mirtazapine 15 MG Oral Tablet Mirtazapine 15 MG 09/05/2019 12:00:00 A M EDT active 1 tablet at bedtime eCW1 ([facility]) Mirtazapine 15 MG Oral Tablet Mirtazapine 15 MG 09/05/2019 12:00:00 AM EDT 1.0 {tablet_at_bedtime} active Mirtazapine 15 MG eCW1 ([facility]) Ondansetron 4 MG Oral Tablet [Zofran] Zofran 4 MG Zofran 4 M G 09/05/2019 12:00:00 AM EDT 1.0 {tablet} active Zo ethel 4 MG eCW1 ([facility]) Vitamin B12 1000 MCG Vitamin B12 1000 MCG 09/05/2019 12:00:00 AM EDT active 1 tablet eCW1 ([facility]) Ondansetron 4 MG Oral Tablet [Zofran] Zofran 4 MG Zofran 4 M G 09/05/2019 12:00:00 AM EDT active 1 tablet eCW1 ([facility]) 1,000 mcg 09/05/2019 12:00:00 AM EDT tablet 30 TAKE ONE TABLET BY MOUTH EVERY DAY TAKE ONE TABLET BY MOUTH EVERY DAY SOLD: 09/05/2019 [facility] Morphine Sulfate 20 MG/ML Oral Solution Morphine Sulfa te (Concentrate) 20 MG/ML Morphine Sulfate (Concentrate) 20 MG/ML 09/05/2019 12:00:00 AM EDT active 0.25 ml eCW1 ([facility]) Mirtazapine 15 MG Oral Tablet Mirtazapine 15 MG 09/05/2019 12:00:00 A M EDT active 1 tablet at bedtime eCW1 ([facility]) Morphine Sulfate 20 MG/ML Oral Solution Morphine Sulfa te (Concentrate) 20 MG/ML Morphine Sulfate (Concentrate) 20 MG/ML 07/23/2019 12:00:00 AM EDT active 0.25 ml eCW1 ([facility]) Meclizine Hydrochloride 25 MG Oral Tablet meclizine (A NTIVERT) 25 MG tablet meclizine (ANTIVERT) 25 MG tablet 03/12/2019 12:00:00 AM EST 25 mg Oral aborted Take 25 mg by mouth [facility] duloxetine 60 MG Delayed Release Oral Ca psule DULoxetine (CYMBALTA) 60 MG capsule DULoxetine (CYMBALTA) 60 MG capsule 02/27/2019 12:00:00 AM EDT 60 mg Oral aborted Take 60 mg by mouth daily [facility] Famotidine 20 MG Oral Tablet famotidine (PEPCID) 20 MG tablet famotidine (PEPCID) 20 MG tablet 02/27/2019 12:00:00 AM EDT 20 mg Oral aborted Take 20 mg by mouth [facility] Calcitriol 0.0005 MG Oral Capsule calcitriol (ROCALTRO L) 0.5 MCG capsule calcitriol (ROCALTROL) 0.5 MCG capsule 02/27/2019 12:00:00 AM EDT 1 u g Oral aborted Take 1 mcg by mouth daily [facility] Mirtazapine 15 MG Oral Tablet mirtazapine (REMERON) 15 MG tablet mirtazapine (REMERON) 15 MG tablet 02/27/2019 12:00:00 AM EDT 15 mg Oral aborted Take 15 mg by mouth [facility] tizanidine 2 MG Oral Tablet tiZANidine (ZANAFLEX) 2 MG tablet tiZANidine (ZANAFLEX) 2 MG tablet 02/27/2019 12:00:00 AM EDT aborted TAKE ONE TABLET BY MOUTH THREE TIMES A DAY NEEDED [facility] Verapamil hydrochloride 120 MG Extended Release Oral Tablet verapamil (CALAN-SR) 120 MG CR tablet verapamil (CALAN-SR) 120 MG CR tablet 02/27/2019 12:00 :00 AM EDT 120 mg Oral aborted Take 120 mg by m outh daily [facility] Acetaminophen 325 MG / Oxycodone Hydroch loride 5 MG Oral Tablet oxyCODONE- acetaminophen (PERCOCET) 5-325 MG per tablet oxyCODONE-acetaminophen (PERCOCET) 5-325 MG per tablet 01/26/2019 12:00:00 AM EDT aborted TAKE ONE TABLET BY MOUTH EVERY 4 HOURS NEEDED FOR MILD TO MODERATE PAIN MAXIMUM DAILY DOSE 6 TABLETS [facility] duloxetine 30 MG Delayed Release Oral Ca psule DULoxetine (CYMBALTA) 30 MG capsule DULoxetine (CYMBALTA) 30 MG capsule 01/23/2019 12:00:00 AM EDT 60 mg Oral aborted Take 60 mg by mouth daily [facility] Hydralazine Hydrochloride 10 MG Oral Tab let hydrALAZINE (APRESOLINE) 10 MG tablet hydrALAZINE (APRESOLINE) 10 MG tablet 01/23/2019 12:00:00 AM EDT 10 mg Oral aborted Take 10 mg by mouth [facility] Tamsulosin hydrochloride 0.4 MG Oral Capsule tamsulosi n (FLOMAX) 0.4 MG CAPS tamsulosin (FLOMAX) 0.4 MG CAPS 01/23/2019 12:00:00 AM EDT 0.4 mg O ral aborted Take 0.4 mg by mouth [facility] tramadol hydrochloride 50 MG Oral Tablet traMADol (ULT LIYA) 50 MG tablet traMADol (ULTRAM) 50 MG tablet 01/05/2019 12:00:00 AM EDT aborted TAKE ONE TABLET BY MOUTH THREE TIMES A DAY NEEDED FOR PAIN MAXIMUM DAILY DOSE 3 [facility] Acetaminophen 325 MG / Hydrocodone Jt trate 5 MG Oral Tablet HYDROcodone- acetaminophen (NORCO) 5-325 MG per tablet HYDROcodone-acetaminophen (NORCO) 5- 325 MG per tablet 12/15/2018 12:00:00 AM EDT aborted TAKE ONE TABLET BY MOUTH THREE TIMES A DAY NEEDED FOR PAIN MAXIMUM DAILY DOSE 3 TABLETS [facility] Losartan Potassium 25 MG Oral Tablet losartan (COZAAR) 25 MG tablet losartan (COZAAR) 25 MG tablet 03/28/2018 12:00:00 AM EST aborted LOSARTAN POTASSIUM 25 MG TABS [facility] Furosemide 40 MG Oral Tablet furosemide (LASIX) 40 MG tablet furosemide (LASIX) 40 MG tablet 40 mg Oral aborted Win e 40 mg by mouth 2 (two) times a day [facility] atorvastatin 20 MG Oral Tablet atorvastatin (LIPITOR) 20 MG tablet atorvastatin (LIPITOR) 20 MG tablet 20 mg Oral aborted T joselito 20 mg by mouth daily [facility] irbesartan 150 MG Oral Tablet irbesartan (AVAPRO) 150 MG tablet irbesartan (AVAPRO) 150 MG tablet 150 mg Oral aborted Take 150 mg by mouth daily [facility] Cholecalciferol 2000 UNT Oral Capsule Ch olecalciferol (VITAMIN D3) 2000 units capsule Cholecalciferol (VITAMIN D3) 2000 units capsule aborted VITAMIN D3 2000 UNIT CAPS [facility] 60 ACTUAT Fluticasone propionate 0.25 MG /ACTUAT / salmeterol 0.05 MG/ACTUAT Dry Powder Inhaler fluticasone-salmeterol (ADVAIR) 250-50 MCG/DOSE DISKUS fluticasone-salmeterol (ADVAIR) 250-50 MCG/DOSE DISKUS 1 {puff} Inhalation aborted Inhale 1 puff [facility] Calcium Carbonate 1500 MG Oral Tablet calcium carbonat e (OS-ARLYN) 600 MG tablet calcium carbonate (OS-ARLYN) 600 MG tablet 600 mg Oral aborted Take 600 mg by mouth [facility] Calcitriol 0.18477 MG Oral Capsule calcitriol (ROCALTR OL) 0.25 MCG capsule calcitriol (ROCALTROL) 0.25 MCG capsule 0.5 ug Oral aborted Take 0.5 mcg by mouth daily [facility] potassium chloride SA (K-DUR,KLOR-CON) 10 MEQ tablet 84100-370-62 10 meq Oral aborted Take 10 mEq by mouth daily [facility] meloxicam 7.5 MG Oral Tablet meloxicam (MOBIC) 7.5 MG tablet meloxicam (MOBIC) 7.5 MG tablet 15 mg Oral aborted Take 15 mg by mouth [facility] Insurance Providers Payer name Policy type / Coverage type Policy ID Covered green party ID Covered green party's relationship to machado Policy [place] Plan Information UMR [facility] [id number] SP [id number] MEDICARE [id number] SP [id number] MEDICARE [id number] Ann [id number] [id number] MEDICARE [id number] MEDICARE [id number] SP [id number] UMR [facility] CARE [id number] SP [id number] NGS [place] O [id number] S [id number] UMR O [id number] S [id number] MEDICARE C [id number] S [id number] UMR [facility] CARE [id number] SP [id number] UMR U [id number] Self [id number] MEDICARE A [id number] Self [id number] MEDICARE A [id number] Self [id number] UMR -O/P [id number] 18 [id number] MEDICARE PART A-O/P [id number] 18 [id number] MEDICARE [id number] SP [id number] A Umr (pr) Medigap Part B [id number] Self [id number] Medicare Dme Supplies Medigap Part B [id number] Self [id number] [place] [id number] Self [id number] Umr (pr) Medigap Part B [id number] Self [id number] Medicare Dme Supplies Medigap Part B [id number] Self [id number] [place] Primary [id number] Self [id number] Umr/Uhc/[employer] Medigap Part B [id number] Self [id number] Medicare Natl Gov't Servi Medicare Primary [id number] Self [id number] Umr (pr) Medigap Part B [id number] Self [id number] Medicare Dme Supplies Medigap Part B [id number] Self [id number] [place] Primary [id number] Self [id number] Umr (pr) Medigap Part B [id number] Self [id number] Medicare Dme Supplies Medigap Part B [id number] Self [id number] [place] Primary [id number] Self [id number] Umr (pr) Medigap Part B [id number] Self [id number] Medicare Dme Supplies Medigap Part B [id number] Self [id number] [place] Primary [id number] Self [id number] Umr (pr) Medigap Part B [id number] Self [id number] [place] Primary [id number] Self [id number] Umr (pr) Medigap Part B [id number] Self [id number] [place] Primary [id number] Self [id number] Umr (pr) Medigap Part B [id number] Self [id number] [place] Primary [id number] Self [id number] Umr (pr) Medigap Part B [id number] Self [id number] [place] Primary [id number] Self [id number] [employer] [id number] SP [id number] UMR O UNAVAILABLE S UNAVAILA BLE MEDICARE C [id number] S [id number] A [employer] PPO O [id number] S [id number] Umr Commercial [id number] Self [id number] [place] Medigap Part B [id number] Self [id number] [place] Primary [id number] Self [id number] [employer]OM[employer] [id number] SP [id number] [employer] (pr) Medigap Part B [id number] Self [id number] [place] Primary [id number] Self [id number] [employer] [id number] SP [id number] MEDICARE [id number] SP [id number] A [employer] Medigap Part B [id number] Self [id number] Medicare [place]/NGS Medicare Primary [id number] Self [id number] [place] (pr) Medigap Part B [id number] Self [id number] Medicare [place] Primary [id number] Self [id number] [employer] (pr) Medigap Part B [id number] Self [id number] [place] Primary [id number] Self [id number] [employer] U [id number] Self [id number] POMCO [id number] SP [id number] [employer] (pr) Medigap Part B [id number] Self [id number] Medicare [place] Primary [id number] Self [id number] [place] (pr) Medigap Part B [id number] Self [id number] [place] Primary [id number] Self [id number] [employer]OM[employer] [id number] SP [id number] [employer]OM[employer] [id number] SP [id number] [place] Medigap Part B [id number] Self [id number] Medicare Natl Gov't Servi Medicare Primary [id number] Self [id number] [employer]OM[employer] [id number] SP [id number] [employer]OMCO [id number] Ann [id number] MEDICARE [id number] Ann [id number] A [employer] Medigap Part B Self Medicare Natl Gov't Servi Medicare Primary Self [employer] (pr) Medigap Part B Self [place] Primary Self [employer] PPO O [id number] S [id number] Medicare Part B [facility] [id number] [employer] [id number] 0 [id number] [employer] PPO 2 [id number] 1 [id number] SELF PAY 2 UNAVAILABLE 1 UNAVAILA BLE [facility]OMCO-CLINIC [id number] 18 [id number] MEDICARE PART A-CLINIC [id number] 18 [id number] [employer]OM[employer]-O/P [id number] 01 [id number] MEDICARE PART A-O/P [id number] 18 [id number] Problems, Conditions, and Diagnoses Code Display Name Description Problem Type Effective Dates Data Source(s) M19.90 Arthritis Arthritis [id number] 05/13/2020 12:00:00 AM [facility] Z72.0 Tobacco user Tobacco user [id number] 05/13/2020 12:00:00 A M [facility] M19.90 Osteoarthritis Osteoarthritis [id number] 05/13/2020 12:00: 00 AM [facility] E78.5 Hyperlipidemia Hyperlipidemia 42211015 05/13/2020 12:00: 00 AM [facility] R60.9 Edema Edema [id number] 05/13/2020 12:00:00 AM ES T [facility] J44.9 Chronic obstructive pulmonary disease Ch ronic obstructive pulmonary disease [id number] 05/13/2020 12:00:00 AM [facility] I10 Benign essential hypertension Benign essential hyperte nsion [id number] 05/13/2020 12:00:00 AM [facility] F32.9 [id number] Depression, unspecified depression type P roblem 09/05/2019 12:00:00 AM EDT eCW1 ([facility]) G89.29 [id number] Other chronic pain Problem 09/05/2019 12:00: 00 AM EDT eCW1 ([facility]) I10 [id number] Essential hypertension Problem 09/05/2019 12 :00:00 AM EDT eCW1 ([facility]) F32.9 [id number] Depression, unspecified depression type P roblem 09/05/2019 12:00:00 AM EDT eCW1 ([facility]) G89.29 [id number] Other chronic pain Problem 09/05/2019 12:00: 00 AM EDT eCW1 ([facility]) I10 [id number] Essential hypertension Problem 09/05/2019 12 :00:00 AM EDT eCW1 ([facility]) R62.7 [id number] Failure to thrive in adult Problem 0 12:00:00 AM EDT eCW1 ([facility]) R62.7 [id number] Failure to thrive in adult Problem 0 12:00:00 AM EDT eCW1 ([facility]) M19.90 Unspecified osteoarthritis, unspecified site Unspecified osteoarthritis, unspecified Diagnosis 05/13/2020 02:18:28 PM [facility] E87.5 Hyperkalemia Hyperkalemia Diagnosis 05/13/2020 02:18:28 P M [facility] K76.89 Other specified diseases of liver Other specifie d diseases of liver Diagnosis 05/13/2020 02:18:[address] [facility] Z91.81 History of falling History of falling Diagnosis 10/2020 02:18:28 PM EST [facility] J44.9 Chronic obstructive pulmonary disease, u nspecified Chronic obstructive pulmonary disease, u Diagnosis 05/13/2020 02:18:28 PM EST [facility] N18.9 Chronic kidney disease, unspecified Chronic kidn ey disease, unspecified Diagnosis 05/13/2020 02:18:28 PM EST [facility] I10 Essential (primary) hypertension Essential (primary) h ypertension Diagnosis 05/13/2020 02:18:28 PM EST [facility] E78.5 Hyperlipidemia, unspecified Hyperlipidemia, unspecifie d Diagnosis 05/13/2020 02:18:28 PM EST [facility] I49.3 Ventricular premature depolarization Ventricular premature depolarization Diagnosis 05/13/2020 02:18:28 PM EST [facility] Surgeries/Procedures Procedure Description Date Indications Data Source(s) Annual wellness visit, includes a person alized prevention plan of service (pps), subsequent visit 09/12/2019 12:00:00 AM EDT eCW 1 ([facility]) Office Visit, Est Pt., Level 2 FC 09/12/2019 12:00:00 AM EDT eCW1 ([facility]) Social History Code Duration Value Status Description Data Source(s ) Alcohol intake 05/13/2020 12:00:00 AM EST No completed [facility] Cigarettes smoked current (pack per day) - Reported 05/13/19 12:00:00 AM EST UNK completed [facility] Smoking 05/13/2020 12:00:00 AM EST Current every day smoker co mpleted Current every day smoker [facility] Smoking 09/12/2019 12:00:00 AM EDT Current Smoker completed Curre nt Smoker eCW1 ([facility]) Vital Signs ID Date Data Source UNK Name Value Range Interpretation Code Description Data Source(s) Body mass index (BMI) [Ratio] 19.66 kg/m2 19.66 kg/m2 [facility] Body weight 50.349 kg 50.349 kg [facility] Body height 160 cm 160 cm [facility] Heart rate 92 /min 92 /min [facility] Diastolic blood pressure 71 mm[Hg] 71 mm[Hg] [facility] Systolic blood pressure 116 mm[Hg] 116 mm[Hg] [facility] Diastolic blood pressure 72 mm[Hg] 72 mm[Hg] eCW1 ([facility]) Systolic blood pressure 120 mm[Hg] 120 mm[Hg] e CW1 ([facility]) Body temperature 97.6 [degF] 97.6 [degF] eCW1 ( [facility]) Respiratory rate 18 /min 18 /min eCW1 ([facility]) Heart rate 85 /min 85 /min eCW1 ([facility]) Body mass index (BMI) [Ratio] 20.60 kg/m2 20.60 kg/m2 eCW1 ([facility]) Body height [in_us] eCW1 ([facility]) Body weight Measured 120.0 [lb_av] 120.0 [lb_av ] eCW1 ([facility]) Patient Treatment Plan of Care Planned Activity Planned Date Details Description Data Source (s) Omeprazole 40 MG Delayed Release Oral Capsule 03/24/2020 12:00:00 A M [facility] NITROFURANTOIN, MACROCRYSTALS 25 MG / Ni trofurantoin, Monohydrate 75 MG Oral Capsule 03/24/2020 12:00:00 AM [facility] Morphine Sulfate 20 MG/ML Oral Solution 11/19/2019 12:00:00 AM EDT eCW1 ([facility]) Acetaminophen 325 MG Oral Tablet [Tylenol] 11/19/2019 12:00:00 AM E DT eCW1 ([facility]) Vitamin B12 1000 MCG 09/05/2019 12:00:00 AM EDT eCW1 ([facility]) Ondansetron 4 MG Oral Tablet [Zofran] 09/05/2019 12:00:00 AM EDT eCW1 ([facility]) Morphine Sulfate 20 MG/ML Oral Solution 09/05/2019 12:00:00 AM EDT eCW1 ([facility]) Mirtazapine 15 MG Oral Tablet 09/05/2019 12:00:00 AM EDT eCW1 ([facility]) Ondansetron 4 MG Oral Tablet [Zofran] 09/05/2019 12:00:00 AM EDT eCW1 ([facility]) Vitamin B12 1000 MCG 09/05/2019 12:00:00 AM EDT eCW1 ([facility]) Mirtazapine 15 MG Oral Tablet 09/05/2019 12:00:00 AM EDT eCW1 ([facility]) Mirtazapine 15 MG Oral Tablet 09/05/2019 12:00:00 AM EDT eCW1 ([facility]) Vitamin B12 1000 MCG 09/05/2019 12:00:00 AM EDT eCW1 ([facility]) Morphine Sulfate 20 MG/ML Oral Solution 07/23/2019 12:00:00 AM EDT eCW1 ([facility]) Meclizine Hydrochloride 25 MG Oral Tablet 03/12/2019 12:00:00 AM ES T [facility] Verapamil hydrochloride 120 MG Extended Release Oral T ablet 02/27/2019 12:00:[address] [facility] tizanidine 2 MG Oral Tablet 02/27/2019 12:00:00 AM EDT [facility] Mirtazapine 15 MG Oral Tablet 02/27/2019 12:00:00 AM EDT [facility] Famotidine 20 MG Oral Tablet 02/27/2019 12:00:00 AM EDT [facility] duloxetine 60 MG Delayed Release Oral Capsule 02/27/2019 12:00:00 A M EDT [facility] Calcitriol 0.0005 MG Oral Capsule 02/27/2019 12:00:00 AM EDT [facility] Acetaminophen 325 MG / Oxycodone Hydrochloride 5 MG Or al Tablet 01/26/2019 12:00:[address] [facility] Tamsulosin hydrochloride 0.4 MG Oral Capsule 01/23/2019 12:00:00 AM EDT [facility] Hydralazine Hydrochloride 10 MG Oral Tablet 01/23/2019 12:00:00 AM EDT [facility] duloxetine 30 MG Delayed Release Oral Capsule 01/23/2019 12:00:00 A M EDT [facility] tramadol hydrochloride 50 MG Oral Tablet 01/05/2019 12:00:00 AM EDT [facility] Acetaminophen 325 MG / Hydrocodone Bitartrate 5 MG Ora l Tablet 12/15/2018 12:00:[address] [facility] Losartan Potassium 25 MG Oral Tablet 03/28/2018 12:00:00 AM EST [facility] meloxicam 7.5 MG Oral Tablet [facility] 60 ACTUAT Fluticasone propionate 0.25 MG /ACTUAT / salmeterol 0.05 MG/ACTUAT Dry Powder Inhaler [facility] Cholecalciferol 2000 UNT Oral Capsule [facility] Calcium Carbonate 1500 MG Oral Tablet [facility] Calcitriol 0.68126 MG Oral Capsule [facility] potassium chloride SA (K-DUR,KLOR-CON) 10 MEQ tablet [facility] irbesartan 150 MG Oral Tablet [facility] atorvastatin 20 MG Oral Tablet [facility] Furosemide 40 MG Oral Tablet [facility]
[2020-06-22] MEDS ORDERED: SKEL800T97 PO (13:29)
[2020-06-22] MEDS ORDERED: IBUP-1022 PO (13:29)
== END 2020-06-22 13:44 | disposition home or self-care (01) ==
LOC: M ED 12:25
DX: M54.5 Low back pain (principal); I10 Essential (primary) hypertension; E78.9 Disorder of lipoprotein metabolism, unspecified; F17.210 Nicotine dependence, cigarettes, uncomplicated

== ENCOUNTER → 2020-06-25 | Outpatient (CLI) | payer MEDICARE, OTHER ==
[~2020-06-25] MED LIST changes: +IBUP-1022 PO; +NITR-67 PO; +SKEL800T97 PO
--- NOTE | 2020-06-25 17:26 | REP ---
INDICATION: SACRAL BACK PAIN. COMPARISON: X-ray 03/21/2019, CT abdomen pelvis 06/06/2019.. TECHNIQUE: Five views FINDINGS: The lateral view shows grade 4 compression deformity of L1 progressed from grade 3-4 on the previous x-ray there is superior endplate depression of the T12 and T11 as on the previous study there is some minor loss of height of L3 as before marginal osteophytes are seen at all levels disc space narrowed at L5-S1 and L4-5. Facet arthropathy at L4-5 and greater at L5-S1 with no spondylolysis or spondylolisthesis. Tortuous calcified aorta without aneurysm and iliac artery calcifications also seen large rim and irregular calcifications overlying the liver from known complex cysts in the liver from CT May 2019. There are also some vascular calcifications over the renal fossa. All this appears unchanged. SI joints symmetric, hip joint spaces show some sclerosis. The acetabular roofs show spurs with degenerative changes of the femoral heads as well. Some mild dextrorotation of the spine without significant scoliosis. IMPRESSION: 1. Multiple compression deformities of L1, T11, T12 and L3. There is progression of L1 from grade 3 to grade 4 with the others unchanged. Minimal kyphosis at the L1 level now compared to previous the posterior elements and posterior vertebral vazquez align normally. 2. Vascular calcification in the abdominal aorta and iliac vessels unchanged 3. Heavy calcifications in the liver representing calcifications around multiple hepatic cysts as seen on previous CT. <Electronically signed by Don Mark > 06/25/20 [id number]
== END ==
LOC: M ADAMS 10:31
PROVIDERS: ATTEND Physician Assistant
DX: M53.3 Sacrococcygeal disorders, not elsewhere classified (principal)

== ENCOUNTER 2020-07-25 07:05 | Observation (INO) | payer MEDICARE, OTHER ==
[~2020-07-25] VITALS: Ht 160 cm; Wt 55.7 kg
[~2020-07-25 07:05] MED LIST changes: -PEG1POW PO; +POLY17PO18 PO
[2020-07-25 08:31] LABS: BASO % 0.2 % (0.0-1.0); EOS # 0.1 10^3/uL (0.0-0.5); EOS % 1.7 % (0.0-3.0); HEMATOCRIT 35.9 % (36.0-47.0); HEMOGLOBIN 10.9 g/dl (12.0-15.5); LYMPH % 14.4 % (24.0-44.0); MEAN CORPUSCULAR HEMOGLOBIN 30.6 pg (27.0-33.0); MEAN CORPUSCULAR HGB CONC 30.4 g/dl (32.0-36.5); MEAN CORPUSCULAR VOLUME 100.8 fl (80.0-96.0); MONO # 0.4 10^3/uL (0.0-0.8); MONO % 6.1 % (2.0-8.0); NEUTROPHILS # 5.1 10^3/uL (1.5-8.5); NEUTROPHILS % 77.3 % (36.0-66.0); PLATELET COUNT, AUTOMATED 297 10^3/uL (150-450); RED BLOOD COUNT 3.56 10^6/uL (4.00-5.40); WHITE BLOOD COUNT 6.6 10^3/uL (4.0-10.0)
--- NOTE | 2020-07-25 08:54 | REP ---
INDICATION: pain. COMPARISON: 07/27/2009. TECHNIQUE: There are five views. FINDINGS: There is grade 4 compression deformity of the L1 vertebral body. There is slight retropulsion. There is grade 1 compression deformity of the L3 vertebral body inferior endplate. There is grade 1 compression deformity of the L4 vertebral body superior endplate. All of these compression deformities are changes from the prior study. Vertebral alignment is normal. There is disc space narrowing and degenerative disc disease at L1-2, L3-4, L4-5 and L5-S1. There is demineralization. There is joint space narrowing of the facets throughout the lumbar spine bilaterally compatible with arthritic change. There is no spondylolysis or spondylolisthesis. There are no lytic, blastic or destructive skeletal changes. There are large ring shaped calcifications in the abdominal right upper quadrant corresponding to the hepatic cysts with calcified vazquez on the CT of 06/06/2019. This is unchanged. IMPRESSION: Compression deformities of L1, L3 and L4 as described, as interval changes. There is slight retropulsion at L1. Degenerative disc disease at L1-2, L3-4, L4-5 and L5-S1. Facet osteoarthritis. Demineralization. Hepatic cysts with calcified vazquez, unchanged. <Electronically signed by Lorenzo Cox > 07/25/20 [id number]
[2020-07-25 09:15] LABS: CREATININE FOR GFR 1.35 MG/DL (0.55-1.30); GLOMERULAR FILTRATION RATE 40.6 (>39)
[2020-07-25] MEDS ORDERED: NORCO, ANEXSIA 5/325MG TABLET (HYDROcodone/ACETAMINOPHEN) PO ONE (09:15)
[2020-07-25] MEDS ORDERED: META1TAB22 PO (11:39)
--- NOTE | 2020-07-25 12:18 | REPVR ---
PROCEDURE INFORMATION: Exam: MR Lumbar Spine Without Contrast Exam date and time: 07/25/2020 11:42 AM Age: 74 years old Clinical indication: Low back pain; Additional info: Compression fracture lspine TECHNIQUE: Imaging protocol: Multiplanar magnetic resonance images of the lumbar spine without intravenous contrast. COMPARISON: CR Spine. Lumbosacral, complete 07/25/2020 8:22 AM FINDINGS: Vertebrae: There is a moderate to severe chronic compression deformity of T11. There is a chronic mild compression fracture of T12. There is a severe chronic compression fracture of L1 with 5 mm of retropulsion. There is a nondisplaced trabecular fracture of the superior endplate of L2. There is a mild chronic compression fracture of the inferior endplate of L3. There is an acute mild to moderate compression fracture of the superior endplate of L4. Disc spaces: There is loss of disc space height and T2 signal throughout the intervertebral disc spaces, related to degenerative disc disease. Spinal cord: Normal signal. No cord compression. T12-L1: There is no disc bulge or herniation. There are mild facet joint degenerative changes. The central canal neural foramina are not compromised. L1-L2: No significant disc disease. There are mild facet joint degenerative changes. No significant spinal canal stenosis. No neural foraminal stenosis. L2-L3: No significant disc disease. There are mild to moderate facet joint degenerative changes. No significant spinal canal stenosis. No neural foraminal stenosis. L3-L4: There is a small bulge which extends into the right neural foramina. There are mild facet joint degenerative changes and ligamentum flavum hypertrophy. No significant spinal canal stenosis. No neural foraminal stenosis. L4-L5: There is a small bulge which flattens sac. There are mild facet joint degenerative changes and ligamentum flavum hypertrophy. No significant spinal canal stenosis. No neural foraminal stenosis. L5-S1: There is a small bulge which flattens sac. There are mild facet joint degenerative changes and ligamentum flavum hypertrophy. No significant spinal canal stenosis. No neural foraminal stenosis. Soft tissues: There are innumerable hepatic cysts not fully assessed there. There may also be biliary duct dilatation. IMPRESSION: 1. There are acute fractures of L2 and L4. 2. There are chronic fractures of T11, T12, L1 and L3. 3. There are innumerable hepatic cysts. The recent radiograph demonstrates some are associated with coarse calcifications. These findings are not fully assessed. Electronically signed by: Markie David On 07/25/2020 12:18:30 PM
[2020-07-25] MEDS ORDERED: B-12100021 PO (12:28)
[2020-07-25] MEDS ORDERED: ASPI81TA26 PO (12:28)
--- NOTE | 2020-07-25 14:54 | HPE ---
HISTORY AND PHYSICAL DATE OF ADMISSION: 07/25/2020 CHIEF COMPLAINT: Low back pain from L2 and L4 acute compression fractures. HISTORY OF PRESENT ILLNESS: Nita Mack is a 74-year-old with history of osteoporosis, previous compression fractures of T1, T12, L4, and L5. She had pain after sudden movement within the last week and now has new compression fractures at L2 and L4 confirmed by MRI scan. There is no cord impingement or other complication of these fractures. PAST MEDICAL HISTORY: She has a history of stage 4 chronic kidney disease, coronary artery disease with hypertensive heart disease, hyperlipidemia, multiple liver cysts with negative biopsy 04/23, history of atrial fibrillation status post ablation procedure 2013, and follows with [facility] with Dr. Sadler. History of cervical cancer. She reports she is status post hysterectomy. She has a multinodular goiter on ultrasound from 01/24. She is followed by the nephrology group for stage 4 chronic kidney disease. So, unless we are missing some records, I do not think she has been there in the past year. She was in [facility] 06/14/2019 09/05/2019, for failure to thrive after fracture of the 9th rib. It looks like her last cardiology visit was 02/2020, saw Dr. Sadler. 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 She had a repeat ablation done subsequently that also was not successful, though she did have a Holter monitor that showed she did not have any isolated PVCs. Dr. Sadler's note specifically indicates that she does not have a history of atrial fibrillation; that the ablation procedures were done for reentry ventricular overdrive tachycardia and PVCs. She had a cardiac catheterization that did not show any significant coronary atherosclerosis. She has a history of hyperlipidemia previously on statin, which she stopped taking. MEDICATIONS: 1. Aspirin 81 mg daily. 2. B12 of 1000 mcg daily. 3. Labetalol 100 mg b.i.d. 4. Tylenol as needed. 5. Metaxalone 800 mg t.i.d. ALLERGIES: None known. PAST SURGICAL HISTORY: 1. Ablation procedure 2013 and 03/2016. 2. Hysterectomy with bladder lift 2012. 3. Appendectomy. 4. Tonsillectomy. 5. Drainage of liver cyst with negative biopsy 07/2016. 6. Colonoscopy Dr. Ramirez negative except for diverticulosis 04/19. FAMILY HISTORY: Father of unspecified heart disease. Mother had emphysema and hypertension. Sister has emphysema. SOCIAL HISTORY: She still smokes a half pack of cigarettes per day. 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 Alcohol intake is not in her office record. REVIEW OF SYSTEMS: No fevers, chills, night sweats, weakness or numbness of the legs, bowel or bladder dysfunction. LABORATORY DATA: CMP unremarkable. Creatinine is 1.3 with GFR of 40, which is her baseline. Hemoglobin is 10.9, which is her baseline and platelets 297,000. IMAGING DATA: Lumbosacral spine films showed compression deformities multiple areas. MRI lumbosacral spine showed acute fracture of L2 and L3, chronic fractures T11, T12, L1, and L3. No bone fragments or encroachment on the spinal cord at all. IMPRESSION AND PLAN: 1. Compression fractures. Admit for pain control, which will be with oral medication 5% topical Lidocaine patches and nasal Calcitonin. Physical therapy has been ordered. Might be an acute rehabilitation unit (ARU) candidate. 2. Chronic kidney disease. Daily labs have been ordered. Avoid nonsteroidal anti-inflammatory drugs (NSAIDs) medication. 3. History of supraventricular tachycardia status post two ablations. No recurrence on Holter monitor that was done after the second ablation. 4. Anemia secondary to stage 4 chronic kidney disease. Daily labs have been ordered.
[2020-07-25] MEDS ORDERED: LIDOCAINE 5% (LIDODERM) PATCH TD ONE (15:00)
[2020-07-25 15:11] LABS: RSV AMPLIFICATION NEGATIVE (NEGATIVE)
[2020-07-25] MEDS: ACETAMINOPHEN 500 MG TAB PO PRN (16:52)
[2020-07-25 17:15] VITALS: BP 175/78
[2020-07-25] MEDS: traMADol 50 MG TAB PO PRN (21:06)
[2020-07-25] MEDS: ENOXAPARIN 30MG/0.3ML SYRINGE (J1650 PER 10MG) SC SCH (21:06)
[2020-07-25 22:00] VITALS: BP 168/80
[2020-07-26] MEDS: ACETAMINOPHEN 500 MG TAB PO PRN ×3 (01:45→20:05)
[2020-07-26] MEDS ORDERED: **NOTE PATIENT COMMENT** MISC XX ONE (03:00)
[2020-07-26] MEDS: traMADol 50 MG TAB PO PRN ×3 (05:17→20:06)
[2020-07-26 06:00] VITALS: BP 162/78
[2020-07-26 07:09] LABS: HEMOGLOBIN 9.8 g/dl (12.0-15.5); MEAN CORPUSCULAR HEMOGLOBIN 30.6 pg (27.0-33.0); MEAN CORPUSCULAR HGB CONC 30.6 g/dl (32.0-36.5); PLATELET COUNT, AUTOMATED 286 10^3/uL (150-450); WHITE BLOOD COUNT 4.5 10^3/uL (4.0-10.0)
[2020-07-26 07:34] LABS: CALCIUM LEVEL 8.9 MG/DL (8.8-10.2); CREATININE FOR GFR 1.14 MG/DL (0.55-1.30); GLOMERULAR FILTRATION RATE 49.3 (>39); POTASSIUM SERUM 4.6 MEQ/L (3.5-5.1)
[2020-07-26] MEDS: CALCITONIN NASAL SPRAY 3.7 ML BTL SCH (08:04)
[2020-07-26] MEDS: ASPIRIN 81MG ENTERIC TABLET PO SCH (08:04)
[2020-07-26 14:00] VITALS: BP 156/72
--- NOTE | 2020-07-26 14:47 | IPN ---
PROGRESS NOTE DATE: 07/26/2020 SUBJECTIVE: Nita Mack was admitted with two lumbar compression fractures of recent onset. Her pain control is a little better than yesterday. She has not gotten out of bed except to go to the bathroom and back. Denies any shortness of breath or chest pain. No weakness or numbness. No bowel or bladder dysfunction. PHYSICAL EXAMINATION: VITAL SIGNS: Afebrile. Stable. LUNGS: Clear. HEART: Regular rate and rhythm. ABDOMEN: Soft, nontender. LOW BACK: Tender to palpate midline. EXTREMITIES: No peripheral edema. Normal strength in the arms and legs. LABORATORY DATA: Complete blood count (CBC), comprehensive metabolic panel (CMP) unremarkable. Renal function is down to baseline, creatinine 1.1. IMPRESSION: 1. Lumbar compression fractures L2 and L4. Continue nasal calcitonin, Lidoderm patch and analgesics. Consult acute rehabilitation unit (ARU) tomorrow. 2. Chronic kidney disease. Kidney function is back to baseline. Avoid nonsteroidal antiinflammatories (NSAIDS). 3. Anemia from stage IV chronic kidney disease. This is stable.
[2020-07-26] MEDS: ENOXAPARIN 30MG/0.3ML SYRINGE (J1650 PER 10MG) SC SCH (20:05)
[2020-07-26 22:00] VITALS: BP 159/74
[2020-07-27] MEDS: ACETAMINOPHEN 500 MG TAB PO PRN ×2 (03:55→11:23)
[2020-07-27] MEDS: traMADol 50 MG TAB PO PRN (03:56)
[2020-07-27 06:00] VITALS: BP 151/77
[2020-07-27 06:54] LABS: HEMOGLOBIN 9.9 g/dl (12.0-15.5); MEAN CORPUSCULAR HEMOGLOBIN 31.3 pg (27.0-33.0); MEAN CORPUSCULAR HGB CONC 30.9 g/dl (32.0-36.5); MEAN CORPUSCULAR VOLUME 101.3 fl (80.0-96.0); PLATELET COUNT, AUTOMATED 275 10^3/uL (150-450); RED BLOOD COUNT 3.16 10^6/uL (4.00-5.40); WHITE BLOOD COUNT 5.3 10^3/uL (4.0-10.0)
[2020-07-27 07:24] LABS: CALCIUM LEVEL 8.9 MG/DL (8.8-10.2); CREATININE FOR GFR 1.14 MG/DL (0.55-1.30); GLOMERULAR FILTRATION RATE 49.3 (>39); POTASSIUM SERUM 4.5 MEQ/L (3.5-5.1)
[2020-07-27] MEDS: CALCITONIN NASAL SPRAY 3.7 ML BTL SCH (08:06)
[2020-07-27] MEDS: ASPIRIN 81MG ENTERIC TABLET PO SCH (08:06)
[2020-07-27] MEDS ORDERED: LIDO1PAD TOP (10:58)
[2020-07-27] MEDS ORDERED: CALC20SPR (10:58)
--- NOTE | 2020-07-27 12:27 | DSES ---
DISCHARGE SUMMARY DATE OF ADMISSION: 07/25/2020 DATE OF DISCHARGE: 07/27/2020 PRINCIPAL DIAGNOSIS: Acute compression fracture L2 and L4. SECONDARY DIAGNOSES: 1. Chronic kidney disease. 2. Anemia secondary to chronic kidney disease. 3. Previously established osteoporosis. PRIMARY CARE PROVIDER: JOSEFINA Guerrero HISTORY: Patient admitted with low back pain. She has a history of previous compression fractures, has a new L2 and L4 compression fracture. Detailed history and physical per admission. HOSPITAL COURSE: Admitted to a medical bed. Given topical Lidocaine patch, oral analgesics, and nasal Calcitonin. She progressed with physical therapy and today she passed her home safety evaluation and I thought she could be discharged. SIGNIFICANT LABS: Today white count is 5.3, hemoglobin 9.9, platelets 275, sodium 141, potassium 4.5, BUN 22, creatinine 1.1, glucose 67. COVID test was negative. MRI showed the findings summarized above. DISPOSITION: She is discharged home improved in stable condition. Follow up with Jammie Olmedo in one week. Activity as tolerated. Continue no added salt diet. A home health referral has been made. She already has a walker at home. DISCHARGE MEDICATIONS: 1. She will continue Tylenol as needed. 2. Aspirin 81 mg daily. 3. B12 1000 mcg daily. NEW MEDICATIONS: 1. Nasal Calcitonin one spray daily for a month. 2. Lidocaine 5% patch applied daily for a month. At the time of this dictation there are no pending labs.
== END 2020-07-27 12:40 | disposition home health service (06) ==
LOC: EDBD 07:05 → M ED 07:05 → M ED INP 14:37 → INTOOBSV 14:37 → ENRESERVDT 16:05 → ENRESERVTM 16:05 → M MS5PR 17:20
PROVIDERS: ADMIT Family Medicine; ATTEND Family Medicine
DX: S32.020A Wedge compression fracture of second lumbar vertebra, initial encounter for closed fracture (principal); S32.040A Wedge compression fracture of fourth lumbar vertebra, initial encounter for closed fracture; X50.1XXA Overexertion from prolonged static or awkward postures, initial encounter; Y92.89 Other specified places as the place of occurrence of the external cause; N18.4 Chronic kidney disease, stage 4 (severe); D63.1 Anemia in chronic kidney disease; M81.0 Age-related osteoporosis without current pathological fracture; I12.9 Hypertensive chronic kidney disease with stage 1 through stage 4 chronic kidney disease, or unspecified chronic kidney disease; I47.1 Supraventricular tachycardia; E78.5 Hyperlipidemia, unspecified; K76.89 Other specified diseases of liver; I48.91 Unspecified atrial fibrillation; E04.2 Nontoxic multinodular goiter; Z79.899 Other long term (current) drug therapy; Z79.82 Long term (current) use of aspirin; Z85.41 Personal history of malignant neoplasm of cervix uteri; F17.210 Nicotine dependence, cigarettes, uncomplicated
CPT/HCPCS: 36415; 72110; 80048; 81001; 85025; 85027; 87088; 87631; 96372; 97116; 97161; 97165; 97530; 99284; G0378; J1650

== ENCOUNTER 2020-07-30 14:16 | Inpatient (IN) | payer MEDICARE, OTHER, MEDICAID ==
[~2020-07-30] VITALS: Ht 160 cm; Wt 55.5 kg
[~2020-07-30 14:16] MED LIST changes: +ASPI81TA26 PO; +B-12100021 PO; +CALC20SPR; +LIDO1PAD TOP; +META1TAB22 PO
[2020-07-30] MEDS ORDERED: MORP20SO3 PO (14:46)
[2020-07-30] MEDS ORDERED: CALC200S (16:00)
[2020-07-30] MEDS ORDERED: LIDO1PAD TOP (16:00)
[2020-07-30] MEDS ORDERED: META1TAB22 PO (16:00)
[2020-07-30] MEDS ORDERED: LABE100T4 PO (16:00)
[2020-07-30 16:02] LABS: BASO % 0.2 % (0.0-1.0); EOS # 0.1 10^3/uL (0.0-0.5); EOS % 1.4 % (0.0-3.0); HEMATOCRIT 36.5 % (36.0-47.0); HEMOGLOBIN 10.9 g/dl (12.0-15.5); LYMPH # 0.6 10^3/uL (1.5-5.0); LYMPH % 11.4 % (24.0-44.0); MEAN CORPUSCULAR HEMOGLOBIN 30.6 pg (27.0-33.0); MEAN CORPUSCULAR HGB CONC 29.9 g/dl (32.0-36.5); MEAN CORPUSCULAR VOLUME 102.5 fl (80.0-96.0); MONO # 0.4 10^3/uL (0.0-0.8); MONO % 6.7 % (2.0-8.0); NEUTROPHILS # 4.4 10^3/uL (1.5-8.5); NEUTROPHILS % 79.8 % (36.0-66.0); PLATELET COUNT, AUTOMATED 300 10^3/uL (150-450); RED BLOOD COUNT 3.56 10^6/uL (4.00-5.40); WHITE BLOOD COUNT 5.6 10^3/uL (4.0-10.0)
--- NOTE | 2020-07-30 16:19 | REP ---
INDICATION: pain/compression fractures. COMPARISON: 07/25/2020 radiographs and MRI. TECHNIQUE: Five views lumbosacral spine. FINDINGS: Moderate compression of T11 and mild compression of T12 are unchanged. A severe compression fracture of L1 is unchanged. There is mild increase in the depression of the superior endplate of L2 compared to the prior study. Inferior Schmorl's node is again noted of L3 unchanged. There is mild compression of L4 unchanged. Vertebral bodies are well aligned. There is mild diffuse spurring. There is mild disc space narrowing at L4-5. The posterior elements are intact. Vascular calcifications are again noted as are calcifications in the liver. IMPRESSION: Stable compression deformities of the thoracolumbar vertebral bodies as discussed in detail above, except that there is mild increase in the depression of the superior endplate of L2. <Electronically signed by Lorenzo Tapia > 07/30/20 0104
[2020-07-30 16:25] LABS: CALCIUM LEVEL 9.5 MG/DL (8.8-10.2); CREATININE FOR GFR 1.42 MG/DL (0.55-1.30); GLOMERULAR FILTRATION RATE 38.3 (>39); POTASSIUM SERUM 4.4 MEQ/L (3.5-5.1)
[2020-07-30] MEDS ORDERED: NORCO, ANEXSIA 5/325MG TABLET (HYDROcodone/ACETAMINOPHEN) PO ONE (17:10)
[2020-07-30] MEDS ORDERED: MAALOX 30 ML SUSP *UDC PO PRN (17:45)
[2020-07-30 17:57] LABS: RSV AMPLIFICATION NEGATIVE (NEGATIVE)
--- NOTE | 2020-07-30 18:02 | HPEPDOC ---
[facility] Medical History & Physical Date of Admission Jul 30, 2020 Date of Service: Jul 30, 2020 History and Physical CHIEF COMPLAINT: Chronic Low back pain HISTORY OF PRESENT ILLNESS: 74-year-old female who was recently in the hospital with low back pain from L2 and L4 compression fractures patient's pain was controlled and she was cleared at home safety evaluation to go home a few days ago unfortunately she feels unsa fe at home her tries to do everything for her she feels only comfortable when she is lying flat on her back sitting upright is very uncomfortable she can eventually get up and use her walker and walks slowly but even that is very painful. She discussed with her primary her symptoms who recommended coming to the hospital because she might need placement. Patient is requesting placement as well she states she thinks it'll be at good thing for her and will take the load off of her . Other than her low back pain patient tells me she's otherwise feeling well she denies any chest pain or shortness of breath denies abdominal pain tells me she has regular voiding she urinated just prior to coming to the hospital he has no fecal incontinence. She doesn't complain of any paresthesias or leg pain. He tells me that the medications she was discharged on from the hospital have been helping she says the lidocaine patches most helpful. 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 REVIEW OF SYSTEMS: 10 point review of systems complete all negative otherwise stated in HPI HOME MEDICATIONS: Please see below. PHYSICAL EXAMINATION: Constitutional: Awake and alert, in no apparent distress while lying still ENT: Sclera are clear. Respiratory: Lungs CTA bilaterally. No respiratory distress. Cardiovascular: Regular heart rate without appreciable murmurs. Gastrointestinal: Abdomen is soft, non distended, non tender, BS present. Musculoskeletal: No lower extremity edema. Unable to sit up due to her lower back pain. Neurologic: No focal neurological deficit. Mental Status: A&O x3, normal affect Skin: Warm, dry LABORATORY DATA: See below. IMAGING: See chart MICROBIOLOGY: Please see below. ASSESSMENT Debilitating lower back pain secondary to L2 and L4 compression fractures Chronic kidney disease Coronary artery disease Hypertension PLAN Patient will be admitted to the medical unit for continued management of her lower back pain. Patient will be evaluated by physical therapy and occupational therapy. Social work was consulted to help with placement per patient's wishes. Patient's chronic home medications were resumed. Pain control will be achieved with lidocaine patches, Tylenol and more added as needed. She will also receive nasal calcitonin. [facility] Vital Signs Vital Signs Date Time Temp Pulse Resp B/P (MAP) Pulse Ox O2 Delivery O2 Flow Rate FiO2 07/30/20 17:28 20 Room Air 07/30/20 15:45 78 183/84 (117) 98 07/30/20 14:33 96.7 Laboratory Data Labs 24H Laboratory Tests 2 07/30/20 15:52: Immature Granulocyte % (Auto) 0.5, Neutrophils (%) (Auto) 79.8H, Lymphocytes (%) (Auto) 11.4L, Monocytes (%) (Auto) 6.7, Eosinophils (%) (Auto) 1.4, Basophils (%) (Auto) 0.2, Neutrophils # (Auto) 4.4, Lymphocytes # (Auto) 0.6L, Monocytes # (Auto) 0.4, Eosinophils # (Auto) 0.1, Basophils # (Auto) 0.0, Nucleated Red Blood Cells % (auto) 0.0, Anion Gap 3L, Glomerular Filtration Rate 38.3L, Calcium Level 9.5 07/30/20 17:13: CBC/BMP Laboratory Tests 07/30/20 15:52 Home Medications Scheduled Aspirin (Aspirin EC) 81 Mg Tablet.dr, 81 MG PO DAILY Calcitonin,[place],Synthetic (Calcitonin-[place]) 3.7 Ml [place].pump, 1 SPRAY NA DAILY Cyanocobalamin (Vitamin B-12) (B-12) 1,000 Mcg Tablet, 1,000 MCG PO DAILY Labetalol HCl (Labetalol HCl) 100 Mg Tablet, 100 MG PO BID Lidocaine (Lidocaine) 5% Adh..patch, 1 PATCH TOP DAILY APPLIES TO LOWER BACK NEAR COCCYX Metaxalone (Metaxalone) 800 Mg Tablet, 800 MG PO BID Morphine Sulfate (Morphine Sulfate) 100 Mg/5 Ml Solution, 5 MG PO TID Scheduled PRN Acetaminophen (Tylenol Extra Strength) 500 Mg Tablet, 1,000 MG PO TID PRN for PAIN Allergies Coded Allergies: No Known Allergies (Unverified , 01/05/19) A-FIB/CHADSVASC A-FIB History Current/History of A-Fib/PAF?: No KAMERONSEDAVIDA Harden MD Jul 30, 2020 17:52
[2020-07-30 20:50] VITALS: BP 172/78
[2020-07-30 20:55] VITALS: BP 163/76
[2020-07-30] MEDS: DOCUSATE SODIUM 100MG CAPSULE PO SCH (21:47)
[2020-07-30] MEDS: HEPARIN SOD (PORCINE) 5000UNITS/ML 1ML VIAL/SYRINGE SC SCH (21:47)
[2020-07-30] MEDS: MORPHINE 10MG/0.5ML ORAL CONCENTRATE SOLUTION U/D PO SCH (21:48)
[2020-07-30] MEDS: LABETALOL 100MG TAB PO SCH (21:50)
[2020-07-30] MEDS: **NOTE PATIENT COMMENT** MISC XX SCH (21:50)
[2020-07-30] MEDS: METAXALONE 800 MG TABLET PO SCH (21:50)
[2020-07-31 06:25] VITALS: BP 154/58
[2020-07-31 07:39] LABS: HEMATOCRIT 32.8 % (36.0-47.0); MEAN CORPUSCULAR HEMOGLOBIN 30.7 pg (27.0-33.0); MEAN CORPUSCULAR HGB CONC 30.5 g/dl (32.0-36.5); MEAN CORPUSCULAR VOLUME 100.6 fl (80.0-96.0); PLATELET COUNT, AUTOMATED 295 10^3/uL (150-450); RED BLOOD COUNT 3.26 10^6/uL (4.00-5.40); WHITE BLOOD COUNT 6.5 10^3/uL (4.0-10.0)
[2020-07-31 08:05] LABS: CALCIUM LEVEL 9.3 MG/DL (8.8-10.2); CREATININE FOR GFR 1.2 MG/DL (0.55-1.30); GLOMERULAR FILTRATION RATE 46.5 (>39); POTASSIUM SERUM 4.5 MEQ/L (3.5-5.1)
[2020-07-31] MEDS: LABETALOL 100MG TAB PO SCH ×2 (08:10→20:52)
[2020-07-31] MEDS: CALCITONIN NASAL SPRAY 3.7 ML BTL SCH (08:10)
[2020-07-31] MEDS: METAXALONE 800 MG TABLET PO SCH ×2 (08:11→20:52)
[2020-07-31] MEDS: CEPHALEXIN 500 MG CAP PO SCH ×2 (08:11→20:52)
[2020-07-31] MEDS: DOCUSATE SODIUM 100MG CAPSULE PO SCH ×2 (08:11→20:53)
[2020-07-31] MEDS: HEPARIN SOD (PORCINE) 5000UNITS/ML 1ML VIAL/SYRINGE SC SCH ×2 (08:11→20:53)
[2020-07-31] MEDS: ASPIRIN 81MG ENTERIC TABLET PO SCH (08:11)
[2020-07-31] MEDS: LIDOCAINE 5% (LIDODERM) PATCH TOP SCH (08:12)
[2020-07-31] MEDS: MORPHINE 10MG/0.5ML ORAL CONCENTRATE SOLUTION U/D PO SCH ×3 (08:12→20:54)
--- NOTE | 2020-07-31 09:44 | IPNPDOC ---
Text Note Date of Service The patient was seen on 07/31/20. NOTE Subjective: Patient was seen and examined this morning at bedside. Tells me her back pain is at baseline unchanged from how it usually is. Says she has no complaints at this time. She denies dysuria despite a positive urinalysis. There is no acute overnight events Objective: Constitutional: Awake and alert, in no apparent distress ENT: Sclera are clear. Respiratory: Lungs CTA bilaterally. No respiratory distress. Cardiovascular: Regular heart rate without appreciable murmurs. Gastrointestinal: Abdomen is soft, non distended, non tender, BS present. Musculoskeletal: No lower extremity edema. Unable to sit up due to her lower back pain. Neurologic: No focal neurological deficit. Mental Status: A&O x3, normal affect Skin: Warm, dry ASSESSMENT Debilitating lower back pain secondary to L2 and L4 compression fractures Chronic kidney disease Coronary artery disease Hypertension PLAN Continue pain management for her lower back pain. Patient will be evaluated by physical therapy and occupational therapy. Social work was consulted to help with placement per patient's wishes. Patient's chronic home medications were resumed. Pain control will be achieved with lidocaine patches, Tylenol and more added as needed. She will also receive nasal calcitonin. She was found to have a UTI which will be treated with cephalexin for 5 days unless urine culture shows resistance. A [facility] Hung SCHULTZ, I+O Hung SCHULTZ I+O Laboratory Tests 07/30/20 15:52 07/31/20 07:18 Vital Signs Date Time Temp Pulse Resp B/P (MAP) Pulse Ox O2 Delivery O2 Flow Rate FiO2 07/31/20 08:42 16 07/31/20 08:10 75 154/58 07/31/20 06:25 97.3 95 Room Air I&O- Last 24 Hours up to 6 AM 07/31/20 06:00 Intake Total 120 ml Output Total 350 ml Balance -230 ml DAVIDA MARINO MD Jul 31, 2020 09:44
[2020-07-31 14:42] VITALS: BP 151/61
[2020-07-31 20:15] VITALS: BP 152/62
[2020-07-31] MEDS: ACETAMINOPHEN TAB 650MG DOSE (2X325MG) PO PRN (20:54)
[2020-07-31] MEDS: **NOTE PATIENT COMMENT** MISC XX SCH (21:47)
[2020-08-01 05:48] VITALS: BP 147/63
[2020-08-01] MEDS: LABETALOL 100MG TAB PO SCH ×2 (08:17→20:08)
[2020-08-01] MEDS: CEPHALEXIN 500 MG CAP PO SCH ×2 (08:17→20:06)
[2020-08-01] MEDS: DOCUSATE SODIUM 100MG CAPSULE PO SCH ×2 (08:17→20:06)
[2020-08-01] MEDS: METAXALONE 800 MG TABLET PO SCH ×2 (08:17→20:06)
[2020-08-01] MEDS: LIDOCAINE 5% (LIDODERM) PATCH TOP SCH (08:17)
[2020-08-01] MEDS: ASPIRIN 81MG ENTERIC TABLET PO SCH (08:17)
[2020-08-01] MEDS: HEPARIN SOD (PORCINE) 5000UNITS/ML 1ML VIAL/SYRINGE SC SCH ×2 (08:18→20:08)
[2020-08-01] MEDS: MORPHINE 10MG/0.5ML ORAL CONCENTRATE SOLUTION U/D PO SCH ×3 (08:18→20:08)
[2020-08-01] MEDS: CALCITONIN NASAL SPRAY 3.7 ML BTL SCH (08:18)
[2020-08-01 13:55] VITALS: BP 140/67
[2020-08-01] MEDS: ACETAMINOPHEN TAB 650MG DOSE (2X325MG) PO PRN (20:07)
[2020-08-01] MEDS: **NOTE PATIENT COMMENT** MISC XX SCH (20:08)
[2020-08-02] MEDS: ACETAMINOPHEN TAB 650MG DOSE (2X325MG) PO PRN (05:10)
[2020-08-02 06:00] VITALS: BP 149/70
[2020-08-02] MEDS: LIDOCAINE 5% (LIDODERM) PATCH TOP SCH (08:51)
[2020-08-02] MEDS: LABETALOL 100MG TAB PO SCH ×2 (08:52→20:15)
[2020-08-02] MEDS: MORPHINE 10MG/0.5ML ORAL CONCENTRATE SOLUTION U/D PO SCH ×3 (08:52→20:12)
[2020-08-02] MEDS: METAXALONE 800 MG TABLET PO SCH ×2 (08:53→20:15)
[2020-08-02] MEDS: CEPHALEXIN 500 MG CAP PO SCH ×2 (08:53→20:15)
[2020-08-02] MEDS: DOCUSATE SODIUM 100MG CAPSULE PO SCH ×2 (08:53→20:15)
[2020-08-02] MEDS: HEPARIN SOD (PORCINE) 5000UNITS/ML 1ML VIAL/SYRINGE SC SCH ×2 (08:53→20:11)
[2020-08-02] MEDS: ASPIRIN 81MG ENTERIC TABLET PO SCH (08:53)
[2020-08-02] MEDS: CALCITONIN NASAL SPRAY 3.7 ML BTL SCH (08:54)
[2020-08-02] MEDS: **NOTE PATIENT COMMENT** MISC XX SCH (20:16)
[2020-08-02] MEDS: NYSTATIN 100,000 UNITS/GM TOPICAL PWD 15 GM TOP PRN (20:22)
[2020-08-03 05:30] VITALS: BP 113/49
[2020-08-03 06:50] LABS: HEMATOCRIT 30.6 % (36.0-47.0); HEMOGLOBIN 9.4 g/dl (12.0-15.5); MEAN CORPUSCULAR HEMOGLOBIN 30.5 pg (27.0-33.0); MEAN CORPUSCULAR HGB CONC 30.7 g/dl (32.0-36.5); MEAN CORPUSCULAR VOLUME 99.4 fl (80.0-96.0); PLATELET COUNT, AUTOMATED 292 10^3/uL (150-450); RED BLOOD COUNT 3.08 10^6/uL (4.00-5.40); WHITE BLOOD COUNT 5.1 10^3/uL (4.0-10.0)
[2020-08-03 07:17] LABS: CREATININE FOR GFR 1.32 MG/DL (0.55-1.30); GLOMERULAR FILTRATION RATE 41.7 (>39); POTASSIUM SERUM 4.1 MEQ/L (3.5-5.1)
[2020-08-03] MEDS: HEPARIN SOD (PORCINE) 5000UNITS/ML 1ML VIAL/SYRINGE SC SCH ×2 (08:13→20:55)
[2020-08-03] MEDS: LIDOCAINE 5% (LIDODERM) PATCH TOP SCH (08:13)
[2020-08-03] MEDS: CEPHALEXIN 500 MG CAP PO SCH ×2 (08:15→20:54)
[2020-08-03] MEDS: LABETALOL 100MG TAB PO SCH ×2 (08:15→20:54)
[2020-08-03] MEDS: ASPIRIN 81MG ENTERIC TABLET PO SCH (08:15)
[2020-08-03] MEDS: DOCUSATE SODIUM 100MG CAPSULE PO SCH (08:16)
[2020-08-03] MEDS: CALCITONIN NASAL SPRAY 3.7 ML BTL SCH (08:16)
[2020-08-03] MEDS: METAXALONE 800 MG TABLET PO SCH ×2 (08:16→20:55)
[2020-08-03] MEDS: MORPHINE 10MG/0.5ML ORAL CONCENTRATE SOLUTION U/D PO SCH ×3 (08:24→20:55)
[2020-08-03 09:00] VITALS: BP 130/65
[2020-08-03] MEDS: MOM 30ML SUSPENSION UDC PO PRN (10:04)
[2020-08-03] MEDS: NICOTINE 7 MG/24 HR TRANSDERMAL TD SCH (10:42)
[2020-08-03 14:00] VITALS: BP 131/65
[2020-08-03] MEDS ORDERED: MIRALAX *UNIT DOSE* 17GM PACKET PO PRN (15:35)
[2020-08-03] MEDS: METAMUCIL (PSYLLIUM) PACKET PO SCH (16:05)
--- NOTE | 2020-08-03 16:56 | IPNPDOC ---
Text Note Date of Service The patient was seen on 08/03/20. NOTE Subjective: Patient was lying in bed when she was examined today. She reports that she continues to have significant back pain with just about any kind of movement, but she feels all right when she is lying still in bed. She has no complaints of dysuria, frequency, or urgency at this time. Otherwise, the remainder of her review of systems is negative. Objective: Constitutional: Awake and alert, in no apparent distress ENT: Sclera are clear. Respiratory: Lungs CTA bilaterally. No respiratory distress. Cardiovascular: Regular heart rate without appreciable murmurs. Gastrointestinal: Abdomen is soft, non distended, non tender, BS present. Musculoskeletal: No lower extremity edema. Unable to sit up due to her lower back pain. Neurologic: No focal neurological deficit. Mental Status: A&O x3, normal affect Skin: Warm, dry ASSESSMENT Debilitating lower back pain secondary to L2 and L4 compression fractures Chronic kidney disease Coronary artery disease Hypertension PLAN Continue pain management for her lower back pain. Patient will continue working with physical therapy and occupational therapy. Social work was consulted to help with placement per patient's wishes. Patient's chronic home medications were resumed. Pain control will be achieved with lidocaine patches, Tylenol. Continue nasal calcitonin. She was found to have a UTI which is currently being treated with cephalexin (started 07/31/20) for 5 days. DISPO: May be discharged once an appropriate, safe, and agreeable plan is in place for her per recommendations from physical therapy and PFS. VS,Fishbone, I+O VS, Fishbone, I+O Laboratory Tests 08/03/20 06:13 Vital Signs Date Time Temp Pulse Resp B/P (MAP) Pulse Ox O2 Delivery O2 Flow Rate FiO2 08/03/20 16:35 17 08/03/20 14:00 97.2 69 131/65 (87) 98 Room Air I&O- Last 24 Hours up to 6 AM 08/03/20 05:59 Intake Total 1090 ml Output Total 775 ml Balance 315 ml THEO BHAKTA DO Aug 03, 2020 16:56
[2020-08-03] MEDS: SENOKOT S TAB PO SCH (20:54)
[2020-08-03] MEDS: **NOTE PATIENT COMMENT** MISC XX SCH (20:55)
[2020-08-04 06:00] VITALS: BP 138/65
[2020-08-04] MEDS: METAMUCIL (PSYLLIUM) PACKET PO SCH (08:31)
[2020-08-04] MEDS: MOM 30ML SUSPENSION UDC PO PRN (08:31)
[2020-08-04] MEDS: SENOKOT S TAB PO SCH ×2 (08:31→21:37)
[2020-08-04] MEDS: NICOTINE 7 MG/24 HR TRANSDERMAL TD SCH (08:32)
[2020-08-04] MEDS: MORPHINE 10MG/0.5ML ORAL CONCENTRATE SOLUTION U/D PO SCH ×3 (08:34→21:38)
[2020-08-04] MEDS: LIDOCAINE 5% (LIDODERM) PATCH TOP SCH (08:36)
[2020-08-04] MEDS: HEPARIN SOD (PORCINE) 5000UNITS/ML 1ML VIAL/SYRINGE SC SCH ×2 (08:36→21:38)
[2020-08-04] MEDS: ASPIRIN 81MG ENTERIC TABLET PO SCH (08:36)
[2020-08-04] MEDS: METAXALONE 800 MG TABLET PO SCH ×2 (08:36→21:37)
[2020-08-04] MEDS: LABETALOL 100MG TAB PO SCH ×2 (08:37→21:37)
[2020-08-04] MEDS: CALCITONIN NASAL SPRAY 3.7 ML BTL SCH (08:39)
[2020-08-04] MEDS: CEPHALEXIN 500 MG CAP PO SCH ×2 (08:40→21:37)
[2020-08-04 09:10] VITALS: BP 150/70
[2020-08-04] MEDS ORDERED: SENN-52 PO (11:09)
[2020-08-04] MEDS ORDERED: NYST10006 TOP (11:09)
[2020-08-04] MEDS ORDERED: META1POW PO (11:09)
[2020-08-04] MEDS ORDERED: NICO7PA TD (11:09)
[2020-08-04 13:15] VITALS: BP 136/72
[2020-08-04] MEDS: **NOTE PATIENT COMMENT** MISC XX SCH (21:38)
[2020-08-05 06:00] VITALS: BP 137/67
[2020-08-05] MEDS: METAMUCIL (PSYLLIUM) PACKET PO SCH ×2 (09:00→09:26)
[2020-08-05] MEDS: SENOKOT S TAB PO SCH (09:21)
[2020-08-05] MEDS: ASPIRIN 81MG ENTERIC TABLET PO SCH (09:21)
[2020-08-05 09:23] VITALS: BP 140/65
[2020-08-05] MEDS: LABETALOL 100MG TAB PO SCH (09:23)
[2020-08-05] MEDS: METAXALONE 800 MG TABLET PO SCH (09:24)
[2020-08-05] MEDS: HEPARIN SOD (PORCINE) 5000UNITS/ML 1ML VIAL/SYRINGE SC SCH (09:25)
[2020-08-05] MEDS: NICOTINE 7 MG/24 HR TRANSDERMAL TD SCH (09:26)
[2020-08-05] MEDS: MORPHINE 10MG/0.5ML ORAL CONCENTRATE SOLUTION U/D PO SCH (09:26)
[2020-08-05] MEDS: CALCITONIN NASAL SPRAY 3.7 ML BTL SCH (09:26)
[2020-08-05] MEDS: NYSTATIN 100,000 UNITS/GM TOPICAL PWD 15 GM TOP PRN (09:27)
[2020-08-05] MEDS: LIDOCAINE 5% (LIDODERM) PATCH TOP SCH (09:27)
--- NOTE | 2020-08-05 10:55 | DS.PDOC ---
Discharge Summary General Date of Admission Jul 30, 2020 at 17:43 Date of Discharge 08/05/20 Discharge Summary please have unit leader call [facility] at [phone] to stat transcribed discharge summary by Dr. Darby if needed urgently. Vital Signs/I&Os Vital Signs Date Time Temp Pulse Resp B/P (MAP) Pulse Ox O2 Delivery O2 Flow Rate FiO2 08/05/20 10:06 18 08/05/20 09:23 70 140/65 08/05/20 06:00 97.8 93 Room Air I&O- Last 24 Hours up to 6 AM0 08/05/20 06:00 Intake Total 650 ml Output Total 500 ml Balance 150 ml Microbiology Microbiology 07/30/20 Urine Culture - Final, Complete Discharge Medications Scheduled Aspirin (Aspirin EC) 81 Mg Tablet.dr, 81 MG PO DAILY, (Reported) Calcitonin,[place],Synthetic (Calcitonin-[place]) 3.7 Ml [place].pump, 1 SPRAY NA DAILY, (Reported) Cyanocobalamin (Vitamin B-12) (B-12) 1,000 Mcg Tablet, 1,000 MCG PO DAILY, (Reported) Labetalol HCl (Labetalol HCl) 100 Mg Tablet, 100 MG PO BID, (Reported) Lidocaine (Lidocaine) 5% Adh..patch, 1 PATCH TOP DAILY, (Reported) APPLIES TO LOWER BACK NEAR COCCYX Metaxalone (Metaxalone) 800 Mg Tablet, 800 MG PO BID, (Reported) Morphine Sulfate (Morphine Sulfate) 100 Mg/5 Ml Solution, 5 MG PO TID, (Reported) Nicotine (Nicotine Patch) 7 Mg Patch.td24, 1 PATCH TD DAILY Psyllium Husk/Aspartame (Metamucil Fiber Singles Packet) 3.4 Gm Powd.pack, 1 PKT PO DAILY Sennosides/Docusate Sodium (Senna Plus Tablet) 1 Each Tablet, 2 TAB PO BID Scheduled PRN Acetaminophen (Tylenol Extra Strength) 500 Mg Tablet, 1,000 MG PO TID PRN for PAIN, (Reported) Nystatin (Nystop) 60 Gm Powder, 0 DOSE TOP BIDP PRN for RASH Allergies Coded Allergies: No Known Allergies (Unverified , 01/05/19) XI DARBY MD Aug 05, 2020 10:55
--- NOTE | 2020-08-05 11:23 | DSES ---
DISCHARGE SUMMARY DATE OF ADMISSION: 07/30/2020 DATE OF DISCHARGE: 08/05/2020 The patient was changed to ALC status on 08/03/2020. PRIMARY DISCHARGE DIAGNOSES: 1. Debilitating low back pain secondary to L2 and L4 compression fracture. 2. Chronic kidney disease stage 3. 3. Coronary artery disease. 4. Hypertension. 5. Urinary tract infection present on hospital admission; completed five days of cephalexin. 6. Active tobacco abuse. DISCHARGE MEDICATIONS: 1. Nicotine patch 7 mg daily. 2. Nystatin topically b.i.d. as needed for rash. 3. Metamucil one pack daily. 4. Senokot-S two tabs b.i.d. 5. Acetaminophen 1 gram t.i.d. as needed 6. Aspirin 81 daily. 7. Calcitonin one spray daily. 8. B12 at 1000 mcg daily. 9. Labetalol 100 b.i.d. 10. Lidocaine patch daily. 11. Metaxalone 800 mg b.i.d. 12. Morphine 5 mg t.i.d. DISCHARGE INSTRUCTIONS: Follow-up with orthopedic surgery and primary care physician within five days of hospital discharge. Assisted ambulation only. HOSPITAL COURSE: This is a 74-year-old female with a history of CAD, hypertension, hyperlipidemia, liver cyst, SVT status post two ablations, hysterectomy, appendectomy, tonsillectomy, chronic L2 to L4 compression fractures who presented with intractable low back pain and complaints of dysuria. The patient was found to have a urinary tract infection treated with five days of antibiotics, completed cephalexin during the hospital stay. She was given Lidoderm patches, physical therapy was consulted, and social work for placement. The patient had no other acute issues and was changed to ALC status with no acute medical issues. She is discharged in stable condition on 08/05/2020. DISCHARGE PHYSICAL EXAMINATION: VITAL SIGNS: Temperature 97.8, pulse 77, respiratory rate 19, blood pressure 137/67, 93% on room air. GENERAL: Awake, alert, and oriented to person, place, and time. Answering questions appropriately. HEENT: Anicteric sclerae. No JVD or thyromegaly. LUNGS: Clear to auscultation. No wheezing, rales, or rhonchi. HEART: S1, S2. Sinus rhythm. ABDOMEN: Soft, nontender, and nondistended. EXTREMITIES: No cyanosis, clubbing, or pitting edema. MUSCULOSKELETAL: The patient has point tenderness L2 to L4. Range of motion limited due to severe pain and could not be completed. LABORATORY DATA: On discharge, white count 5, hemoglobin 9.4, hematocrit 30, platelet count 292,000. Sodium 144, potassium 4.1, chloride 114, bicarb 24, BUN 25, creatinine 1.32, glucose of 87. IMAGING DATA: Lumbar spine x-ray 07/30/2020, stable compression deformity at thoracolumbar vertebral bodies as discussed. There is mild increase in depression of the superior Nplate of L2. Time spent on discharge 30 minutes. MTDD
== END 2020-08-05 14:15 | disposition home or self-care (01) | DRG 543 ==
LOC: M ED 14:16 → EDBD 14:16 → M ED INP 17:43 → ENRESERV 19:06 → M MS5PR 20:44
PROVIDERS: ADMIT Family Medicine; ATTEND General Practice
DX: M48.56XA Collapsed vertebra, not elsewhere classified, lumbar region, initial encounter for fracture (principal); N39.0 Urinary tract infection, site not specified; M48.54XA Collapsed vertebra, not elsewhere classified, thoracic region, initial encounter for fracture; N18.30 Chronic kidney disease, stage 3 unspecified; F17.200 Nicotine dependence, unspecified, uncomplicated; I12.9 Hypertensive chronic kidney disease with stage 1 through stage 4 chronic kidney disease, or unspecified chronic kidney disease; I25.10 Atherosclerotic heart disease of native coronary artery without angina pectoris; Z79.899 Other long term (current) drug therapy; E78.5 Hyperlipidemia, unspecified

== ENCOUNTER 2020-08-31 09:18 | Inpatient (IN) | payer MEDICARE, OTHER, MEDICAID ==
[~2020-08-31] VITALS: Ht 160 cm; Wt 48.7 kg
[2020-08-31] MEDS: CALCITONIN NASAL SPRAY 3.7 ML BTL SCH (09:00)
[2020-08-31] MEDS: NICOTINE 7 MG/24 HR TRANSDERMAL TD SCH (09:00)
[~2020-08-31 09:18] MED LIST changes: +CALC200S; +META1POW PO; +MORP20SO3 PO; +NICO7PA TD; +NYST10006 TOP; +SENN-52 PO
[2020-08-31] MEDS ORDERED: LIDOCAINE 2% 5ML JELLY UROJET TOP ONE (09:45)
--- NOTE | 2020-08-31 10:16 | REP ---
INDICATION: low back pain. COMPARISON: 07/30/2020. TECHNIQUE: Five views lumbosacral spine. FINDINGS: The previously described compression deformities of T11 through L4 are unchanged. There is relatively normal lumbar lordosis. There is mild disc space narrowing at L4-5 unchanged. The posterior elements are intact. Vascular calcifications are again noted as are calcifications in the liver. IMPRESSION: Stable compression deformities of thoracolumbar spine as discussed above. <Electronically signed by Lorenzo Tapia > 08/31/20 [id number]
[2020-08-31 10:40] LABS: BASO % 0.6 % (0.0-1.0); EOS # 0.2 10^3/uL (0.0-0.5); EOS % 3.7 % (0.0-3.0); HEMATOCRIT 37.2 % (36.0-47.0); HEMOGLOBIN 11.2 g/dl (12.0-15.5); LYMPH # 0.7 10^3/uL (1.5-5.0); LYMPH % 13.7 % (24.0-44.0); MEAN CORPUSCULAR HEMOGLOBIN 31.5 pg (27.0-33.0); MEAN CORPUSCULAR HGB CONC 30.1 g/dl (32.0-36.5); MEAN CORPUSCULAR VOLUME 104.8 fl (80.0-96.0); MONO # 0.3 10^3/uL (0.0-0.8); MONO % 5.9 % (2.0-8.0); NEUTROPHILS # 4.1 10^3/uL (1.5-8.5); NEUTROPHILS % 75.7 % (36.0-66.0); PLATELET COUNT, AUTOMATED 276 10^3/uL (150-450); RED BLOOD COUNT 3.55 10^6/uL (4.00-5.40); WHITE BLOOD COUNT 5.4 10^3/uL (4.0-10.0)
[2020-08-31 11:13] LABS: AMPHETAMINES LEVEL URINE NEGATIVE (NEGATIVE); BARBITURATES URINE NEGATIVE (NEGATIVE); BENZODIAZEPINES URINE NEGATIVE (NEGATIVE); CANNABINOIDS URINE NEGATIVE (NEGATIVE); COCAINE METABOLITE URINE NEGATIVE (NEGATIVE); METHADONE URINE NEGATIVE (NEGATIVE); OPIATES URINE POSITIVE (NEGATIVE); PHENCYCLIDINE URINE NEGATIVE (NEGATIVE)
[2020-08-31 12:20] LABS: ACETAMINOPHEN LEVEL 6.4 UG/ML (10.0-30.0); ALBUMIN 2.9 GM/DL (3.2-5.2); ALT/SGPT 10 U/L (12-78); BILIRUBIN,DIRECT 0.2 MG/DL (0.0-0.2); BILIRUBIN,TOTAL 0.4 MG/DL (0.2-1.0); BLOOD UREA NITROGEN 27 MG/DL (7-18); CALCIUM LEVEL 8.9 MG/DL (8.8-10.2); CARBON DIOXIDE LEVEL 21 MEQ/L (21-32); CHLORIDE LEVEL 113 MEQ/L (98-107); CREATININE FOR GFR 1.31 MG/DL (0.55-1.30); ETHYL ALCOHOL (ETHANOL) < 0.003 % (0.000-0.010); GLUCOSE, FASTING 74 MG/DL (70-100); POTASSIUM SERUM 4.6 MEQ/L (3.5-5.1); SALICYLATE LEVEL < 1.7 MG/DL (5.0-30.0); SODIUM LEVEL 142 MEQ/L (136-145); THYROID STIMULATING HORMONE 0.524 uIU/ML (0.358-3.740); TOTAL PROTEIN 6.9 GM/DL (6.4-8.2)
--- NOTE | 2020-08-31 12:57 | REP ---
INDICATION: adm. COMPARISON: Comparison chest x-ray April 22, 2019.. TECHNIQUE: Portable semi-erect AP chest radiograph. FINDINGS: The lungs are slightly hyperinflated but clear. Pleural angles are sharp. Heart is not enlarged. There is a skin fold projecting along each lateral chest wall. The aorta is calcific and tortuous. Pulmonary vasculature is not increased. There is diffuse osteopenia. No acute bony abnormality. There is a curvilinear calcification visible over the liver in the upper abdomen on the right. This is unchanged. CT study from 2019 shows that these are due to cyst wall calcifications in the liver. IMPRESSION: Hyperinflation. No acute disease. <Electronically signed by Haim Yung > 08/31/20 [id number]
[2020-08-31] MEDS ORDERED: NICO7DIS24 TD (13:03)
[2020-08-31] MEDS ORDERED: B-121TAB3 PO (13:03)
[2020-08-31] MEDS ORDERED: ACET25TA12 PO (13:03)
[2020-08-31 13:50] LABS: RSV AMPLIFICATION NEGATIVE (NEGATIVE)
[2020-08-31] MEDS ORDERED: MAALOX 30 ML SUSP *UDC PO PRN (14:05)
[2020-08-31] MEDS ORDERED: MOM 30ML SUSPENSION UDC PO PRN (14:05)
[2020-08-31] MEDS ORDERED: ACETAMINOPHEN TAB 650MG DOSE (2X325MG) PO PRN (14:05)
[2020-08-31 15:35] LABS: TOTAL 25(OH) VITAMIN D 19.3 NG/ML (30.0-100.0)
[2020-08-31 15:51] VITALS: BP 151/71
[2020-08-31] MEDS: METAXALONE 800 MG TABLET PO SCH ×2 (16:00→22:21)
--- NOTE | 2020-08-31 16:14 | HPEPDOC ---
[facility] Medical History & Physical Date of Admission Aug 31, 2020 Date of Service: Aug 31, 2020 Primary Care Physician: CHAI KIRKLAND PA-C Attending Physician: JARRELL BUSH MD History and Physical CHIEF COMPLAINT: Back pain HISTORY OF PRESENT ILLNESS: Pt is a 74 year old female with PMH of compression fx to lumbar spine, osteoarthritis, cardiac arrhythmia s/p ablation, CKD4, cervical CA s/p hysterectomy, CAD, HLD, who presents to the ED with complains of back pain and need for placement to an advanced care facility. Pt initially presented to the ED on 07/25/20 due to back pain and was dx with lumbar compression fx of T11-L4 and discharged on 07/27/20. She then returned to ED on 07/30/20 due to intractable back pain and need for possible placement at that time. She was later discharged on 08/05/20 back home instead of a NH or other care facility due to feeling better and feeling as if her could take care of her at home. She has since had home nursing and PT coming to her house. However, for the past few days, pt has been having decreased food intake due to nausea and vomiting. Pt has also been having increased difficulty taking care of her due to progressing deconditioning. At home, pt is having increased difficulty performing ADL's due to back pain and has been walking around with difficulty even with her walker. She reports that morphine has been helping with her pain but she ran out two days ago. Pt was wanting placement for pt at a NH or advanced care facility and pt agrees with plan "as long as it's temporary". Pt and pt family has had multiple discussions with social workers and case management during her previous admissions. PAST MEDICAL HISTORY: 1. Compression fx to T11-L4. 2. Osteoarthritis. 3. Cardiac arrhythmia s/p ablation. 4. CAD. 5. HLD. 6. Liver cyst. 7. Cervical cancer s/p hysterectomy. 8. Orthostatic hypotension. PAST SURGICAL HISTORY: 1. Cardiac ablation x2 2013 and 2015. 2. Cardiac cath 2013. 3. Complete hysterectomy and bladder lift. 4. Appendectomy. 5. Tonsillectomy. 6. Drainage of liver cysts - neg bx 2016. 7. Colonoscopy - diverticulosis 2012. SOCIAL HISTORY: Pt is and lives at home with who is having increased difficulty taking care of pt. Admits to tobacco use (smokes 1 cigarette every few days. Used to smoke 1 PPD since age 11 and cut down a couple of months ago). Denies any EtOH or illicit/recreational drug use. FAMILY HISTORY: Father: ME, Heart disease Mother: Emphysema Grandmother: DM ALLERGIES: Please see below. REVIEW OF SYSTEMS: CONSTITUTIONAL: Admits decreased appetite 2/2 nausea and vomiting. Denies fevers or chills. HEENT: Denies headache. CARDIOVASCULAR: Denies chest pain or palpitations. RESPIRATORY: Denies SOB, cough. GASTROINTESTINAL: Admits nausea and vomiting. Denies abd pain, diarrhea, constipation, bowel incontinence. GENITOURINARY: Denies urinary sx such as urinary retention, urinary incontinence, dysuria, or frequency. MUSCULOSKELETAL: Admits back pain. NEUROLOGICAL: Denies any weakness or numbness to extremities. HOME MEDICATIONS: Please see below. PHYSICAL EXAMINATION: VITAL SIGNS: Temperature 96.1, pulse 71, respiratory rate 20, blood pressure 147/62, pulse oximetry 97% on room air. GENERAL APPEARANCE: Pt is laying in bed, comfortably at rest. No acute distress. HEENT: NC/AT. Conjunctiva and lids normal. No scleral icterus. EOMI. CARDIOVASCULAR: Distant heart sounds. No distinct murmurs appreciated. LUNGS: Lungs clear to auscultation bilaterally. No wheezes, rales, or rhonchi. ABDOMEN: No tenderness to palpation. Normoactive bowel sounds in all four quadrants. MUSCULOSKELETAL: Mild tenderness to palpation to lower T spine and L spine. EXTREMITIES: No pitting edema. 2+ DP pulses. ROM intact in all four extremities. NEUROLOGICAL: No focal neurologic deficits. Sensations intact to BLE. No urinary or bowel incontinence or retention. LABORATORY DATA: See below. IMAGING: Lumbar spine x-ray (08/31/20) Stable compression deformities of thoracolumbar spine as discussed above (previously described compression deformities of T11 through L4 are unchanged). CXR (08/31/20) Hyperinflation. No acute disease. MICROBIOLOGY: Please see below. ASSESSMENT/PLAN: Pt is a 74 year old female with PMH of compression fx to lumbar spine, osteoarthritis, cardiac arrhythmia s/p ablation, CKD4, cervical CA s/p hysterectomy, CAD, HLD, who presents to the ED with complains of back pain due to recent compression fx to T11-L4 and need for placement to an advanced care facility. Pt is having increased difficulty taking care of pt as she is having increased difficulty with pain management and ADL's at home. Pt is admitted for further pain management and plan for placement to NH/advanced care facility. #Back pain s/p compression fx to T11-L4 - Pt was dx with lumbar compression fx on 07/25 and was subsequently d/c on 07/27. She returned on 07/30 due to intractable back pain. - Pt has had home nursing and PT coming to her house since last discharge. - No signs of cauda equina. No saddle anesthesia. Pt has not had urinary or bowel incontinence or retention. Sensations are intact bilaterally. - Pt states that the morphine at home has been helping with her pain but she ran out two days ago. - Will continue pain management here with home meds: Morphine 5 mg PO daily, Metaxalone 800 mg PO TID, Lidocaine patch QHS, Calcitonin nasal spray daily. Laxatives to prevent constipation. - Vitamin D levels ordered and were low. Will start on vitamin D supplementation. - TSH ordered and pending. #Physical deconditioning - Pt has been having increased difficulty taking care of herself and her has also had increased difficulty taking care of pt. and pt request placement to NH or advanced care facility. - Pt states that she has been having difficulty with ADL's due to physical deconditioning 2/2 back pain due to compression fx. - Pt has had multiple conversations with social work and case management during her previous stay in the hospital. NH was discussed at that time but pt was discharged home as she was feeling well enough to possibly take care of herself. She has found this difficult since discharge. - Pt is agreeable to placement. - Case management on board. - PT/OT eval ordered. - ARU screen ordered. #Vitamin D deficiency - Vitamin D was low with 25-OH Vitamin D at 19.3. - Will supplement with vitamin D. #Tobacco abuse - Pt currently uses nicotine patches at home. - Will continue nicotine patches here. - Smoking cessation counseling. #Cardiac arrhythmia - Pt has hx of ablation and does not know what type of cardiac arrhythmia she has. - Will continue home labetalol. DVT Prophylaxis: Lovenox 40 mg daily at 2100. Disposition: Pt requires placement. Case management on board. Vital Signs Vital Signs Date Time Temp Pulse Resp B/P (MAP) Pulse Ox O2 Delivery O2 Flow Rate FiO2 08/31/20 13:02 87 16 97 Room Air 08/31/20 09:32 96.1 147/65 (92) Laboratory Data Labs 24H Laboratory Tests 2 08/31/20 10:24: Immature Granulocyte % (Auto) 0.4, Neutrophils (%) (Auto) 75.7H, Lymphocytes (%) (Auto) 13.7L, Monocytes (%) (Auto) 5.9, Eosinophils (%) (Auto) 3.7H, Basophils (%) (Auto) 0.6, Neutrophils # (Auto) 4.1, Lymphocytes # (Auto) 0.7L, Monocytes # (Auto) 0.3, Eosinophils # (Auto) 0.2, Basophils # (Auto) 0.0, Nucleated Red Bloo d Cells % (auto) 0.0, Urine Color YELLOW, Urine Appearance CLOUDYH, Urine pH 5.0, Urine Specific [place] 1.028, Urine Protein 1+H, Urine Glucose (UA) NEGATIVE, Urine Ketones NEGATIVE, Urine Blood NEGATIVE, Urine Nitrite NEGATIVE, Urine Bilirubin NEGATIVE, Urine Urobilinogen 0.2, Urine Leukocyte Esterase 2+H, Urine WBC (Auto) 13H, Urine RBC (Auto) 2, Urine Hyaline Casts (Auto) 1, Urine Bacteria (Auto) 1+H, Urine Squamous Epithelial Cells 9, Urine Mucus (Auto) SMALL, Urine Sperm (Auto) , Urine Opiates Screen POSITIVEH, Urine Methadone Screen NEGATIVE, Urine Barbiturates Screen NEGATIVE, Urine Phencyclidine Screen NEGATIVE, Urine Amphetamines Screen NEGATIVE, Urine Benzodiazepines Screen NEGATIVE, Urine Cocaine Metabolite Screen NEGATIVE, Urine Cannabinoids Screen NEGATIVE 08/31/20 11:31: Anion Gap 8, Glomerular Filtration Rate 42.0, Calcium Level 8.9, Total Bilirubin 0.4, Direct Bilirubin 0.2, Aspartate Amino Transf (AST/SGOT) 10, Alanine Aminotransferase (ALT/SGPT) 10L, Alkaline Phosphatase 166H, Total Protein 6.9, Albumin 2.9L, Albumin/Globulin Ratio 0.7L, Thyroid Stimulating Hormone (TSH) 0.524, Salicylates Level < 1.7L, Acetaminophen Level 6.4L, Ethyl Alcohol Level < 0.003 08/31/20 12:58: Coronavirus (COVID-19)(PCR) NEGATIVE, Influenza Type A (RT-PCR) NEGATIVE, Influenza Type B (RT-PCR) NEGATIVE, Respiratory Syncytial Virus (PCR) NEGATIVE CBC/BMP Laboratory Tests 08/31/20 10:24 08/31/20 11:31 Microbiology Microbiology 08/31/20 Urine Culture, Received Pending Home Medications Scheduled Acetaminophen/Diphenhydramine (Acetaminophen Pm Caplet) 1 Each Tablet, 2 TAB PO QHS Amoxicillin/Potassium Clav (Augmentin 875-125 Tablet) 1 Each Tablet, 1 TAB PO BID Aspirin (Aspirin EC) 81 Mg Tablet.dr, 81 MG PO DAILY Calcitonin,Athol,Synthetic (Calcitonin-Athol) 3.7 Ml [place].pump, 1 SPRAY NA DAILY ALTERNATE NOSTRILS Cholecalciferol (Vitamin D3) (Vitamin D3) 25 Mcg Tablet, 1,000 UNITS PO DAILY Cyanocobalamin (Vitamin B-12) (B-12) 500 Mcg Tablet, 500 MCG PO DAILY Labetalol HCl (Labetalol HCl) 100 Mg Tablet, 100 MG PO BID Lidocaine (Lidocaine) 5% Adh..patch, 1 PATCH TOP QHS APPLIES TO LOWER BACK NEAR COCCYX Metaxalone (Metaxalone) 800 Mg Tablet, 800 MG PO TID Morphine Sulfate (Morphine Sulfate) 100 Mg/5 Ml Solution, 5 MG PO TID Nicotine (Nicotine Patch) 7 Mg Patch.td24, 7 MG TD DAILY Scheduled PRN Acetaminophen (Tylenol Extra Strength) 500 Mg Tablet, 1,000 MG PO TID PRN for PAIN Allergies Coded Allergies: No Known Allergies (Unverified , 01/05/19) A-FIB/CHADSVASC A-FIB History Current/History of A-Fib/PAF?: No GME ATTESTATION GME ATTESTATION My faculty preceptor for this patient encounter was physically present during the encounter and was fully available. All aspects of the patient interview, examination, medical decision making process, and medical care plan development were reviewed and approved by the faculty preceptor. The faculty preceptor is aware and concurs with the plan as stated in the body of this note and will attest to such by his/her cosignature. ATTENDING NOTE I, Jarrell Bush MD, have independently examined this patient and performed my own physical exam, as well as reviewed the documentation and edited where necessary. I have discussed in detail with the resident / student the findings and plan of treatment as documented by the resident / student and edited their note. I agree with their findings and treatment plan and have edited their documentation. Aurora RAYGOZA S-3 Aug 31, 2020 16:14 JARRELL BUSH MD September 08, 2020 12:27
[2020-08-31] MEDS: MORPHINE SULFATE ORAL SOLN 10 MG/5 ML UD PO SCH ×2 (16:49→21:57)
[2020-08-31] MEDS: VITAMIN D 1,000 INTERNATIONAL UNITS TABLET PO SCH (16:49)
[2020-08-31] MEDS: DOCUSATE SODIUM 100MG CAPSULE PO SCH (21:00)
[2020-08-31] MEDS: ENOXAPARIN 30MG/0.3ML SYRINGE (J1650 PER 10MG) SC SCH (21:58)
[2020-08-31] MEDS: LIDOCAINE 5% (LIDODERM) PATCH TOP SCH (21:58)
[2020-08-31 22:00] VITALS: BP 105/61
[2020-08-31] MEDS: LABETALOL 100MG TAB PO SCH (22:21)
[2020-09-01 06:00] VITALS: BP 115/70
[2020-09-01 06:42] LABS: BASO % 0.6 % (0.0-1.0); EOS # 0.2 10^3/uL (0.0-0.5); EOS % 3.5 % (0.0-3.0); HEMATOCRIT 33.9 % (36.0-47.0); HEMOGLOBIN 10.2 g/dl (12.0-15.5); LYMPH # 0.8 10^3/uL (1.5-5.0); LYMPH % 14.1 % (24.0-44.0); MEAN CORPUSCULAR HEMOGLOBIN 31.3 pg (27.0-33.0); MEAN CORPUSCULAR HGB CONC 30.1 g/dl (32.0-36.5); MONO # 0.4 10^3/uL (0.0-0.8); MONO % 7.5 % (2.0-8.0); NEUTROPHILS % 73.9 % (36.0-66.0); PLATELET COUNT, AUTOMATED 259 10^3/uL (150-450); RED BLOOD COUNT 3.26 10^6/uL (4.00-5.40); WHITE BLOOD COUNT 5.5 10^3/uL (4.0-10.0)
[2020-09-01 07:11] LABS: CALCIUM LEVEL 9.6 MG/DL (8.8-10.2); CREATININE FOR GFR 1.32 MG/DL (0.55-1.30); GLOMERULAR FILTRATION RATE 41.7 (>39); POTASSIUM SERUM 4.5 MEQ/L (3.5-5.1)
[2020-09-01] MEDS: DOCUSATE SODIUM 100MG CAPSULE PO SCH ×2 (08:52→22:31)
[2020-09-01] MEDS ORDERED: FLUBLOK(EGG FREE)(QUAD)INFLUENZA VACC 0.5ML SYRINGE 18YRS & OLDER IM ONE (09:00)
[2020-09-01] MEDS ORDERED: PREVNAR 13 VACCINE SYRINGE IM ONE (09:00)
[2020-09-01] MEDS: LABETALOL 100MG TAB PO SCH ×2 (09:00→22:31)
[2020-09-01] MEDS: CYANOCOBALAMIN 500 MCG TAB PO SCH (09:01)
[2020-09-01] MEDS: NICOTINE 7 MG/24 HR TRANSDERMAL TD SCH (09:01)
[2020-09-01] MEDS: VITAMIN D 1,000 INTERNATIONAL UNITS TABLET PO SCH (09:01)
[2020-09-01] MEDS: METAXALONE 800 MG TABLET PO SCH ×3 (09:01→22:31)
[2020-09-01] MEDS: CALCITONIN NASAL SPRAY 3.7 ML BTL SCH (09:01)
[2020-09-01] MEDS: ASPIRIN 81MG ENTERIC TABLET PO SCH (09:01)
[2020-09-01] MEDS: MORPHINE SULFATE ORAL SOLN 10 MG/5 ML UD PO SCH ×3 (09:01→22:30)
[2020-09-01] MEDS: **NOTE PATIENT COMMENT** MISC XX SCH (10:41)
--- NOTE | 2020-09-01 11:18 | IPNPDOC ---
Text Note Date of Service The patient was seen on 09/01/20. NOTE S Patient reported good appetite overnight. She rated her back pain at 6-7/10 today. She denied recent fever, chills, N/V/D, CP, SOB and urinary symptoms. She reported some cough with whitish sputum. Telemetry overnight showed no acute event. O VITAL SIGNS: See below GENERAL APPEARANCE: Revealed 74 y/o F laying supine in bed. Alert & oriented x3, No Acute Distress. HEENT Exam: Normocephalic and atraumatic, PERRLA, conjunctiva & lids normal, EOMI, without sclera icteric, mucous membr. moist/pink, pharynx normal, nares patent. Upper and lower dentures noted. NECK: Supple without lymphadenopathy, JVD, thyromegaly LUNGS: Diminished breath sounds in all lung aggarwal without discernible rales, wheezing, and crackles. CARDIOVASCULAR: Very distant and soft heart sounds. Regular rate and rhythm, normal S1 & S2 without significant gallops, murmurs, rubs. Protruding R lower rib noted with tenderness around. ABDOMEN: Soft, non-tender, non-distended with normal bowel sounds. No masses or ecchymosis or splenomegaly. Hepatomegaly noted. EXTREMITIES: 2+ pulses in all extremities. No clubbing, cyanosis, edema, tenderness SKIN: Normal turgor and temperature. No rash, lesion MUSCULOSKELETAL: Strength +5/5 in all extremities without tenderness. Lidocaine patch noted on lumbar spine with mild tenderness. NEUROLOGICAL: Normal speech with intact sensation, cranial nerves III-XII normal. PSYCHIATRIC: Normal mood and affect ASSESSMENT/PLAN: Pt is a 74 year old female with PMH of compression fx to lumbar spine, osteoarthritis, cardiac arrhythmia s/p ablation, CKD4, cervical CA s/p hysterectomy, CAD, HLD, who presents to the ED with complains of back pain due to recent compression fx to T11-L4 and need for placement to an advanced care facility. Pt is having increased difficulty taking care of pt as she is having increased difficulty with pain management and ADL's at home. Pt is admitted for further pain management and plan for placement to NH/advanced care facility. Pending ARU screen and PT/OT evaluation. #Back pain s/p compression fx to T11-L4 - Pt was dx with lumbar compression fx on 07/25 and was subsequently d/c on 07/27. She returned on 07/30 due to intractable back pain. - Pt has had home nursing and PT coming to her house since last discharge. - No signs of cauda equina. No saddle anesthesia. Pt has not had urinary or bowel incontinence or retention. Sensations are intact bilaterally. - Pt states that the morphine at home has been helping with her pain but she ran out two days ago. - Will continue pain management here with home meds: Morphine 5 mg PO daily, Metaxalone 800 mg PO TID, Lidocaine patch QHS, Calcitonin nasal spray daily. Laxatives to prevent constipation. - 25 Vitamin D level low at 19.3, 1,25 vitamin D pending. Started on vitamin D supplementation 1000 units PO QD. - TSH unremarkable - Will need DEXA scan outpatient given her compression fracture #Physical deconditioning - Pt has been having increased difficulty taking care of herself and her has also had increased difficulty taking care of pt. and pt request placement to NH or advanced care facility. - Pt states that she has been having difficulty with ADL's due to physical deconditioning 2/2 back pain due to compression fx. - Pt has had multiple conversations with social work and case management during her previous stay in the hospital. NH was discussed at that time but pt was discharged home as she was feeling well enough to possibly take care of herself. She has found this difficult since discharge. - Pt is agreeable to placement. - Case management on board. - PT/OT eval and treat ordered. - ARU screen ordered. #Vitamin D deficiency - Vitamin D was low with 25-OH Vitamin D at 19.3. - 1,25 vitamin D pending - Started vitamin D supplementation 1000units PO QD #Tobacco abuse - Pt currently uses nicotine patches at home. - Will continue nicotine patches here. - Smoking cessation counseling. #Cardiac arrhythmia - Pt has hx of ablation and does not know what type of cardiac arrhythmia she has. - Telemetry overnight showed no acute events. - Will continue home labetalol. Disposition: Pt requires placement. Case management on board. VS,Fishbone, I+O VS, Fishbone, I+O Laboratory Tests 08/31/20 11:31 09/01/20 06:13 Vital Signs Date Time Temp Pulse Resp B/P (MAP) Pulse Ox O2 Delivery O2 Flow Rate FiO2 09/01/20 09:31 17 Room Air 09/01/20 09:00 90 149/60 09/01/20 06:00 97.6 96 I&O- Last 24 Hours up to 6 AM 09/01/20 06:00 Intake Total 300 ml Output Total 200 ml Balance 100 ml GME ATTESTATION GME ATTESTATION My faculty preceptor for this patient encounter was physically present during the encounter and was fully available. All aspects of the patient interview, examination, medical decision making process, and medical care plan development were reviewed and approved by the faculty preceptor. The faculty preceptor is aware and concurs with the plan as stated in the body of this note and will attest to such by his/her cosignature. ATTENDING NOTE I, Andrew Bush MD, have independently examined this patient and performed my own physical exam, as well as reviewed the documentation and edited where necessary. I have discussed in detail with the resident / student the findings and plan of treatment as documented by the resident / student and edited their note. I agree with their findings and treatment plan and have edited their documentation. SYDNEY PERALES OMS-3 Sep 01, 2020 11:18 ANDREW BUSH MD September 08, 2020 12:29
[2020-09-01 14:00] VITALS: BP 108/56
[2020-09-01 22:00] VITALS: BP 134/69
[2020-09-01] MEDS: ENOXAPARIN 30MG/0.3ML SYRINGE (J1650 PER 10MG) SC SCH (22:30)
[2020-09-01] MEDS: LIDOCAINE 5% (LIDODERM) PATCH TOP SCH (22:33)
[2020-09-02 06:00] VITALS: BP 128/60
[2020-09-02 06:09] LABS: BASO % 0.4 % (0.0-1.0); EOS # 0.1 10^3/uL (0.0-0.5); EOS % 2.5 % (0.0-3.0); HEMATOCRIT 31.6 % (36.0-47.0); HEMOGLOBIN 9.7 g/dl (12.0-15.5); LYMPH # 0.7 10^3/uL (1.5-5.0); LYMPH % 12.7 % (24.0-44.0); MEAN CORPUSCULAR HEMOGLOBIN 31.8 pg (27.0-33.0); MEAN CORPUSCULAR HGB CONC 30.7 g/dl (32.0-36.5); MEAN CORPUSCULAR VOLUME 103.6 fl (80.0-96.0); MONO # 0.5 10^3/uL (0.0-0.8); MONO % 9.4 % (2.0-8.0); NEUTROPHILS # 3.9 10^3/uL (1.5-8.5); NEUTROPHILS % 74.8 % (36.0-66.0); PLATELET COUNT, AUTOMATED 246 10^3/uL (150-450); RED BLOOD COUNT 3.05 10^6/uL (4.00-5.40); WHITE BLOOD COUNT 5.2 10^3/uL (4.0-10.0)
[2020-09-02 06:37] LABS: CALCIUM LEVEL 9.1 MG/DL (8.8-10.2); CREATININE FOR GFR 1.38 MG/DL (0.55-1.30); GLOMERULAR FILTRATION RATE 39.6 (>39); POTASSIUM SERUM 4.2 MEQ/L (3.5-5.1)
[2020-09-02] MEDS: **NOTE PATIENT COMMENT** MISC XX SCH (09:00)
[2020-09-02] MEDS: NICOTINE 7 MG/24 HR TRANSDERMAL TD SCH (11:48)
[2020-09-02] MEDS: DOCUSATE SODIUM 100MG CAPSULE PO SCH ×2 (11:49→20:46)
[2020-09-02] MEDS: ASPIRIN 81MG ENTERIC TABLET PO SCH (11:49)
[2020-09-02] MEDS: CYANOCOBALAMIN 500 MCG TAB PO SCH (11:49)
[2020-09-02] MEDS: METAXALONE 800 MG TABLET PO SCH ×3 (11:49→20:47)
[2020-09-02] MEDS: VITAMIN D 1,000 INTERNATIONAL UNITS TABLET PO SCH (11:49)
[2020-09-02] MEDS: LABETALOL 100MG TAB PO SCH ×2 (11:51→20:46)
[2020-09-02] MEDS: MORPHINE SULFATE ORAL SOLN 10 MG/5 ML UD PO SCH ×3 (11:52→20:46)
[2020-09-02] MEDS: CALCITONIN NASAL SPRAY 3.7 ML BTL SCH (11:53)
[2020-09-02 14:36] VITALS: BP 109/53
--- NOTE | 2020-09-02 17:00 | IPNPDOC ---
Text Note Date of Service The patient was seen on 09/02/20. NOTE S Patient reported good appetite overnight. She has no back pain today. She denied recent fever, chills, N/V/D, CP, SOB and urinary symptoms. She had a bowel movement yesterday afternoon and denied constipation. She continues to report occasional cough with whitish sputum. She reported that she didn't want to walk with PT yesterday because she has not been sleeping well, and she has not slept well last night because of the noise outside of her room. O VITAL SIGNS: See below GENERAL APPEARANCE: Revealed 74 y/o F laying supine in bed. Alert & oriented x3, No Acute Distress. HEENT Exam: Normocephalic and atraumatic, PERRLA, conjunctiva & lids normal, EOMI, without sclera icteric, mucous membr. moist/pink, pharynx normal, nares patent. Upper and lower dentures noted. NECK: Supple without lymphadenopathy, JVD, thyromegaly LUNGS: Diminished breath sounds in all lung aggarwal without discernible rales, wheezing, and crackles. CARDIOVASCULAR: Very distant and soft heart sounds. Regular rate and rhythm, normal S1 & S2 without significant gallops, murmurs, rubs. Protruding R lower rib noted with tenderness around. ABDOMEN: Soft, non-tender, non-distended with normal bowel sounds. No masses or ecchymosis or splenomegaly. Hepatomegaly noted. EXTREMITIES: 2+ pulses in all extremities. No clubbing, cyanosis, edema, tenderness SKIN: Normal turgor and temperature. No rash, lesion MUSCULOSKELETAL: Strength +5/5 in all extremities with mild tenderness on palpat ion at B/L lower extremities. Lidocaine patch noted on lumbar spine without tenderness. NEUROLOGICAL: Normal speech with intact sensation, cranial nerves III-XII normal. No signs of gross focal neuro deficit. PSYCHIATRIC: Normal mood and affect ASSESSMENT/PLAN: Pt is a 74 year old female with PMH of compression fx to lumbar spine, osteoarthritis, cardiac arrhythmia s/p ablation, CKD4, cervical CA s/p hysterectomy, CAD, HLD, who presents to the ED with complains of back pain due to recent compression fx to T11-L4 and need for placement to an advanced care facility. Pt is having increased difficulty taking care of pt as she is having increased difficulty with pain management and ADL's at home. Pt is admitted for further pain management and plan for placement to NH/advanced care facility. Patient receiving PT while waiting for a bed at [facility] with anticipation of discharge tomorrow. #Back pain s/p compression fx to T11-L4 - Pt was dx with lumbar compression fx on 07/25 and was subsequently d/c on 07/27. She returned on 07/30 due to intractable back pain. - Pt has had home nursing and PT coming to her house since last discharge. - No signs of cauda equina. No saddle anesthesia. Pt has not had urinary or bowel incontinence or retention. Sensations are intact bilaterally. - Pt states that the morphine at home has been helping with her pain but she ran out on 08/29. - Will continue pain management here with home meds: Morphine 5 mg PO daily, Metaxalone 800 mg PO TID, Lidocaine patch QHS, Calcitonin nasal spray daily. Laxatives to prevent constipation. - 25 Vitamin D level low at 19.3, 1,25 vitamin D pending. Started on vitamin D supplementation 1000 units PO QD. - TSH unremarkable - Will need DEXA scan outpatient given her compression fracture #Physical deconditioning - Pt has been having increased difficulty taking care of herself and her has also had increased difficulty taking care of pt. and pt request placement to NH or advanced care facility. - Pt states that she has been having difficulty with ADL's due to physical deconditioning 2/2 back pain due to compression fx. - Pt has had multiple conversations with social work and case management during her previous stay in the hospital. NH was discussed at that time but pt was discharged home as she was feeling well enough to possibly take care of herself. She has found this difficult since discharge. - Pt is agreeable to placement. - Case management on board. - Cont PT/OT - ARU screen ordered. - Case management report likely ready for discharge to [facility] tomorrow. #Vitamin D deficiency - Vitamin D was low with 25-OH Vitamin D at 19.3. - 1,25 vitamin D pending - Started vitamin D supplementation 1000units PO QD #Tobacco abuse - Pt currently uses nicotine patches at home. - Will continue nicotine patches here. - Smoking cessation counseling. #Cardiac arrhythmia - Pt has hx of ablation and does not know what type of cardiac arrhythmia she has. - Telemetry on 08/31 showed no acute event, discontinued telemetry - Will continue home labetalol. Disposition: Pt requires placement. Case management on board. VS,Fishbone, I+O VS, Fishbone, I+O Laboratory Tests 09/02/20 05:46 Vital Signs Date Time Temp Pulse Resp B/P (MAP) Pulse Ox O2 Delivery O2 Flow Rate FiO2 09/02/20 06:00 97.6 77 16 128/60 (82) 97 Room Air I&O- Last 24 Hours up to 6 AM 09/02/20 06:00 Intake Total 390 ml Output Total 450 ml Balance -60 ml GME ATTESTATION GME ATTESTATION My faculty preceptor for this patient encounter was physically present during the encounter and was fully available. All aspects of the patient interview, examination, medical decision making process, and medical care plan development were reviewed and approved by the faculty preceptor. The faculty preceptor is aware and concurs with the plan as stated in the body of this note and will attest to such by his/her cosignature. ATTENDING NOTE I, Andrew Bush MD, have independently examined this patient and performed my own physical exam, as well as reviewed the documentation and edited where necessary. I have discussed in detail with the resident / student the findings and plan of treatment as documented by the resident / student and edited their note. I agree with their findings and treatment plan and have edited their documentation. SYDNEY PERALES OMS-3 Sep 02, 2020 09:14 ANDREW BUSH MD September 07, 2020 14:53
[2020-09-02] MEDS: LIDOCAINE 5% (LIDODERM) PATCH TOP SCH (20:48)
[2020-09-02] MEDS: ENOXAPARIN 30MG/0.3ML SYRINGE (J1650 PER 10MG) SC SCH (20:48)
[2020-09-02 22:00] VITALS: BP 124/59
[2020-09-03 06:00] VITALS: BP 126/59
[2020-09-03] MEDS: CALCITONIN NASAL SPRAY 3.7 ML BTL SCH (08:50)
[2020-09-03] MEDS: METAXALONE 800 MG TABLET PO SCH (08:51)
[2020-09-03] MEDS: DOCUSATE SODIUM 100MG CAPSULE PO SCH (08:51)
[2020-09-03] MEDS: CYANOCOBALAMIN 500 MCG TAB PO SCH (08:51)
[2020-09-03] MEDS: ASPIRIN 81MG ENTERIC TABLET PO SCH (08:51)
[2020-09-03] MEDS: NICOTINE 7 MG/24 HR TRANSDERMAL TD SCH (08:51)
[2020-09-03] MEDS: VITAMIN D 1,000 INTERNATIONAL UNITS TABLET PO SCH (08:51)
[2020-09-03 08:52] VITALS: BP 124/60
[2020-09-03] MEDS: LABETALOL 100MG TAB PO SCH (08:52)
[2020-09-03] MEDS: MORPHINE SULFATE ORAL SOLN 10 MG/5 ML UD PO SCH (08:52)
[2020-09-03] MEDS: **NOTE PATIENT COMMENT** MISC XX SCH (08:57)
[2020-09-03] MEDS ORDERED: VITAD1000T PO (11:30)
--- NOTE | 2020-09-03 11:35 | DS.PDOC ---
Discharge Summary General Date of Admission Aug 31, 2020 at 14:02 Date of Discharge 09/03/20 Discharge Summary Chief complaints: Back pain Final diagnosis: Compression fracture of T11-L4 History of present illness and Hospital course Pt is a 74 year old female with PMH of compression fx to lumbar spine, osteoarthritis, cardiac arrhythmia s/p ablation, CKD4, cervical CA s/p hysterectomy, HLD, who presents to the ED with complains of back pain due to recent compression fx to T11-L4 and need for placement to an advanced care facility. Pt is having increased difficulty taking care of pt as she is having increased difficulty with pain management and ADL's at home. Pt is admitted for further pain management and plan for placement to [place]/advanced care facility. Patient received PT while waiting for a bed at [facility] and was accepted for admission there. The patient did not have any neurological symptoms did not have any fecal or urinary incontinence. Strength is bilaterally equal on bilateral lower and upper extremities. . She also is found to have vitamin D deficiency. She is and she was continued on vitamin D thousand units daily. She also will be continued on her home medication for pain control, which is morphine oral. She is medically optimized to be discharged to a long-term care. VITAL SIGNS: See below GENERAL APPEARANCE: Revealed 74 y/o F laying supine in bed. Alert & oriented x3, No Acute Distress. HEENT Exam: Normocephalic and atraumatic, PERRLA, conjunctiva & lids normal, EOMI, without sclera icteric, mucous membr. moist/pink, pharynx normal, nares patent. Upper and lower dentures noted. NECK: Supple without lymphadenopathy, JVD, thyromegaly LUNGS: Diminished breath sounds in all lung aggarwal without discernible rales, wheezing, and crackles. CARDIOVASCULAR: Very distant and soft heart sounds. Regular rate and rhythm, normal S1 & S2 without significant gallops, murmurs, rubs. Protruding R lower rib noted with tenderness around. ABDOMEN: Soft, non-tender, non-distended with normal bowel sounds. No masses or ecchymosis or splenomegaly. Hepatomegaly noted. EXTREMITIES: 2+ pulses in all extremities. No clubbing, cyanosis, edema, tenderness SKIN: Normal turgor and temperature. No rash, lesion MUSCULOSKELETAL: Strength +5/5 in all extremities with mild tenderness on pa lpation at B/L lower extremities. Lidocaine patch noted on lumbar spine without tenderness. NEUROLOGICAL: Normal speech with intact sensation, cranial nerves III-XII normal. No signs of gross focal neuro deficit. PSYCHIATRIC: Normal mood and affect Medications. As per discharge reconciliation medication list. Vitamin D has been admitted to the patient's strep test Activity as tolerated Diet. 2 g sodium diet Follow-up appointments. PCP in 1 week. Condition on discharge. Patient is medically optimized for discharge Discharge [facility]: [facility] Total time spent on this discharge including coordination of care, review of chart documentation and actual patient contact is around 35 minutes Vital Signs/I&Os Vital Signs Date Time Temp Pulse Resp B/P (MAP) Pulse Ox O2 Delivery O2 Flow Rate FiO2 09/03/20 09:42 16 Room Air 09/03/20 08:52 75 124/60 09/03/20 06:00 97.6 95 I&O- Last 24 Hours up to 6 AM 09/03/20 05:59 Intake Total 470 ml Output Total 550 ml Balance -80 ml Microbiology Microbiology 08/31/20 Urine Culture - Final, Complete Aerococcus Urinae Discharge Medications Scheduled Acetaminophen/Diphenhydramine (Acetaminophen Pm Caplet) 1 Each Tablet, 2 TAB PO QHS, (Reported) Aspirin (Aspirin EC) 81 Mg Tablet.dr, 81 MG PO DAILY, (Reported) Calcitonin,Morley,Synthetic (Calcitonin-Morley) 3.7 Ml [place].pump, 1 SPRAY NA DAILY, (Reported) ALTERNATE NOSTRILS Cholecalciferol (Vitamin D3) (Vitamin D3) 25 Mcg Tablet, 1,000 UNITS PO DAILY Cyanocobalamin (Vitamin B-12) (B-12) 500 Mcg Tablet, 500 MCG PO DAILY, (Reported) Labetalol HCl (Labetalol HCl) 100 Mg Tablet, 100 MG PO BID, (Reported) Lidocaine (Lidocaine) 5% Adh..patch, 1 PATCH TOP QHS, (Reported) APPLIES TO LOWER BACK NEAR COCCYX Metaxalone (Metaxalone) 800 Mg Tablet, 800 MG PO TID, (Reported) Morphine Sulfate (Morphine Sulfate) 100 Mg/5 Ml Solution, 5 MG PO TID, (Reported) Nicotine (Nicotine Patch) 7 Mg Patch.td24, 7 MG TD DAILY, (Reported) Scheduled PRN Acetaminophen (Tylenol Extra Strength) 500 Mg Tablet, 1,000 MG PO TID PRN for PAIN, (Reported) Allergies Coded Allergies: No Known Allergies (Unverified , 01/05/19) JARRELL ORTIZ MD Sep 03, 2020 11:35
[2020-09-03] MEDS ORDERED: AUGM875T28 PO (11:48)
== END 2020-09-03 13:38 | DRG 543 ==
LOC: M ED 09:18 → EDBD 09:18 → M ED INP 14:02 → ENRESERV 14:42 → M MSPAV 15:44
PROVIDERS: ADMIT Internal Medicine; ATTEND Internal Medicine
DX: M84.48XA Pathological fracture, other site, initial encounter for fracture (principal); N39.0 Urinary tract infection, site not specified; N18.4 Chronic kidney disease, stage 4 (severe); M19.90 Unspecified osteoarthritis, unspecified site; Z85.41 Personal history of malignant neoplasm of cervix uteri; Z79.899 Other long term (current) drug therapy; Z79.82 Long term (current) use of aspirin; Z95.2 Presence of prosthetic heart valve; E55.9 Vitamin D deficiency, unspecified; F17.210 Nicotine dependence, cigarettes, uncomplicated

== ENCOUNTER → 2020-09-08 | Outpatient (REF) | payer MEDICARE, OTHER, MEDICAID ==
[~2020-09-08] MED LIST changes: +ACET25TA12 PO; +AUGM875T28 PO; +B-121TAB3 PO; +NICO7DIS24 TD; +VITAD1000T PO
[2020-09-08 10:46] LABS: HEMATOCRIT 33.5 % (36.0-47.0); HEMOGLOBIN 10.1 g/dl (12.0-15.5); MEAN CORPUSCULAR HEMOGLOBIN 31.9 pg (27.0-33.0); MEAN CORPUSCULAR HGB CONC 30.1 g/dl (32.0-36.5); MEAN CORPUSCULAR VOLUME 105.7 fl (80.0-96.0); PLATELET COUNT, AUTOMATED 261 10^3/uL (150-450); RED BLOOD COUNT 3.17 10^6/uL (4.00-5.40); WHITE BLOOD COUNT 5.2 10^3/uL (4.0-10.0)
[2020-09-08 11:13] LABS: CREATININE FOR GFR 1.57 MG/DL (0.55-1.30); GLOMERULAR FILTRATION RATE 34.1 (>39); POTASSIUM SERUM 4.9 MEQ/L (3.5-5.1)
== END ==
PROVIDERS: ATTEND Internal Medicine
DX: I10 Essential (primary) hypertension (principal)

== ENCOUNTER → 2020-09-23 | Outpatient (REF) | payer MEDICARE, OTHER, MEDICAID ==
[2020-09-23 11:10] LABS: HEMATOCRIT 33.3 % (36.0-47.0); HEMOGLOBIN 10.1 g/dl (12.0-15.5); MEAN CORPUSCULAR HEMOGLOBIN 32.9 pg (27.0-33.0); MEAN CORPUSCULAR HGB CONC 30.3 g/dl (32.0-36.5); MEAN CORPUSCULAR VOLUME 108.5 fl (80.0-96.0); PLATELET COUNT, AUTOMATED 311 10^3/uL (150-450); RED BLOOD COUNT 3.07 10^6/uL (4.00-5.40); WHITE BLOOD COUNT 5.3 10^3/uL (4.0-10.0)
[2020-09-23 11:36] LABS: CALCIUM LEVEL 9.1 MG/DL (8.8-10.2); CREATININE FOR GFR 1.59 MG/DL (0.55-1.30); GLOMERULAR FILTRATION RATE 33.5 (>39); POTASSIUM SERUM 4.3 MEQ/L (3.5-5.1)
== END ==
PROVIDERS: ATTEND Physician Assistant
DX: I10 Essential (primary) hypertension (principal)

== ENCOUNTER 2020-09-26 13:52 | Emergency (ER) | payer MEDICARE, OTHER, MEDICAID ==
[2020-09-26] MEDS ORDERED: MILKSUS3 PO (14:39)
[2020-09-26] MEDS ORDERED: D31000TA2 PO (14:39)
--- NOTE | 2020-09-26 15:06 | REP ---
INDICATION: trauma. COMPARISON: Comparison head CT study is from 28 March 2019.. TECHNIQUE: Helical scanning is acquired. 5 mm axial images were reformatted. Coronal MPR images were generated. FINDINGS: Digital preliminary appliance tester radiographs are unremarkable. Bone window settings demonstrate an intact bony calvarium. There is fairly heavy vascular calcification in the distal internal carotid arteries bilaterally. No skull fracture is seen. No scalp hematoma is appreciated. On soft tissue window settings, there is generalized volume loss moderate in degree. Small-vessel atherosclerotic changes are again noted in the periventricular white matter of the supratentorial brain. There is no evidence of intracranial hemorrhage. No contusion, extra-axial fluid collection, infarct, mass, or midline shift is seen. IMPRESSION: No skull fracture or intracranial injury. Vascular calcification and diffuse atrophy. Small vessel changes. No acute abnormality.. <Electronically signed by Haim Yung > 09/26/20 [id number]
--- NOTE | 2020-09-26 15:09 | REP ---
INDICATION: trauma. COMPARISON: Comparison cervical spine CT study is from March 28, 2019.. TECHNIQUE: Helical scanning is acquired and overlapping 2 mm high resolution axial images were generated and reviewed at bone and soft tissue window settings. Coronal and sagittal multiplanar re-formations images are generated. FINDINGS: There is no evidence of cervical spine element fracture. No skull base fracture is seen. Cervical vertebral body heights are preserved. Alignment is normal. Facet joints are normally aligned bilaterally at each cervical level on multiplanar re-formations images. There is no evidence of intraspinal or paraspinal hematoma. No extra vertebral abnormality is seen. There is osteoarthritic facet hypertrophy on the left at C2-3, C3-4, and C5-6. The right C4-5 facet joint is fused. There are emphysematous changes in the lung apices. Osteoarthritic changes are seen in the temporomandibular joints, left more so than right. Findings are unchanged from the comparison study. IMPRESSION: Degenerative spondylosis changes. No fracture or other acute bony abnormality.. <Electronically signed by Haim Yung > 09/26/20 [id number]
--- NOTE | 2020-09-26 15:16 | REP ---
INDICATION: trauma. COMPARISON: Comparison is made with today's lumbar study and a prior lumbar study from January 29, 2019. TECHNIQUE: Helical scanning is acquired 4 mm axial images are generated. Coronal and sagittal MPR images are generated. FINDINGS: There is diffuse osteopenia. There is some straightening of the normal thoracic kyphosis. There is osteoporotic wedge compression deformity at the T11 vertebral body. This is more pronounced than it was on the January 29, 2019 study. There is approximately 50% loss of anterior vertebral body height at T11. Stenotic peer to be an acute fracture however. There is partial collapse of the superior endplate at T12 which is felt to be unchanged. There is less reactive sclerosis at this fracture site. Other thoracic vertebrae are preserved in height. No other fracture is seen. No posterior element thoracic fracture is observed. No paravertebral hematoma or soft tissue swelling is appreciated. Vascular calcification is noted. Numerous hepatic cysts are seen with several cyst cyst wall calcifications in the liver. IMPRESSION: There are old osteoporotic compression fracture deformities at T11 and T12. There is interval loss of vertebral body height at T11 compared with the 2019 prior study but this fracture does not appear to be acute. No other thoracic spine fracture or subluxation. <Electronically signed by Haim Yung > 09/26/20 [id number]
--- NOTE | 2020-09-26 15:21 | REP ---
INDICATION: trauma. COMPARISON: Comparison lumbar spine CT study January 29, 2019.. TECHNIQUE: Helical scanning is acquired. 4 mm axial images are re-formatted. Coronal and sagittal MPR images are provided. FINDINGS: There are multiple wedge compression deformities in the lumbar spine. On the 2018 prior study, there was approximately 50% loss of anterior vertebral body height at L1 with reactive sclerosis. On today's study there is collapse of the superior endplate of L4, L3, and L2 in addition. There is some increased convexity to the inferior endplate at L3. At L3 there is approximately 30% loss of anterior vertebral body height. At L2, 10-15%, and L4, 10-15%. There does appear to be reactive sclerosis at each of these sites consistent with subacute injuries. There are degenerative disc changes with vacuum phenomena visible in each lumbar disc. No paravertebral soft tissue hematoma is appreciated. No posterior element fracture is seen. There is minimal 2-3 mm retropulsion of the superior aspect of the posterior cortex of L3. The L1 wedge compression fracture is the most advanced but this is unchanged in appearance. There is some reactive anterior spur formation at L1. No spinous process or transverse process fracture is seen. Incidental note is made of a small abdominal aortic aneurysm, 2.8 x 3.0 cm. IMPRESSION: Osteoporotic wedge compression deformities are seen at each level L1 through L4. The L2, L3, and L4 deformities are new when compared with the January 29, 2019 study but healing sclerotic changes are noted associated with these deformity suggesting subacute injury. <Electronically signed by Haim Yung > 09/26/20 [id number]
[2020-09-26 15:41] VITALS: BP 134/70
== END 2020-09-26 16:13 | disposition home or self-care (01) ==
LOC: EDBD 13:52 → M ED 13:52
DX: S22.000D Wedge compression fracture of unspecified thoracic vertebra, subsequent encounter for fracture with routine healing (principal); S32.000D Wedge compression fracture of unspecified lumbar vertebra, subsequent encounter for fracture with routine healing; W18.39XD Other fall on same level, subsequent encounter; Y92.128 Other place in nursing home as the place of occurrence of the external cause; I12.9 Hypertensive chronic kidney disease with stage 1 through stage 4 chronic kidney disease, or unspecified chronic kidney disease; N18.4 Chronic kidney disease, stage 4 (severe); I25.10 Atherosclerotic heart disease of native coronary artery without angina pectoris; E78.5 Hyperlipidemia, unspecified; Z79.899 Other long term (current) drug therapy; Z79.82 Long term (current) use of aspirin

== ENCOUNTER → 2020-10-02 | Outpatient (REF) | payer MEDICARE, OTHER ==
[~2020-10-02] MED LIST changes: +D31000TA2 PO; +MILKSUS3 PO
== END ==
PROVIDERS: ATTEND Internal Medicine
DX: R05 Cough (principal)

== ENCOUNTER → 2020-10-25 | Outpatient (REF) | payer MEDICARE, OTHER | PROVIDERS: ATTEND Internal Medicine | DX: Z01.89 Encounter for other specified special examinations (principal) ==